=== PATIENT | male | born 1945 | race Caucasian/White ===

== ENCOUNTER → 2016-06-14 | Outpatient (CLI) | payer MEDICARE, OTHER | LOC: OD 14:55 | PROVIDERS: ATTEND Family Medicine | DX: M79.641 Pain in right hand (principal); M19.041 Primary osteoarthritis, right hand ==

== ENCOUNTER → 2016-06-27 | Outpatient (CLI) | payer MEDICARE, OTHER ==
[2016-06-27 08:07] LABS: ABSOLUTE EOSINOPHILS # (AUTO) 0.4 10^3/uL (0.0-0.6); ABSOLUTE LYMPHOCYTES (AUTO) 2.1 10^3/uL (0.5-4.7); ABSOLUTE MONOCYTES (AUTO) 0.8 10^3/uL (0.1-1.4); ABSOLUTE NEUT (AUTO) 4.6 10^3/uL (1.7-8.2); BASOPHILS % (AUTO) 0.6 % (0-2); EOSINOPHILS % (AUTO) 5.4 % (0-6); HEMATOCRIT 30.5 % (37.9-51.0); HEMOGLOBIN 10.3 g/dL (13.5-17.0); HGB HCT DIFFERENCE 0.4; MEAN CORPUSCULAR HEMOGLOBIN 29.6 pg (27.0-33.4); MEAN CORPUSCULAR HGB CONC 33.7 g/dL (32.0-36.0); MEAN CORPUSCULAR VOLUME 88 fl (80-97); MONOCYTES % (AUTO) 9.7 % (3-13); RED BLOOD COUNT 3.47 10^6/uL (4.35-5.55); RED CELL DISTRIBUTION WIDTH 13.2 % (11.5-14.0); SEGMENTED NEUTROPHILS % (AUTO) 58.3 % (42-78); WHITE BLOOD COUNT 7.9 10^3/uL (4.0-10.5)
[2016-06-27 08:10] LABS: APPEARANCE,URINE CLEAR; BILIRUBIN,URINE NEGATIVE (NEGATIVE); GLUCOSE, URINE NEGATIVE (NEGATIVE); KETONES,URINE NEGATIVE (NEGATIVE); LEUKOCYTE ESTERASE,URINE NEGATIVE (NEGATIVE); NITRITE,URINE NEGATIVE (NEGATIVE); PROTEIN,URINE NEGATIVE (NEGATIVE); URINE SPECIFIC GRAVITY 1.008; UROBILINOGEN,URINE NEGATIVE mg/dL (<2.0)
[2016-06-27 08:27] LABS: ALBUMIN 4.1 g/dL (3.5-5.0); ANION GAP 13 (5-19); BLOOD UREA NITROGEN 53 mg/dL (7-20); CALCIUM 10.2 mg/dL (8.4-10.2); CARBON DIOXIDE 29 mmol/L (22-30); CHLORIDE 107 mmol/L (98-107); CREATININE RESULT 2.91 mg/dL (0.52-1.25); GLUCOSE 82 mg/dL (75-110); PHOSPHORUS 4.8 mg/dL (2.5-4.5); POTASSIUM 4.5 mmol/L (3.6-5.0)
[2016-06-28 10:45] LABS: VITAMIN D 25-HYDROXY 33.5 ng/mL (30.0-100.0)
[2016-06-28 11:40] LABS: CREATININE URINE 48.4 mg/dL (Not Estab.); MICROALBUMIN URINE <3.0 ug/mL (Not Estab.)
== END ==
LOC: OD 07:05
PROVIDERS: ATTEND Internal Medicine Nephrology
DX: N18.4 Chronic kidney disease, stage 4 (severe) (principal); E11.21 Type 2 diabetes mellitus with diabetic nephropathy; D63.1 Anemia in chronic kidney disease
CPT/HCPCS: 36415; 80048; 81001; 82040; 82043; 82306; 82570; 83970; 84100; 85025

== ENCOUNTER → 2016-08-26 | Outpatient (CLI) | payer MEDICARE, OTHER ==
--- NOTE | 2016-08-26 08:08 | EKG REPORT ---
SEVERITY:- NORMAL ECG - SINUS RHYTHM NONSPECIFIC ST-T CHANGES- INFERIOR LEADS : Confirmed by: Lui Velasquez MD 26-Aug-2016 08:07:53
[2016-08-26 08:12] LABS: ABSOLUTE BASOPHILS # (AUTO) 0.1 10^3/uL (0.0-0.2); ABSOLUTE EOSINOPHILS # (AUTO) 0.4 10^3/uL (0.0-0.6); ABSOLUTE LYMPHOCYTES (AUTO) 2.6 10^3/uL (0.5-4.7); ABSOLUTE NEUT (AUTO) 5.4 10^3/uL (1.7-8.2); BASOPHILS % (AUTO) 0.8 % (0-2); EOSINOPHILS % (AUTO) 4.4 % (0-6); HEMATOCRIT 33.1 % (37.9-51.0); HEMOGLOBIN 11.2 g/dL (13.5-17.0); HGB HCT DIFFERENCE 0.5; LYMPHOCYTES % (AUTO) 27.5 % (13-45); MEAN CORPUSCULAR HEMOGLOBIN 29.6 pg (27.0-33.4); MEAN CORPUSCULAR HGB CONC 33.8 g/dL (32.0-36.0); MEAN CORPUSCULAR VOLUME 88 fl (80-97); MONOCYTES % (AUTO) 10.3 % (3-13); RED BLOOD COUNT 3.78 10^6/uL (4.35-5.55); RED CELL DISTRIBUTION WIDTH 14.2 % (11.5-14.0); WHITE BLOOD COUNT 9.5 10^3/uL (4.0-10.5)
[2016-08-26 08:23] LABS: PROTHROMBIN TIME 12.7 SEC (11.4-15.4)
[2016-08-26 08:24] LABS: PARTIAL THROMBOPLASTIN TIME 28.2 SEC (23.5-35.8)
[2016-08-26 08:34] LABS: ANION GAP 16 (5-19); BLOOD UREA NITROGEN 73 mg/dL (7-20); CALCIUM 10.1 mg/dL (8.4-10.2); CARBON DIOXIDE 27 mmol/L (22-30); CHLORIDE 104 mmol/L (98-107); CREATININE RESULT 3.05 mg/dL (0.52-1.25); GLUCOSE 191 mg/dL (75-110); POTASSIUM 4.7 mmol/L (3.6-5.0); SODIUM 146.8 mmol/L (137-145)
[2016-08-26 08:37] LABS: APPEARANCE,URINE CLEAR; BILIRUBIN,URINE NEGATIVE (NEGATIVE); GLUCOSE, URINE NEGATIVE (NEGATIVE); KETONES,URINE NEGATIVE (NEGATIVE); LEUKOCYTE ESTERASE,URINE NEGATIVE (NEGATIVE); NITRITE,URINE NEGATIVE (NEGATIVE); PROTEIN,URINE NEGATIVE (NEGATIVE); URINE SPECIFIC GRAVITY 1.009; UROBILINOGEN,URINE NEGATIVE mg/dL (<2.0)
== END ==
LOC: OD 07:14
PROVIDERS: ATTEND Orthopaedic Surgery
DX: Z01.818 Encounter for other preprocedural examination (principal); Z01.810 Encounter for preprocedural cardiovascular examination; Z01.812 Encounter for preprocedural laboratory examination
CPT/HCPCS: 36415; 71020; 80048; 81001; 83036; 85025; 85610; 85730; 93005; 93010

== ENCOUNTER 2016-10-07 05:20 | Inpatient (IN) | payer MEDICARE, OTHER ==
[2016-09-26 13:35] LABS: APPEARANCE,URINE CLEAR; BILIRUBIN,URINE NEGATIVE (NEGATIVE); GLUCOSE, URINE 50 mg/dL (NEGATIVE); KETONES,URINE NEGATIVE (NEGATIVE); LEUKOCYTE ESTERASE,URINE NEGATIVE (NEGATIVE); NITRITE,URINE NEGATIVE (NEGATIVE); PROTEIN,URINE NEGATIVE (NEGATIVE); URINE SPECIFIC GRAVITY 1.005; UROBILINOGEN,URINE NEGATIVE mg/dL (<2.0)
[~2016-10-07 05:20] MED LIST: BUPIVACAINE INJ/PF LIPOSOME/PF 266 MG/20 ML SDV IJ PRN; CEFAZOLIN INJ 1 GM VIAL ONE; IBUPROFEN 800 MG/NS 250 ML IV PRN; LACTATED RINGERS 1000 ML IV PRN; LANSOPRAZOLE 15 MG TAB.RAP.DR PO PRN; LIDOCAINE 0.5% INJ-PF (5 MG/ML) 50 ML SDV SUBCUT PRN; OXYCODONE HCL SR 10 MG TABLET PO PRN; SCOPOLAMINE HYDROBROMIDE 1.5 MG PATCH.TD72 TOP PRN; VANCOMYCIN HCL 1,000 MG in DEXTROSE 5%-WATER 250 ML IV PRN
[2016-10-07] MEDS ORDERED: THROMBIN (BOVINE) TOPICAL 20000 UNIT VIAL ONE (06:47)
[2016-10-07] MEDS ORDERED: BUPIVACAINE INJ/PF LIPOSOME/PF 266 MG/20 ML SDV ONE (06:48)
[2016-10-07] MEDS ORDERED: THROMBIN (BOVINE) 5000 UNIT EPITAXIS KIT ONE (06:48)
[2016-10-07] MEDS ORDERED: MIDAZOLAM 2 MG/2 ML INJ ONE (07:05)
[2016-10-07] MEDS ORDERED: FENTANYL CITRATE INJ/PF 100 MCG/2 ML AMPUL ONE (07:05)
[2016-10-07] MEDS ORDERED: TRANEXAMIC ACID INJ/PF 1,000 MG/10 ML SDV IV ONE (07:06)
[2016-10-07] MEDS ORDERED: PROPOFOL INJ 200 MG/20 ML VIAL IV ONE (07:06)
[2016-10-07] MEDS ORDERED: MEPERIDINE HCL/PF INJ 25 MG/1 ML DISP.SYRIN IV PRN (08:01)
[2016-10-07] MEDS ORDERED: PROMETHAZINE HCL INJ 25 MG/1 ML VIAL IV PRN ×2 (08:01)
[2016-10-07] MEDS ORDERED: FENTANYL CITRATE INJ/PF 100 MCG/2 ML AMPUL IV PRN ×2 (08:01)
[2016-10-07] MEDS ORDERED: ONDANSETRON HCL INJ/PF 4 MG/2 ML SDV IV PRN ×2 (08:01→08:40)
[2016-10-07] MEDS ORDERED: DIPHENHYDRAMINE HCL 50 MG/ML VIAL IV PRN ×2 (08:01→08:40)
[2016-10-07] MEDS ORDERED: MORPHINE SULFATE 10 MG/ML INJ IV PRN ×3 (08:01→08:40)
[2016-10-07] MEDS ORDERED: NITROGLYCERIN 0.4 MG/TAB 25 TAB/BOTTLE SL PRN (08:38)
[2016-10-07] MEDS ORDERED: (PENDING PHARMACY ID) (Zolpidem Tartrate [Ambien 10 Mg Tablet] 10 MG) PO PRN (08:38)
[2016-10-07] MEDS ORDERED: MORPHINE SULFATE 10 MG/ML INJ IM PRN (08:40)
[2016-10-07] MEDS ORDERED: MAG HYDROX/AL HYDROX/SIMETH SUSP 30 ML UDCUP PO PRN (08:40)
[2016-10-07] MEDS ORDERED: ZOLPIDEM TARTRATE 5 MG TABLET PO PRN (08:40)
[2016-10-07] MEDS ORDERED: RINGERS SOLUTION,LACTATED 1,000 ML IV PRN (08:40)
[2016-10-07] MEDS ORDERED: ONDANSETRON 4 MG TAB.RAPDIS PO PRN (08:40)
[2016-10-07] MEDS ORDERED: [UNRECOGNIZED DRUG - OTHER] PO SCH (08:45)
[2016-10-07] MEDS ORDERED: SODIUM POLYSTYRENE SULFONATE PO SCH (08:45)
[2016-10-07] MEDS ORDERED: SORBITOL PO SCH (08:45)
--- NOTE | 2016-10-07 08:46 | Operative Report ---
Operative Report DATE OF SURGERY: 10/07/16 PREOPERATIVE DIAGNOSIS: Knee arthritis OPERATION: Left knee arthroplasty SURGEON: NALDO SKINNER ANESTHESIA: Spinal TISSUE REMOVED OR ALTERED: Bone to pathology ESTIMATED BLOOD LOSS: .100 PROCEDURE: Implants used: Femur: Triathlon #5 CR femur Tibia: 4 to Tibial liner: 11 millimeters CS insert Patella: 32 mm oval patella Procedure with the patient supine on the operating table the left the limb is prepped and draped in a sterile fashion. The limb was elevated for exsanguination and the tourniquet inflated to 280 torr. A standard midline median parapatellar approach the knee is taken. Access is gained to the femoral canal through the intercondylar notch. Intramedullary alignment instrumentation used to resect 10 mm of distal femur in 5 of valgus. Sizing guide indicated a size 5 femur. Appropriate cutting jig is then used to fashion anterior posterior and chamfer cuts. A trial reduction femurs performed and this is judged to be adequate. Attention was next turned to the tibia. Using an extra medullary alignment system 9 millimeters was resected off the lateral tibial plateau. This is sized to a size or tibia. A trial reduction was now performed with a 5 femur and a 4 tibia using a 11 millimeters spacer. It is full extension and central patellofemoral tracking. The articular surface the patella was next resected using an oscillating saw. All trial implants were removed. Polymethylmethacrylate is mixed and used to cement the above implants in place. On adequate curing the cement excess cement was removed the tourniquet was deflated hemostasis obtained the wound is then closed in layers using interrupted Vicryl followed by ashly. A sterile compressive dressing was applied and the patient returned to recovery room in satisfactory condition.
--- NOTE | 2016-10-07 09:27 | RADIOLOGY REPORT (SQ) ---
EXAM DESCRIPTION: KNEE LEFT 2 VIEWS COMPLETED DATE/TIME: 10/07/2016 9:14 am REASON FOR STUDY: Post OP -Long Cassette in PACU M17.12 UNILATERAL PRIMARY OSTEOARTHRITIS, LEFT KNE E COMPARISON: None. NUMBER OF VIEWS: 2 view(s). TECHNIQUE: Digital radiographic images of the left knee post-procedure. LIMITATIONS: None. FINDINGS: BONES: No worrisome or unexpected findings post-procedure. DEVICE: Patient is status post left total knee replacement. The prosthesis appears well seated in th e distal femur and proximal tibia in the projections obtained. SOFT TISSUES: No worrisome findings. Expected postoperative soft tissue changes. IMPRESSION: SATISFACTORY POSTOPERATIVE LEFT KNEE. TECHNICAL DOCUMENTATION: JOB ID: [id number] [employer]- All Rights Reserved
[2016-10-07] MEDS ORDERED: CALCITRIOL 0.25 MCG CAPSULE PO SCH (10:00)
[2016-10-07] MEDS ORDERED: MULTIVITAMIN TABLET PO SCH (10:00)
[2016-10-07] MEDS ORDERED: (PENDING PHARMACY ID) (Buspirone Hcl [Buspar 15 Mg Tablet] 7.5 MG) PO SCH (10:00)
[2016-10-07] MEDS ORDERED: DEXTROSE 50%-WATER SYRINGE 12.5 GM/25 ML DOSE IV PRN (10:06)
[2016-10-07] MEDS ORDERED: GLUCAGON,HUMAN RECOMB 1 MG INJ IM PRN (10:06)
[2016-10-07] MEDS ORDERED: DEXTROSE 50%-WATER SYRINGE 25 GM/50 ML DOSE IV PRN (10:06)
[2016-10-07] MEDS ORDERED: DEXTROSE 40% GEL 15 GM TUBE X 2 PO PRN (10:06)
[2016-10-07] MEDS ORDERED: DEXTROSE 40% GEL 15 GM TUBE PO PRN (10:06)
[2016-10-07] MEDS ORDERED: TRANEXAMIC ACID INJ/PF 1,000 MG/10 ML SDV IV PRN (10:30)
[2016-10-07] MEDS ORDERED: LIDOCAINE 2% INJ-PF (20 MG/ML) 10 ML AMPUL INJ ONE (11:27)
[2016-10-07] MEDS: SITAGLIPTIN PHOSPHATE 50 MG TABLET PO SCH (11:31)
[2016-10-07] MEDS: CARVEDILOL 12.5 MG TABLET PO SCH ×2 (11:33→22:10)
[2016-10-07] MEDS: MORPHINE SULFATE 10 MG/ML INJ IV PRN ×2 (12:21→20:35)
[2016-10-07] MEDS: IBUPROFEN 800 MG in NORMAL SALINE 250 ML IV SCH ×2 (13:47→22:23)
[2016-10-07] MEDS: INSULIN DETEMIR 100 UNIT/ML 3 ML PEN SUBCUT SCH ×2 (14:31→22:10)
[2016-10-07] MEDS: BUSPIRONE HCL 10 MG TABLET PO SCH ×2 (14:32→22:12)
[2016-10-07] MEDS: ACETAMINOPHEN 325 MG TABLET PO PRN ×2 (14:37→22:13)
[2016-10-07] MEDS: OXYCODONE HCL IR 5 MG TABLET PO PRN ×2 (16:10→22:12)
[2016-10-07] MEDS: SENNOSIDES/DOCUSATE 8.6-50 MG 1 EACH TABLET PO SCH (17:22)
[2016-10-07] MEDS: AMLODIPINE BESYLATE 10 MG TABLET PO SCH (17:22)
[2016-10-07] MEDS: ALLOPURINOL 100 MG TABLET PO SCH (17:22)
[2016-10-07] MEDS: ISOSORBIDE MONONITRATE 30 MG TAB.ER.24H PO SCH (17:22)
[2016-10-07] MEDS: FERROUS SULFATE 325 MG TABLET PO SCH (17:22)
[2016-10-07] MEDS: FUROSEMIDE 40 MG TABLET PO SCH (17:23)
[2016-10-07] MEDS: OXYCODONE HCL SR 10 MG TABLET PO SCH (17:23)
[2016-10-07] MEDS: FENOFIBRATE NANOCRYSTALLIZED 48 MG TABLET PO SCH (17:25)
[2016-10-07] MEDS ORDERED: VANCOMYCIN HCL 1,000 MG in DEXTROSE 5%-WATER 250 ML IV ONE (21:00)
[2016-10-07] MEDS: LATANOPROST 0.005% OPH SOLN 2.5 ML OU SCH (22:08)
[2016-10-07] MEDS: INSULIN LISPRO 100 UNIT/ML 3 ML VIAL SUBCUT PRN (22:09)
[2016-10-07] MEDS: BRIMONIDINE TARTRATE 0.2% OPH SOLN 5 ML OU SCH (22:09)
[2016-10-07] MEDS: TIMOLOL MALEATE 0.5% OPH SOLN 5 ML OU SCH (22:10)
[2016-10-07] MEDS: ATORVASTATIN CALCIUM 20 MG TABLET PO SCH (22:11)
[2016-10-07] MEDS: GABAPENTIN 300 MG CAPSULE PO SCH (22:11)
[2016-10-07] MEDS: RIVAROXABAN 10 MG TABLET PO SCH (22:11)
[2016-10-07] MEDS: CHLORZOXAZONE 500 MG TABLET PO PRN (22:12)
[2016-10-07] MEDS: CLONIDINE HCL 0.2 MG TABLET PO SCH (22:12)
[2016-10-08] MEDS: IBUPROFEN 800 MG in NORMAL SALINE 250 ML IV SCH ×3 (06:20→21:35)
[2016-10-08 06:25] LABS: HEMATOCRIT 30.9 % (37.9-51.0); HEMOGLOBIN 10.3 g/dL (13.5-17.0); MEAN CORPUSCULAR HEMOGLOBIN 29.2 pg (27.0-33.4); MEAN CORPUSCULAR HGB CONC 33.3 g/dL (32.0-36.0); MEAN CORPUSCULAR VOLUME 88 fl (80-97); RED BLOOD COUNT 3.51 10^6/uL (4.35-5.55); RED CELL DISTRIBUTION WIDTH 14.1 % (11.5-14.0); WHITE BLOOD COUNT 16.6 10^3/uL (4.0-10.5)
[2016-10-08] MEDS: LANSOPRAZOLE 30 MG TAB.RAP.DR PO SCH (06:25)
[2016-10-08] MEDS: OXYCODONE HCL SR 10 MG TABLET PO SCH ×2 (06:25→17:47)
[2016-10-08] MEDS: OXYCODONE HCL IR 5 MG TABLET PO PRN ×2 (06:26→13:28)
[2016-10-08] MEDS: BUSPIRONE HCL 10 MG TABLET PO SCH ×3 (06:26→21:33)
[2016-10-08 06:46] LABS: ANION GAP 14 (5-19); BLOOD UREA NITROGEN 59 mg/dL (7-20); CALCIUM 9.8 mg/dL (8.4-10.2); CARBON DIOXIDE 29 mmol/L (22-30); CHLORIDE 101 mmol/L (98-107); CREATININE RESULT 2.73 mg/dL (0.52-1.25); GLUCOSE 118 mg/dL (75-110); POTASSIUM 4.3 mmol/L (3.6-5.0); SODIUM 143.7 mmol/L (137-145)
[2016-10-08] MEDS ORDERED: (PENDING PHARMACY ID) (Irbesartan [Avapro] 150 MG) PO SCH (08:00)
[2016-10-08] MEDS ORDERED: MORPHINE SULFATE 10 MG/ML INJ IV PRN (08:29)
[2016-10-08] MEDS: MORPHINE SULFATE 10 MG/ML INJ IV PRN (08:48)
[2016-10-08] MEDS: CLONIDINE HCL 0.2 MG TABLET PO SCH ×2 (09:36→21:30)
[2016-10-08] MEDS: PRENATAL VITAMIN W-O CA NO5/FE FUMARATE/FA CAPSULE PO SCH (09:36)
[2016-10-08] MEDS: LOSARTAN POTASSIUM 50 MG TABLET PO SCH (09:36)
[2016-10-08] MEDS: CARVEDILOL 12.5 MG TABLET PO SCH ×2 (09:37→21:30)
[2016-10-08] MEDS: GABAPENTIN 300 MG CAPSULE PO SCH ×2 (09:37→21:30)
[2016-10-08] MEDS: COLCHICINE 0.6 MG TABLET PO SCH (09:37)
[2016-10-08] MEDS: INSULIN DETEMIR 100 UNIT/ML 3 ML PEN SUBCUT SCH ×2 (09:37→21:35)
[2016-10-08] MEDS: SENNOSIDES/DOCUSATE 8.6-50 MG 1 EACH TABLET PO SCH ×2 (09:37→17:45)
[2016-10-08] MEDS: FUROSEMIDE 40 MG TABLET PO SCH ×2 (09:37→17:45)
[2016-10-08] MEDS: BRIMONIDINE TARTRATE 0.2% OPH SOLN 5 ML OU SCH ×2 (09:38→21:33)
[2016-10-08] MEDS: TIMOLOL MALEATE 0.5% OPH SOLN 5 ML OU SCH ×2 (09:40→21:33)
[2016-10-08] MEDS: FERROUS SULFATE 325 MG TABLET PO SCH (17:45)
[2016-10-08] MEDS: AMLODIPINE BESYLATE 10 MG TABLET PO SCH (17:45)
[2016-10-08] MEDS: ISOSORBIDE MONONITRATE 30 MG TAB.ER.24H PO SCH (17:45)
[2016-10-08] MEDS: ALLOPURINOL 100 MG TABLET PO SCH (17:45)
[2016-10-08] MEDS: FENOFIBRATE NANOCRYSTALLIZED 48 MG TABLET PO SCH (21:19)
[2016-10-08] MEDS: RIVAROXABAN 10 MG TABLET PO SCH (21:30)
[2016-10-08] MEDS: ATORVASTATIN CALCIUM 20 MG TABLET PO SCH (21:30)
[2016-10-08] MEDS: LATANOPROST 0.005% OPH SOLN 2.5 ML OU SCH (21:33)
[2016-10-08] MEDS: INSULIN LISPRO 100 UNIT/ML 3 ML VIAL SUBCUT PRN (21:33)
[2016-10-08] MEDS: CHLORZOXAZONE 500 MG TABLET PO PRN (21:33)
[2016-10-09] MEDS: IBUPROFEN 800 MG in NORMAL SALINE 250 ML IV SCH (05:27)
[2016-10-09] MEDS: ACETAMINOPHEN 325 MG TABLET PO PRN ×3 (05:49→15:54)
[2016-10-09] MEDS: LANSOPRAZOLE 30 MG TAB.RAP.DR PO SCH (05:49)
[2016-10-09] MEDS: BUSPIRONE HCL 10 MG TABLET PO SCH ×3 (05:49→23:01)
[2016-10-09] MEDS: OXYCODONE HCL SR 10 MG TABLET PO SCH (05:50)
[2016-10-09 06:02] LABS: HEMATOCRIT 27.9 % (37.9-51.0); HEMOGLOBIN 9.1 g/dL (13.5-17.0); HGB HCT DIFFERENCE -0.6; MEAN CORPUSCULAR HEMOGLOBIN 29.2 pg (27.0-33.4); MEAN CORPUSCULAR HGB CONC 32.6 g/dL (32.0-36.0); MEAN CORPUSCULAR VOLUME 90 fl (80-97); RED BLOOD COUNT 3.12 10^6/uL (4.35-5.55); RED CELL DISTRIBUTION WIDTH 14.2 % (11.5-14.0); WHITE BLOOD COUNT 17.5 10^3/uL (4.0-10.5)
[2016-10-09] MEDS ORDERED: HYDROCODONE/ACETAMINOPHEN 5-325 MG TABLET PO PRN (07:44)
--- NOTE | 2016-10-09 07:48 | PDOC PROGRESS REPORT ---
Subjective Progress Note for:: 10/09/16 Subjective:: Patient complaining of pain Physical Exam Vital Signs: Temp Pulse Resp BP Pulse Ox 38.3 C H 78 20 117/54 L 93 10/09/16 04:00 10/09/16 04:00 10/09/16 04:00 10/09/16 04:00 10/09/16 04:00 Intake & Output 10/08/16 10/09/16 10/10/16 06:59 06:59 06:59 Intake Total 3768 2295 Output Total 3550 425 Balance 218 1870 Weight 101.5 kg General appearance: PRESENT: no acute distress Head exam: PRESENT: normocephalic Eye exam: PRESENT: EOMI Respiratory exam: PRESENT: unlabored Cardiovascular exam: PRESENT: RRR Pulses: PRESENT: +1 pedal pulses bilateral Vascular exam: PRESENT: normal capillary refill GI/Abdominal exam: PRESENT: soft Rectal exam: PRESENT: deferred - Left knee picot dressing with small amounts of drainage that appear old. There is minimal surrounding erythema or induration. Neurovascular examination is intact. Psychiatric exam: PRESENT: appropriate affect, normal mood. ABSENT: homicidal ideation, suicidal ideation Skin exam: PRESENT: dry, intact, warm. ABSENT: cyanosis, rash Results Laboratory Results: 10/09/16 05:20 10/08/16 05:37 10/09/16 05:20 WBC 17.5 H RBC 3.12 L Hgb 9.1 L Hct 27.9 L MCV 90 MCH 29.2 MCHC 32.6 RDW 14.2 H Plt Count 271 Impressions: Knee X-Ray 10/07/16 08:41 IMPRESSION: SATISFACTORY POSTOPERATIVE LEFT KNEE. Status: Imported from PACS Assessment & Plan - Diagnosis (1) Arthritis of knee, left Is this a current diagnosis for this admission?: YesPlan: 71-year-old white male postop day 2 status post left knee arthroplasty. Yesterday there was oversedation from narcotics. This led to limited progress with physical therapy. The patient's narcotics have been held overnight and now is complaining of pain this morning. Of note he is also had a fever to 38.3 and his white count has increased to 17.5. This does not appear to be related to his knee wound at this point. Going to readjust his analgesic regimen and resume physical therapy today. - Time Time Spent with patient: 15-24 minutes Anticipated discharge: Home with Homehealth
[2016-10-09] MEDS: CARVEDILOL 12.5 MG TABLET PO SCH ×2 (11:22→23:02)
[2016-10-09] MEDS: CLONIDINE HCL 0.2 MG TABLET PO SCH ×2 (11:22→23:02)
[2016-10-09] MEDS: PRENATAL VITAMIN W-O CA NO5/FE FUMARATE/FA CAPSULE PO SCH (11:22)
[2016-10-09] MEDS: COLCHICINE 0.6 MG TABLET PO SCH (11:22)
[2016-10-09] MEDS: GABAPENTIN 300 MG CAPSULE PO SCH ×2 (11:22→23:02)
[2016-10-09] MEDS: LOSARTAN POTASSIUM 50 MG TABLET PO SCH (11:23)
[2016-10-09] MEDS: SITAGLIPTIN PHOSPHATE 50 MG TABLET PO SCH (11:23)
[2016-10-09] MEDS: SENNOSIDES/DOCUSATE 8.6-50 MG 1 EACH TABLET PO SCH ×2 (11:23→17:28)
[2016-10-09] MEDS: FUROSEMIDE 40 MG TABLET PO SCH ×2 (11:23→17:28)
[2016-10-09] MEDS: BRIMONIDINE TARTRATE 0.2% OPH SOLN 5 ML OU SCH ×2 (11:24→23:04)
[2016-10-09] MEDS: TIMOLOL MALEATE 0.5% OPH SOLN 5 ML OU SCH ×2 (11:24→23:01)
[2016-10-09] MEDS: INSULIN DETEMIR 100 UNIT/ML 3 ML PEN SUBCUT SCH ×2 (11:24→23:03)
[2016-10-09] MEDS: INSULIN LISPRO 100 UNIT/ML 3 ML VIAL SUBCUT PRN ×2 (16:23→23:03)
[2016-10-09] MEDS: ISOSORBIDE MONONITRATE 30 MG TAB.ER.24H PO SCH (17:27)
[2016-10-09] MEDS: FERROUS SULFATE 325 MG TABLET PO SCH (17:28)
[2016-10-09] MEDS: ALLOPURINOL 100 MG TABLET PO SCH (17:28)
[2016-10-09] MEDS: FENOFIBRATE NANOCRYSTALLIZED 48 MG TABLET PO SCH (17:28)
[2016-10-09] MEDS: AMLODIPINE BESYLATE 10 MG TABLET PO SCH (18:50)
[2016-10-09] MEDS: LATANOPROST 0.005% OPH SOLN 2.5 ML OU SCH (23:00)
[2016-10-09] MEDS: ATORVASTATIN CALCIUM 20 MG TABLET PO SCH (23:01)
[2016-10-09] MEDS: RIVAROXABAN 10 MG TABLET PO SCH (23:02)
[2016-10-10] MEDS: BUSPIRONE HCL 10 MG TABLET PO SCH ×2 (05:26→15:37)
[2016-10-10] MEDS: LANSOPRAZOLE 30 MG TAB.RAP.DR PO SCH (05:27)
[2016-10-10 06:49] LABS: HEMATOCRIT 25.8 % (37.9-51.0); HEMOGLOBIN 8.6 g/dL (13.5-17.0); MEAN CORPUSCULAR HGB CONC 33.3 g/dL (32.0-36.0); MEAN CORPUSCULAR VOLUME 87 fl (80-97); RED BLOOD COUNT 2.95 10^6/uL (4.35-5.55); RED CELL DISTRIBUTION WIDTH 14.1 % (11.5-14.0)
--- NOTE | 2016-10-10 07:03 | PDOC TRANSFER SUMMARY ---
General - Admit/Disc Date/PCP Admission Date/Primary Care Provider: 10/07/16 05:20 YESSY DELA CRUZ MD Discharge Date: 10/10/16 - Discharge Diagnosis (1) Arthritis of knee, left Is this a current diagnosis for this admission?: Yes - Additional Information Resuscitation Status: Full Code Discharge Diet: As Tolerated, Regular Discharge Activity: Balance Activity w/Rest, No Driving, No tub bath Home Medications: Furosemide [Lasix 40 mg Tablet] 40 mg PO BID 07/04/11 Latanoprost [Xalatan 0.005% Oph Soln 2.5 ml] 1 drop OU QHS 07/04/11 Zolpidem Tartrate [Ambien 10 mg Tablet] 10 mg PO QHS PRN 07/04/11 Buspirone HCl [Buspar 15 mg Tablet] 7.5 mg PO BID 10/19/12 Insulin Detemir [Levemir Insulin 100 units/mL] 80 unit SUBCUT Q12 10/19/12 Amlodipine Besylate [Norvasc 10 mg Tablet] 10 mg PO QPM 11/24/12 Aspirin [Aspirin 325 mg Tablet] 325 mg PO DAILY 11/24/12 Carvedilol [Coreg 6.25 mg Tablet] 12.5 mg PO Q12 11/24/12 Chlorzoxazone [Parafon Forte Dsc 500 mg Tablet] 500 mg PO Q8 PRN 11/24/12 Gabapentin [Neurontin 300 mg Capsule] 300 mg PO BID 11/24/12 Multivitamin [Multi-Vitamin Daily] 1 tab PO DAILY 11/24/12 Budesonide/Formoterol Fumarate [Symbicort HFA 160-4.5 mcg Inhaler 6 gm] 1 puff PO BID 10/13/13 Insulin Aspart [Novolog Insulin (Aspart) 100 unit/mL] 6 - 8 units SQ TIDP PRN Irbesartan [Avapro] 150 mg PO QAM 10/13/13 Brimonidine Tartrate/Timolol [Combigan 0.2%-0.5% Eye Drops] 1 drop OU Q12 Clonidine HCl [Catapres] 0.2 mg PO Q12 08/01/14 Fenofibrate Nanocrystallized [Fenofibrate] 48 mg PO QPM 08/01/14 Ferrous Sulfate [Feosol] 325 mg PO QPM 08/01/14 Sitagliptin Phosphate [Januvia 50 mg Tablet] 100 mg PO ASDIR PRN 08/01/14 Atorvastatin Calcium [Lipitor] 20 mg PO QAM 08/02/14 Calcitriol 0.25 mcg PO MOFR 08/02/14 Colchicine [Colchicine 0.6 mg Tablet] 0.6 mg PO QAM 08/02/14 Isosorbide Mononitrate [Isosorbide Mononitrate ER] 30 mg PO QPM 08/02/14 Nitroglycerin 0.4 mg SL PRN PRN 08/02/14 Pantoprazole Sodium [Protonix] 40 mg PO QAM 08/02/14 Sodium Polystyrene Sulfon/Sorb [Kionex 15 gm/60 ml Suspension] 30 gm PO Q7D 11/09 Allopurinol [Zyloprim 100 mg Tablet] 100 mg PO QPM 09/25/16 Fluticasone Propionate [Flonase Nasal Mascot 50 Mcg/Mascot 16 gm] 1 spray NASL QPM 09/25/16 Hydrocodone/Acetaminophen [[place] 5-325 mg Tablet] 1 tab PO Q6HP PRN #0 tablet Rivaroxaban [Xarelto 10 mg Tablet] 10 mg PO QHS #0 tablet 10/10/16 History of Present Illness Admission Date/PCP: 10/07/16 05:20 YESSY DELA CRUZ MD History of Present Illness: ADELE DC JR is a 71 year old male progressive left knee pain and functional disability secondary to osteoarthritis Hospital Course Hospital Course: Is admitted to the operating room where he undergoes uncomplicated left knee arthroplasty. He is returned to the floor in satisfactory condition. He seen by physical therapy begin to make progress but has some alteration of mental status presumed secondary to overmedication. Narcotic medication is readjusted and patient is more interactive with physical therapy makes progress. Dressing is changed to the left lower extremity today. Wound is clean dry and intact. Physical Exam Vital Signs: Temp Pulse Resp BP Pulse Ox 37.6 C 81 18 136/56 H 88 L 10/09/16 23:20 10/09/16 23:20 10/09/16 23:20 10/09/16 23:20 10/09/16 23:20 Intake & Output 10/09/16 10/10/16 10/11/16 06:59 06:59 06:59 Intake Total 2295 1045 Output Total 425 850 Balance 1870 195 Weight 101.5 kg 100.9 kg General appearance: PRESENT: no acute distress Head exam: PRESENT: normocephalic Respiratory exam: PRESENT: unlabored Cardiovascular exam: PRESENT: RRR Pulses: PRESENT: +1 pedal pulses bilateral GI/Abdominal exam: PRESENT: soft Rectal exam: PRESENT: deferred Musculoskeletal exam: PRESENT: other - Left lower extremity picot dressing is changed today. The wound is clean dry and intact. Neurological exam: PRESENT: alert, awake, oriented to person, oriented to place , oriented to time, oriented to situation. ABSENT: motor sensory deficit Psychiatric exam: PRESENT: appropriate affect, normal mood. ABSENT: homicidal ideation, suicidal ideation Skin exam: PRESENT: dry, intact, warm. ABSENT: cyanosis, rash Results Laboratory Results: 10/10/16 06:16 10/08/16 05:37 10/10/16 06:16 WBC 14.0 H RBC 2.95 L Hgb 8.6 L Hct 25.8 L MCV 87 MCH 29.0 MCHC 33.3 RDW 14.1 H Plt Count 239 Impressions: Knee X-Ray 10/07/16 08:41 IMPRESSION: SATISFACTORY POSTOPERATIVE LEFT KNEE. Status: Imported from PACS Transfer Plan - Disposition Transfer Plan: Be transferred to a [facility] facility for ongoing postoperative rehabilitation including range of motion and strengthening of the left lower extremity as well as weightbearing as tolerated ambulation. The left knee picot dressing can be changed on postop day 7 and replaced with a standard OpSite dressing. Follow-up will be with Dr. Anderson in the [facility] for surgery in approximately 2 weeks for staple removal.
[2016-10-10] MEDS: INSULIN DETEMIR 100 UNIT/ML 3 ML PEN SUBCUT SCH (09:26)
[2016-10-10] MEDS: TIMOLOL MALEATE 0.5% OPH SOLN 5 ML OU SCH (09:27)
[2016-10-10] MEDS: PRENATAL VITAMIN W-O CA NO5/FE FUMARATE/FA CAPSULE PO SCH (09:28)
[2016-10-10] MEDS: FUROSEMIDE 40 MG TABLET PO SCH (09:28)
[2016-10-10] MEDS: COLCHICINE 0.6 MG TABLET PO SCH (09:30)
[2016-10-10] MEDS: CARVEDILOL 12.5 MG TABLET PO SCH (09:30)
[2016-10-10] MEDS: CLONIDINE HCL 0.2 MG TABLET PO SCH (09:30)
[2016-10-10] MEDS: SENNOSIDES/DOCUSATE 8.6-50 MG 1 EACH TABLET PO SCH (09:30)
[2016-10-10] MEDS: LOSARTAN POTASSIUM 50 MG TABLET PO SCH (09:31)
[2016-10-10] MEDS: GABAPENTIN 300 MG CAPSULE PO SCH (09:31)
[2016-10-10] MEDS: BRIMONIDINE TARTRATE 0.2% OPH SOLN 5 ML OU SCH (09:31)
[2016-10-10 13:48] VITALS: BP 136/59
[2016-10-12] MEDS ORDERED: SODIUM POLYSTYRENE SULFONATE 15 GM/60 ML PO SCH (10:00)
== END 2016-10-10 17:02 | DRG 470 ==
LOC: INOR 05:20 → 4S 10:15
PROVIDERS: ADMIT Orthopaedic Surgery; ATTEND Orthopaedic Surgery
PROC: 0SRD0J9 Replacement of Left Knee Joint with Synthetic Substitute, Cemented, Open Approach (ICD-10-PCS; principal; 2016-10-07 07:30)
DX: M17.12 Unilateral primary osteoarthritis, left knee (principal); N18.4 Chronic kidney disease, stage 4 (severe); I25.10 Atherosclerotic heart disease of native coronary artery without angina pectoris; K21.9 Gastro-esophageal reflux disease without esophagitis; I12.9 Hypertensive chronic kidney disease with stage 1 through stage 4 chronic kidney disease, or unspecified chronic kidney disease; E11.22 Type 2 diabetes mellitus with diabetic chronic kidney disease; G47.30 Sleep apnea, unspecified; E78.00 Pure hypercholesterolemia, unspecified; Z90.49 Acquired absence of other specified parts of digestive tract; Z83.3 Family history of diabetes mellitus; Z82.3 Family history of stroke; Z80.1 Family history of malignant neoplasm of trachea, bronchus and lung; Z79.899 Other long term (current) drug therapy; Z79.4 Long term (current) use of insulin
CPT/HCPCS: 01402; 36415; 80048; 81001; 82962; 84132; 85027; 88304; 88311; 94799; C9290; G8978-GP; G8979-GP; G8987-GO; G8988-GO; J0690; J1741; J1815; J2250; J2270; J2704; J3010; J3370; J3490; J7050; J7060; S0119

== ENCOUNTER 2017-02-01 10:56 | Inpatient (IN) | payer MEDICARE, OTHER ==
[2017-02-01] MEDS ORDERED: NORMAL SALINE 1000 ML 1,000 ML IV ONE (11:11)
[2017-02-01 11:26] LABS: ABSOLUTE BASOPHILS # (AUTO) 0.1 10^3/uL (0.0-0.2); ABSOLUTE EOSINOPHILS # (AUTO) 0.2 10^3/uL (0.0-0.6); ABSOLUTE NEUT (AUTO) 8.7 10^3/uL (1.7-8.2); BASOPHILS % (AUTO) 0.6 % (0-2); EOSINOPHILS % (AUTO) 1.6 % (0-6); HEMATOCRIT 28.7 % (37.9-51.0); HEMOGLOBIN 9.9 g/dL (13.5-17.0); LYMPHOCYTES % (AUTO) 16.4 % (13-45); MEAN CORPUSCULAR HEMOGLOBIN 30.6 pg (27.0-33.4); MEAN CORPUSCULAR HGB CONC 34.3 g/dL (32.0-36.0); MEAN CORPUSCULAR VOLUME 89 fl (80-97); MONOCYTES % (AUTO) 8.6 % (3-13); RED BLOOD COUNT 3.22 10^6/uL (4.35-5.55); RED CELL DISTRIBUTION WIDTH 14.5 % (11.5-14.0); SEGMENTED NEUTROPHILS % (AUTO) 72.8 % (42-78); WHITE BLOOD COUNT 11.9 10^3/uL (4.0-10.5)
--- NOTE | 2017-02-01 11:41 | RADIOLOGY REPORT (SQ) ---
EXAM DESCRIPTION: CHEST SINGLE VIEW COMPLETED DATE/TIME: 02/01/2017 11:26 am REASON FOR STUDY: syncope COMPARISON: 08/26/2016 EXAM PARAMETERS: NUMBER OF VIEWS: One view. TECHNIQUE: Single frontal radiographic view of the chest acquired. RADIATION DOSE: NA LIMITATIONS: None. FINDINGS: LUNGS AND PLEURA: No new opacities, masses or pneumothorax. No pleural effusion. MEDIASTINUM AND HILAR STRUCTURES: No masses. Contour normal. HEART AND VASCULAR STRUCTURES: Heart stable in size. Normal vasculature. BONES: No acute findings. HARDWARE: None in the chest. OTHER: No other significant finding. IMPRESSION: NO ACUTE RADIOGRAPHIC FINDING IN THE CHEST. NO SIGNIFICANT CHANGE FROM PRIOR STUDY. TECHNICAL DOCUMENTATION: JOB ID: [id number]
--- NOTE | 2017-02-01 11:41 | RADIOLOGY REPORT (SQ) ---
EXAM DESCRIPTION: ANKLE RIGHT COMPLETE COMPLETED DATE/TIME: 02/01/2017 11:26 am REASON FOR STUDY: bed 20 +deformity bedside pls r/t low bp COMPARISON: None. NUMBER OF VIEWS: Three views. TECHNIQUE: AP, lateral, and oblique radiographic images acquired of the right ankle. LIMITATIONS: None. FINDINGS: MINERALIZATION: Osteopenia. BONES: Moderately displaced distal fibula fracture at the level of the syndesmosis along with posteri or malleolar fracture. JOINTS: There is significant widening of the medial tibiotalar joint space compatible with rupture of the deltoid ligament SOFT TISSUES: Associated soft tissue swelling. Vascular calcifications. OTHER: No other significant finding. IMPRESSION: DISTAL FIBULAR FRACTURE, POSTERIOR MALLEOLAR FRACTURE, AND WIDENING OF THE TIBIOTALAR TORY INT SPACE COMPATIBLE WITH DISRUPTION OF THE DELTOID LIGAMENT. TECHNICAL DOCUMENTATION: JOB ID: [id number] [employer]- All Rights Reserved
[2017-02-01 11:43] LABS: ALANINE AMINOTRANSFERASE 30 U/L (21-72); ALBUMIN 3.8 g/dL (3.5-5.0); ALKALINE PHOSPHATASE 66 U/L (38-126); ANION GAP 14 (5-19); ASPARTATE AMINO TRANSFERASE 18 U/L (17-59); BILIRUBIN,DIRECT 0.4 mg/dL (0.0-0.4); BILIRUBIN,TOTAL 0.4 mg/dL (0.2-1.3); BLOOD UREA NITROGEN 93 mg/dL (7-20); CALCIUM 9.4 mg/dL (8.4-10.2); CARBON DIOXIDE 25 mmol/L (22-30); CHLORIDE 105 mmol/L (98-107); CREATINE KINASE 334 U/L (55-170); CREATININE RESULT 3.99 mg/dL (0.52-1.25); GLUCOSE 134 mg/dL (75-110); POTASSIUM 5.4 mmol/L (3.6-5.0); SODIUM 143.8 mmol/L (137-145); TOTAL PROTEIN 6.4 g/dL (6.3-8.2)
--- NOTE | 2017-02-01 11:49 | RADIOLOGY REPORT (SQ) ---
EXAM DESCRIPTION: CT HEAD WITHOUT COMPLETED DATE/TIME: 02/01/2017 11:38 am REASON FOR STUDY: syncope COMPARISON: MRI from 08/01/2014 TECHNIQUE: Axial images acquired through the brain without intravenous contrast. Images reviewed wi th bone, brain and subdural windows. Images stored on PACS. All CT scanners at this facility use dose modulation, iterative reconstruction, and/or weight based d osing when appropriate to reduce radiation dose to as low as reasonably achievable (ALARA). [facility]: Dose Right [facility]: CareDose [facility]: Dose Right [facility]: Teradose 4D [facility]: Smart [employer] RADIATION DOSE: Up-to-date CT equipment and radiation dose reduction techniques were employed. CTDIv ol: 64.6 mGy. DLP: 1034 mGy-cm. mGy. LIMITATIONS: None. FINDINGS: VENTRICLES: Normal size and contour. CEREBRUM: No masses. No hemorrhage. No midline shift. No evidence for acute infarction. Normal gra y/white matter differentiation. No areas of low density in the white matter. CEREBELLUM: No masses. No hemorrhage. No alteration of density. No evidence for acute infarction. EXTRAAXIAL SPACES: No fluid collections. No masses. ORBITS AND GLOBE: No intra- or extraconal masses. Normal contour of right globe without masses. Pro sthetic left globe. CALVARIUM: No fracture. PARANASAL SINUSES: No fluid or mucosal thickening. SOFT TISSUES: No mass or hematoma. OTHER: No other significant finding. IMPRESSION: NORMAL BRAIN CT WITHOUT CONTRAST. EVIDENCE OF ACUTE STROKE: NO. COMMENT: Quality ID # [id number]: Final reports with documentation of one or more dose reduction techniques (e.g., Automated exposure control, adjustment of the mA and/or kV according to patient size, use of iterative reconstruction technique) TECHNICAL DOCUMENTATION: JOB ID: [id number]- All Rights Reserved
--- NOTE | 2017-02-01 11:56 | RADIOLOGY REPORT (SQ) ---
EXAM DESCRIPTION: KNEE LEFT 3 VIEWS COMPLETED DATE/TIME: 02/01/2017 11:48 am REASON FOR STUDY: syncope pian COMPARISON: 10/07/2016 NUMBER OF VIEWS: Three views. TECHNIQUE: AP, lateral, and sunrise patella radiographic images acquired of the left knee. LIMITATIONS: None. FINDINGS: MINERALIZATION: Normal. BONES: No acute fracture or dislocation. No worrisome bone lesions. JOINT: Status post total knee arthroplasty. Small joint effusion. SOFT TISSUES: No soft tissue swelling. No radio-opaque foreign body. OTHER: No other significant finding. IMPRESSION: NO DEFINITE FRACTURE OR HARDWARE COMPLICATION. SMALL JOINT EFFUSION. TECHNICAL DOCUMENTATION: JOB ID: [id number] [employer]- All Rights Reserved
[2017-02-01 11:58] LABS: TROPONIN I < 0.012 ng/mL
[2017-02-01] MEDS ORDERED: ONDANSETRON HCL INJ/PF 4 MG/2 ML SDV IV ONE (12:45)
[2017-02-01] MEDS ORDERED: HYDROMORPHONE HCL INJ/PF 2 MG/ML AMPULE IV ONE (12:45)
[2017-02-01] MEDS ORDERED: HYDROMORPHONE HCL INJ/PF 2 MG/ML AMPULE ONE (13:04)
--- NOTE | 2017-02-01 14:10 | RADIOLOGY REPORT (SQ) ---
EXAM DESCRIPTION: ANKLE RIGHT COMPLETE COMPLETED DATE/TIME: 02/01/2017 2:02 pm REASON FOR STUDY: post splint COMPARISON: 02/01/2017 NUMBER OF VIEWS: Three views. TECHNIQUE: AP, lateral, and oblique radiographic images acquired of the right ankle. LIMITATIONS: None. FINDINGS: MINERALIZATION: Normal. BONES: Stable degree of displacement complex ankle fractures status post casting. JOINTS: Stable disruption of the tibiotalar joint space. SOFT TISSUES: Persistent soft tissue swelling. OTHER: No other significant finding. IMPRESSION: NO SIGNIFICANT IMPROVEMENT IN ALIGNMENT OF COMPLEX ANKLE FRACTURES STATUS POST CASTING. TECHNICAL DOCUMENTATION: JOB ID: [id number] [employer]- All Rights Reserved
[2017-02-01] MEDS ORDERED: KETAMINE HCL INJ 500 MG/10 ML VIAL IV ONE (14:14)
[2017-02-01] MEDS ORDERED: MIDAZOLAM 2 MG/2 ML INJ IV ONE (14:15)
--- NOTE | 2017-02-01 14:23 | ER Document Report ---
ED General - General Chief Complaint: Syncope Stated Complaint: FALL ANKLE PAIN Time Seen by Provider: 02/01/17 11:10 TRAVEL OUTSIDE OF THE [place] IN LAST 30 DAYS: No - HPI Patient complains to provider of: Syncopal episode ankle deformity Notes: Patient is a pleasant gentleman states PCP is Dr. Mead coming in today after syncopal episode. Patient states he was sitting on his front porch watching a rain when he stood up felt lightheaded dizzy thought he was hungry try to make it to inside the house to eat when he collapsed. Patient states when he came to he tried to stand up again and again had another syncopal episode. According to EMS patient had a third syncopal episode on the way to the ER. Patient has a history of diabetes hypertension. Patient denies any recent travel denies any chest pain abdominal pain nausea vomiting diarrhea prior to during or after these episodes. Patient is unaware if he hit his head or strike his head against any object. Patient has obvious deformity to the right ankle. Otherwise patient is ANO 4 alert nontoxic looking upon my evaluation - Related Data Allergies/Adverse Reactions: codeine Allergy (Verified 09/25/16 14:45) rash, disoriented Home Medications: Current Home Medications Allopurinol [Zyloprim 100 mg Tablet] 100 mg PO DAILY 02/01/17 [History] Amlodipine Besylate [Norvasc 10 mg Tablet] 10 mg PO QHS 02/01/17 [History] Atorvastatin Calcium [Lipitor 20 mg Tablet] 20 mg PO DAILY 02/01/17 [History] Calcitriol [Rocaltrol 0.25 mcg Capsule] 0.25 mcg PO MOFR 02/01/17 [History] Carvedilol [Carvedilol] 12.5 mg PO BID 02/01/17 [History] Carvedilol [Coreg 12.5 mg Tablet] 12.5 mg PO Q12 02/01/17 [History] Clonidine HCl [Catapres 0.2 mg Tablet] 0.2 mg PO Q12 02/01/17 [History] Colchicine [Colcrys 0.6 mg Tablet] 0.6 mg PO DAILY 02/01/17 [History] Fenofibrate Nanocrystallized [Fenofibrate] 48 mg PO WBRKFST 02/01/17 [History] Fluticasone Propionate [Flonase Nasal [place] 50 Mcg/[place] 16 gm] 1 spray NASL DAILY 02/01/17 [History] Furosemide [Lasix 40 mg Tablet] 40 mg PO BID 02/01/17 [History] Guanfacine HCl 1 mg PO QHS 02/01/17 [History] Irbesartan [Avapro] 150 mg PO DAILY 02/01/17 [History] Irbesartan [Irbesartan] 150 mg PO QHS 02/01/17 [History] Isosorbide Mononitrate [Imdur 30 mg Tablet.er] 30 mg PO QAM 02/01/17 [History] Pantoprazole Sodium [Protonix] 40 mg PO DAILY 02/01/17 [History] Sitagliptin Phosphate [Januvia 50 mg Tablet] 100 mg PO DAILY 02/01/17 [History] Sodium Polystyrene Sulfon/Sorb [Sps 15 gm/60 ml Suspension] 15 gm PO Q7D [History] Timolol Maleate [Timoptic 0.5% Oph Soln 5 ml] 1 drop OU DAILY 02/01/17 [History] Zolpidem Tartrate [Ambien] 10 mg PO QHS 02/01/17 [History] Past Medical History - Social History Smoking Status: Never Smoker Chew tobacco use (# tins/day): No Frequency of alcohol use: Rare Drug Abuse: None Family History: Reviewed & Not Pertinent, Hypertension - Past Medical History Cardiac Medical History: Reports: Hx Congestive Heart Failure, Hx Coronary Artery Disease - small blockage & small aortic valve leakage, Hx Hypercholesterolemia, Hx Hypertension Denies: Hx Atrial Fibrillation, Hx Heart Attack, Hx Peripheral Vascular Disease, Hx Pulmonary Embolism, Hx Heart Murmur Pulmonary Medical History: Reports: Hx Asthma - inhalers, Hx Pneumonia - 2 months ago, Hx Sleep Apnea - Uses CPAP Denies: Hx Bronchitis, Hx COPD, Hx Respiratory Failure, Hx Tuberculosis Neurological Medical History: Reports: Hx Seizures - possible at night..?. Denies: Hx Cerebrovascular Accident Endocrine Medical History: Reports: Hx Diabetes Mellitus Type 1, Hx Diabetes Mellitus Type 2, Hx Hypothyroidism. Denies: Hx Graves' Disease, Hx Hyperthyroidism Renal/ Medical History: Reports: Hx Renal Insufficiency. Denies: Hx Benign Prostatic Hyperplasia, Hx End Stage Renal Disease, Hx Kidney Stones, Hx Peritoneal Dialysis Malignancy Medical History: Denies Hx Leukemia, Denies Hx Lung Cancer GI Medical History: Reports: Hx Gastroesophageal Reflux Disease. Denies: Hx Crohn's Disease, Hx Hiatal Hernia, Hx Irritable Bowel, Hx Liver Failure, Hx Ulcer Musculoskeltal Medical History: Reports Hx Arthritis, Denies Hx Fibromyalgia, Denies Hx Multiple Sclerosis, Denies Hx Muscular Dystrophy Psychiatric Medical History: Reports: Hx Depression Denies: Hx Bipolar Disorder, Hx Dementia, Hx Post Traumatic Stress Disorder, Hx Schizophrenia Traumatic Medical History: Reports: Hx Fractures - left wrist Infectious Medical History: Denies: Hx HIV Past Surgical History: Reports: Hx Appendectomy, Hx Herniorrhaphy, Hx Orthopedic Surgery - right rotator cuff, Hx Tonsillectomy. Denies: Hx Bowel Surgery, Hx Cholecystectomy, Hx Colostomy, Hx Coronary Artery Bypass Graft, Hx Gastric Bypass Surgery, Hx Pacemaker - Immunizations Immunizations up to date: Yes Hx Diphtheria, Pertussis, Tetanus Vaccination: No Hx Pneumococcal Vaccination: 04/28/16 Review of Systems - Review of Systems Constitutional: No symptoms reported EENT: No symptoms reported Cardiovascular: Syncope Respiratory: No symptoms reported Gastrointestinal: No symptoms reported Genitourinary: No symptoms reported Male Genitourinary: No symptoms reported Musculoskeletal: Other - Ankle deformity Skin: No symptoms reported Hematologic/Lymphatic: No symptoms reported Neurological/Psychological: No symptoms reported Physical Exam - Vital signs Vitals: Resp Pulse Ox 14 95 02/01/17 11:06 02/01/17 11:06 Interpretation: Normal - General General appearance: Appears well, Alert - HEENT Head: Normocephalic, Atraumatic Eyes: Normal Pupils: PERRL - Respiratory Respiratory status: No respiratory distress Chest status: Nontender Breath sounds: Normal Chest palpation: Normal - Cardiovascular Rhythm: Regular Heart sounds: Normal auscultation Murmur: No - Abdominal Inspection: Normal Distension: No distension Bowel sounds: Normal Tenderness: Nontender Organomegaly: No organomegaly - Back Back: Normal, Nontender - Extremities General upper extremity: Normal inspection, Nontender, Normal color, Normal ROM , Normal temperature General lower extremity: No: Normal inspection - Deformity of the right ankle with capillary refill intact. Patient does have a slight abrasion to the medial malleolus however there is no signs of open fracture. - Neurological Neuro grossly intact: Yes Cognition: Normal Orientation: AAOx4 Ramona Coma Scale Eye Opening: Spontaneous Edgar Coma Scale Verbal: Oriented Ramona Coma Scale Motor: Obeys Commands Edgar Coma Scale Total: 15 Speech: Normal Motor strength normal: LUE, RUE, LLE, RLE Sensory: Normal - Psychological Associated symptoms: Normal affect, Normal mood - Skin Skin Temperature: Warm Skin Moisture: Dry Skin Color: Normal Course - Re-evaluation Re-evalutation: 02/01/17 15:57 Patient with 3 syncopal episodes laboratory studies showing a renal insufficiency that has worsened however no other critical pathology. Patient's head CT chest x-ray knee x-ray were negative x-ray of the right ankle does show fracture. This was thought to be aligned initially with just gentle traction was noted conscious sedation however repeat x-rays showed malalignment. Patient underwent conscious sedation with appropriate reduction and splinting. Discussed patient's case with covering PCP Dr. Lora who requested orthopedics be involved before he would admit the patient. Although we do not have any orthopedic coverage today patient has received surgery from a orthopedic group knee replacement by Dr. Anderson I placed a call to Dr. Avery who was covering for their group who very graciously agreed to see the patient in consult. I related this to the family members who are very appreciative of Dr. Avery as was I for taking this consult. Dr. Avery was able to look at the reduction and agrees with the final results. Dr. Nazario Adame after having orthopedic involvement agrees to admit the patient for his syncopal episodes. - Vital Signs Vital signs: Temp Pulse Resp BP Pulse Ox 61 11 L 133/78 H 98 02/01/17 15:35 02/01/17 15:35 02/01/17 15:35 02/01/17 15:35 - Laboratory Result Diagrams: 02/01/17 11:00 02/01/17 11:00 Laboratory results interpreted by me: 02/01/17 02/01/17 11:00 11:00 WBC 11.9 H RBC 3.22 L Hgb 9.9 L Hct 28.7 L RDW 14.5 H Absolute Neutrophils 8.7 H Potassium 5.4 H BUN 93 H Creatinine 3.99 H Est GFR ( Amer) 18 L Est GFR (Non-Af Amer) 15 L Glucose 134 H Creatine Kinase 334 H Procedures - Conscious Sedation Conscious sedation Time started: 15:00 Time completed: 15:10 Consent obtained: Yes Indication: Fracture reduction Last meal: >6 hours Prior complications: Procedural sedation Pt with a mild systemic disease.: P2. - ASA Classification. Airway Evaluation: Normal anatomy Mallampati Classification: Class 2 Used during procedure: Suction available, IV access obtained, Pulse ox on pt., ekg monitor tech on pt. Medications administered: Versed, Ketamine Reversal agents: None I personally performed/intraservice time: Sedation, Procedure, 30 min or less Notes: After ministration of the Versed reduction was performed patient with a history of sleep apnea did have a period of apnea that the patient was bagging through with a BVM this was less than a minute of bagging - Immobilization Right Ankle Immobilizer type: Other - Short leg with a OCL ankle stirrup Performed by: Provider assisted Post-Proc Neuro Vasc Exam: Normal Alignment checked and good: Yes - Joint Reduction/Fracture Care Right Ankle Consent obtained: Yes Conscious sedation: Yes Pre-procedure NV exam: Yes Fracture: Closed Manipulation comment: Gentle traction with plantar flexion Post-procedure NV exam: No Post-reduction x-ray: Joint reduced Reduction attempts: 2 Notes: 02/01/17 16:02 2 reduction attempts first attempt without sedation second attempt and final attempt with sedation Critical Care Note - Critical Care Note Total time excluding time spent on procedures (mins): 35 Comments: Patient with multiple syncopal episodes. Multiple evaluations. Discharge - Discharge Clinical Impression: Syncope, Closed right ankle fracture, Diabetes mellitus, Sleep apnea, Chronic kidney disease Condition: Good Disposition: ADMITTED INPATIENT Admitting Provider: [facility] Admitted: Telemetry
[2017-02-01] MEDS ORDERED: LIDOCAINE 2% URO-JET 5 ML KIT MM ONE (15:19)
--- NOTE | 2017-02-01 15:31 | RADIOLOGY REPORT (SQ) ---
EXAM DESCRIPTION: ANKLE RIGHT AP/LATERAL COMPLETED DATE/TIME: 02/01/2017 3:23 pm REASON FOR STUDY: POST REDUCTION/ POST SPLINT COMPARISON: 02/01/2017 NUMBER OF VIEWS: Two views. TECHNIQUE: AP and lateral radiographic images acquired of the right ankle. LIMITATIONS: None. FINDINGS: MINERALIZATION: Normal. BONES: Significant improvement of alignment of previous described complex right ankle fractures. JOINTS: Mortise is now congruent in the syndesmosis is normally aligned. SOFT TISSUES: Persistent soft tissue swelling. OTHER: Cast in place. IMPRESSION: STANDARD ALIGNMENT RIGHT ANKLE STATUS POST REDUCTION AND CASTING OF COMPLEX ANKLE FRACTU RES. TECHNICAL DOCUMENTATION: JOB ID: [id number] [employer]- All Rights Reserved
[2017-02-01 16:59] LABS: APPEARANCE,URINE CLEAR; BILIRUBIN,URINE NEGATIVE (NEGATIVE); GLUCOSE, URINE 150 mg/dL (NEGATIVE); KETONES,URINE NEGATIVE (NEGATIVE); LEUKOCYTE ESTERASE,URINE NEGATIVE (NEGATIVE); NITRITE,URINE NEGATIVE (NEGATIVE); PROTEIN,URINE NEGATIVE (NEGATIVE); URINE SPECIFIC GRAVITY 1.011; UROBILINOGEN,URINE NEGATIVE mg/dL (<2.0)
[2017-02-01] MEDS ORDERED: TIMOLOL OS SCH (20:30)
[2017-02-01] MEDS ORDERED: LATANOPROST 0.005% OPH SOLN 2.5 ML OS SCH (20:30)
[2017-02-01] MEDS ORDERED: SODIUM POLYSTYRENE SULFONATE 15 GM/60 ML PO SCH (20:30)
[2017-02-01] MEDS ORDERED: DEXTROSE 50%-WATER 25 GM/50 ML DISP.SYRIN IV PRN ×2 (20:39)
[2017-02-01] MEDS ORDERED: DEXTROSE 40% GEL 15 GM TUBE PO PRN ×2 (20:39)
[2017-02-01] MEDS ORDERED: NORMAL SALINE 1000 ML 1,000 ML IV PRN (20:39)
[2017-02-01] MEDS ORDERED: GLUCAGON,HUMAN RECOMB 1 MG INJ IM PRN (20:39)
--- NOTE | 2017-02-01 21:12 | PDOC H&P ---
History of Present Illness Admission Date/PCP: 02/01/17 15:12 YESSY DELA CRUZ MD Patient complains of: Fall, right ankle pain, passed out History of Present Illness: ADELE DC JR is a 72 year old male of Dr. Dela Cruz who was brought to the ED with listed complaints. Patient reported that he was sitting on his pouch and noticed blurriness vision in his right eye. He reported having a prosthesis in his left eye. He claimed that his blood glucose have been elevated with regard to his diabetes mellitus management. In his effort to get up from sitting position he loss his balance and fell on to concrete floor on his pouch. He was unable to get off the floor and took awhile to get help, about 10-15 minutes. His grandson was attempting to help him off the floor but due to severe pain in his right ankle he feel back to the ground and claimed to have lost consciousness. He was eventually transported the the ED and EMS personnel reported another episode of syncope en-route to the hospital. His initial evaluation in the ED was remarkable for right ankle misalignment and pain with X ray finding suggestive of right ankle fracture. Due to associated syncope episodes he was advised hospitalization. Patient reported compliance with his medications. He denied chest pain, palpitation, headache, dizziness, nausea or vomiting. No abdominal pain. He denied similar symptoms or seizure activities in the past. His morbidities include DM type 2, HTN, HLD, CAD, CHF, Asthma, EJRSEY , questionable Seizure disorder, Hypothyroidism, GERD, Anemia, Osteoarthritis, and Depression. Past Medical History Cardiac Medical History: Reports: Congestive Heart Failure, Coronary Artery Disease - small blockage & small aortic valve leakage, Hyperlipidema, Hypertension Denies: Atrial Fibrillation, Myocardial Infarction, Peripheral Vascular Disease, Pulmonary Embolism, Heart Murmur Pulmonary Medical History: Reports: Asthma - inhalers, Pneumonia - 2 months ago , Sleep Apnea - Uses CPAP Denies: Bronchitis, Chronic Obstructive Pulmonary Disease (COPD), Respiratory Failure, Tuberculosis Neurological Medical History: Reports: Seizures - possible at night..? Endocrine Medical History: Reports: Diabetes Mellitus Type 1, Diabetes Mellitus Type 2, Hypothyroidism Denies: Hyperthyroidism Renal/ Medical History: Denies: End Stage Renal Disease Malignancy Medical History: Denies: Leukemia, Lung Cancer GI Medical History: Reports: Gastroesophageal Reflux Disease Denies: Crohn's Disease, Hiatal Hernia Musculoskeltal Medical History: Reports: Arthritis Denies: Fibromyalgia Psychiatric Medical History: Reports: Depression Denies: Bipolar Disorder, Dementia, Post Traumatic Stress Disorder Hematology: Reports: Anemia - because of kidneys Denies: Hemophilia, Sickle Cell Disease Infectious Medical History: Denies: HIV Past Surgical History Past Surgical History: Reports: Appendectomy, Herniorrhaphy, Orthopedic Surgery - right rotator cuff, Tonsillectomy Denies: Cholecystectomy, Colostomy, Coronary Artery Bypass Graft, Gastric Bypass Surgery, Pacemaker Social History Smoking Status: Never Smoker Frequency of Alcohol Use: None Hx Recreational Drug Use: No Drugs: None Hx Prescription Drug Abuse: No - Advance Directive Resuscitation Status: Full Code Family History Family History: Reviewed & Not Pertinent, Hypertension Parental Family History Reviewed: Yes Children Family History Reviewed: Yes Sibling(s) Family History Reviewed.: Yes Medication/Allergy Home Medications: Allopurinol [Zyloprim 100 mg Tablet] 02/01/17 Allopurinol [Zyloprim 100 mg Tablet] 100 mg PO DAILY 02/01/17 Allopurinol [Zyloprim 100 mg Tablet] 100 mg PO QHS 02/01/17 Amlodipine Besylate [Norvasc 10 mg Tablet] 10 mg PO QHS 02/01/17 Aspirin [Aspirin 325 mg Tablet] 325 mg PO QHS 02/01/17 Atorvastatin Calcium [Lipitor 20 mg Tablet] 20 mg PO DAILY 02/01/17 Atorvastatin Calcium [Lipitor 20 mg Tablet] 20 mg PO QHS 02/01/17 Budesonide/Formoterol Fumarate [Symbicort 160-4.5 Mcg Inhaler] 2 puff IN BID 11/11 Calcitriol [Rocaltrol 0.25 mcg Capsule] 0.25 mcg PO MOFR 02/01/17 Carvedilol [Carvedilol] 12.5 mg PO BID 02/01/17 Carvedilol [Coreg 12.5 mg Tablet] 12.5 mg PO Q12 02/01/17 Chlorzoxazone [Chlorzoxazone 250 mg Tablet] 500 mg pe PO DAILY PRN 02/01/17 Cholecalciferol (Vitamin D3) [Vitamin D3] 1,000 mg PO DAILY 02/01/17 Clonidine HCl [Catapres 0.2 mg Tablet] 0.2 mg PO Q12 02/01/17 Clonidine HCl [Clonidine HCl ER] 0.1 mg PO BID 02/01/17 Colchicine [Colchicine 0.6 mg Tablet] 0.6 mg PO DAILY PRN 02/01/17 Colchicine [Colcrys 0.6 mg Tablet] 0.6 mg PO DAILY 02/01/17 Fenofibrate Nanocrystallized [Fenofibrate] 48 mg PO WBRKFST 02/01/17 Fenofibrate Nanocrystallized [Fenofibrate] 48 mg pe PO DAILY 02/01/17 Ferrous Sulfate [Ferrousul] 325 mg PO QHS 02/01/17 Fluticasone Propionate [Flonase Nasal [place] 50 Mcg/[place] 16 gm] 1 spray NASL DAILY 02/01/17 Fluticasone/Salmeterol [Fluticasone-Salmeterol 55-14] 1 puff IN BID 02/01/17 Furosemide [Lasix 40 mg Tablet] 40 mg PO BID 02/01/17 Furosemide [Lasix] 40 mg PO BID 02/01/17 Gabapentin [Neurontin 300 mg Capsule] 300 mg PO BID 02/01/17 Guanfacine HCl 1 mg PO QHS 02/01/17 Insulin Aspart Prot/Insuln Asp [Novolog Mix 70-30 Vial] 02/01/17 Insulin Detemir [Levemir Flextouch] 100 unit SQ 02/01/17 Irbesartan [Avapro] 150 mg PO DAILY 02/01/17 Irbesartan [Irbesartan] 150 mg PO QHS 02/01/17 Isosorbide Mononitrate [Imdur 30 mg Tablet.er] 30 mg PO QAM 02/01/17 Isosorbide Mononitrate [Isosorbide Mononitrate ER] 02/01/17 Latanoprost 2.5 ml OS BID 02/01/17 P-Ephed HCl/Acetaminophn/Cp [Tylenol Allergy Complete Geltb] 500 each PO DAILY PRN 02/01/17 Pantoprazole Sodium [Protonix] 40 mg PO DAILY 02/01/17 Pantoprazole Sodium [Protonix] 40 mg PO QHS 02/01/17 Sitagliptin Phosphate [Januvia 50 mg Tablet] 100 mg PO DAILY 02/01/17 Sodium Polystyrene Sulfon/Sorb [Kionex 15 gm/60 ml Suspension] 02/01/17 Sodium Polystyrene Sulfon/Sorb [Sps 15 gm/60 ml Suspension] 15 gm PO Q7D Timolol Maleate [Timoptic 0.5% Oph Soln 5 ml] 1 drop OU DAILY 02/01/17 Timolol [Betimol] 10 ml OS BID 02/01/17 Zolpidem Tartrate [Ambien] 10 mg PO QHS 02/01/17 Allergies/Adverse Reactions: codeine Allergy (Verified 09/25/16 14:45) rash, disoriented Review of Systems Constitutional: ABSENT: chills, fever(s), headache(s), weight gain, weight loss Eyes: PRESENT: visual disturbances - CAWG Ears: ABSENT: hearing changes Nose, Mouth, and Throat: ABSENT: as per HPI, headache(s), mouth pain, sore throat, vertigo, other Cardiovascular: ABSENT: chest pain, dyspnea on exertion, edema, orthropnea, palpitations Respiratory: ABSENT: cough, hemoptysis Gastrointestinal: ABSENT: abdominal pain, constipation, diarrhea, hematemesis, hematochezia, nausea, vomiting Genitourinary: ABSENT: dysuria, hematuria Musculoskeletal: PRESENT: other - right ankle joint pain s/p fall and right ankle joint fracture.. ABSENT: joint swelling Integumentary: ABSENT: rash, wounds Neurological: ABSENT: abnormal gait, abnormal speech, confusion, dizziness, focal weakness, syncope Psychiatric: ABSENT: anxiety, depression, homidical ideation, suicidal ideation Endocrine: ABSENT: cold intolerance, heat intolerance, polydipsia, polyuria Hematologic/Lymphatic: ABSENT: easy bleeding, easy bruising, lymphadenopathy Allergic/Immunologic: ABSENT: seasonal rhinorrhea Physical Exam Vital Signs: Temp Pulse Resp BP Pulse Ox 67 18 137/60 H 97 02/01/17 17:49 02/01/17 16:52 02/01/17 16:52 02/01/17 16:52 Intake & Output 01/31/17 02/01/17 02/02/17 06:59 06:59 06:59 Intake Total 450 Balance 450 General appearance: PRESENT: cooperative, mild distress - due to right ankle joint pain Head exam: PRESENT: atraumatic, normocephalic Eye exam: PRESENT: conjunctiva pink, EOMI, PERRLA. ABSENT: scleral icterus Ear exam: PRESENT: normal external ear exam Mouth exam: PRESENT: moist, tongue midline Throat exam: ABSENT: post pharyngeal erythema, tonsillar erythema, tonsillar exudate, tonsillogmegaly, other Neck exam: PRESENT: full ROM. ABSENT: carotid bruit, JVD, lymphadenopathy, thyromegaly Respiratory exam: PRESENT: clear to auscultation [place] Cardiovascular exam: PRESENT: RRR. ABSENT: diastolic murmur, rubs, systolic murmur Pulses: PRESENT: normal dorsalis pedis pul - limited to left leg, +2 pedal pulses bilateral - limited to left leg Vascular exam: PRESENT: normal capillary refill. ABSENT: pallor GI/Abdominal exam: PRESENT: normal bowel sounds, soft. ABSENT: distended, guarding, mass, organolmegaly, rebound, tenderness Rectal exam: PRESENT: deferred Extremities exam: PRESENT: tenderness - right ankle joint with external splint RAVINDRA bandage in use.. ABSENT: joint swelling - limited to left leg, pedal edema - limited to left leg Musculoskeletal exam: PRESENT: tenderness - right ankle joint with motion Neurological exam: PRESENT: alert, awake, oriented to person, oriented to place , oriented to time, oriented to situation, CN II-XII grossly intact. ABSENT: motor sensory deficit Psychiatric exam: PRESENT: appropriate affect, normal mood. ABSENT: homicidal ideation, suicidal ideation Skin exam: PRESENT: dry, intact, warm. ABSENT: cyanosis, rash Results Laboratory Results: 02/01/17 16:26 Urine Color YELLOW Urine Appearance CLEAR Urine pH 5.0 Ur Specific [place] 1.011 Urine Protein NEGATIVE Urine Glucose (UA) 150 H Urine Ketones NEGATIVE Urine Blood NEGATIVE Urine Nitrite NEGATIVE Ur Leukocyte Esterase NEGATIVE Urine WBC (Auto) 0 Urine RBC (Auto) 0 Impressions: Chest X-Ray 02/01/17 11:11 IMPRESSION: NO ACUTE RADIOGRAPHIC FINDING IN THE CHEST. NO SIGNIFICANT CHANGE FROM PRIOR STUDY. Head CT 02/01/17 11:11 IMPRESSION: NORMAL BRAIN CT WITHOUT CONTRAST. EVIDENCE OF ACUTE STROKE: NO. Knee X-Ray 02/01/17 11:35 IMPRESSION: NO DEFINITE FRACTURE OR HARDWARE COMPLICATION. SMALL JOINT EFFUSION. Ankle X-Ray 02/01/17 13:43 IMPRESSION: NO SIGNIFICANT IMPROVEMENT IN ALIGNMENT OF COMPLEX ANKLE FRACTURES STATUS POST CASTING. Assessment & Plan - Diagnosis (1) Syncope Qualifiers: Syncope type: unspecified Qualified Code(s): R55 - Syncope and collapse Is this a current diagnosis for this admission?: Yes Plan: See admitting covering attending physician orders. He will undergo work up for syncope. (2) Closed right ankle fracture Qualifiers: Encounter type: initial encounter Qualified Code(s): S82.891A - Other fracture of right lower leg, initial encounter for closed fracture Is this a current diagnosis for this admission?: Yes Plan: See admitting covering attending physician orders. I will request orthopedic team consultation for surgical intervention. (3) Diabetes mellitus type 2 in obese Is this a current diagnosis for this admission?: Yes Plan: See admitting covering attending physician orders. (4) Obstructive sleep apnea of adult Is this a current diagnosis for this admission?: Yes Plan: See admitting covering attending physician orders. Allow patient to use his own CPAP machine at his setting. (5) Chronic kidney disease Qualifiers: Chronic kidney disease stage: stage 4 (severe) Qualified Code(s): N18.4 - Chronic kidney disease, stage 4 (severe) Is this a current diagnosis for this admission?: Yes Plan: See admitting covering attending physician orders. (6) HTN (hypertension) Qualifiers: Hypertension type: essential hypertension Qualified Code(s): I10 - Essential (primary) hypertension Is this a current diagnosis for this admission?: Yes Plan: See admitting covering attending physician orders. (7) Hyperlipidemia Qualifiers: Hyperlipidemia type: unspecified Qualified Code(s): E78.5 - Hyperlipidemia , unspecified Is this a current diagnosis for this admission?: Yes Plan: See admitting covering attending physician orders. (8) Mixed anxiety and depressive disorder Is this a current diagnosis for this admission?: Yes Plan: See admitting covering attending physician orders. (9) Persistent insomnia Is this a current diagnosis for this admission?: Yes Plan: See admitting covering attending physician orders. - Time Time Spent: Greater than 70 Minutes Medications reviewed and adjusted accordingly: Yes Anticipated discharge: Home with Homehealth Within: Other - Inpatient Certification Based on my medical assessment, after consideration of the patient's comorbidities, presenting symptoms, or acuity I expect that the services needed warrant INPATIENT care.: Yes I certify that my determination is in accordance with my understanding of Medicare's requirements for reasonable and necessary INPATIENT services [42 CFR 412.3e].: Yes Medical Necessity: Need Close Monitoring Due to Risk of Patient Decompensation, Need For IV Fluids, Need For Continuous Telemetry Monitoring, Need for Pain Control, Need for Surgery, Risk of Complication if Not Cared For in Hospital Post Hospital Care: D/C or Transfer Summary - Plan Summary Plan Summary: See admitting covering attending physician orders.
[2017-02-01] MEDS: HEPARIN SOD (PORCINE) 5,000 UNIT/ML 1 ML SYRINGE SUBCUT SCH (21:37)
[2017-02-01] MEDS: FERROUS SULFATE 325 MG TABLET PO SCH (21:37)
[2017-02-01] MEDS: AMLODIPINE BESYLATE 10 MG TABLET PO SCH (21:38)
[2017-02-01] MEDS: HYDROMORPHONE HCL INJ/PF 2 MG/ML AMPULE IV PRN (21:39)
[2017-02-01] MEDS: CLONIDINE HCL 0.2 MG TABLET PO SCH (21:39)
[2017-02-01] MEDS ORDERED: (PENDING PHARMACY ID) (Guanfacine Hcl [Guanfacine Hcl] 1 MG) PO SCH (22:00)
[2017-02-01] MEDS ORDERED: (PENDING PHARMACY ID) (Irbesartan [Irbesartan] 150 MG) PO SCH (22:00)
[2017-02-01] MEDS ORDERED: (PENDING PHARMACY ID) (Zolpidem Tartrate [Ambien] 10 MG) PO SCH (22:00)
[2017-02-01] MEDS ORDERED: ONDANSETRON HCL INJ/PF 4 MG/2 ML SDV ONE (22:45)
[2017-02-01] MEDS: LOSARTAN POTASSIUM 50 MG TABLET PO SCH (22:59)
[2017-02-01] MEDS: ZOLPIDEM TARTRATE 5 MG TABLET PO SCH (22:59)
[2017-02-01] MEDS: ATORVASTATIN CALCIUM 20 MG TABLET PO SCH (22:59)
[2017-02-01 23:30] LABS: PARTIAL THROMBOPLASTIN TIME 24.9 SEC (23.5-35.8)
[2017-02-01 23:48] LABS: CREATINE KINASE MB 2.23 ng/mL (<4.55)
[2017-02-01 23:49] LABS: TROPONIN I < 0.012 ng/mL
[2017-02-02] MEDS: HEPARIN SOD (PORCINE) 5,000 UNIT/ML 1 ML SYRINGE SUBCUT SCH ×3 (05:31→21:59)
[2017-02-02] MEDS: LANSOPRAZOLE 30 MG TAB.RAP.DR PO SCH (05:31)
[2017-02-02 05:40] LABS: ABSOLUTE BASOPHILS # (AUTO) 0.1 10^3/uL (0.0-0.2); ABSOLUTE EOSINOPHILS # (AUTO) 0.1 10^3/uL (0.0-0.6); ABSOLUTE LYMPHOCYTES (AUTO) 2.6 10^3/uL (0.5-4.7); ABSOLUTE MONOCYTES (AUTO) 0.9 10^3/uL (0.1-1.4); ABSOLUTE NEUT (AUTO) 8.8 10^3/uL (1.7-8.2); BASOPHILS % (AUTO) 1.1 % (0-2); EOSINOPHILS % (AUTO) 0.5 % (0-6); HEMATOCRIT 28.4 % (37.9-51.0); HEMOGLOBIN 9.8 g/dL (13.5-17.0); LYMPHOCYTES % (AUTO) 20.8 % (13-45); MEAN CORPUSCULAR HEMOGLOBIN 30.3 pg (27.0-33.4); MEAN CORPUSCULAR HGB CONC 34.6 g/dL (32.0-36.0); MEAN CORPUSCULAR VOLUME 88 fl (80-97); MONOCYTES % (AUTO) 7.1 % (3-13); RED BLOOD COUNT 3.24 10^6/uL (4.35-5.55); RED CELL DISTRIBUTION WIDTH 14.9 % (11.5-14.0); SEGMENTED NEUTROPHILS % (AUTO) 70.5 % (42-78); WHITE BLOOD COUNT 12.5 10^3/uL (4.0-10.5)
[2017-02-02 05:53] LABS: ANION GAP 13 (5-19); BLOOD UREA NITROGEN 82 mg/dL (7-20); CALCIUM 9.8 mg/dL (8.4-10.2); CARBON DIOXIDE 24 mmol/L (22-30); CHLORIDE 108 mmol/L (98-107); CREATININE RESULT 2.94 mg/dL (0.52-1.25); GLUCOSE 242 mg/dL (75-110); POTASSIUM 5.3 mmol/L (3.6-5.0); SODIUM 144.6 mmol/L (137-145)
[2017-02-02 06:06] LABS: TROPONIN I < 0.012 ng/mL
[2017-02-02] MEDS: ISOSORBIDE MONONITRATE 30 MG TAB.ER.24H PO SCH (08:06)
[2017-02-02] MEDS: INSULIN LISPRO 100 UNIT/ML 3 ML VIAL SUBCUT PRN ×3 (08:07→17:40)
[2017-02-02] MEDS: HYDROMORPHONE HCL INJ/PF 2 MG/ML AMPULE IV PRN (08:07)
[2017-02-02] MEDS: ONDANSETRON HCL INJ/PF 4 MG/2 ML SDV IV PRN ×2 (08:54→12:38)
[2017-02-02] MEDS ORDERED: CHOLECALCIFEROL 1000 MG PO SCH (10:00)
[2017-02-02] MEDS ORDERED: SALMETEROL IN SCH (10:00)
[2017-02-02] MEDS ORDERED: FLUTICASONE IN SCH (10:00)
[2017-02-02] MEDS ORDERED: DEXTROSE 50%-WATER 25 GM/50 ML DISP.SYRIN IV PRN ×2 (11:07)
[2017-02-02] MEDS ORDERED: DEXTROSE 40% GEL 15 GM TUBE PO PRN (11:07)
[2017-02-02] MEDS ORDERED: GLUCAGON,HUMAN RECOMB 1 MG INJ SUBCUT PRN (11:07)
--- NOTE | 2017-02-02 11:25 | PDOC CONSULTATION ---
History of Present Illness Admission Date/PCP: 02/01/17 15:12 YESSY DELA CRUZ MD Patient complains of: Right ankle injury History of Present Illness: ADELE DC JR is a 72 year old male of Dr[address] Dela Cruz who was brought to the ED on 02/01/17. Patient reported that he was sitting on his pouch and noticed blurriness vision in his right eye. He reported having a prosthesis in his left eye. He claimed that his blood glucose have been elevated with regard to his diabetes mellitus management. In his effort to get up from sitting position he loss his balance and fell on to concrete floor on his pouch. He was unable to get off the floor and took awhile to get help, about 10-15 minutes. His grandson was attempting to help him off the floor but due to severe pain in his right ankle he feel back to the ground and claimed to have lost consciousness. He was eventually transported the the ED and EMS personnel reported another episode of syncope en-route to the hospital. His initial evaluation in the ED was remarkable for right ankle misalignment and pain with X ray finding suggestive of right ankle fracture. Patient underwent closed reduction in the emergency room and was placed in a splint. He states his pain has improved after closed reduction. Denies numbness or tingling. Current pain 2/10. Improved with pain medication. Past Medical History Cardiac Medical History: Reports: Congestive Heart Failure, Coronary Artery Disease - small blockage & small aortic valve leakage, Hyperlipidema, Hypertension Denies: Atrial Fibrillation, Myocardial Infarction, Peripheral Vascular Disease, Pulmonary Embolism, Heart Murmur Pulmonary Medical History: Reports: Asthma - inhalers, Pneumonia - 2 months ago , Sleep Apnea - Uses CPAP Denies: Bronchitis, Chronic Obstructive Pulmonary Disease (COPD), Respiratory Failure, Tuberculosis Neurological Medical History: Reports: Seizures - possible at night..? Endocrine Medical History: Reports: Diabetes Mellitus Type 1, Diabetes Mellitus Type 2, Hypothyroidism Denies: Hyperthyroidism Renal/ Medical History: Denies: End Stage Renal Disease Malignancy Medical History: Denies: Leukemia, Lung Cancer GI Medical History: Reports: Gastroesophageal Reflux Disease Denies: Crohn's Disease, Hiatal Hernia Musculoskeltal Medical History: Reports: Arthritis Denies: Fibromyalgia Psychiatric Medical History: Reports: Depression Denies: Bipolar Disorder, Dementia, Post Traumatic Stress Disorder Hematology: Reports: Anemia - because of kidneys Denies: Hemophilia, Sickle Cell Disease Infectious Medical History: Denies: HIV Past Surgical History Past Surgical History: Reports: Appendectomy, Herniorrhaphy, Orthopedic Surgery - right rotator cuff, Tonsillectomy Denies: Cholecystectomy, Colostomy, Coronary Artery Bypass Graft, Gastric Bypass Surgery, Pacemaker Social History Smoking Status: Never Smoker Frequency of Alcohol Use: None Hx Recreational Drug Use: No Drugs: None Hx Prescription Drug Abuse: No - Advance Directive Resuscitation Status: Full Code Family History Family History: Reviewed & Not Pertinent, Hypertension Parental Family History Reviewed: No Children Family History Reviewed: No Sibling(s) Family History Reviewed.: No Medication/Allergy Home Medications: Allopurinol [Zyloprim 100 mg Tablet] 02/01/17 Allopurinol [Zyloprim 100 mg Tablet] 100 mg PO DAILY 02/01/17 Allopurinol [Zyloprim 100 mg Tablet] 100 mg PO QHS 02/01/17 Amlodipine Besylate [Norvasc 10 mg Tablet] 10 mg PO QHS 02/01/17 Aspirin [Aspirin 325 mg Tablet] 325 mg PO QHS 02/01/17 Atorvastatin Calcium [Lipitor 20 mg Tablet] 20 mg PO DAILY 02/01/17 Atorvastatin Calcium [Lipitor 20 mg Tablet] 20 mg PO QHS 02/01/17 Budesonide/Formoterol Fumarate [Symbicort 160-4.5 Mcg Inhaler] 2 puff IN BID 11/11 Calcitriol [Rocaltrol 0.25 mcg Capsule] 0.25 mcg PO MOFR 02/01/17 Carvedilol [Carvedilol] 12.5 mg PO BID 02/01/17 Carvedilol [Coreg 12.5 mg Tablet] 12.5 mg PO Q12 02/01/17 Chlorzoxazone [Chlorzoxazone 250 mg Tablet] 500 mg pe PO DAILY PRN 02/01/17 Cholecalciferol (Vitamin D3) [Vitamin D3] 1,000 mg PO DAILY 02/01/17 Clonidine HCl [Catapres 0.2 mg Tablet] 0.2 mg PO Q12 02/01/17 Clonidine HCl [Clonidine HCl ER] 0.1 mg PO BID 02/01/17 Colchicine [Colchicine 0.6 mg Tablet] 0.6 mg PO DAILY PRN 02/01/17 Colchicine [Colcrys 0.6 mg Tablet] 0.6 mg PO DAILY 02/01/17 Fenofibrate Nanocrystallized [Fenofibrate] 48 mg PO [id number] 02/01/17 Fenofibrate Nanocrystallized [Fenofibrate] 48 mg pe PO DAILY 02/01/17 Ferrous Sulfate [Ferrousul] 325 mg PO QHS 02/01/17 Fluticasone Propionate [Flonase Nasal Ferris 50 Mcg/Ferris 16 gm] 1 spray NASL DAILY 02/01/17 Fluticasone/Salmeterol [Fluticasone-Salmeterol 55-14] 1 puff IN BID 02/01/17 Furosemide [Lasix 40 mg Tablet] 40 mg PO BID 02/01/17 Furosemide [Lasix] 40 mg PO BID 02/01/17 Gabapentin [Neurontin 300 mg Capsule] 300 mg PO BID 02/01/17 Guanfacine HCl 1 mg PO QHS 02/01/17 Insulin Aspart Prot/Insuln Asp [Novolog Mix 70-30 Vial] 02/01/17 Insulin Detemir [Levemir Flextouch] 100 unit SQ 02/01/17 Irbesartan [Avapro] 150 mg PO DAILY 02/01/17 Irbesartan [Irbesartan] 150 mg PO QHS 02/01/17 Isosorbide Mononitrate [Imdur 30 mg Tablet.er] 30 mg PO QAM 02/01/17 Isosorbide Mononitrate [Isosorbide Mononitrate ER] 02/01/17 Latanoprost 2.5 ml OS BID 02/01/17 P-Ephed HCl/Acetaminophn/Cp [Tylenol Allergy Complete Geltb] 500 each PO DAILY PRN 02/01/17 Pantoprazole Sodium [Protonix] 40 mg PO DAILY 02/01/17 Pantoprazole Sodium [Protonix] 40 mg PO QHS 02/01/17 Sitagliptin Phosphate [Januvia 50 mg Tablet] 100 mg PO DAILY 02/01/17 Sodium Polystyrene Sulfon/Sorb [Kionex 15 gm/60 ml Suspension] 02/01/17 Sodium Polystyrene Sulfon/Sorb [Sps 15 gm/60 ml Suspension] 15 gm PO Q7D Timolol Maleate [Timoptic 0.5% Oph Soln 5 ml] 1 drop OU DAILY 02/01/17 Timolol [Betimol] 10 ml OS BID 02/01/17 Zolpidem Tartrate [Ambien] 10 mg PO QHS 02/01/17 Allergies/Adverse Reactions: codeine Allergy (Verified 09/25/16 14:45) rash, disoriented Review of Systems Constitutional: ABSENT: chills, fever(s), headache(s), weight gain, weight loss Eyes: PRESENT: visual disturbances Ears: ABSENT: hearing changes Cardiovascular: ABSENT: chest pain, dyspnea on exertion, edema, orthropnea, palpitations Respiratory: ABSENT: cough, hemoptysis Gastrointestinal: ABSENT: abdominal pain, constipation, diarrhea, hematemesis, hematochezia, nausea, vomiting Genitourinary: ABSENT: dysuria, hematuria Integumentary: ABSENT: rash, wounds Neurological: PRESENT: frequent falls, lack of coordination. ABSENT: abnormal gait, abnormal speech, confusion, dizziness, focal weakness, syncope Psychiatric: ABSENT: depression, homidical ideation, suicidal ideation Endocrine: ABSENT: cold intolerance, heat intolerance, menstrual abnormalities, polydipsia, polyuria Hematologic/Lymphatic: ABSENT: easy bleeding, easy bruising, lymphadenopathy Physical Exam Vital Signs: Temp Pulse Resp BP Pulse Ox 99.1 F 75 16 166/60 H 95 02/02/17 07:43 02/02/17 07:43 02/02/17 07:43 02/02/17 07:43 02/02/17 07:43 Intake & Output 02/01/17 02/02/17 02/03/17 06:59 06:59 06:59 Intake Total 1950 Output Total 1875 Balance 75 General appearance: PRESENT: no acute distress, well-developed, well-nourished Head exam: PRESENT: atraumatic, normocephalic Eye exam: PRESENT: conjunctiva pink, EOMI, PERRLA, other - Prosthetic left eye. ABSENT: scleral icterus Ear exam: PRESENT: normal external ear exam Mouth exam: PRESENT: moist, tongue midline Neck exam: PRESENT: full ROM. ABSENT: carotid bruit, JVD, lymphadenopathy, thyromegaly Respiratory exam: PRESENT: unlabored Cardiovascular exam: PRESENT: RRR. ABSENT: diastolic murmur, rubs, systolic murmur Pulses: PRESENT: normal dorsalis pedis pul, +2 pedal pulses bilateral Vascular exam: PRESENT: normal capillary refill GI/Abdominal exam: PRESENT: normal bowel sounds, soft. ABSENT: distended, guarding, mass, organolmegaly, rebound, tenderness Rectal exam: PRESENT: deferred Musculoskeletal exam: PRESENT: other - Right Ankle: Splint c/d/i. No sensory deficits. Intact flexion/extensior toes. Capillary refill <2sec. No pain w/ passive stretch. Neurological exam: PRESENT: alert, awake, oriented to person, oriented to place , oriented to time, oriented to situation, CN II-XII grossly intact. ABSENT: motor sensory deficit Psychiatric exam: PRESENT: appropriate affect, normal mood. ABSENT: homicidal ideation, suicidal ideation Skin exam: PRESENT: dry, intact, warm. ABSENT: cyanosis, rash Results Laboratory Results: 02/02/17 05:28 02/02/17 05:28 02/01/17 02/02/17 02/02/17 16:26 05:28 05:28 WBC 12.5 H RBC 3.24 L Hgb 9.8 L Hct 28.4 L MCV 88 MCH 30.3 MCHC 34.6 RDW 14.9 H Plt Count 259 Seg Neutrophils % 70.5 Lymphocytes % 20.8 Monocytes % 7.1 Eosinophils % 0.5 Basophils % 1.1 Absolute Neutrophils 8.8 H Absolute Lymphocytes 2.6 Absolute Monocytes 0.9 Absolute Eosinophils 0.1 Absolute Basophils 0.1 Sodium 144.6 Potassium 5.3 H Chloride 108 H Carbon Dioxide 24 Anion Gap 13 BUN 82 H Creatinine 2.94 H Est GFR ( Amer) 26 L Est GFR (Non-Af Amer) 21 L Glucose 242 H Calcium 9.8 TSH Urine Color YELLOW Urine Appearance CLEAR Urine pH 5.0 Ur Specific [place] 1.011 Urine Protein NEGATIVE Urine Glucose (UA) 150 H Urine Ketones NEGATIVE Urine Blood NEGATIVE Urine Nitrite NEGATIVE Ur Leukocyte Esterase NEGATIVE Urine WBC (Auto) 0 Urine RBC (Auto) 0 02/02/17 05:28 WBC RBC Hgb Hct MCV MCH MCHC RDW Plt Count Seg Neutrophils % Lymphocytes % Monocytes % Eosinophils % Basophils % Absolute Neutrophils Absolute Lymphocytes Absolute Monocytes Absolute Eosinophils Absolute Basophils Sodium Potassium Chloride Carbon Dioxide Anion Gap BUN Creatinine Est GFR ( Amer) Est GFR (Non-Af Amer) Glucose Calcium TSH 0.68 Urine Color Urine Appearance Urine pH Ur Specific [place] Urine Protein Urine Glucose (UA) Urine Ketones Urine Blood Urine Nitrite Ur Leukocyte Esterase Urine WBC (Auto) Urine RBC (Auto) 02/01/17 02/01/1702/02/17 23:10 23:10 05:28 Creatine Kinase 396 H 325 H CK-MB (CK-2) 2.23 Troponin I < 0.012 02/02/17 05:28 Creatine Kinase CK-MB (CK-2) 1.40 Troponin I < 0.012 Impressions: Chest X-Ray 02/01/17 11:11 IMPRESSION: NO ACUTE RADIOGRAPHIC FINDING IN THE CHEST. NO SIGNIFICANT CHANGE FROM PRIOR STUDY. Head CT 02/01/17 11:11 IMPRESSION: NORMAL BRAIN CT WITHOUT CONTRAST. EVIDENCE OF ACUTE STROKE: NO. Knee X-Ray 02/01/17 11:35 IMPRESSION: NO DEFINITE FRACTURE OR HARDWARE COMPLICATION. SMALL JOINT EFFUSION. Ankle X-Ray 02/01/17 13:43 IMPRESSION: NO SIGNIFICANT IMPROVEMENT IN ALIGNMENT OF COMPLEX ANKLE FRACTURES STATUS POST CASTING. Assessment & Plan - Diagnosis (1) Ankle fracture, bimalleolar, closed Qualifiers: Encounter type: initial encounter Laterality: right Qualified Code(s): S82.841A - Displaced bimalleolar fracture of right lower leg, initial encounter for closed fracture Is this a current diagnosis for this admission?: Yes Plan: Patient sustained syncopal episode resulting ankle fracture-dislocation. Patient was adequate reduced in the ER. Given the instability and fracture type I have recommended operative intervention. Have discussed the case with the patient including postoperative expectations including risks and benefits. Once patient is medically cleared for operative intervention will proceed with operative treatment. Tentative plan is to set the patient up with Dr. Anderson for ORIF left ankle 02/03/17.
[2017-02-02 11:58] LABS: CREATINE KINASE MB 1.58 ng/mL (<4.55)
[2017-02-02 12:02] LABS: TROPONIN I < 0.012 ng/mL
--- NOTE | 2017-02-02 12:59 | PDOC PROGRESS REPORT ---
Subjective Progress Note for:: 02/02/17 Subjective:: Patient is experiencing significant nausea and episodes of vomiting related to his use of Dilaudid. No chest pain or difficulty with breathing. No fever or chills. No abdominal pain. Physical Exam Vital Signs: Temp Pulse Resp BP Pulse Ox 98.7 F 74 12 193/61 H 98 02/02/17 11:47 02/02/17 11:47 02/02/17 11:47 02/02/17 11:47 02/02/17 11:47 Intake & Output 02/01/17 02/02/17 02/03/17 06:59 06:59 06:59 Intake Total 1950 Output Total 1875 Balance 75 General appearance: PRESENT: no acute distress, cooperative, mild distress - due to pain and nausea, well-developed, well-nourished Head exam: PRESENT: atraumatic, normocephalic Eye exam: PRESENT: conjunctiva pink, EOMI, PERRLA. ABSENT: scleral icterus Mouth exam: PRESENT: moist Respiratory exam: PRESENT: clear to auscultation [place] Cardiovascular exam: PRESENT: RRR. ABSENT: diastolic murmur, rubs, systolic murmur Vascular exam: PRESENT: normal capillary refill. ABSENT: pallor GI/Abdominal exam: PRESENT: normal bowel sounds, soft. ABSENT: distended, guarding, mass, organolmegaly, rebound, tenderness Extremities exam: PRESENT: joint swelling - right ankle joint, tenderness - right ankle joint. ABSENT: pedal edema Musculoskeletal exam: PRESENT: tenderness - right ankle joint Neurological exam: PRESENT: alert, awake, oriented to person, oriented to place , oriented to time, oriented to situation, CN II-XII grossly intact. ABSENT: motor sensory deficit Psychiatric exam: PRESENT: appropriate affect, normal mood. ABSENT: homicidal ideation, suicidal ideation Skin exam: PRESENT: dry, intact, warm. ABSENT: cyanosis, rash Results Laboratory Results: 02/02/17 05:28 02/02/17 05:28 02/01/17 02/02/17 02/02/17 16:26 05:28 05:28 WBC 12.5 H RBC 3.24 L Hgb 9.8 L Hct 28.4 L MCV 88 MCH 30.3 MCHC 34.6 RDW 14.9 H Plt Count 259 Seg Neutrophils % 70.5 Lymphocytes % 20.8 Monocytes % 7.1 Eosinophils % 0.5 Basophils % 1.1 Absolute Neutrophils 8.8 H Absolute Lymphocytes 2.6 Absolute Monocytes 0.9 Absolute Eosinophils 0.1 Absolute Basophils 0.1 Sodium 144.6 Potassium 5.3 H Chloride 108 H Carbon Dioxide 24 Anion Gap 13 BUN 82 H Creatinine 2.94 H Est GFR ( Amer) 26 L Est GFR (Non-Af Amer) 21 L Glucose 242 H Calcium 9.8 TSH Urine Color YELLOW Urine Appearance CLEAR Urine pH 5.0 Ur Specific [place] 1.011 Urine Protein NEGATIVE Urine Glucose (UA) 150 H Urine Ketones NEGATIVE Urine Blood NEGATIVE Urine Nitrite NEGATIVE Ur Leukocyte Esterase NEGATIVE Urine WBC (Auto) 0 Urine RBC (Auto) 0 02/02/17 05:28 WBC RBC Hgb Hct MCV MCH MCHC RDW Plt Count Seg Neutrophils % Lymphocytes % Monocytes % Eosinophils % Basophils % Absolute Neutrophils Absolute Lymphocytes Absolute Monocytes Absolute Eosinophils Absolute Basophils Sodium Potassium Chloride Carbon Dioxide Anion Gap BUN Creatinine Est GFR ( Amer) Est GFR (Non-Af Amer) Glucose Calcium TSH 0.68 Urine Color Urine Appearance Urine pH Ur Specific [place] Urine Protein Urine Glucose (UA) Urine Ketones Urine Blood Urine Nitrite Ur Leukocyte Esterase Urine WBC (Auto) Urine RBC (Auto) 02/01/17 02/01/17 02/02/17 23:10 23:10 05:28 Creatine Kinase 396 H 325 H CK-MB (CK-2) 2.23 Troponin I < 0.012 02/02/17 02/02/17 02/02/17 05:28 11:14 11:14 Creatine Kinase 348 H CK-MB (CK-2) 1.40 1.58 Troponin I < 0.012 < 0.012 Impressions: Chest X-Ray 02/01/17 11:11 IMPRESSION: NO ACUTE RADIOGRAPHIC FINDING IN THE CHEST. NO SIGNIFICANT CHANGE FROM PRIOR STUDY. Head CT 02/01/17 11:11 IMPRESSION: NORMAL BRAIN CT WITHOUT CONTRAST. EVIDENCE OF ACUTE STROKE: NO. Knee X-Ray 02/01/17 11:35 IMPRESSION: NO DEFINITE FRACTURE OR HARDWARE COMPLICATION. SMALL JOINT EFFUSION. Ankle X-Ray 02/01/17 13:43 IMPRESSION: NO SIGNIFICANT IMPROVEMENT IN ALIGNMENT OF COMPLEX ANKLE FRACTURES STATUS POST CASTING. Assessment & Plan - Diagnosis (1) Syncope Qualifiers: Syncope type: unspecified Qualified Code(s): R55 - Syncope and collapse Is this a current diagnosis for this admission?: Yes (2) Closed right ankle fracture Qualifiers: Encounter type: initial encounter Qualified Code(s): S82.891A - Other fracture of right lower leg, initial encounter for closed fracture Is this a current diagnosis for this admission?: Yes (3) Diabetes mellitus type 2 in obese Is this a current diagnosis for this admission?: Yes (4) Obstructive sleep apnea of adult Is this a current diagnosis for this admission?: Yes (5) Chronic kidney disease Qualifiers: Chronic kidney disease stage: stage 4 (severe) Qualified Code(s): N18.4 - Chronic kidney disease, stage 4 (severe) Is this a current diagnosis for this admission?: Yes (6) HTN (hypertension) Qualifiers: Hypertension type: essential hypertension Qualified Code(s): I10 - Essential (primary) hypertension Is this a current diagnosis for this admission?: Yes (7) Hyperlipidemia Qualifiers: Hyperlipidemia type: unspecified Qualified Code(s): E78.5 - Hyperlipidemia , unspecified Is this a current diagnosis for this admission?: Yes (8) Mixed anxiety and depressive disorder Is this a current diagnosis for this admission?: Yes (9) Persistent insomnia Is this a current diagnosis for this admission?: Yes - Time Time Spent with patient: 25-34 minutes Medications reviewed and adjusted accordingly: Yes Anticipated discharge: SNF - for short term rehabilitation Within: Other - Inpatient Certification Based on my medical assessment, after consideration of the patient's comorbidities, presenting symptoms, or acuity I expect that the services needed warrant INPATIENT care.: Yes I certify that my determination is in accordance with my understanding of Medicare's requirements for reasonable and necessary INPATIENT services [42 CFR 412.3e].: Yes Medical Necessity: Need Close Monitoring Due to Risk of Patient Decompensation, Need For IV Fluids, Need For Continuous Telemetry Monitoring, Need for Pain Control, Need for Surgery, Risk of Complication if Not Cared For in Hospital Post Hospital Care: D/C or Transfer Summary - Plan Summary Plan Summary: Decrease Dilaudid to 1mg q6hrs prn for pain management. He is not a candidate for NSAID usage in view of his CKD and cardiac risks. Continue on all other current medication management
[2017-02-02] MEDS: CHOLECALCIFEROL (D3) 1,000 UNIT TABLET PO SCH (14:28)
[2017-02-02] MEDS: FENOFIBRATE NANOCRYSTALLIZED 48 MG TABLET PO SCH (14:28)
[2017-02-02] MEDS: GABAPENTIN 300 MG CAPSULE PO SCH ×2 (14:28→17:39)
[2017-02-02] MEDS: FUROSEMIDE 40 MG TABLET PO SCH ×2 (14:28→14:51)
[2017-02-02] MEDS: SITAGLIPTIN PHOSPHATE 50 MG TABLET PO SCH (14:28)
[2017-02-02] MEDS: TIMOLOL MALEATE 0.5% OPH SOLN 5 ML OU SCH (14:28)
[2017-02-02] MEDS: ALLOPURINOL 100 MG TABLET PO SCH (14:28)
[2017-02-02] MEDS: BUDESONIDE/FORMOTEROL 160-4.5 MCG 60 PUFF/6 GM MDI IH SCH ×2 (14:28→17:39)
[2017-02-02] MEDS: FLUTICASONE NASAL SPRAY 50 MCG/SPRY 120 SPRAY/16 GM NASL SCH (14:28)
[2017-02-02] MEDS: CARVEDILOL 12.5 MG TABLET PO SCH ×2 (16:05→17:39)
[2017-02-02] MEDS: CLONIDINE HCL 0.2 MG TABLET PO SCH ×2 (16:08→21:59)
--- NOTE | 2017-02-02 16:55 | EKG REPORT ---
SEVERITY:- NORMAL ECG - SINUS RHYTHM : Confirmed by: Arabella Vargas MD 02-Feb-2017 16:54:48
[2017-02-02] MEDS: HYDROMORPHONE HCL 2 MG TABLET PO PRN ×2 (17:51→21:56)
[2017-02-02] MEDS: AMLODIPINE BESYLATE 10 MG TABLET PO SCH (21:56)
[2017-02-02] MEDS: FERROUS SULFATE 325 MG TABLET PO SCH (21:56)
[2017-02-02] MEDS: ZOLPIDEM TARTRATE 5 MG TABLET PO SCH (21:57)
[2017-02-02] MEDS: ATORVASTATIN CALCIUM 20 MG TABLET PO SCH (21:58)
[2017-02-02] MEDS: LOSARTAN POTASSIUM 50 MG TABLET PO SCH (22:00)
[2017-02-03] MEDS: HYDROMORPHONE HCL 2 MG TABLET PO PRN ×4 (04:20→22:13)
[2017-02-03] MEDS: LANSOPRAZOLE 30 MG TAB.RAP.DR PO SCH (05:37)
[2017-02-03] MEDS: HEPARIN SOD (PORCINE) 5,000 UNIT/ML 1 ML SYRINGE SUBCUT SCH ×3 (05:41→22:00)
[2017-02-03 06:10] LABS: ANION GAP 11 (5-19); BLOOD UREA NITROGEN 57 mg/dL (7-20); CALCIUM 9.9 mg/dL (8.4-10.2); CARBON DIOXIDE 28 mmol/L (22-30); CHLORIDE 106 mmol/L (98-107); CREATININE RESULT 2.73 mg/dL (0.52-1.25); GLUCOSE 286 mg/dL (75-110); POTASSIUM 4.4 mmol/L (3.6-5.0); SODIUM 144.9 mmol/L (137-145)
--- NOTE | 2017-02-03 06:37 | PDOC PROGRESS REPORT ---
Subjective Progress Note for:: 02/03/17 Subjective:: Patient alert, can versive, and appropriate Physical Exam Vital Signs: Temp Pulse Resp BP Pulse Ox 37.7 C 76 18 156/61 H 95 02/03/17 04:36 02/03/17 04:36 02/03/17 04:36 02/03/17 04:36 02/03/17 04:36 Intake & Output 02/01/17 02/02/17 02/03/17 06:59 06:59 06:59 Intake Total 1500 1130 Output Total 1875 5220 Balance -375 -4090 General appearance: PRESENT: mild distress Head exam: PRESENT: normocephalic Respiratory exam: PRESENT: unlabored Cardiovascular exam: PRESENT: RRR Vascular exam: PRESENT: normal capillary refill GI/Abdominal exam: PRESENT: Stewart's sign Rectal exam: PRESENT: deferred Extremities exam: PRESENT: other - Left lower extremity wound is all healed some abrasion and contusion lateral infrapatellar. Right lower extremity is immobilized in posterior splint. There is brisk capillary refill to the great toe. Motor function is intact. Neurological exam: PRESENT: alert, awake, oriented to person, oriented to place , oriented to time, oriented to situation. ABSENT: motor sensory deficit Psychiatric exam: PRESENT: appropriate affect, normal mood. ABSENT: homicidal ideation, suicidal ideation Skin exam: PRESENT: dry, intact, warm. ABSENT: cyanosis, rash Results Laboratory Results: 02/02/17 05:28 02/03/17 05:43 02/03/17 05:43 Sodium 144.9 Potassium 4.4 Chloride 106 Carbon Dioxide 28 Anion Gap 11 BUN 57 H Creatinine 2.73 H Est GFR ( Amer) 28 L Est GFR (Non-Af Amer) 23 L Glucose 286 H Calcium 9.9 02/01/17 02/01/17 02/02/17 23:10 23:10 05:28 Creatine Kinase 396 H 325 H CK-MB (CK-2) 2.23 Troponin I < 0.012 02/02/17 02/02/17 02/02/17 05:28 11:14 11:14 Creatine Kinase 348 H CK-MB (CK-2) 1.40 1.58 Troponin I < 0.012 < 0.012 Impressions: Chest X-Ray 02/01/17 11:11 IMPRESSION: NO ACUTE RADIOGRAPHIC FINDING IN THE CHEST. NO SIGNIFICANT CHANGE FROM PRIOR STUDY. Head CT 02/01/17 11:11 IMPRESSION: NORMAL BRAIN CT WITHOUT CONTRAST. EVIDENCE OF ACUTE STROKE: NO. Knee X-Ray 02/01/17 11:35 IMPRESSION: NO DEFINITE FRACTURE OR HARDWARE COMPLICATION. SMALL JOINT EFFUSION. Ankle X-Ray 02/01/17 13:43 IMPRESSION: NO SIGNIFICANT IMPROVEMENT IN ALIGNMENT OF COMPLEX ANKLE FRACTURES STATUS POST CASTING. Status: Imported from PACS Assessment & Plan - Diagnosis (1) Ankle fracture, bimalleolar, closed Qualifiers: Encounter type: initial encounter Laterality: right Qualified Code(s): S82.841A - Displaced bimalleolar fracture of right lower leg, initial encounter for closed fracture Is this a current diagnosis for this admission?: Yes Plan: Plan for an open reduction internal fixation of right ankle fracture pending or availability (2) Diabetes mellitus type 2 in obese Is this a current diagnosis for this admission?: Yes Plan: Patient with hyperglycemia to 316. Apparently patient selectively accepting insulin medications. Patient to be placed on a Humalog sliding scale. - Time Time Spent with patient: 15-24 minutes Anticipated discharge: Home with Homehealth Within: within 24 hours
[2017-02-03] MEDS: INSULIN LISPRO 100 UNIT/ML 3 ML VIAL SUBCUT PRN ×4 (06:56→22:25)
[2017-02-03] MEDS ORDERED: CEFAZOLIN 2 GM/D5W RTU 2 GM/50 ML RTUPB IV PRN (07:13)
[2017-02-03] MEDS ORDERED: RINGERS SOLUTION,LACTATED 1,000 ML IV PRN (07:13)
[2017-02-03] MEDS: ISOSORBIDE MONONITRATE 30 MG TAB.ER.24H PO SCH (08:45)
[2017-02-03] MEDS: FENOFIBRATE NANOCRYSTALLIZED 48 MG TABLET PO SCH (08:45)
[2017-02-03] MEDS: FLUTICASONE NASAL SPRAY 50 MCG/SPRY 120 SPRAY/16 GM NASL SCH (10:57)
[2017-02-03] MEDS: TIMOLOL MALEATE 0.5% OPH SOLN 5 ML OU SCH (10:57)
[2017-02-03] MEDS: BUDESONIDE/FORMOTEROL 160-4.5 MCG 60 PUFF/6 GM MDI IH SCH ×2 (10:58→17:55)
[2017-02-03] MEDS: SITAGLIPTIN PHOSPHATE 50 MG TABLET PO SCH (11:00)
[2017-02-03] MEDS: CARVEDILOL 12.5 MG TABLET PO SCH ×2 (11:04→17:54)
[2017-02-03] MEDS: FUROSEMIDE 40 MG TABLET PO SCH ×2 (11:05→17:55)
[2017-02-03] MEDS: CLONIDINE HCL 0.2 MG TABLET PO SCH ×2 (11:05→22:12)
[2017-02-03] MEDS: CHOLECALCIFEROL (D3) 1,000 UNIT TABLET PO SCH (11:06)
[2017-02-03] MEDS: ALLOPURINOL 100 MG TABLET PO SCH (11:06)
[2017-02-03] MEDS: GABAPENTIN 300 MG CAPSULE PO SCH ×2 (11:06→17:55)
--- NOTE | 2017-02-03 13:13 | RADIOLOGY REPORT (SQ) ---
EXAM DESCRIPTION: CAROTID DOPPLER COMPLETED DATE/TIME: 02/03/2017 11:23 am REASON FOR STUDY: syncope COMPARISON: CT brain 02/01/2017 TECHNIQUE: Grayscale ultrasound, Doppler velocity and spectra, and color Doppler images acquired of the extra-cranial carotid and vertebral arteries. Images stored on PACS. LIMITATIONS: None. FINDINGS: RIGHT CAROTID CCA Velocities: Within normal limits. ICA Velocities Peak systolic 1.6 m/s. End diastolic 0.29 m/s. Proximal ICA/CCA peak systolic ratio 1.1. Spectra normal. No significant plaque. LEFT CAROTID CCA Velocities: Within normal limits. ICA Velocities Peak systolic 1.2 m/s. End diastolic 0.2 m/s. Proximal ICA/CCA peak systolic ratio 1.2. Spectra normal. No significant plaque. VERTEBRAL ARTERIES: Antegrade flow. Normal waveforms. SUBCLAVIAN ARTERIES: Not evaluated. OTHER: No other significant finding. IMPRESSION: NO HEMODYNAMICALLY SIGNIFICANT STENOSIS. COMMENT: Quality ID #[id number]: Velocity criteria are extrapolated from the diameter data as defined by t he Society of Radiologists in Ultrasound Consensus Conference. Radiology 2003: 229; 340-346. TECHNICAL DOCUMENTATION: JOB ID: [id number]- All Rights Reserved
--- NOTE | 2017-02-03 14:16 | PDOC PROGRESS REPORT ---
Subjective Progress Note for:: 02/03/17 Subjective:: This 72-year-old MaleAdmitted for the left ankle fracture and syncopal episode Patient is going to schedule for the surgery tomorrow by Dr. Anderson if the patient is cleared from the cardiac standpoint Patient initial CT head and a carotid Doppler is all negative Patient have a history of the syncopal episode on the ER presentations Patient's denied any chest pain without any shortness of the breath Patients also see Dr. reynolds as outpatient And also see Dr. Duarte Physical Exam Vital Signs: Temp Pulse Resp BP Pulse Ox 99.5 F 74 18 160/66 H 94 02/03/17 11:15 02/03/17 11:15 02/03/17 11:15 02/03/17 11:15 02/03/17 11:15 Intake & Output 02/02/17 02/03/17 02/04/17 06:59 06:59 06:59 Intake Total 1500 1130 Output Total 1875 5220 Balance -375 -4090 General appearance: PRESENT: no acute distress, well-developed, well-nourished Head exam: PRESENT: atraumatic, normocephalic Eye exam: PRESENT: conjunctiva pink, EOMI, PERRLA. ABSENT: scleral icterus Ear exam: PRESENT: normal external ear exam Mouth exam: PRESENT: moist, tongue midline Neck exam: PRESENT: full ROM. ABSENT: carotid bruit, JVD, lymphadenopathy, thyromegaly Respiratory exam: PRESENT: clear to auscultation [place] Cardiovascular exam: PRESENT: RRR. ABSENT: diastolic murmur, rubs, systolic murmur Pulses: PRESENT: normal dorsalis pedis pul, +2 pedal pulses bilateral Vascular exam: PRESENT: normal capillary refill GI/Abdominal exam: PRESENT: normal bowel sounds, soft. ABSENT: distended, guarding, mass, organolmegaly, rebound, tenderness Rectal exam: PRESENT: deferred Additional comments: Left lower extremity immobilizer is present Neurological exam: PRESENT: alert, awake, oriented to person, oriented to place , oriented to time, oriented to situation, CN II-XII grossly intact. ABSENT: motor sensory deficit Psychiatric exam: PRESENT: appropriate affect, normal mood. ABSENT: homicidal ideation, suicidal ideation Skin exam: PRESENT: dry, intact, warm. ABSENT: cyanosis, rash Results Laboratory Results: 02/02/17 05:28 02/03/17 05:43 02/03/17 05:43 Sodium 144.9 Potassium 4.4 Chloride 106 Carbon Dioxide 28 Anion Gap 11 BUN 57 H Creatinine 2.73 H Est GFR ( Amer) 28 L Est GFR (Non-Af Amer) 23 L Glucose 286 H Calcium 9.9 02/01/17 02/01/17 02/02/17 23:10 23:10 05:28 Creatine Kinase 396 H 325 H CK-MB (CK-2) 2.23 Troponin I < 0.012 02/02/17 02/02/17 02/02/17 05:28 11:14 11:14 Creatine Kinase 348 H CK-MB (CK-2) 1.40 1.58 Troponin I < 0.012 < 0.012 Impressions: Chest X-Ray 02/01/17 11:11 IMPRESSION: NO ACUTE RADIOGRAPHIC FINDING IN THE CHEST. NO SIGNIFICANT CHANGE FROM PRIOR STUDY. Head CT 02/01/17 11:11 IMPRESSION: NORMAL BRAIN CT WITHOUT CONTRAST. EVIDENCE OF ACUTE STROKE: NO. Knee X-Ray 02/01/17 11:35 IMPRESSION: NO DEFINITE FRACTURE OR HARDWARE COMPLICATION. SMALL JOINT EFFUSION. Ankle X-Ray 02/01/17 13:43 IMPRESSION: NO SIGNIFICANT IMPROVEMENT IN ALIGNMENT OF COMPLEX ANKLE FRACTURES STATUS POST CASTING. Carotid Doppler Study 02/03/17 00:00 IMPRESSION: NO HEMODYNAMICALLY SIGNIFICANT STENOSIS. Assessment & Plan - Diagnosis (1) Ankle fracture, bimalleolar, closed Qualifiers: Encounter type: initial encounter Laterality: right Qualified Code(s): S82.841A - Displaced bimalleolar fracture of right lower leg, initial encounter for closed fracture Is this a current diagnosis for this admission?: Yes Plan: Patient is scheduled for the surgery tomorrow we will wait for the echocardiogram and cardiology evaluations (2) Diabetes mellitus type 2 in obese Is this a current diagnosis for this admission?: Yes Plan: Continues a sliding scale (3) Hyperlipidemia Qualifiers: Hyperlipidemia type: unspecified Qualified Code(s): E78.5 - Hyperlipidemia , unspecified Is this a current diagnosis for this admission?: Yes Plan: Currently stable (4) Mixed anxiety and depressive disorder Is this a current diagnosis for this admission?: Yes Plan: Continues to current home medications (5) Obstructive sleep apnea of adult Is this a current diagnosis for this admission?: Yes Plan: Continues to CPAP (6) Syncope Qualifiers: Syncope type: unspecified Qualified Code(s): R55 - Syncope and collapse Is this a current diagnosis for this admission?: Yes Plan: Patient's initial all workup is negative will get the MRI of the head (7) Chronic kidney disease Qualifiers: Chronic kidney disease stage: stage 3 (moderate) Qualified Code(s): N18.3 - Chronic kidney disease, stage 3 (moderate) Is this a current diagnosis for this admission?: Yes Plan: Patient is currently seeing Dr. Duarte is outpatients and currently creatinine is 2.37 try to avoid the Ringer lactate (8) HTN (hypertension) Qualifiers: Hypertension type: essential hypertension Qualified Code(s): I10 - Essential (primary) hypertension Is this a current diagnosis for this admission?: Yes Plan: Continues current medications (9) Obesity Qualifiers: Obesity type: due to excess calories Is this a current diagnosis for this admission?: Yes - Time Time Spent with patient: 15-24 minutes Medications reviewed and adjusted accordingly: Yes Anticipated discharge: Home, Home with Homehealth Within: Other - Inpatient Certification Medical Necessity: Need Close Monitoring Due to Risk of Patient Decompensation, Need For IV Fluids, Need for IV Antibiotics 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
[2017-02-03] MEDS ORDERED: INSULIN DETEMIR 100 UNIT/ML 3 ML PEN SUBCUT ONE ×2 (15:00→15:45)
--- NOTE | 2017-02-03 18:38 | PDOC CONSULTATION ---
Consultation Consult Date: 02/03/17 Attending physician:: YESSY DELA CRUZ Consult reason:: Syncope, preop clearance History of Present Illness Admission Date/PCP: 02/01/17 20:00 YESSY DELA CRUZ MD Patient complains of: Right ankle fracture and syncope History of Present Illness: ADELE DC JR is a 72 year [address] of Dr[address] Dela Cruz who was brought to the ED on 02/01/17. Patient reported that he was sitting on his pouch and noticed blurriness vision in his right eye. He reported having a prosthesis in his left eye. He claimed that his blood glucose have been elevated with regard to his diabetes mellitus management. In his effort to get up from sitting position he loss his balance and fell on to concrete floor on his pouch. He was unable to get off the floor and took awhile to get help, about 10-15 minutes. His grandson was attempting to help him off the floor but due to severe pain in his right ankle he feel back to the ground and claimed to have lost consciousness. He was eventually transported the the ED and EMS personnel reported another episode of syncope en-route to the hospital. His initial evaluation in the ED was remarkable for right ankle misalignment and pain with X ray finding suggestive of right ankle fracture. Patient underwent closed reduction in the emergency room and was placed in a splint. He states his pain has improved after closed reduction. Denies numbness or tingling. Current pain 2/10. Improved with pain medication. Patient claims no significant problems with his heart. He claims that he had a nuclear stress test about a year ago which was negative. He gives questionable history of seizure disorder. He also gives history of sleep apnea and currently on CPAP therapy. Patient claims that his blood sugar has been rather running high at times. Patient denied any recent episodes of hypoglycemia. Patient denied any preceding palpitations or any other significant prodrome except for blurred vision in the right eye. As noted above, patient had further syncopal spell in transit by EMS. This history was reviewed, confirmed and supplemented. Patient long-term girlfriend in the room, however patient's daughter and son-in-law are surrogate decision maker. 2D echo performed earlier today was reviewed. It shows normal LVEF. No significant valvular regurgitation or stenosis noted. No significant pulmonary hypertension noted. Past Medical History Cardiac Medical History: Reports: Congestive Heart Failure, Coronary Artery Disease - small blockage & small aortic valve leakage, Hyperlipidema, Hypertension Denies: Atrial Fibrillation, Myocardial Infarction, Peripheral Vascular Disease, Pulmonary Embolism, Heart Murmur Pulmonary Medical History: Reports: Asthma - inhalers, Pneumonia - 2 months ago , Sleep Apnea - Uses CPAP Denies: Bronchitis, Chronic Obstructive Pulmonary Disease (COPD), Respiratory Failure, Tuberculosis Neurological Medical History: Reports: Seizures - possible at night..? Endocrine Medical History: Reports: Diabetes Mellitus Type 1, Diabetes Mellitus Type 2, Hypothyroidism Denies: Hyperthyroidism Renal/ Medical History: Denies: End Stage Renal Disease Malignancy Medical History: Denies: Leukemia, Lung Cancer GI Medical History: Reports: Gastroesophageal Reflux Disease Denies: Crohn's Disease, Hiatal Hernia Musculoskeltal Medical History: Reports: Arthritis Denies: Fibromyalgia Psychiatric Medical History: Reports: Depression Denies: Bipolar Disorder, Dementia, Post Traumatic Stress Disorder Hematology: Reports: Anemia - because of kidneys Denies: Hemophilia, Sickle Cell Disease Infectious Medical History: Denies: HIV Past Surgical History Past Surgical History: Reports: Appendectomy, Herniorrhaphy, Orthopedic Surgery - right rotator cuff, Tonsillectomy Denies: Cholecystectomy, Colostomy, Coronary Artery Bypass Graft, Gastric Bypass Surgery, Pacemaker Social History Information Source: Patient Smoking Status: Never Smoker Frequency of Alcohol Use: None Hx Recreational Drug Use: No Drugs: None Hx Prescription Drug Abuse: No - Advance Directive Resuscitation Status: Full Code Surrogate healthcare decision maker:: Patient's daughter and son-in-law surrogate decision-maker. Family History Family History: Hypertension Parental Family History Reviewed: Yes Children Family History Reviewed: Yes Sibling(s) Family History Reviewed.: Yes Medication/Allergy Home Medications: Allopurinol [Zyloprim 100 mg Tablet] 100 mg PO DAILY 02/01/17 Allopurinol [Zyloprim 100 mg Tablet] 100 mg PO QHS 02/01/17 Allopurinol [Zyloprim 100 mg Tablet] DAILY 02/01/17 Amlodipine Besylate [Norvasc 10 mg Tablet] 10 mg PO QHS 02/01/17 Aspirin [Aspirin 325 mg Tablet] 325 mg PO QHS 02/01/17 Atorvastatin Calcium [Lipitor 20 mg Tablet] 20 mg PO DAILY 02/01/17 Atorvastatin Calcium [Lipitor 20 mg Tablet] 20 mg PO QHS 02/01/17 Budesonide/Formoterol Fumarate [Symbicort 160-4.5 Mcg Inhaler] 2 puff IN BID 11/11 Calcitriol [Rocaltrol 0.25 mcg Capsule] 0.25 mcg PO MOFR 02/01/17 Carvedilol [Carvedilol] 12.5 mg PO BID 02/01/17 Carvedilol [Coreg 12.5 mg Tablet] 12.5 mg PO Q12 02/01/17 Chlorzoxazone [Chlorzoxazone 250 mg Tablet] 500 mg pe PO DAILY PRN 02/01/17 Cholecalciferol (Vitamin D3) [Vitamin D3] 1,000 mg PO DAILY 02/01/17 Clonidine HCl [Catapres 0.2 mg Tablet] 0.2 mg PO Q12 02/01/17 Clonidine HCl [Clonidine HCl ER] 0.1 mg PO BID 02/01/17 Colchicine [Colchicine 0.6 mg Tablet] 0.6 mg PO DAILY PRN 02/01/17 Colchicine [Colcrys 0.6 mg Tablet] 0.6 mg PO DAILY 02/01/17 Fenofibrate Nanocrystallized [Fenofibrate] 48 mg PO [id number] 02/01/17 Fenofibrate Nanocrystallized [Fenofibrate] 48 mg pe PO DAILY 02/01/17 Ferrous Sulfate [Ferrousul] 325 mg PO QHS 02/01/17 Fluticasone Propionate [Flonase Nasal [place] 50 Mcg/[place] 16 gm] 1 spray NASL DAILY 02/01/17 Fluticasone/Salmeterol [Fluticasone-Salmeterol 55-14] 1 puff IN BID 02/01/17 Furosemide [Lasix 40 mg Tablet] 40 mg PO BID 02/01/17 Furosemide [Lasix] 40 mg PO BID 02/01/17 Gabapentin [Neurontin 300 mg Capsule] 300 mg PO BID 02/01/17 Guanfacine HCl 1 mg PO QHS 02/01/17 Insulin Aspart Prot/Insuln Asp [Novolog Mix 70-30 Vial] 02/01/17 Insulin Detemir [Levemir Flextouch] 70 unit SQ BID 02/01/17 Irbesartan [Avapro] 150 mg PO DAILY 02/01/17 Irbesartan [Irbesartan] 150 mg PO QHS 02/01/17 Isosorbide Mononitrate [Imdur 30 mg Tablet.er] 30 mg PO QAM 02/01/17 Isosorbide Mononitrate [Isosorbide Mononitrate ER] DAILY 02/01/17 Latanoprost 2.5 ml OD DAILY 02/01/17 P-Ephed HCl/Acetaminophn/Cp [Tylenol Allergy Complete Geltb] 500 each PO DAILY PRN 02/01/17 Pantoprazole Sodium [Protonix] 40 mg PO DAILY 02/01/17 Pantoprazole Sodium [Protonix] 40 mg PO QHS 02/01/17 Sitagliptin Phosphate [Januvia 50 mg Tablet] 100 mg PO DAILY 02/01/17 Sodium Polystyrene Sulfon/Sorb [Kionex 15 gm/60 ml Suspension] Q7D 02/01/17 Sodium Polystyrene Sulfon/Sorb [Sps 15 gm/60 ml Suspension] 15 gm PO Q7D Timolol Maleate [Timoptic 0.5% Oph Soln 5 ml] 1 drop OD BID 02/01/17 Timolol [Betimol] 10 ml OS BID 02/01/17 Zolpidem Tartrate [Ambien] 10 mg PO QHS 02/01/17 Allergies/Adverse Reactions: codeine Allergy (Verified 09/25/16 14:45) rash, disoriented Review of Systems Review of Systems: Please see history of present illness and past medical history as wall. Constitutional: No fever or chills reported. Head : No recent chronic headaches, recent head injury. Eyes: No recent eye pain, diplopia, redness, discharge, acute visual changes. 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 Recent right eye blurred vision. Ears: No recent chronic ear pain, acute hearing loss, ear discharge. Oral cavity: No recent ulcerations, bleeding, oral cavity discomfort. Neck: No recent acute neck pain reported. Hematologic: No recent easy bruising or bleeding or hematologic malignancy reported. Lymphatic: No recent lymphatic malignancy, chronic lymphadenopathy reported yet Cardiovascular system review: See history of present illness. Respiratory system review: No recent chronic cough, hemoptysis, blood clots in the lungs reported. Mild Shortness of breath on exertion Gastrointestinal system review: Negative for any recent acute or chronic abdominal pain, hematemesis, melena, recent change in bowel habits. Genitourinary system review: No recent acute or chronic hematuria, flank pain, UTI etc. reported. Skin system review: Negative for any recent abnormal bruising, no rash, no pruritus reported. Neurologic: No prior history of strokes, mini strokes, seizure disorder. Questionable history of seizures. Positive for sleep apnea. Psychologic: No history of major psychosis or major depression reported. Musculoskeletal: Minor aches and pains reported. No acute joint swelling reported. Endocrine: No recent polyuria, polydipsia, recent heat or cold intolerance. Physical Exam Vital Signs: Temp Pulse Resp BP Pulse Ox 100.2 F 75 18 133/57 H 98 02/03/17 15:26 02/03/17 15:26 02/03/17 15:26 02/03/17 15:26 02/03/17 15:26 Intake & Output 02/02/17 02/03/17 02/04/17 06:59 06:59 06:59 Intake Total 1500 1130 600 Output Total 1875 5220 1250 Balance -375 -4090 -650 Exam: GENERAL: well-nourished and in no acute distress. Alert and oriented x3 HEAD: Atraumatic, normocephalic. EYES: Pupils equal round and reactive to light, extraocular movements intact, sclera anicteric, conjunctiva are normal. Left eye is glass eye. ENT: TMs normal, nares patent, oropharynx clear without exudates. Moist mucous membranes. No oral ulcerations or bleeding gums noted NECK: supple without lymphadenopathy. Trachea is central. No cervical or axillary lymphadenopathy noted. Carotids are 2+, JVD WNL LUNGS: Respiration seems nonlabored, no significant accessory muscle action noted. Breath sounds clear to auscultation bilaterally and equal noted. No wheezes rales or rhonchi noted. No significant dullness noted on percussion. CHEST: Palpation of the chest wall shows no significant chest wall tenderness. No other significant abnormalities noted. 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 ABDOMEN: Soft, no significant tenderness appreciated, normoactive bowel sounds. No guarding, no rebound. No rigidity noted . No masses appreciated. EXTREMITIES: Pedal pulses are 1-2+, no calf tenderness noted. No clubbing or cyanosis.trace pedal edema noted NEUROLOGICAL: Focused neurological exam showed no significant neurologic deficit. Normal speech, no focal weakness appreciated. PSYCH: Normal mood, normal affect. Judgment and insight within normal limits. SKIN: No significant ecchymosis, rash, ulcerations or signs of pruritus noted. MUSCULOSKELETAL EXAM: No significant joint swelling noted. Findings consistent with right ankle fracture which is in cast and bandages. Results Laboratory Results: 02/02/17 05:28 02/03/17 05:43 02/03/17 05:43 Sodium 144.9 Potassium 4.4 Chloride 106 Carbon Dioxide 28 Anion Gap 11 BUN 57 H Creatinine 2.73 H Est GFR ( Amer) 28 L Est GFR (Non-Af Amer) 23 L Glucose 286 H Calcium 9.9 02/01/17 02/01/17 02/02/17 23:10 23:10 05:28 Creatine Kinase 396 H 325 H CK-MB (CK-2) 2.23 Troponin I < 0.012 02/02/17 02/02/17 02/02/17 05:28 11:14 11:14 Creatine Kinase 348 H CK-MB (CK-2) 1.40 1.58 Troponin I < 0.012 < 0.012 EKG Comments: Sinus rhythm, no acute ST-T wave changes noted. Impressions: Chest X-Ray 02/01/17 11:11 IMPRESSION: NO ACUTE RADIOGRAPHIC FINDING IN THE CHEST. NO SIGNIFICANT CHANGE FROM PRIOR STUDY. Head CT 02/01/17 11:11 IMPRESSION: NORMAL BRAIN CT WITHOUT CONTRAST. EVIDENCE OF ACUTE STROKE: NO. Knee X-Ray 02/01/17 11:35 IMPRESSION: NO DEFINITE FRACTURE OR HARDWARE COMPLICATION. SMALL JOINT EFFUSION. Ankle X-Ray 02/01/17 13:43 IMPRESSION: NO SIGNIFICANT IMPROVEMENT IN ALIGNMENT OF COMPLEX ANKLE FRACTURES STATUS POST CASTING. Carotid Doppler Study 02/03/17 00:00 IMPRESSION: NO HEMODYNAMICALLY SIGNIFICANT STENOSIS. Assessment & Plan - Diagnosis (1) Preoperative cardiovascular examination Is this a current diagnosis for this admission?: Yes (2) Syncope Qualifiers: Syncope type: unspecified Qualified Code(s): R55 - Syncope and collapse Is this a current diagnosis for this admission?: Yes (3) Closed right ankle fracture Qualifiers: Encounter type: initial encounter Qualified Code(s): S82.891A - Other fracture of right lower leg, initial encounter for closed fracture Is this a current diagnosis for this admission?: Yes (4) Diabetes mellitus type 2 in obese Is this a current diagnosis for this admission?: Yes (5) Hyperlipidemia Qualifiers: Hyperlipidemia type: unspecified Qualified Code(s): E78.5 - Hyperlipidemia , unspecified Is this a current diagnosis for this admission?: Yes (6) Obstructive sleep apnea of adult Is this a current diagnosis for this admission?: Yes (8) HTN (hypertension) Qualifiers: Hypertension type: essential hypertension Qualified Code(s): I10 - Essential (primary) hypertension Is this a current diagnosis for this admission?: Yes (9) Obesity Qualifiers: Obesity type: unspecified obesity type Is this a current diagnosis for this admission?: Yes - Notes Notes: Preop clearance: Patient in sinus rhythm. Patient has had no angina or angina equivalent symptoms. Patient not in clinical CHF. 2D echo negative for significant LV systolic dysfunction or any significant stenotic valve disease. EKGs and enzymes are negative. Patient cleared for surgery. We'll be happy to take care of any cardiac problem as it arises. Patient felt to be at acceptable risk for patient's age. Syncope: Syncope template exact etiology not clear but includes cardiac dysrhythmia, postural hypotension, seizure disorder, hypoglycemia etc. cardiac stenotic valve disease ruled out. Patient would benefit from event monitor and orthostatic blood pressure measurements. In the meantime will recommend holding off on amlodipine and switching to angiotensin receptor guille or RAVINDRA inhibitors for blood pressure control. May also consider beta-blockers if needed. Diabetes: Recommend good control of blood sugar. However should avoid any hypoglycemia. Patient being expertly managed by primary care M.D. Hyperlipidemia: LDL goal is less than 70. Recommend statin therapy at least intermediate or high dose, of high potency status. Periodic lipid panel and liver panel is indicated. Patient to report any significant muscle discomfort or other side effects. Sleep apnea: patient advised compliance with CPAP therapy. Discussed importance of weight loss. Obesity: Discussed adverse effect of overweight/obesity on cardiovascular event rate, sleep apnea, diabetes and hypertension et cetera. Patient has been recommended weight loss. Patient advised in weight loss. - Time Time Spent: 30 to 50 Minutes Medications reviewed and adjusted accordingly: Yes
--- NOTE | 2017-02-03 18:41 | XCELERA REPORT ---
[address] [address] Transthoracic Echocardiogram Report Name: ADELE DC JR Age: 72 yrs Gender: Male : 1945 Patient Status: Inpatient Patient Location: [address] [place] [address] Study Date: 02/03/2017 09:50 AM Height: 67 in Weight: 208 lb BSA: 2.1 m2 Procedure: A complete two-dimensional transthoracic echocardiogram was performed (2D, M-mode, spectral and color flow Doppler). The study was technically adequate with some images being suboptimal in quality. Reason For Study: syncope Ordering Physician: HOLLAND CHOE Performed By: Lizbet Moseley Interpretation Summary The left ventricular ejection fraction is normal. Doppler measurements suggest pseudonormalized left ventricular relaxation, which is associated with grade II/IV or mild to moderate diastolic dysfunction There is borderline concentric left ventricular hypertrophy. The left ventricle is grossly normal size. Wall motion cannot be accurately commented on, but no definite regional wall motion abnormalities noted. The right ventricular systolic function is normal. The right atrium is normal in size Borderline left atrial enlargement. There is a trace amount of mitral regurgitation There is no mitral valve stenosis. There is a trace amount of aortic regurgitation There is no aortic valve stenosis There is a trace or physiologic amount of tricuspid regurgitation Tricuspid regurgitation jet envelope not well defined to measure RV systolic pressure accurately. The aortic root is not well visualized but is probably normal size. The inferior vena cava appeared small and collapsed with respiration (RAP 0-5 mmHg) There is no pericardial effusion. MMode/2D Measurements & Calculations RVDd: 2.7 cm LVIDd: 3.7 cm FS: 43.5 % Ao root diam: 3.1 cm IVSd: 1.0 cm LVIDs: 2.1 cm EDV(Teich): 58.9 ml LVPWd: 1.0 cm ESV(Teich): 14.4 ml Ao root area: 7.4 cm2 EF(Teich): 75.5 % LA dimension: 3.4 cm Doppler Measurements & Calculations MV E max sarthak: MV P1/2t max sarthak: Ao V2 max: LV V1 max P.8 cm/sec 90.8 cm/sec 175.3 cm/sec 8.0 mmHg MV A max sarthak: MV P1/2t: 71.7 msec Ao max PG: LV V1 max: 86.9 cm/sec 12.3 mmHg 141.2 cm/sec MV E/A: 1.0 MVA(P1/2t): 3.1 cm2 MV dec slope: 371.1 cm/sec2 MV dec time: 0.23 sec PA V2 max: TR max sarthak: 109.6 cm/sec 271.5 cm/sec PA max PG: TR max P.5 mmHg 4.8 mmHg Left Ventricle The left ventricle is grossly normal size. There is borderline concentric left ventricular hypertrophy. The left ventricular ejection fraction is normal. Doppler measurements suggest pseudonormalized left ventricular relaxation, which is associated with grade II/IV or mild to moderate diastolic dysfunction. Wall motion cannot be accurately commented on, but no definite regional wall motion abnormalities noted. Right Ventricle The right ventricle is grossly normal size. There is normal right ventricular wall thickness. The right ventricular systolic function is normal. Atria The right atrium is normal in size. Borderline left atrial enlargement. Interarterial septum not well visualized and not well dopplered. Cannot comment on ASD/PFO presence. Mitral Valve The mitral valve is grossly normal. There is no mitral valve stenosis. There is a trace amount of mitral regurgitation. Aortic Valve The aortic valve is grossly normal. There is no aortic valve stenosis. There is a trace amount of aortic regurgitation. Tricuspid Valve The tricuspid valve is not well visualized secondary to technical limitations. There is no tricuspid stenosis. There is a trace or physiologic amount of tricuspid regurgitation. Tricuspid regurgitation jet envelope not well defined to measure RV systolic pressure accurately. Pulmonic Valve The pulmonic valve is not well visualized. Great Vessels The aortic root is not well visualized but is probably normal size. The inferior vena cava appeared small and collapsed with respiration (RAP 0-5 mmHg). Effusions There is no pericardial effusion. : HOLLAND CHOE > Raz Higgins
[2017-02-03] MEDS ORDERED: CALCITRIOL 0.25 MCG CAPSULE PO SCH (20:19)
[2017-02-03] MEDS ORDERED: CARVEDILOL 12.5 MG TABLET PO SCH (22:00)
[2017-02-03] MEDS: AMLODIPINE BESYLATE 10 MG TABLET PO SCH (22:12)
[2017-02-03] MEDS: ATORVASTATIN CALCIUM 20 MG TABLET PO SCH (22:12)
[2017-02-03] MEDS: LOSARTAN POTASSIUM 50 MG TABLET PO SCH (22:12)
[2017-02-03] MEDS: FERROUS SULFATE 325 MG TABLET PO SCH (22:12)
[2017-02-03] MEDS: ZOLPIDEM TARTRATE 5 MG TABLET PO SCH (22:13)
[2017-02-04] MEDS: HEPARIN SOD (PORCINE) 5,000 UNIT/ML 1 ML SYRINGE SUBCUT SCH ×3 (02:01→22:58)
[2017-02-04] MEDS ORDERED: CEFAZOLIN 2 GM/D5W RTU 2 GM/50 ML RTUPB IV PRN ×2 (05:00→12:00)
--- NOTE | 2017-02-04 06:27 | PDOC PROGRESS REPORT ---
Subjective Progress Note for:: 02/04/17 Physical Exam Vital Signs: Temp Pulse Resp BP Pulse Ox 37.6 C 77 16 149/57 H 97 02/04/17 03:47 02/04/17 03:47 02/04/17 03:47 02/04/17 03:47 02/04/17 03:47 Intake & Output 02/02/17 02/03/17 02/04/17 06:59 06:59 06:59 Intake Total 1500 1130 1700 Output Total 1875 5220 3150 Balance -375 -4090 -1450 General appearance: PRESENT: mild distress Head exam: PRESENT: normocephalic Respiratory exam: PRESENT: unlabored Cardiovascular exam: PRESENT: RRR Vascular exam: PRESENT: normal capillary refill Results Laboratory Results: 02/02/17 05:28 02/03/17 05:43 02/01/17 02/01/17 02/02/17 23:10 23:10 05:28 Creatine Kinase 396 H 325 H CK-MB (CK-2) 2.23 Troponin I < 0.012 02/02/17 02/02/17 02/02/17 05:28 11:14 11:14 Creatine Kinase 348 H CK-MB (CK-2) 1.40 1.58 Troponin I < 0.012 < 0.012 Impressions: Chest X-Ray 02/01/17 11:11 IMPRESSION: NO ACUTE RADIOGRAPHIC FINDING IN THE CHEST. NO SIGNIFICANT CHANGE FROM PRIOR STUDY. Head CT 02/01/17 11:11 IMPRESSION: NORMAL BRAIN CT WITHOUT CONTRAST. EVIDENCE OF ACUTE STROKE: NO. Knee X-Ray 02/01/17 11:35 IMPRESSION: NO DEFINITE FRACTURE OR HARDWARE COMPLICATION. SMALL JOINT EFFUSION. Ankle X-Ray 02/01/17 13:43 IMPRESSION: NO SIGNIFICANT IMPROVEMENT IN ALIGNMENT OF COMPLEX ANKLE FRACTURES STATUS POST CASTING. Carotid Doppler Study 02/03/17 00:00 IMPRESSION: NO HEMODYNAMICALLY SIGNIFICANT STENOSIS. Status: Imported from PACS Assessment & Plan - Diagnosis (1) Ankle fracture, bimalleolar, closed Qualifiers: Encounter type: initial encounter Laterality: right Qualified Code(s): S82.841A - Displaced bimalleolar fracture of right lower leg, initial encounter for closed fracture Is this a current diagnosis for this admission?: Yes Plan: Patient has been cleared from a cardiac standpoint. Plan to proceed with an open reduction internal fixation of ankle fracture under choice anesthesia today (2) Diabetes mellitus type 2 in obese Is this a current diagnosis for this admission?: Yes Plan: Patient on sliding scale. Blood glucose control continues to be problematic.
[2017-02-04] MEDS: HYDROMORPHONE HCL 2 MG TABLET PO PRN ×2 (06:29→10:29)
[2017-02-04] MEDS: LANSOPRAZOLE 30 MG TAB.RAP.DR PO SCH (06:29)
--- NOTE | 2017-02-04 07:00 | PDOC DISCHARGE SUMMARY ---
General - Admit/Disc Date/PCP Admission Date/Primary Care Provider: 02/01/17 20:00 YESSY DELA CRUZ MD Discharge Date: 02/04/17 - Discharge Diagnosis (1) Ankle fracture, bimalleolar, closed Is this a current diagnosis for this admission?: Yes (2) Diabetes mellitus type 2 in obese Is this a current diagnosis for this admission?: Yes - Additional Information Resuscitation Status: Full Code Discharge Diet: As Tolerated, Regular Discharge Activity: Balance Activity w/Rest, No Driving, No tub bath Home Medications: Allopurinol [Zyloprim 100 mg Tablet] 100 mg PO DAILY 02/01/17 Allopurinol [Zyloprim 100 mg Tablet] 100 mg PO QHS 02/01/17 Allopurinol [Zyloprim 100 mg Tablet] DAILY 02/01/17 Amlodipine Besylate [Norvasc 10 mg Tablet] 10 mg PO QHS 02/01/17 Aspirin [Aspirin 325 mg Tablet] 325 mg PO QHS 02/01/17 Atorvastatin Calcium [Lipitor 20 mg Tablet] 20 mg PO DAILY 02/01/17 Atorvastatin Calcium [Lipitor 20 mg Tablet] 20 mg PO QHS 02/01/17 Budesonide/Formoterol Fumarate [Symbicort 160-4.5 Mcg Inhaler] 2 puff IN BID 11/11 Calcitriol [Rocaltrol 0.25 mcg Capsule] 0.25 mcg PO MOFR 02/01/17 Carvedilol 12.5 mg PO BID 02/01/17 Carvedilol [Coreg 12.5 mg Tablet] 12.5 mg PO Q12 02/01/17 Chlorzoxazone [Chlorzoxazone 250 mg Tablet] 500 mg pe PO DAILY PRN 02/01/17 Cholecalciferol (Vitamin D3) [Vitamin D3] 1,000 mg PO DAILY 02/01/17 Clonidine HCl [Catapres 0.2 mg Tablet] 0.2 mg PO Q12 02/01/17 Clonidine HCl [Clonidine HCl ER] 0.1 mg PO BID 02/01/17 Colchicine [Colchicine 0.6 mg Tablet] 0.6 mg PO DAILY PRN 02/01/17 Colchicine [Colcrys 0.6 mg Tablet] 0.6 mg PO DAILY 02/01/17 Fenofibrate Nanocrystallized [Fenofibrate] 48 mg PO [id number] 02/01/17 Fenofibrate Nanocrystallized [Fenofibrate] 48 mg pe PO DAILY 02/01/17 Ferrous Sulfate [Ferrousul] 325 mg PO QHS 02/01/17 Fluticasone Propionate [Flonase Nasal Mccook 50 Mcg/Mccook 16 gm] 1 spray NASL DAILY 02/01/17 Fluticasone/Salmeterol [Fluticasone-Salmeterol 55-14] 1 puff IN BID 02/01/17 Furosemide [Lasix 40 mg Tablet] 40 mg PO BID 02/01/17 Furosemide [Lasix] 40 mg PO BID 02/01/17 Gabapentin [Neurontin 300 mg Capsule] 300 mg PO BID 02/01/17 Guanfacine HCl 1 mg PO QHS 02/01/17 Insulin Aspart Prot/Insuln Asp [Novolog Mix 70-30 Vial] 02/01/17 Insulin Detemir [Levemir Flextouch] 70 unit SQ BID 02/01/17 Irbesartan 150 mg PO QHS 02/01/17 Irbesartan [Avapro] 150 mg PO DAILY 02/01/17 Isosorbide Mononitrate [Imdur 30 mg Tablet.er] 30 mg PO QAM 02/01/17 Isosorbide Mononitrate [Isosorbide Mononitrate ER] DAILY 02/01/17 Latanoprost 2.5 ml OD DAILY 02/01/17 P-Ephed HCl/Acetaminophn/Cp [Tylenol Allergy Complete Geltb] 500 each PO DAILY PRN 02/01/17 Pantoprazole Sodium [Protonix] 40 mg PO DAILY 02/01/17 Pantoprazole Sodium [Protonix] 40 mg PO QHS 02/01/17 Sitagliptin Phosphate [Januvia 50 mg Tablet] 100 mg PO DAILY 02/01/17 Sodium Polystyrene Sulfon/Sorb [Kionex 15 gm/60 ml Suspension] Q7D 02/01/17 Sodium Polystyrene Sulfon/Sorb [Sps 15 gm/60 ml Suspension] 15 gm PO Q7D Timolol Maleate [Timoptic 0.5% Oph Soln 5 ml] 1 drop OD BID 02/01/17 Timolol [Betimol] 10 ml OS BID 02/01/17 Zolpidem Tartrate [Ambien] 10 mg PO QHS 10/07/17 History of Present Illness History of Present Illness: ADELE DC JR is a 72 year old male progressive right knee pain and functional disability secondary osteoarthritis. Patient was admitted for elective right knee arthroplasty. Hospital Course Hospital Course: Patient is admitted through the operating room where he undergoes uncomplicated right knee arthroplasty. Postoperatively there were issues with pain control, nicotine dependence which are resolved. The patient ambulates 200 feet with physical therapy on the first day. Dressing is changed on postop day 1. The wound is clean dry and intact. Physical Exam Vital Signs: Temp Pulse Resp BP Pulse Ox 37.6 C 77 16 149/57 H 97 02/04/17 03:47 02/04/17 03:47 02/04/17 03:47 02/04/17 03:47 02/04/17 03:47 Intake & Output 02/02/17 02/03/17 02/04/17 06:59 06:59 06:59 Intake Total 1500 1130 2100 Output Total 1875 5220 3150 Balance -375 -4090 -1050 General appearance: PRESENT: no acute distress Head exam: PRESENT: normocephalic Respiratory exam: PRESENT: unlabored Cardiovascular exam: PRESENT: RRR Pulses: PRESENT: +1 pedal pulses bilateral Vascular exam: PRESENT: normal capillary refill GI/Abdominal exam: PRESENT: soft Rectal exam: PRESENT: deferred Extremities exam: PRESENT: other - Right knee wound is clean dry and intact. There is minimal pedal edema. Distal neurovascular examination is intact. Neurological exam: PRESENT: alert, awake, oriented to person, oriented to place , oriented to time, oriented to situation, CN II-XII grossly intact. ABSENT: motor sensory deficit Psychiatric exam: PRESENT: appropriate affect, normal mood. ABSENT: homicidal ideation, suicidal ideation Skin exam: PRESENT: dry, intact, warm. ABSENT: cyanosis, rash Results Laboratory Results: 02/02/17 05:28 02/03/17 05:43 02/01/17 02/01/17 02/02/17 23:10 23:10 05:28 Creatine Kinase 396 H 325 H CK-MB (CK-2) 2.23 Troponin I < 0.012 02/02/17 02/02/17 02/02/17 05:28 11:14 11:14 Creatine Kinase 348 H CK-MB (CK-2) 1.40 1.58 Troponin I < 0.012 < 0.012 Impressions: Chest X-Ray 02/01/17 11:11 IMPRESSION: NO ACUTE RADIOGRAPHIC FINDING IN THE CHEST. NO SIGNIFICANT CHANGE FROM PRIOR STUDY. Head CT 02/01/17 11:11 IMPRESSION: NORMAL BRAIN CT WITHOUT CONTRAST. EVIDENCE OF ACUTE STROKE: NO. Knee X-Ray 02/01/17 11:35 IMPRESSION: NO DEFINITE FRACTURE OR HARDWARE COMPLICATION. SMALL JOINT EFFUSION. Ankle X-Ray 02/01/17 13:43 IMPRESSION: NO SIGNIFICANT IMPROVEMENT IN ALIGNMENT OF COMPLEX ANKLE FRACTURES STATUS POST CASTING. Carotid Doppler Study 02/03/17 00:00 IMPRESSION: NO HEMODYNAMICALLY SIGNIFICANT STENOSIS. Status: Imported from PACS Plan Discharge Plan: Patient to be discharged home with home health nursing, home health physical therapy, wheeled walker, bedside commode. Follow-up will be Dr. Anderson in the [facility] for surgery in 2 weeks for staple removal.
[2017-02-04 07:05] LABS: ABSOLUTE BASOPHILS # (AUTO) 0.1 10^3/uL (0.0-0.2); ABSOLUTE EOSINOPHILS # (AUTO) 0.1 10^3/uL (0.0-0.6); ABSOLUTE LYMPHOCYTES (AUTO) 2.8 10^3/uL (0.5-4.7); ABSOLUTE MONOCYTES (AUTO) 1.6 10^3/uL (0.1-1.4); ABSOLUTE NEUT (AUTO) 8.8 10^3/uL (1.7-8.2); BASOPHILS % (AUTO) 0.9 % (0-2); EOSINOPHILS % (AUTO) 1.1 % (0-6); HEMATOCRIT 30.7 % (37.9-51.0); HEMOGLOBIN 10.5 g/dL (13.5-17.0); HGB HCT DIFFERENCE 0.8; LYMPHOCYTES % (AUTO) 20.8 % (13-45); MEAN CORPUSCULAR HGB CONC 34.3 g/dL (32.0-36.0); MEAN CORPUSCULAR VOLUME 88 fl (80-97); MONOCYTES % (AUTO) 11.9 % (3-13); RED CELL DISTRIBUTION WIDTH 14.5 % (11.5-14.0); SEGMENTED NEUTROPHILS % (AUTO) 65.3 % (42-78); WHITE BLOOD COUNT 13.4 10^3/uL (4.0-10.5)
[2017-02-04 07:22] LABS: ANION GAP 13 (5-19); BLOOD UREA NITROGEN 59 mg/dL (7-20); CALCIUM 10.1 mg/dL (8.4-10.2); CARBON DIOXIDE 26 mmol/L (22-30); CHLORIDE 105 mmol/L (98-107); GLUCOSE 250 mg/dL (75-110); POTASSIUM 4.5 mmol/L (3.6-5.0); SODIUM 143.8 mmol/L (137-145)
--- NOTE | 2017-02-04 09:48 | RADIOLOGY REPORT (SQ) ---
EXAM DESCRIPTION: MRI HEAD WITHOUT COMPLETED DATE/TIME: 02/04/2017 7:58 am REASON FOR STUDY: syncopal episode COMPARISON: CT 02/01/2017. TECHNIQUE: Multiplanar imaging includes non-contrasted T1, T2, FLAIR, and diffusion with ADC map seq uences. Images stored on PACS. LIMITATIONS: None. FINDINGS: ANATOMY: No anomalies. Normal vascular flow voids. Pituitary fossa normal. CSF SPACES: Age-appropriate. No hemorrhage or mass. CEREBRUM: Sulci and gyri normal in size and contour. Normal white matter signal on FLAIR imaging. No evidence of hemorrhage, mass, or extraaxial fluid collection. POSTERIOR FOSSA: No signal alteration. No hemorrhage. No edema, masses or mass effect. Internal garcia tory canals, cerebello-pontine angles, mastoids normal. DIFFUSION IMAGING: Negative for acute or sub-acute infarction. ORBITS: Left prosthetic device. Right lobe normal. Periorbital soft tissues unremarkable. PARANASAL SINUSES: No fluid levels. Mucosa normal. OTHER: No other significant finding. IMPRESSION: NORMAL MRI OF THE BRAIN WITHOUT INTRAVENOUS GADOLINIUM CONTRAST. EVIDENCE OF ACUTE STROKE: NO. TECHNICAL DOCUMENTATION: JOB ID: [id number] [place]- All Rights Reserved
[2017-02-04] MEDS ORDERED: ATORVASTATIN CALCIUM 20 MG TABLET PO SCH (10:00)
[2017-02-04] MEDS: GABAPENTIN 300 MG CAPSULE PO SCH ×2 (10:33→17:37)
[2017-02-04] MEDS: CHOLECALCIFEROL (D3) 1,000 UNIT TABLET PO SCH (10:34)
[2017-02-04] MEDS: ALLOPURINOL 100 MG TABLET PO SCH (10:34)
[2017-02-04] MEDS: CLONIDINE HCL 0.2 MG TABLET PO SCH ×2 (10:35→22:54)
[2017-02-04] MEDS: FUROSEMIDE 40 MG TABLET PO SCH ×2 (10:35→17:37)
[2017-02-04] MEDS: CARVEDILOL 12.5 MG TABLET PO SCH ×2 (10:36→17:39)
[2017-02-04] MEDS: FLUTICASONE NASAL SPRAY 50 MCG/SPRY 120 SPRAY/16 GM NASL SCH (11:34)
[2017-02-04] MEDS ORDERED: CEFAZOLIN INJ 1 GM VIAL ONE (12:39)
[2017-02-04] MEDS ORDERED: MIDAZOLAM 2 MG/2 ML INJ ONE (12:46)
[2017-02-04] MEDS ORDERED: ONDANSETRON HCL INJ/PF 4 MG/2 ML SDV ONE (12:46)
[2017-02-04] MEDS ORDERED: FENTANYL CITRATE INJ/PF 100 MCG/2 ML AMPUL ONE (12:46)
[2017-02-04] MEDS ORDERED: PROPOFOL INJ 200 MG/20 ML VIAL IV ONE (12:46)
[2017-02-04] MEDS ORDERED: INSULIN DETEMIR 100 UNIT/ML 3 ML PEN SUBCUT ONE (13:00)
[2017-02-04] MEDS ORDERED: PROMETHAZINE HCL INJ 25 MG/1 ML VIAL IV PRN (13:40)
[2017-02-04] MEDS ORDERED: DIPHENHYDRAMINE HCL 50 MG/ML VIAL IV PRN (13:40)
[2017-02-04] MEDS ORDERED: FENTANYL CITRATE INJ/PF 100 MCG/2 ML AMPUL IV PRN ×3 (13:40)
--- NOTE | 2017-02-04 13:50 | PDOC PROGRESS REPORT ---
Subjective Progress Note for:: 02/04/17 Subjective:: Patient is currently doing fair patient seen by the cardiology and cleared for the surgery. Patient MRI of the head was all negative for any acute finding Patient's overnight have a some temperature and all the cultures was drawn Patient's denied any chest pain without any shortness of the breath Patient scheduled for the surgery Physical Exam Vital Signs: Temp Pulse Resp BP Pulse Ox 98.5 F 74 18 138/59 H 95 02/04/17 11:48 02/04/17 11:48 02/04/17 11:48 02/04/17 11:48 02/04/17 11:48 Intake & Output 02/03/17 02/04/17 02/05/17 06:59 06:59 06:59 Intake Total 1130 2100 Output Total 5220 3150 Balance -4090 -1050 General appearance: PRESENT: no acute distress, well-developed, well-nourished Head exam: PRESENT: atraumatic, normocephalic Eye exam: PRESENT: conjunctiva pink, EOMI, PERRLA. ABSENT: scleral icterus Ear exam: PRESENT: normal external ear exam Mouth exam: PRESENT: moist, tongue midline Neck exam: PRESENT: full ROM. ABSENT: carotid bruit, JVD, lymphadenopathy, thyromegaly Respiratory exam: PRESENT: clear to auscultation [place] Cardiovascular exam: PRESENT: RRR. ABSENT: diastolic murmur, rubs, systolic murmur Pulses: PRESENT: normal dorsalis pedis pul, +2 pedal pulses bilateral Vascular exam: PRESENT: normal capillary refill GI/Abdominal exam: PRESENT: normal bowel sounds, soft. ABSENT: distended, guarding, mass, organolmegaly, rebound, tenderness Rectal exam: PRESENT: deferred Extremities exam: ABSENT: pedal edema Neurological exam: PRESENT: alert, awake, oriented to person, oriented to place , oriented to time, oriented to situation, CN II-XII grossly intact. ABSENT: motor sensory deficit Psychiatric exam: PRESENT: appropriate affect, normal mood. ABSENT: homicidal ideation, suicidal ideation Skin exam: PRESENT: dry, intact, warm. ABSENT: cyanosis, rash Results Laboratory Results: 02/04/17 06:12 02/04/17 06:12 02/04/17 02/04/17 06:12 06:12 WBC 13.4 H RBC 3.50 L Hgb 10.5 L Hct 30.7 L MCV 88 MCH 30.0 MCHC 34.3 RDW 14.5 H Plt Count 268 Seg Neutrophils % 65.3 Lymphocytes % 20.8 Monocytes % 11.9 Eosinophils % 1.1 Basophils % 0.9 Absolute Neutrophils 8.8 H Absolute Lymphocytes 2.8 Absolute Monocytes 1.6 H Absolute Eosinophils 0.1 Absolute Basophils 0.1 Sodium 143.8 Potassium 4.5 Chloride 105 Carbon Dioxide 26 Anion Gap 13 BUN 59 H Creatinine 2.80 H Est GFR ( Amer) 27 L Est GFR (Non-Af Amer) 22 L Glucose 250 H Calcium 10.1 02/01/17 02/01/17 02/02/17 23:10 23:10 05:28 Creatine Kinase 396 H 325 H CK-MB (CK-2) 2.23 Troponin I < 0.012 02/02/17 02/02/17 02/02/17 05:28 11:14 11:14 Creatine Kinase 348 H CK-MB (CK-2) 1.40 1.58 Troponin I < 0.012 < 0.012 Impressions: Chest X-Ray 02/01/17 11:11 IMPRESSION: NO ACUTE RADIOGRAPHIC FINDING IN THE CHEST. NO SIGNIFICANT CHANGE FROM PRIOR STUDY. Head CT 02/01/17 11:11 IMPRESSION: NORMAL BRAIN CT WITHOUT CONTRAST. EVIDENCE OF ACUTE STROKE: NO. Knee X-Ray 02/01/17 11:35 IMPRESSION: NO DEFINITE FRACTURE OR HARDWARE COMPLICATION. SMALL JOINT EFFUSION. Ankle X-Ray 02/01/17 13:43 IMPRESSION: NO SIGNIFICANT IMPROVEMENT IN ALIGNMENT OF COMPLEX ANKLE FRACTURES STATUS POST CASTING. Carotid Doppler Study 02/03/17 00:00 IMPRESSION: NO HEMODYNAMICALLY SIGNIFICANT STENOSIS. Head MRI 02/04/17 00:00 IMPRESSION: NORMAL MRI OF THE BRAIN WITHOUT INTRAVENOUS GADOLINIUM CONTRAST. EVIDENCE OF ACUTE STROKE: NO. Assessment & Plan - Diagnosis (1) Ankle fracture, bimalleolar, closed Qualifiers: Encounter type: initial encounter Laterality: right Qualified Code(s): S82.841A - Displaced bimalleolar fracture of right lower leg, initial encounter for closed fracture Is this a current diagnosis for this admission?: Yes Plan: Is currently stable for the surgery follow with Ortho (2) Diabetes mellitus type 2 in obese Is this a current diagnosis for this admission?: Yes Plan: We will resume the patient's home insulin after patient off the n.p.o. otherwise continue sliding scale (3) Hyperlipidemia Qualifiers: Hyperlipidemia type: unspecified Qualified Code(s): E78.5 - Hyperlipidemia , unspecified Is this a current diagnosis for this admission?: Yes Plan: Currently stable (4) Mixed anxiety and depressive disorder Is this a current diagnosis for this admission?: Yes Plan: Continues to current home medications (5) Obstructive sleep apnea of adult Is this a current diagnosis for this admission?: Yes Plan: Continues to CPAP (6) Syncope Qualifiers: Syncope type: unspecified Qualified Code(s): R55 - Syncope and collapse Is this a current diagnosis for this admission?: Yes Plan: Patient all workup is so far negative (7) Chronic kidney disease Qualifiers: Chronic kidney disease stage: stage 3 (moderate) Qualified Code(s): N18.3 - Chronic kidney disease, stage 3 (moderate) Is this a current diagnosis for this admission?: Yes Plan: Patient is currently seeing Dr. Duarte is outpatients and currently creatinine is 2.37 try to avoid the Ringer lactate (8) HTN (hypertension) Qualifiers: Hypertension type: essential hypertension Qualified Code(s): I10 - Essential (primary) hypertension Is this a current diagnosis for this admission?: Yes Plan: Continues current medications (9) Obesity Qualifiers: Obesity type: unspecified obesity type Is this a current diagnosis for this admission?: Yes - Time Time Spent with patient: 15-24 minutes Medications reviewed and adjusted accordingly: Yes Anticipated discharge: Home Within: Other - Inpatient Certification Medical Necessity: Need Close Monitoring Due to Risk of Patient Decompensation, Need for IV Antibiotics 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
--- NOTE | 2017-02-04 14:04 | Operative Report ---
Operative Report DATE OF SURGERY: 02/04/17 PREOPERATIVE DIAGNOSIS: Right lateral malleolus fracture, syndesmosis disruption OPERATION: Open reduction internal fixation of right lateral malleolus fracture and syndesmosis disruption SURGEON: NALDO SKINNER ANESTHESIA: Spinal ESTIMATED BLOOD LOSS: 25 PROCEDURE: With the patient supine operative the right lower extreme was prepped and draped in a sterile fashion. Limb was elevated for exsanguination tourniquet inflated to 250 torr. Longitudinal incision was made over the distal fibula and sharp dissection used to expose the underlying bone. Subperiosteal elevation was performed to expose the fracture. The fracture was reduced under direct visualization using lobster claw clamp. Subsequently an 8 hole titanium distal fibular plate from [employer] is applied to the lateral surface of the lateral malleolus and its position was checked using fluoroscopy. Both the fracture reduction hardware placement appear to be adequate. Subsequently 3 bicortical screws were placed to secure the proximal aspect of the plate. 3 locking screws were placed into the lateral malleolus. Subsequently 2 more bicortical screws that are placed more proximally as we ascend past the lateral malleolus and the subsequent screws placed across the syndesmosis. The fracture reduction and hardware placement are again judged radiographically and felt to be adequate. The tourniquet was deflated. The wound is irrigated. Is closed using interrupted Vicryl followed by ice sutures. A sterile compressive dressing and posterior plaster splint were applied and the patient was returned to the PACU in satisfactory condition.
[2017-02-04] MEDS ORDERED: MORPHINE SULFATE 10 MG/ML INJ IV PRN (14:26)
[2017-02-04] MEDS: NORMAL SALINE 1000 ML 1,000 ML IV PRN (15:16)
[2017-02-04] MEDS: TIMOLOL MALEATE 0.5% OPH SOLN 5 ML OU SCH (15:17)
--- NOTE | 2017-02-04 15:44 | RADIOLOGY REPORT (SQ) ---
EXAM DESCRIPTION: ANKLE RIGHT AP/LATERAL; NO CHG FLUORO COMPLETED DATE/TIME: 02/04/2017 2:43 pm REASON FOR STUDY: ORIF RT ANKLE ASSISTED WITH FLUORO IN OR COMPARISON: 02/01/2017 right ankle films FLUOROSCOPY TIME: 0.1 minutes 3 digital images saved to PACS. TECHNIQUE: Intra-operative images acquired during surgical procedure to evaluate progress. NUMBER OF IMAGES: Cine fluoroscopic images. LIMITATIONS: None. FINDINGS: Intra procedural imaging and fluoro during ORIF right distal fibula fracture IMPRESSION: Intra procedural imaging and fluoro COMMENT: Quality ID [id number]: Final reports for procedures using fluoroscopy that document radiation exp osure indices, or exposure time and number of fluorographic images (if radiation exposure indices are not available) Please consult full operative report of the attending physician for description of the procedure. TECHNICAL DOCUMENTATION: JOB ID: [id number] [employer]- All Rights Reserved
[2017-02-04] MEDS: SITAGLIPTIN PHOSPHATE 50 MG TABLET PO SCH (16:30)
[2017-02-04] MEDS: BUDESONIDE/FORMOTEROL 160-4.5 MCG 60 PUFF/6 GM MDI IH SCH ×2 (16:30→17:28)
[2017-02-04] MEDS: FENOFIBRATE NANOCRYSTALLIZED 48 MG TABLET PO SCH (16:30)
[2017-02-04] MEDS: CEFEPIME 1 GM/D5W RTU 1 GM/50 ML RTUPB IV SCH ×2 (16:30→22:54)
[2017-02-04] MEDS: ISOSORBIDE MONONITRATE 30 MG TAB.ER.24H PO SCH (16:30)
[2017-02-04] MEDS: INSULIN LISPRO 100 UNIT/ML 3 ML VIAL SUBCUT PRN (17:27)
[2017-02-04] MEDS: CEFAZOLIN 2 GM/D5W RTU 2 GM/50 ML RTUPB IV SCH (17:34)
[2017-02-04] MEDS: OXYCODONE HCL IR 5 MG TABLET PO PRN (17:40)
--- NOTE | 2017-02-04 17:57 | PDOC CONSULTATION ---
Consultation Consult Date: 02/04/17 Attending physician:: YESSY MEAD Consult reason:: I was asked by Dr. Mead to see this patient because of acute kidney injury on top of chronic kidney disease. History of Present Illness Admission Date/PCP: 02/01/17 20:00 YESSY MEAD MD History of Present Illness: ADELE DC JR is a 72 year old male known to me with history of chronic kidney disease stage IV secondary to diabetic nephropathy, diabetes mellitus type 2, hypertension, and anemia who presented to the emergency room on Friday after episodes of falls and syncopal episodes. Patient said that while sitting at the porch and Friday morning he got up to get something to eat because he experienced blurring on his good right eye when he fell down. He then tried to get up again but then fell down again the second time on . His son-in-law called him and initially tried to help him but apparently he passed out. So EMS was called and patient was brought to the emergency room. Blood sugar during that episode at home was 147 according to the patient. Patient said that while he was in the ambulance he asked what his blood pressure was and he was told it was 70/60 but I do not see that than any of his admitting records. There was also a note of another episode of syncope while in route to the hospital via the ambulance. Initial workup showed that there was an x-ray findings suggestive of right ankle fracture. Dr. Anderson, orthopedic surgeon, did the open reduction internal fixation of his right ankle fracture this morning. Currently he is receiving pain medications for that. Because of the syncopal episodes patient also had workup for this. His head CT and head MRI were normal. His carotid Doppler did not show any stenosis. Echocardiogram showed normal ejection fraction and grade 2/4 mild to moderate diastolic dysfunction. Dr. Higgins, stunner and shackler, stated and is noted there was no evidence for possible cause of the syncope based on the echocardiogram. Currently the patient's blood pressure has been stable and controlled. In terms of the patient's kidney function when he was admitted he had a BUN of 93 and creatinine of 2.99 with estimated GFR 15 and potassium of 5.4. Patient was given Kayexalate for his potassium and was given IV fluid hydration since admission. Currently the patient's BUN was 59, creatinine of 2.8 with estimated GFR of 22. Patient's creatinine usually range from 2.5-2.8 and baseline with estimated GFR anywhere from 20-26. Patient is currently nonoliguric and does not really have much complaints except for postsurgical pain. He denied any other symptoms. Past Medical History Cardiac Medical History: Reports: Coronary Artery Disease - small blockage & small aortic valve leakage, Hyperlipidemia, Hypertension-primary Pulmonary Medical History: Reports: Pneumonia - 2 months ago, Sleep Apnea - Uses CPAP EENT Medical History: Reports: Eyes - Glaucoma, Other - Left eye blindness with prosthesis Neurological Medical History: Reports: Seizures - possible at night..? Endocrine Medical History: Reports: Diabetes Mellitus Type 2 Complications of Diabetes: Reports: Autonomic Neuropathy, Nephropathy Renal/ Medical History: Reports: Chronic Kidney Disease Stage IV, Secondary Hyperparathyroidism GI Medical History: Reports: Gastroesophageal Reflux Disease Musculoskeltal Medical History: Reports: Arthritis Psychiatric Medical History: Reports: Depression Hematology Medical History: Reports Other Past Surgical History Past Surgical History: Reports: Appendectomy, Herniorrhaphy - Right inguinal area, Orthopedic Surgery - right rotator cuff; left knee arthroplasty, Tonsillectomy Social History Information Source: Patient Lives with: Family Smoking Status: Former Smoker Frequency of Alcohol Use: Occasional Hx Recreational Drug Use: No Drugs: None Hx Prescription Drug Abuse: No - Advance Directive Resuscitation Status: Full Code Family History Family History: CAD - Mother, CVA - Father, DM - Mother Parental Family History Reviewed: Yes Children Family History Reviewed: Unknown Sibling(s) Family History Reviewed.: Unknown Medication/Allergy Home Medications: Allopurinol [Zyloprim 100 mg Tablet] 100 mg PO DAILY 02/01/17 Allopurinol [Zyloprim 100 mg Tablet] 100 mg PO QHS 02/01/17 Allopurinol [Zyloprim 100 mg Tablet] DAILY 02/01/17 Amlodipine Besylate [Norvasc 10 mg Tablet] 10 mg PO QHS 02/01/17 Aspirin [Aspirin 325 mg Tablet] 325 mg PO QHS 02/01/17 Atorvastatin Calcium [Lipitor 20 mg Tablet] 20 mg PO DAILY 02/01/17 Atorvastatin Calcium [Lipitor 20 mg Tablet] 20 mg PO QHS 02/01/17 Budesonide/Formoterol Fumarate [Symbicort 160-4.5 Mcg Inhaler] 2 puff IN BID 11/11 Calcitriol [Rocaltrol 0.25 mcg Capsule] 0.25 mcg PO MOFR 02/01/17 Carvedilol 12.5 mg PO BID 02/01/17 Carvedilol [Coreg 12.5 mg Tablet] 12.5 mg PO Q12 02/01/17 Chlorzoxazone [Chlorzoxazone 250 mg Tablet] 500 mg pe PO DAILY PRN 02/01/17 Cholecalciferol (Vitamin D3) [Vitamin D3] 1,000 mg PO DAILY 02/01/17 Clonidine HCl [Catapres 0.2 mg Tablet] 0.2 mg PO Q12 02/01/17 Clonidine HCl [Clonidine HCl ER] 0.1 mg PO BID 02/01/17 Colchicine [Colchicine 0.6 mg Tablet] 0.6 mg PO DAILY PRN 02/01/17 Colchicine [Colcrys 0.6 mg Tablet] 0.6 mg PO DAILY 02/01/17 Fenofibrate Nanocrystallized [Fenofibrate] 48 mg PO [id number] 02/01/17 Fenofibrate Nanocrystallized [Fenofibrate] 48 mg pe PO DAILY 02/01/17 Ferrous Sulfate [Ferrousul] 325 mg PO QHS 02/01/17 Fluticasone Propionate [Flonase Nasal Orestes 50 Mcg/Orestes 16 gm] 1 spray NASL DAILY 02/01/17 Fluticasone/Salmeterol [Fluticasone-Salmeterol 55-14] 1 puff IN BID 02/01/17 Furosemide [Lasix 40 mg Tablet] 40 mg PO BID 02/01/17 Furosemide [Lasix] 40 mg PO BID 02/01/17 Gabapentin [Neurontin 300 mg Capsule] 300 mg PO BID 02/01/17 Guanfacine HCl 1 mg PO QHS 02/01/17 Insulin Aspart Prot/Insuln Asp [Novolog Mix 70-30 Vial] 02/01/17 Insulin Detemir [Levemir Flextouch] 70 unit SQ BID 02/01/17 Irbesartan 150 mg PO QHS 02/01/17 Irbesartan [Avapro] 150 mg PO DAILY 02/01/17 Isosorbide Mononitrate [Imdur 30 mg Tablet.er] 30 mg PO QAM 02/01/17 Isosorbide Mononitrate [Isosorbide Mononitrate ER] DAILY 02/01/17 Latanoprost 2.5 ml OD DAILY 02/01/17 P-Ephed HCl/Acetaminophn/Cp [Tylenol Allergy Complete Geltb] 500 each PO DAILY PRN 02/01/17 Pantoprazole Sodium [Protonix] 40 mg PO DAILY 02/01/17 Pantoprazole Sodium [Protonix] 40 mg PO QHS 02/01/17 Sitagliptin Phosphate [Januvia 50 mg Tablet] 100 mg PO DAILY 02/01/17 Sodium Polystyrene Sulfon/Sorb [Kionex 15 gm/60 ml Suspension] Q7D 02/01/17 Sodium Polystyrene Sulfon/Sorb [Sps 15 gm/60 ml Suspension] 15 gm PO Q7D Timolol Maleate [Timoptic 0.5% Oph Soln 5 ml] 1 drop OD BID 02/01/17 Timolol [Betimol] 10 ml OS BID 02/01/17 Zolpidem Tartrate [Ambien] 10 mg PO QHS 02/01/17 Allergies/Adverse Reactions: codeine Allergy (Verified 09/25/16 14:45) rash, disoriented Review of Systems All systems: reviewed and no additional remarkable complaints except as stated Review of Systems: Constitutional: ABSENT: chills, fatigue, fever(s), headache(s), weight gain, weight loss Eyes: ABSENT: visual disturbances; left eye prosthesis Ears: ABSENT: hearing changes Cardiovascular: ABSENT: chest pain, dyspnea on exertion, edema, orthropnea, palpitations Respiratory: ABSENT: cough, dyspnea, hemoptysis Gastrointestinal: ABSENT: abdominal pain, constipation, diarrhea, hematemesis, hematochezia, nausea, vomiting Genitourinary: ABSENT: dysuria, hematuria Musculoskeletal: Absent :joint swelling; right ankle pain Integumentary: ABSENT: rash, wounds Neurological: ABSENT: abnormal gait, abnormal speech, confusion, dizziness, focal weakness, numbness; episodes of syncope Psychiatric: ABSENT: anxiety, depression Endocrine: ABSENT: cold intolerance, heat intolerance, polydipsia, polyuria Hematologic/Lymphatic: ABSENT: easy bleeding, easy bruising, lymphadenopathy Physical Exam Vital Signs: Temp Pulse Resp BP Pulse Ox 98.2 F 70 14 120/50 L 95 02/04/17 14:47 02/04/17 14:47 02/04/17 14:47 02/04/17 14:47 02/04/17 14:47 Intake & Output 02/03/17 02/04/17 02/05/17 06:59 06:59 06:59 Intake Total 1130 2100 1050 Output Total 5220 3150 390 Balance -4090 -1050 660 Exam: General appearance: no acute distress, cooperative, well-developed, well- nourished Head exam: PRESENT: atraumatic, normocephalic Eye exam: PRESENT: Conjunctiva Ponce, EOMI, PERRLA. Left eye prosthesis ABSENT: conjunctival injection, scleral icterus Mouth exam: PRESENT: moist, neck supple, tongue midline Neck exam: PRESENT: full ROM. ABSENT: carotid bruit, JVD, lymphadenopathy, thyromegaly Respiratory exam: PRESENT: clear to auscultation bilaterally. ABSENT: rales, rhonchi, stridor, wheezes Cardiovascular exam: PRESENT: RRR, +S1, +S2. ABSENT: systolic murmur Pulses: PRESENT: normal radial pulses, normal dorsalis pedis pulses GI/Abdominal exam: PRESENT: normal bowel sounds, soft. ABSENT: guarding, mass, tenderness Rectal exam: deferred Extremities exam: PRESENT: full ROM. ABSENT: calf tenderness, pedal edema Musculoskeletal: PRESENT: full ROM. ABSENT: deformity Neurological exam: PRESENT: alert, Awake, Oriented to person, Oriented to place , Oriented to time, reflexes normal, CN II-XII grossly intact. ABSENT: motor sensory deficit Psychiatric exam: PRESENT: appropriate affect, normal mood. ABSENT: homicidal ideation, suicidal ideation Skin exam: PRESENT: intact, dry, warm. ABSENT: rash Results Laboratory Results: 02/04/17 06:12 02/04/17 06:12 02/04/17 02/04/17 06:12 06:12 WBC 13.4 H RBC 3.50 L Hgb 10.5 L Hct 30.7 L MCV 88 MCH 30.0 MCHC 34.3 RDW 14.5 H Plt Count 268 Seg Neutrophils % 65.3 Lymphocytes % 20.8 Monocytes % 11.9 Eosinophils % 1.1 Basophils % 0.9 Absolute Neutrophils 8.8 H Absolute Lymphocytes 2.8 Absolute Monocytes 1.6 H Absolute Eosinophils 0.1 Absolute Basophils 0.1 Sodium 143.8 Potassium 4.5 Chloride 105 Carbon Dioxide 26 Anion Gap 13 BUN 59 H Creatinine 2.80 H Est GFR ( Amer) 27 L Est GFR (Non-Af Amer) 22 L Glucose 250 H Calcium 10.1 02/01/17 02/01/17 02/02/17 23:10 23:10 05:28 Creatine Kinase 396 H 325 H CK-MB (CK-2) 2.23 Troponin I < 0.012 02/02/17 02/02/17 02/02/17 05:28 11:14 11:14 Creatine Kinase 348 H CK-MB (CK-2) 1.40 1.58 Troponin I < 0.012 < 0.012 Impressions: Chest X-Ray 02/01/17 11:11 IMPRESSION: NO ACUTE RADIOGRAPHIC FINDING IN THE CHEST. NO SIGNIFICANT CHANGE FROM PRIOR STUDY. Head CT 02/01/17 11:11 IMPRESSION: NORMAL BRAIN CT WITHOUT CONTRAST. EVIDENCE OF ACUTE STROKE: NO. Knee X-Ray 02/01/17 11:35 IMPRESSION: NO DEFINITE FRACTURE OR HARDWARE COMPLICATION. SMALL JOINT EFFUSION. Carotid Doppler Study 02/03/17 00:00 IMPRESSION: NO HEMODYNAMICALLY SIGNIFICANT STENOSIS. Ankle X-Ray 02/04/17 00:00 IMPRESSION: Intra procedural imaging and fluoro Fluoroscopy 02/04/17 00:00 IMPRESSION: Intra procedural imaging and fluoro Head MRI 02/04/17 00:00 IMPRESSION: NORMAL MRI OF THE BRAIN WITHOUT INTRAVENOUS GADOLINIUM CONTRAST. EVIDENCE OF ACUTE STROKE: NO. Assessment & Plan - Diagnosis (1) Acute kidney injury superimposed on chronic kidney disease Is this a current diagnosis for this admission?: Yes Plan: This is most likely secondary to prerenal cause which is now resolved after IV fluid hydration. Avoid any nephrotoxic medications. Adjust medication doses depending on kidney function. (2) Chronic kidney disease, stage IV (severe) Is this a current diagnosis for this admission?: Yes Plan: Due to diabetic nephropathy with contribution of hypertension, now at baseline kidney function. Continue to monitor kidney function while he in the hospital. (3) Anemia in chronic kidney disease (CKD) Is this a current diagnosis for this admission?: Yes (4) Closed right ankle fracture Qualifiers: Encounter type: initial encounter Qualified Code(s): S82.891A - Other fracture of right lower leg, initial encounter for closed fracture Is this a current diagnosis for this admission?: Yes Plan: Status post open reduction internal fixation by Dr. Anderson this morning. (5) Syncope Qualifiers: Syncope type: unspecified Qualified Code(s): R55 - Syncope and collapse Is this a current diagnosis for this admission?: Yes Plan: Workup has been negative. (6) HTN (hypertension) Qualifiers: Hypertension type: essential hypertension Qualified Code(s): I10 - Essential (primary) hypertension Is this a current diagnosis for this admission?: Yes Plan: Currently controlled. (7) Diabetes mellitus type 2 in obese Is this a current diagnosis for this admission?: Yes Plan: Deferred to Dr. Mead for management. - Notes Notes: Thank you very much for this consultation. - Time Time Spent: 50 to 70 Minutes
[2017-02-04] MEDS ORDERED: IBUPROFEN 800 MG in NORMAL SALINE 250 ML IV SCH (18:00)
--- NOTE | 2017-02-04 20:21 | PDOC PROGRESS REPORT ---
Subjective Progress Note for:: 02/04/17 Subjective:: Patient seen in the morning prior to going to the OR. Patient denied any chest pain or shortness of breath. Patient does have renal dysfunction which is being evaluated. Physical Exam Vital Signs: Temp Pulse Resp BP Pulse Ox 98.9 F 73 18 158/65 H 98 02/04/17 17:15 02/04/17 17:15 02/04/17 17:15 02/04/17 17:15 02/04/17 17:15 Intake & Output 02/03/17 02/04/17 02/05/17 06:59 06:59 06:59 Intake Total 1130 2100 1050 Output Total 5220 3150 390 Balance -4090 -1050 660 Exam: Constitutional: No fever or chills reported. Head : No recent chronic headaches, recent head injury. Eyes: No recent eye pain, diplopia, redness, discharge, acute visual changes. 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 Recent right eye blurred vision. Ears: No recent chronic ear pain, acute hearing loss, ear discharge. Oral cavity: No recent ulcerations, bleeding, oral cavity discomfort. Neck: No recent acute neck pain reported. Hematologic: No recent easy bruising or bleeding or hematologic malignancy reported. Lymphatic: No recent lymphatic malignancy, chronic lymphadenopathy reported yet Cardiovascular system review: See history of present illness. Respiratory system review: No recent chronic cough, hemoptysis, blood clots in the lungs reported. Mild Shortness of breath on exertion Gastrointestinal system review: Negative for any recent acute or chronic abdominal pain, hematemesis, melena, recent change in bowel habits. Genitourinary system review: No recent acute or chronic hematuria, flank pain, UTI etc. reported. Skin system review: Negative for any recent abnormal bruising, no rash, no pruritus reported. Neurologic: No prior history of strokes, mini strokes, seizure disorder. Questionable history of seizures. Positive for sleep apnea. Psychologic: No history of major psychosis or major depression reported. Musculoskeletal: Minor aches and pains reported. No acute joint swelling reported. Patient scheduled for surgery this afternoon.. Endocrine: No recent polyuria, polydipsia, recent heat or cold intolerance. Results Laboratory Results: 02/04/17 06:12 02/04/17 06:12 02/04/17 02/04/17 06:12 06:12 WBC 13.4 H RBC 3.50 L Hgb 10.5 L Hct 30.7 L MCV 88 MCH 30.0 MCHC 34.3 RDW 14.5 H Plt Count 268 Seg Neutrophils % 65.3 Lymphocytes % 20.8 Monocytes % 11.9 Eosinophils % 1.1 Basophils % 0.9 Absolute Neutrophils 8.8 H Absolute Lymphocytes 2.8 Absolute Monocytes 1.6 H Absolute Eosinophils 0.1 Absolute Basophils 0.1 Sodium 143.8 Potassium 4.5 Chloride 105 Carbon Dioxide 26 Anion Gap 13 BUN 59 H Creatinine 2.80 H Est GFR ( Amer) 27 L Est GFR (Non-Af Amer) 22 L Glucose 250 H Calcium 10.1 02/01/17 02/01/17 02/02/17 23:10 23:10 05:28 Creatine Kinase 396 H 325 H CK-MB (CK-2) 2.23 Troponin I < 0.012 02/02/17 02/02/17 02/02/17 05:28 11:14 11:14 Creatine Kinase 348 H CK-MB (CK-2) 1.40 1.58 Troponin I < 0.012 < 0.012 EKG Comments: Telemetry strips reviewed showed patient maintaining sinus rhythm. No sustained tachycardia or bradycardia arrhythmias were noted. Impressions: Chest X-Ray 02/01/17 11:11 IMPRESSION: NO ACUTE RADIOGRAPHIC FINDING IN THE CHEST. NO SIGNIFICANT CHANGE FROM PRIOR STUDY. Head CT 02/01/17 11:11 IMPRESSION: NORMAL BRAIN CT WITHOUT CONTRAST. EVIDENCE OF ACUTE STROKE: NO. Knee X-Ray 02/01/17 11:35 IMPRESSION: NO DEFINITE FRACTURE OR HARDWARE COMPLICATION. SMALL JOINT EFFUSION. Carotid Doppler Study 02/03/17 00:00 IMPRESSION: NO HEMODYNAMICALLY SIGNIFICANT STENOSIS. Ankle X-Ray 02/04/17 00:00 IMPRESSION: Intra procedural imaging and fluoro Fluoroscopy 02/04/17 00:00 IMPRESSION: Intra procedural imaging and fluoro Head MRI 02/04/17 00:00 IMPRESSION: NORMAL MRI OF THE BRAIN WITHOUT INTRAVENOUS GADOLINIUM CONTRAST. EVIDENCE OF ACUTE STROKE: NO. Assessment & Plan - Diagnosis (1) Preoperative cardiovascular examination Is this a current diagnosis for this admission?: Yes (2) Syncope Qualifiers: Syncope type: unspecified Qualified Code(s): R55 - Syncope and collapse Is this a current diagnosis for this admission?: Yes (3) Closed right ankle fracture Qualifiers: Encounter type: initial encounter Qualified Code(s): S82.891A - Other fracture of right lower leg, initial encounter for closed fracture Is this a current diagnosis for this admission?: Yes (4) Diabetes mellitus type 2 in obese Is this a current diagnosis for this admission?: Yes (5) Hyperlipidemia Qualifiers: Hyperlipidemia type: unspecified Qualified Code(s): E78.5 - Hyperlipidemia , unspecified Is this a current diagnosis for this admission?: Yes (6) Obstructive sleep apnea of adult Is this a current diagnosis for this admission?: Yes (8) HTN (hypertension) Qualifiers: Hypertension type: essential hypertension Qualified Code(s): I10 - Essential (primary) hypertension Is this a current diagnosis for this admission?: Yes (9) Obesity Qualifiers: Obesity type: unspecified obesity type Is this a current diagnosis for this admission?: Yes - Notes Notes: Patient stable from cardiac standpoint for surgery. Patient needs surgical correction because he still has significant discomfort. Will continue to follow patient. All ever mentioned no cysts was reviewed. Patient noted to be stable. All chronic medical condition are in stable condition. Patient to report any recurrence of chest pain or significant dyspnea, palpitations etc. - Time Time with patient: 15-25 minutes
[2017-02-04] MEDS: ZOLPIDEM TARTRATE 5 MG TABLET PO SCH (22:53)
[2017-02-04] MEDS: RIVAROXABAN 10 MG TABLET PO SCH (22:53)
[2017-02-04] MEDS: ATORVASTATIN CALCIUM 20 MG TABLET PO SCH (22:53)
[2017-02-04] MEDS: LOSARTAN POTASSIUM 50 MG TABLET PO SCH (22:54)
[2017-02-04] MEDS: FERROUS SULFATE 325 MG TABLET PO SCH (22:54)
[2017-02-04] MEDS: AMLODIPINE BESYLATE 10 MG TABLET PO SCH (22:54)
[2017-02-05] MEDS: CEFAZOLIN 2 GM/D5W RTU 2 GM/50 ML RTUPB IV SCH (02:27)
[2017-02-05] MEDS: NORMAL SALINE 1000 ML 1,000 ML IV PRN (02:27)
[2017-02-05] MEDS: HEPARIN SOD (PORCINE) 5,000 UNIT/ML 1 ML SYRINGE SUBCUT SCH (05:15)
[2017-02-05 05:28] LABS: HEMATOCRIT 30.1 % (37.9-51.0); HEMOGLOBIN 10.2 g/dL (13.5-17.0); HGB HCT DIFFERENCE 0.5; MEAN CORPUSCULAR HEMOGLOBIN 29.9 pg (27.0-33.4); MEAN CORPUSCULAR HGB CONC 34.1 g/dL (32.0-36.0); MEAN CORPUSCULAR VOLUME 88 fl (80-97); RED BLOOD COUNT 3.42 10^6/uL (4.35-5.55); RED CELL DISTRIBUTION WIDTH 14.4 % (11.5-14.0); WHITE BLOOD COUNT 17.9 10^3/uL (4.0-10.5)
[2017-02-05] MEDS: LANSOPRAZOLE 30 MG TAB.RAP.DR PO SCH (05:33)
[2017-02-05 05:48] LABS: ANION GAP 17 (5-19); BLOOD UREA NITROGEN 57 mg/dL (7-20); CALCIUM 9.4 mg/dL (8.4-10.2); CARBON DIOXIDE 24 mmol/L (22-30); CHLORIDE 103 mmol/L (98-107); GLUCOSE 262 mg/dL (75-110); POTASSIUM 4.1 mmol/L (3.6-5.0); SODIUM 143.8 mmol/L (137-145)
--- NOTE | 2017-02-05 07:08 | PDOC PROGRESS REPORT ---
Subjective Progress Note for:: 02/05/17 Subjective:: 72-year-old white male 2 days status post open reduction internal fixation of right ankle. Patient reports he is still experiencing pain in his right lower extremity and has not been ambulatory since surgery. He also notes that he desires to leave in his urinary catheter as he feels he is not strong enough to stand to use a bedpan or bedside commode. Physical Exam Vital Signs: Temp Pulse Resp BP Pulse Ox 37.3 C 77 16 166/54 H 94 02/04/17 23:15 02/05/17 02:00 02/04/17 23:15 02/04/17 23:15 02/04/17 23:15 Intake & Output 02/04/17 02/05/17 02/06/17 06:59 06:59 06:59 Intake Total 2100 3170 Output Total 3150 3090 Balance -1050 80 General appearance: PRESENT: no acute distress, well-developed, well-nourished Head exam: PRESENT: atraumatic, normocephalic Pulses: PRESENT: normal dorsalis pedis pul, +2 pedal pulses bilateral Vascular exam: PRESENT: normal capillary refill Additional comments: The right lower extremity is in full extension with patient lying recumbent in hospital bed. Patient's postop compression dressing still in place and it is clean dry and intact. He has brisk capillary refill of the bilateral feet and there is minimal pedal edema, his distal neurovascular exam is intact and his sensorimotor functions are also intact. Additional comments: Patient has remained nonambulatory since surgery. Patient should begin to work with physical therapy to work towards increased strength and range of motion of the right ankle as well as progressing towards ambulation. Neurological exam: PRESENT: alert, awake, oriented to person, oriented to place , oriented to time, oriented to situation, CN II-XII grossly intact. ABSENT: motor sensory deficit Psychiatric exam: PRESENT: appropriate affect, normal mood. ABSENT: homicidal ideation, suicidal ideation Skin exam: PRESENT: dry, intact, warm. ABSENT: cyanosis, rash Results Laboratory Results: 02/05/17 05:00 02/05/17 05:00 02/04/17 02/04/17 02/05/17 06:12 06:12 05:00 WBC 13.4 H RBC 3.50 L Hgb 10.5 L Hct 30.7 L MCV 88 MCH 30.0 MCHC 34.3 RDW 14.5 H Plt Count 268 Seg Neutrophils % 65.3 Lymphocytes % 20.8 Monocytes % 11.9 Eosinophils % 1.1 Basophils % 0.9 Absolute Neutrophils 8.8 H Absolute Lymphocytes 2.8 Absolute Monocytes 1.6 H Absolute Eosinophils 0.1 Absolute Basophils 0.1 Sodium 143.8 143.8 Potassium 4.5 4.1 Chloride 105 103 Carbon Dioxide 26 24 Anion Gap 13 17 BUN 59 H 57 H Creatinine 2.80 H 3.00 H Est GFR ( Amer) 27 L 25 L Est GFR (Non-Af Amer) 22 L 21 L Glucose 250 H 262 H Calcium 10.1 9.4 02/05/17 05:00 WBC 17.9 H RBC 3.42 L Hgb 10.2 L Hct 30.1 L MCV 88 MCH 29.9 MCHC 34.1 RDW 14.4 H Plt Count 284 Seg Neutrophils % Lymphocytes % Monocytes % Eosinophils % Basophils % Absolute Neutrophils Absolute Lymphocytes Absolute Monocytes Absolute Eosinophils Absolute Basophils Sodium Potassium Chloride Carbon Dioxide Anion Gap BUN Creatinine Est GFR ( Amer) Est GFR (Non-Af Amer) Glucose Calcium 02/01/17 02/01/17 02/02/17 23:10 23:10 05:28 Creatine Kinase 396 H 325 H CK-MB (CK-2) 2.23 Troponin I < 0.012 02/02/17 02/02/17 02/02/17 05:28 11:14 11:14 Creatine Kinase 348 H CK-MB (CK-2) 1.40 1.58 Troponin I < 0.012 < 0.012 Impressions: Chest X-Ray 02/01/17 11:11 IMPRESSION: NO ACUTE RADIOGRAPHIC FINDING IN THE CHEST. NO SIGNIFICANT CHANGE FROM PRIOR STUDY. Head CT 02/01/17 11:11 IMPRESSION: NORMAL BRAIN CT WITHOUT CONTRAST. EVIDENCE OF ACUTE STROKE: NO. Knee X-Ray 02/01/17 11:35 IMPRESSION: NO DEFINITE FRACTURE OR HARDWARE COMPLICATION. SMALL JOINT EFFUSION. Carotid Doppler Study 02/03/17 00:00 IMPRESSION: NO HEMODYNAMICALLY SIGNIFICANT STENOSIS. Ankle X-Ray 02/04/17 00:00 IMPRESSION: Intra procedural imaging and fluoro Fluoroscopy 02/04/17 00:00 IMPRESSION: Intra procedural imaging and fluoro Head MRI 02/04/17 00:00 IMPRESSION: NORMAL MRI OF THE BRAIN WITHOUT INTRAVENOUS GADOLINIUM CONTRAST. EVIDENCE OF ACUTE STROKE: NO. Assessment & Plan - Diagnosis (1) Ankle fracture, bimalleolar, closed Qualifiers: Encounter type: subsequent encounter Laterality: right Is this a current diagnosis for this admission?: Yes - Plan Summary Plan Summary: 72-year-old white male with 2 days status post open reduction internal fixation of right ankle. Patient is making slow progress with strength and range of motion and was encouraged to work with physical therapy today to improve strength and work towards ambulation. Is also having issues with pain control he was informed that he can ask for more pain medication including morphine. He was also advised that his urinary catheter should be removed as this is potential site for infection. He was reassured that once he has made progress with physical therapy he will be capable of reaching a bedpan, bedside commode or the bathroom. Nursing staff was also advised to discontinue his heparin and continue Xarelto. Pending progress with physical therapy and pain control, we will plan for discharge tomorrow to his home.
--- NOTE | 2017-02-05 08:34 | PDOC PROGRESS REPORT ---
Subjective Progress Note for:: 02/05/17 Subjective:: Patient's underwent for the left ankle open reduction's and fixations yesterday Is otherwise currently doing well complaining some mild cough Patient's denied any chest pain denied any shortness of the breath Patient white count is slightly elevated today Physical Exam Vital Signs: Temp Pulse Resp BP Pulse Ox 99.2 F 77 16 166/54 H 94 02/04/17 23:15 02/05/17 02:00 02/04/17 23:15 02/04/17 23:15 02/04/17 23:15 Intake & Output 02/04/17 02/05/17 02/06/17 06:59 06:59 06:59 Intake Total 2100 3170 Output Total 3150 3090 Balance -1050 80 General appearance: PRESENT: no acute distress, well-developed, well-nourished Head exam: PRESENT: atraumatic, normocephalic Eye exam: PRESENT: conjunctiva pink, EOMI, PERRLA. ABSENT: scleral icterus Ear exam: PRESENT: normal external ear exam Mouth exam: PRESENT: moist, tongue midline Neck exam: PRESENT: full ROM. ABSENT: carotid bruit, JVD, lymphadenopathy, thyromegaly Respiratory exam: PRESENT: clear to auscultation [place] Cardiovascular exam: PRESENT: RRR. ABSENT: diastolic murmur, rubs, systolic murmur Pulses: PRESENT: normal dorsalis pedis pul, +2 pedal pulses bilateral Vascular exam: PRESENT: normal capillary refill GI/Abdominal exam: PRESENT: normal bowel sounds, soft. ABSENT: distended, guarding, mass, organolmegaly, rebound, tenderness Rectal exam: PRESENT: deferred Additional comments: Left lower extremity and the dressing is intact Neurological exam: PRESENT: alert, awake, oriented to person, oriented to place , oriented to time, oriented to situation, CN II-XII grossly intact. ABSENT: motor sensory deficit Psychiatric exam: PRESENT: appropriate affect, normal mood. ABSENT: homicidal ideation, suicidal ideation Skin exam: PRESENT: dry, intact, warm. ABSENT: cyanosis, rash Results Laboratory Results: 02/05/17 05:00 02/05/17 05:00 02/05/17 02/05/17 05:00 05:00 WBC 17.9 H RBC 3.42 L Hgb 10.2 L Hct 30.1 L MCV 88 MCH 29.9 MCHC 34.1 RDW 14.4 H Plt Count 284 Sodium 143.8 Potassium 4.1 Chloride 103 Carbon Dioxide 24 Anion Gap 17 BUN 57 H Creatinine 3.00 H Est GFR ( Amer) 25 L Est GFR (Non-Af Amer) 21 L Glucose 262 H Calcium 9.4 02/01/17 02/01/17 02/02/17 23:10 23:10 05:28 Creatine Kinase 396 H 325 H CK-MB (CK-2) 2.23 Troponin I < 0.012 02/02/17 02/02/17 02/02/17 05:28 11:14 11:14 Creatine Kinase 348 H CK-MB (CK-2) 1.40 1.58 Troponin I < 0.012 < 0.012 Impressions: Head CT 02/01/17 11:11 IMPRESSION: NORMAL BRAIN CT WITHOUT CONTRAST. EVIDENCE OF ACUTE STROKE: NO. Knee X-Ray 02/01/17 11:35 IMPRESSION: NO DEFINITE FRACTURE OR HARDWARE COMPLICATION. SMALL JOINT EFFUSION. Carotid Doppler Study 02/03/17 00:00 IMPRESSION: NO HEMODYNAMICALLY SIGNIFICANT STENOSIS. Ankle X-Ray 02/04/17 00:00 IMPRESSION: Intra procedural imaging and fluoro Fluoroscopy 02/04/17 00:00 IMPRESSION: Intra procedural imaging and fluoro Head MRI 02/04/17 00:00 IMPRESSION: NORMAL MRI OF THE BRAIN WITHOUT INTRAVENOUS GADOLINIUM CONTRAST. EVIDENCE OF ACUTE STROKE: NO. Assessment & Plan - Diagnosis (1) Ankle fracture, bimalleolar, closed Qualifiers: Encounter type: subsequent encounter Laterality: right Is this a current diagnosis for this admission?: Yes Plan: Status post surgery currently follow with the Dr. Anderson currently on his Xarelto 10 mg daily for the DVT prophylactics (2) Diabetes mellitus type 2 in obese Is this a current diagnosis for this admission?: Yes Plan: We will resume the patient's home insulin after patient off the n.p.o. otherwise continue sliding scale (3) Hyperlipidemia Qualifiers: Hyperlipidemia type: unspecified Qualified Code(s): E78.5 - Hyperlipidemia , unspecified Is this a current diagnosis for this admission?: Yes Plan: Currently stable (4) Mixed anxiety and depressive disorder Is this a current diagnosis for this admission?: Yes Plan: Continues to current home medications (5) Obstructive sleep apnea of adult Is this a current diagnosis for this admission?: Yes Plan: Continues to CPAP (6) Syncope Qualifiers: Syncope type: unspecified Qualified Code(s): R55 - Syncope and collapse Is this a current diagnosis for this admission?: Yes Plan: Patient all workup is so far negative (7) Chronic kidney disease Qualifiers: Chronic kidney disease stage: stage 3 (moderate) Qualified Code(s): N18.3 - Chronic kidney disease, stage 3 (moderate) Is this a current diagnosis for this admission?: Yes Plan: Patient seen by the Dr. Duarte (8) HTN (hypertension) Qualifiers: Hypertension type: essential hypertension Qualified Code(s): I10 - Essential (primary) hypertension Is this a current diagnosis for this admission?: Yes Plan: Continues current medications (9) Obesity Qualifiers: Obesity type: unspecified obesity type Is this a current diagnosis for this admission?: Yes - Time Time Spent with patient: 15-24 minutes Medications reviewed and adjusted accordingly: Yes Anticipated discharge: Home - Inpatient Certification Based on my medical assessment, after consideration of the patient's comorbidities, presenting symptoms, or acuity I expect that the services needed warrant INPATIENT care.: Yes I certify that my determination is in accordance with my understanding of Medicare's requirements for reasonable and necessary INPATIENT services [42 CFR 412.3e].: Yes Medical Necessity: Need Close Monitoring Due to Risk of Patient Decompensation, Need for IV Antibiotics Post Hospital Care: D/C Manager Quality Improvement Documentation - Currently doing wellPatients wants to go to the rehab will consult funeral planner will get the chest x- ray for leukocytosis continues to IV antibiotic
--- NOTE | 2017-02-05 08:34 | RADIOLOGY REPORT (SQ) ---
EXAM DESCRIPTION: CHEST PA/LAT COMPLETED DATE/TIME: 02/05/2017 8:02 am REASON FOR STUDY: cough COMPARISON: Chest film 02/01/2017, 03/28/2016 EXAM PARAMETERS: NUMBER OF VIEWS: two views TECHNIQUE: Digital Frontal and Lateral radiographic views of the chest acquired. RADIATION DOSE: NA LIMITATIONS: none FINDINGS: LUNGS AND PLEURA: No opacities, masses or pneumothorax. No pleural effusion. MEDIASTINUM AND HILAR STRUCTURES: Bulb calcified right hilar and peritracheal lymph nodes from granul omatous disease. HEART AND VASCULAR STRUCTURES: Heart normal size. No evidence for failure. BONES: No acute findings. HARDWARE: None in the chest. OTHER: No other significant finding. IMPRESSION: NO SIGNIFICANT RADIOGRAPHIC FINDING IN THE CHEST. TECHNICAL DOCUMENTATION: JOB ID: [id number] [employer]- All Rights Reserved
[2017-02-05] MEDS ORDERED: TAMSULOSIN HCL 0.4 MG CAP.SR.24H PO ONE (09:00)
[2017-02-05] MEDS ORDERED: (PENDING PHARMACY ID) (Irbesartan [Avapro] 150 MG) PO SCH (10:00)
[2017-02-05] MEDS ORDERED: FUROSEMIDE 40 MG TABLET PO SCH (10:00)
[2017-02-05] MEDS ORDERED: (PENDING PHARMACY ID) (Clonidine Hcl [Clonidine Hcl Er] 0.1 MG) PO SCH (10:00)
[2017-02-05] MEDS: CARVEDILOL 12.5 MG TABLET PO SCH ×2 (10:57→18:31)
[2017-02-05] MEDS: CHOLECALCIFEROL (D3) 1,000 UNIT TABLET PO SCH (10:57)
[2017-02-05] MEDS: SITAGLIPTIN PHOSPHATE 50 MG TABLET PO SCH (10:58)
[2017-02-05] MEDS: OXYCODONE HCL IR 5 MG TABLET PO PRN ×3 (10:58→20:30)
[2017-02-05] MEDS: ISOSORBIDE MONONITRATE 30 MG TAB.ER.24H PO SCH (10:59)
[2017-02-05] MEDS: FUROSEMIDE 40 MG TABLET PO SCH ×2 (10:59→18:30)
[2017-02-05] MEDS: ALLOPURINOL 100 MG TABLET PO SCH (10:59)
[2017-02-05] MEDS: GABAPENTIN 300 MG CAPSULE PO SCH ×2 (10:59→18:31)
[2017-02-05] MEDS: CLONIDINE HCL 0.2 MG TABLET PO SCH ×2 (10:59→22:13)
[2017-02-05] MEDS: FENOFIBRATE NANOCRYSTALLIZED 48 MG TABLET PO SCH (11:01)
[2017-02-05] MEDS: BUDESONIDE/FORMOTEROL 160-4.5 MCG 60 PUFF/6 GM MDI IH SCH ×2 (11:02→18:33)
[2017-02-05] MEDS: INSULIN DETEMIR 100 UNIT/ML 3 ML PEN SUBCUT SCH ×2 (11:03→21:30)
[2017-02-05] MEDS: CEFEPIME HCL 1 GM in DEXTROSE 5%-WATER 50 ML IV SCH ×2 (11:05→21:24)
[2017-02-05] MEDS: FLUTICASONE NASAL SPRAY 50 MCG/SPRY 120 SPRAY/16 GM NASL SCH (11:05)
[2017-02-05] MEDS: TIMOLOL MALEATE 0.5% OPH SOLN 5 ML OU SCH (11:06)
[2017-02-05] MEDS: ONDANSETRON HCL INJ/PF 4 MG/2 ML SDV IV PRN (15:53)
[2017-02-05] MEDS: INSULIN LISPRO 100 UNIT/ML 3 ML VIAL SUBCUT PRN ×2 (16:25→21:29)
[2017-02-05] MEDS: TAMSULOSIN HCL 0.4 MG CAP.SR.24H PO SCH (18:30)
--- NOTE | 2017-02-05 20:13 | PDOC PROGRESS REPORT ---
Subjective Progress Note for:: 02/05/17 Subjective:: Patient seems to be doing better with gradual improvement. Patient however is still complaining of pain in the right ankle. Pt is denying any chest arm or neck discomfort. Patient denying any PND, orthopnea. Patient denied any sustained palpitations, dizziness, syncope, near syncope. Patient denying any fever chills. Patient denying any other significant discomfort. Patient is maintaining sinus rhythm. Review of systems: Rest review of systems negative. Medications: Medications have been reviewed. Physical Exam Vital Signs: Temp Pulse Resp BP Pulse Ox 99.4 F 87 18 126/54 H 96 02/05/17 15:56 02/05/17 15:56 02/05/17 15:56 02/05/17 15:56 02/05/17 15:56 Intake & Output 02/04/17 02/05/17 02/06/17 06:59 06:59 06:59 Intake Total 2100 3170 890 Output Total 3150 3090 300 Balance -1050 80 590 Exam: Constitutional: No fever or chills reported. Head : No recent chronic headaches, recent head injury. Eyes: No recent eye pain, diplopia, redness, discharge, acute visual changes. 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 Recent right eye blurred vision. Ears: No recent chronic ear pain, acute hearing loss, ear discharge. Oral cavity: No recent ulcerations, bleeding, oral cavity discomfort. Neck: No recent acute neck pain reported. Hematologic: No recent easy bruising or bleeding or hematologic malignancy reported. Lymphatic: No recent lymphatic malignancy, chronic lymphadenopathy reported yet Cardiovascular system review: See history of present illness. Respiratory system review: No recent chronic cough, hemoptysis, blood clots in the lungs reported. Mild Shortness of breath on exertion Gastrointestinal system review: Negative for any recent acute or chronic abdominal pain, hematemesis, melena, recent change in bowel habits. Genitourinary system review: No recent acute or chronic hematuria, flank pain, UTI etc. reported. Skin system review: Negative for any recent abnormal bruising, no rash, no pruritus reported. Neurologic: No prior history of strokes, mini strokes, seizure disorder. Questionable history of seizures. Positive for sleep apnea. Psychologic: No history of major psychosis or major depression reported. Musculoskeletal: Minor aches and pains reported. No acute joint swelling reported. Endocrine: No recent polyuria, polydipsia, recent heat or cold intolerance. Right ankle now in cast. Results Laboratory Results: 02/05/17 05:00 02/05/17 05:00 02/05/17 02/05/17 05:00 05:00 WBC 17.9 H RBC 3.42 L Hgb 10.2 L Hct 30.1 L MCV 88 MCH 29.9 MCHC 34.1 RDW 14.4 H Plt Count 284 Sodium 143.8 Potassium 4.1 Chloride 103 Carbon Dioxide 24 Anion Gap 17 BUN 57 H Creatinine 3.00 H Est GFR ( Amer) 25 L Est GFR (Non-Af Amer) 21 L Glucose 262 H Calcium 9.4 02/03/17 16:15 Stanley Catheter Urine Culture - Final NO GROWTH 2 DAYS 02/01/17 02/01/17 02/02/17 23:10 23:10 05:28 Creatine Kinase 396 H 325 H CK-MB (CK-2) 2.23 Troponin I < 0.012 02/02/17 02/02/17 02/02/17 05:28 11:14 11:14 Creatine Kinase 348 H CK-MB (CK-2) 1.40 1.58 Troponin I < 0.012 < 0.012 EKG Comments: Telemetry strips shows sinus rhythm. No sustained tachycardia or bradycardia arrhythmias noted. Impressions: Head CT 02/01/17 11:11 IMPRESSION: NORMAL BRAIN CT WITHOUT CONTRAST. EVIDENCE OF ACUTE STROKE: NO. Knee X-Ray 02/01/17 11:35 IMPRESSION: NO DEFINITE FRACTURE OR HARDWARE COMPLICATION. SMALL JOINT EFFUSION. Carotid Doppler Study 02/03/17 00:00 IMPRESSION: NO HEMODYNAMICALLY SIGNIFICANT STENOSIS. Ankle X-Ray 02/04/17 00:00 IMPRESSION: Intra procedural imaging and fluoro Fluoroscopy 02/04/17 00:00 IMPRESSION: Intra procedural imaging and fluoro Head MRI 02/04/17 00:00 IMPRESSION: NORMAL MRI OF THE BRAIN WITHOUT INTRAVENOUS GADOLINIUM CONTRAST. EVIDENCE OF ACUTE STROKE: NO. Chest X-Ray 02/05/17 00:00 IMPRESSION: NO SIGNIFICANT RADIOGRAPHIC FINDING IN THE CHEST. Assessment & Plan - Diagnosis (1) Preoperative cardiovascular examination Is this a current diagnosis for this admission?: Yes (2) Syncope Qualifiers: Syncope type: unspecified Qualified Code(s): R55 - Syncope and collapse Is this a current diagnosis for this admission?: Yes (3) Closed right ankle fracture Qualifiers: Encounter type: initial encounter Qualified Code(s): S82.891A - Other fracture of right lower leg, initial encounter for closed fracture Is this a current diagnosis for this admission?: Yes (4) Diabetes mellitus type 2 in obese Is this a current diagnosis for this admission?: Yes (5) Hyperlipidemia Qualifiers: Hyperlipidemia type: unspecified Qualified Code(s): E78.5 - Hyperlipidemia , unspecified Is this a current diagnosis for this admission?: Yes (6) Obstructive sleep apnea of adult Is this a current diagnosis for this admission?: Yes (8) HTN (hypertension) Qualifiers: Hypertension type: essential hypertension Qualified Code(s): I10 - Essential (primary) hypertension Is this a current diagnosis for this admission?: Yes (9) Obesity Qualifiers: Obesity type: unspecified obesity type Is this a current diagnosis for this admission?: Yes - Notes Notes: Patient seems to be doing stable from cardiac standpoint. Patient status post surgery without any significant cardiac issues. Patient does have high blood sugars and is noted to have high creatinine. Will follow tomorrow. If patient is doing well, will consider signing off. Patient's telemetry strips were reviewed. Patient noted to be maintaining sinus rhythm. - Time Time with patient: 15-25 minutes - CODE STATUS was discussed, patient remains full code. Surrogate decision-maker unchanged. Multiple medical problems were addressed. More than 50% of the time spent coordinating care, discussing management plans with involved caregivers. Management plans discussed with involved personnels. Medical decision making was of moderate to high complexity , patient's has multiple comorbidities. Medications reviewed and adjusted accordingly: Yes
[2017-02-05] MEDS: RIVAROXABAN 10 MG TABLET PO SCH (21:23)
[2017-02-05] MEDS: ATORVASTATIN CALCIUM 20 MG TABLET PO SCH (21:23)
[2017-02-05] MEDS: ZOLPIDEM TARTRATE 5 MG TABLET PO SCH (21:23)
[2017-02-05] MEDS: FERROUS SULFATE 325 MG TABLET PO SCH (21:23)
[2017-02-05] MEDS: ASPIRIN 325 MG TABLET PO SCH (21:23)
[2017-02-05] MEDS ORDERED: ALLOPURINOL 100 MG TABLET PO SCH (22:00)
[2017-02-05] MEDS: AMLODIPINE BESYLATE 10 MG TABLET PO SCH (22:13)
[2017-02-05] MEDS: LOSARTAN POTASSIUM 50 MG TABLET PO SCH (22:13)
[2017-02-06] MEDS: LANSOPRAZOLE 30 MG TAB.RAP.DR PO SCH (05:33)
[2017-02-06] MEDS: OXYCODONE HCL IR 5 MG TABLET PO PRN ×3 (05:33→18:31)
[2017-02-06 06:35] LABS: ANION GAP 19 (5-19); BLOOD UREA NITROGEN 70 mg/dL (7-20); CARBON DIOXIDE 22 mmol/L (22-30); CHLORIDE 99 mmol/L (98-107); CREATININE RESULT 3.79 mg/dL (0.52-1.25); GLUCOSE 184 mg/dL (75-110)
[2017-02-06] MEDS: ISOSORBIDE MONONITRATE 30 MG TAB.ER.24H PO SCH (08:28)
[2017-02-06] MEDS: INSULIN LISPRO 100 UNIT/ML 3 ML VIAL SUBCUT PRN ×4 (08:28→21:34)
[2017-02-06] MEDS: FENOFIBRATE NANOCRYSTALLIZED 48 MG TABLET PO SCH (08:28)
--- NOTE | 2017-02-06 08:28 | PDOC PROGRESS REPORT ---
Subjective Progress Note for:: 02/06/17 Subjective:: Patient is currently doing fair. Patient's denied any chest pain denied any cough or any congestion's Patient's otherwise is still have a pain the surgical site but under control Patient's denied any chest pain without any shortness of the breath Physical Exam Vital Signs: Temp Pulse Resp BP Pulse Ox 98.8 F 83 19 133/67 H 93 02/06/17 07:23 02/06/17 07:23 02/06/17 07:23 02/06/17 07:23 02/06/17 07:23 Intake & Output 02/05/17 02/06/17 02/07/17 06:59 06:59 06:59 Intake Total 3170 1320 Output Total 3090 300 Balance 80 1020 General appearance: PRESENT: no acute distress, well-developed, well-nourished Head exam: PRESENT: atraumatic, normocephalic Eye exam: PRESENT: conjunctiva pink, EOMI, PERRLA. ABSENT: scleral icterus Ear exam: PRESENT: normal external ear exam Mouth exam: PRESENT: moist, tongue midline Neck exam: PRESENT: full ROM. ABSENT: carotid bruit, JVD, lymphadenopathy, thyromegaly Respiratory exam: PRESENT: clear to auscultation [place] Cardiovascular exam: PRESENT: RRR. ABSENT: diastolic murmur, rubs, systolic murmur Pulses: PRESENT: normal dorsalis pedis pul, +2 pedal pulses bilateral Vascular exam: PRESENT: normal capillary refill GI/Abdominal exam: PRESENT: normal bowel sounds, soft. ABSENT: distended, guarding, mass, organolmegaly, rebound, tenderness Rectal exam: PRESENT: deferred Additional comments: Right lower extremity the dressing is intact Neurological exam: PRESENT: alert, awake, oriented to person, oriented to place , oriented to time, oriented to situation, CN II-XII grossly intact. ABSENT: motor sensory deficit Psychiatric exam: PRESENT: appropriate affect, normal mood. ABSENT: homicidal ideation, suicidal ideation Skin exam: PRESENT: dry, intact, warm. ABSENT: cyanosis, rash Results Laboratory Results: 02/05/17 05:00 02/06/17 05:00 02/06/17 05:00 Sodium 140.0 Potassium 4.0 Chloride 99 Carbon Dioxide 22 Anion Gap 19 BUN 70 H Creatinine 3.79 H Est GFR ( Amer) 19 L Est GFR (Non-Af Amer) 16 L Glucose 184 H Calcium 9.0 02/03/17 16:15 Stanley Catheter Urine Culture - Final NO GROWTH 2 DAYS 02/01/17 02/01/17 02/02/17 23:10 23:10 05:28 Creatine Kinase 396 H 325 H CK-MB (CK-2) 2.23 Troponin I < 0.012 02/02/17 02/02/17 02/02/17 05:28 11:14 11:14 Creatine Kinase 348 H CK-MB (CK-2) 1.40 1.58 Troponin I < 0.012 < 0.012 Impressions: Head CT 02/01/17 11:11 IMPRESSION: NORMAL BRAIN CT WITHOUT CONTRAST. EVIDENCE OF ACUTE STROKE: NO. Knee X-Ray 02/01/17 11:35 IMPRESSION: NO DEFINITE FRACTURE OR HARDWARE COMPLICATION. SMALL JOINT EFFUSION. Carotid Doppler Study 02/03/17 00:00 IMPRESSION: NO HEMODYNAMICALLY SIGNIFICANT STENOSIS. Ankle X-Ray 02/04/17 00:00 IMPRESSION: Intra procedural imaging and fluoro Fluoroscopy 02/04/17 00:00 IMPRESSION: Intra procedural imaging and fluoro Head MRI 02/04/17 00:00 IMPRESSION: NORMAL MRI OF THE BRAIN WITHOUT INTRAVENOUS GADOLINIUM CONTRAST. EVIDENCE OF ACUTE STROKE: NO. Chest X-Ray 02/05/17 00:00 IMPRESSION: NO SIGNIFICANT RADIOGRAPHIC FINDING IN THE CHEST. Assessment & Plan - Diagnosis (1) Ankle fracture, bimalleolar, closed Qualifiers: Encounter type: subsequent encounter Laterality: right Is this a current diagnosis for this admission?: Yes Plan: Status post right ankle surgery (2) Diabetes mellitus type 2 in obese Is this a current diagnosis for this admission?: Yes Plan: Continues to current medication (3) Hyperlipidemia Qualifiers: Hyperlipidemia type: unspecified Qualified Code(s): E78.5 - Hyperlipidemia , unspecified Is this a current diagnosis for this admission?: Yes Plan: Currently stable (4) Mixed anxiety and depressive disorder Is this a current diagnosis for this admission?: Yes Plan: Continues to current home medications (5) Obstructive sleep apnea of adult Is this a current diagnosis for this admission?: Yes Plan: Continues to CPAP (6) Syncope Qualifiers: Syncope type: unspecified Qualified Code(s): R55 - Syncope and collapse Is this a current diagnosis for this admission?: Yes Plan: Patient all workup is so far negative (7) Chronic kidney disease Qualifiers: Chronic kidney disease stage: stage 3 (moderate) Qualified Code(s): N18.3 - Chronic kidney disease, stage 3 (moderate) Is this a current diagnosis for this admission?: Yes Plan: Patient is BUN/creatinine is just worsening we will just decrease the Lasix 40 mg p.o. daily repeat the Chem-7 in the morning and follow with the nephrology (8) HTN (hypertension) Qualifiers: Hypertension type: essential hypertension Qualified Code(s): I10 - Essential (primary) hypertension Is this a current diagnosis for this admission?: Yes Plan: Continues current medications (9) Obesity Qualifiers: Obesity type: unspecified obesity type Is this a current diagnosis for this admission?: Yes - Time Time Spent with patient: 15-24 minutes Medications reviewed and adjusted accordingly: Yes Anticipated discharge: Acute Rehab Within: Other - Inpatient Certification Medical Necessity: Need Close Monitoring Due to Risk of Patient Decompensation Post Hospital Care: D/C Content Engineer Documentation - Plan Summary Plan Summary: Will adjust the Lasix repeat the Chem-7 in the morning and we will waiting for the rehab placement
[2017-02-06] MEDS ORDERED: FUROSEMIDE 40 MG TABLET PO SCH (10:00)
[2017-02-06] MEDS: FLUTICASONE NASAL SPRAY 50 MCG/SPRY 120 SPRAY/16 GM NASL SCH (10:31)
[2017-02-06] MEDS: INSULIN DETEMIR 100 UNIT/ML 3 ML PEN SUBCUT SCH ×2 (10:31→21:34)
[2017-02-06] MEDS: CLONIDINE HCL 0.2 MG TABLET PO SCH ×2 (10:32→21:34)
[2017-02-06] MEDS: CHOLECALCIFEROL (D3) 1,000 UNIT TABLET PO SCH (10:32)
[2017-02-06] MEDS: ALLOPURINOL 100 MG TABLET PO SCH (10:32)
[2017-02-06] MEDS: GABAPENTIN 300 MG CAPSULE PO SCH ×2 (10:32→17:37)
[2017-02-06] MEDS: SITAGLIPTIN PHOSPHATE 50 MG TABLET PO SCH (10:32)
[2017-02-06] MEDS: CARVEDILOL 12.5 MG TABLET PO SCH ×2 (10:33→17:37)
[2017-02-06] MEDS: TIMOLOL MALEATE 0.5% OPH SOLN 5 ML OU SCH (10:33)
[2017-02-06] MEDS: BUDESONIDE/FORMOTEROL 160-4.5 MCG 60 PUFF/6 GM MDI IH SCH ×2 (10:33→17:37)
[2017-02-06] MEDS: TAMSULOSIN HCL 0.4 MG CAP.SR.24H PO SCH (17:37)
--- NOTE | 2017-02-06 18:07 | PDOC PROGRESS REPORT ---
Subjective Progress Note for:: 02/06/17 Subjective:: Patient seems to be doing fine. He still has not been able to stand up and is just doing some physical therapy sitting down. Blood pressure is been within acceptable limits. He is making a urine in fact he seems to be making more urine than what is taking in. He does not have any other complaints. Physical Exam Vital Signs: Temp Pulse Resp BP Pulse Ox 99.1 F 73 18 131/66 H 99 02/06/17 15:22 02/06/17 15:22 02/06/17 15:22 02/06/17 15:22 02/06/17 15:22 Intake & Output 02/05/17 02/06/17 02/07/17 06:59 06:59 06:59 Intake Total 3170 1320 900 Output Total 3090 300 400 Balance 80 1020 500 Exam: General appearance: PRESENT: no acute distress, cooperative, well-developed, well-nourished Head exam: PRESENT: atraumatic, normocephalic Eye exam: PRESENT: conjunctiva pink, PERRLA. ABSENT: scleral icterus Neck exam: ABSENT: JVD Respiratory exam: PRESENT: Normal breath sounds. ABSENT: crackles, rales, rhonchi, unlabored, wheezes Cardiovascular exam: PRESENT: Regular rate rhythm -+S1, +S2. ABSENT: diastolic murmur, systolic murmur GI/Abdominal exam: PRESENT: normal bowel sounds, soft. ABSENT: guarding, mass, tenderness Extremities exam: ABSENT: No edema; right leg and foot in bandage. Neurological exam: PRESENT: alert, awake, oriented to person, place and time. Skin exam: PRESENT: dry, warm, Results Laboratory Results: 02/05/17 05:00 02/06/17 05:00 02/06/17 05:00 Sodium 140.0 Potassium 4.0 Chloride 99 Carbon Dioxide 22 Anion Gap 19 BUN 70 H Creatinine 3.79 H Est GFR ( Amer) 19 L Est GFR (Non-Af Amer) 16 L Glucose 184 H Calcium 9.0 02/01/17 02/01/17 02/02/17 23:10 23:10 05:28 Creatine Kinase 396 H 325 H CK-MB (CK-2) 2.23 Troponin I < 0.012 02/02/17 02/02/17 02/02/17 05:28 11:14 11:14 Creatine Kinase 348 H CK-MB (CK-2) 1.40 1.58 Troponin I < 0.012 < 0.012 Impressions: Head CT 02/01/17 11:11 IMPRESSION: NORMAL BRAIN CT WITHOUT CONTRAST. EVIDENCE OF ACUTE STROKE: NO. Knee X-Ray 02/01/17 11:35 IMPRESSION: NO DEFINITE FRACTURE OR HARDWARE COMPLICATION. SMALL JOINT EFFUSION. Carotid Doppler Study 02/03/17 00:00 IMPRESSION: NO HEMODYNAMICALLY SIGNIFICANT STENOSIS. Ankle X-Ray 02/04/17 00:00 IMPRESSION: Intra procedural imaging and fluoro Fluoroscopy 02/04/17 00:00 IMPRESSION: Intra procedural imaging and fluoro Head MRI 02/04/17 00:00 IMPRESSION: NORMAL MRI OF THE BRAIN WITHOUT INTRAVENOUS GADOLINIUM CONTRAST. EVIDENCE OF ACUTE STROKE: NO. Chest X-Ray 02/05/17 00:00 IMPRESSION: NO SIGNIFICANT RADIOGRAPHIC FINDING IN THE CHEST. Assessment & Plan - Diagnosis (1) Acute kidney injury superimposed on chronic kidney disease Is this a current diagnosis for this admission?: Yes Plan: Patient's kidney function seems to have gotten worse since yesterday until today. His fluid balance seems to be negative since admission. I think we will have to hold off the patient's Lasix and encourage oral intake. If the patient gets transferred to rehab tomorrow I would hold off the Lasix for at least 48 hours prior to reinitiating it in the rehab. (2) Chronic kidney disease, stage IV (severe) Is this a current diagnosis for this admission?: Yes Plan: Due to diabetic nephropathy with contribution of hypertension. Continue to monitor kidney function while he in the hospital. (3) Anemia in chronic kidney disease (CKD) Is this a current diagnosis for this admission?: Yes (4) Closed right ankle fracture Qualifiers: Encounter type: initial encounter Qualified Code(s): S82.891A - Other fracture of right lower leg, initial encounter for closed fracture Is this a current diagnosis for this admission?: Yes Plan: Status post open reduction internal fixation by Dr. Anderson. (5) Syncope Qualifiers: Syncope type: unspecified Qualified Code(s): R55 - Syncope and collapse Is this a current diagnosis for this admission?: Yes Plan: Workup has been negative. (6) HTN (hypertension) Qualifiers: Hypertension type: essential hypertension Qualified Code(s): I10 - Essential (primary) hypertension Is this a current diagnosis for this admission?: Yes Plan: Currently controlled. (7) Diabetes mellitus type 2 in obese Is this a current diagnosis for this admission?: Yes Plan: Deferred to Dr. Mead for management. - Notes Notes: If patient gets transferred to rehab at any times from tomorrow, I instructed patient and to keep their follow-up appointment with me as scheduled in 2 weeks. He is to do his lab work few days prior to his scheduled appointment as instructed. understood. - Time Time with patient: 15-25 minutes
[2017-02-06] MEDS: LATANOPROST 0.005% OPH SOLN 2.5 ML OD SCH (18:13)
--- NOTE | 2017-02-06 19:48 | PDOC PROGRESS REPORT ---
Subjective Progress Note for:: 02/06/17 Subjective:: Patient seems to be doing better with gradual improvement. Patient however is still complaining of pain in the right ankle. Pt is denying any chest arm or neck discomfort. Patient denying any PND, orthopnea. Patient denied any sustained palpitations, dizziness, syncope, near syncope. Patient denying any fever chills. Patient denying any other significant discomfort. Patient is maintaining sinus rhythm. Review of systems: Rest review of systems negative. Medications: Medications have been reviewed. Physical Exam Vital Signs: Temp Pulse Resp BP Pulse Ox 99.1 F 73 18 131/66 H 99 02/06/17 15:22 02/06/17 15:22 02/06/17 15:22 02/06/17 15:22 02/06/17 15:22 Intake & Output 02/05/17 02/06/17 02/07/17 06:59 06:59 06:59 Intake Total 3170 1320 910 Output Total 3090 300 400 Balance 80 1020 510 Exam: GENERAL: well-nourished and in no acute distress. Alert and oriented x3 HEAD: Atraumatic, normocephalic. EYES: Pupils equal round and reactive to light, extraocular movements intact, sclera anicteric, conjunctiva are normal. ENT: TMs normal, nares patent, oropharynx clear without exudates. Moist mucous membranes. No oral ulcerations or bleeding gums noted NECK: supple without lymphadenopathy. Trachea is central. No cervical or axillary lymphadenopathy noted. Carotids are 2+, JVD WNL LUNGS: Respiration seems nonlabored, no significant accessory muscle action noted. Breath sounds clear to auscultation bilaterally and equal noted. No wheezes rales or rhonchi noted. No significant dullness noted on percussion. CHEST: Palpation of the chest wall shows no significant chest wall tenderness. No other significant abnormalities noted. 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 ABDOMEN: Soft, no significant tenderness appreciated, normoactive bowel sounds. No guarding, no rebound. No rigidity noted . No masses appreciated. EXTREMITIES: Pedal pulses are 1-2+, no calf tenderness noted. No clubbing or cyanosis. Right foot in cast and lower leg right side in cast. Left side has trace pedal edema. NEUROLOGICAL: Focused neurological exam showed no significant neurologic deficit. Normal speech, no focal weakness appreciated. PSYCH: Normal mood, normal affect. Judgment and insight within normal limits. SKIN: No significant ecchymosis, rash, ulcerations or signs of pruritus noted. MUSCULOSKELETAL EXAM: No significant joint swelling noted. Results Laboratory Results: 02/05/17 05:00 02/06/17 05:00 02/06/17 05:00 Sodium 140.0 Potassium 4.0 Chloride 99 Carbon Dioxide 22 Anion Gap 19 BUN 70 H Creatinine 3.79 H Est GFR ( Amer) 19 L Est GFR (Non-Af Amer) 16 L Glucose 184 H Calcium 9.0 02/01/17 02/01/17 02/02/17 23:10 23:10 05:28 Creatine Kinase 396 H 325 H CK-MB (CK-2) 2.23 Troponin I < 0.012 02/02/17 02/02/17 02/02/17 05:28 11:14 11:14 Creatine Kinase 348 H CK-MB (CK-2) 1.40 1.58 Troponin I < 0.012 < 0.012 Impressions: Head CT 02/01/17 11:11 IMPRESSION: NORMAL BRAIN CT WITHOUT CONTRAST. EVIDENCE OF ACUTE STROKE: NO. Knee X-Ray 02/01/17 11:35 IMPRESSION: NO DEFINITE FRACTURE OR HARDWARE COMPLICATION. SMALL JOINT EFFUSION. Carotid Doppler Study 02/03/17 00:00 IMPRESSION: NO HEMODYNAMICALLY SIGNIFICANT STENOSIS. Ankle X-Ray 02/04/17 00:00 IMPRESSION: Intra procedural imaging and fluoro Fluoroscopy 02/04/17 00:00 IMPRESSION: Intra procedural imaging and fluoro Head MRI 02/04/17 00:00 IMPRESSION: NORMAL MRI OF THE BRAIN WITHOUT INTRAVENOUS GADOLINIUM CONTRAST. EVIDENCE OF ACUTE STROKE: NO. Chest X-Ray 02/05/17 00:00 IMPRESSION: NO SIGNIFICANT RADIOGRAPHIC FINDING IN THE CHEST. Assessment & Plan - Diagnosis (1) Preoperative cardiovascular examination Is this a current diagnosis for this admission?: Yes (2) Syncope Qualifiers: Syncope type: unspecified Qualified Code(s): R55 - Syncope and collapse Is this a current diagnosis for this admission?: Yes (3) Closed right ankle fracture Qualifiers: Encounter type: initial encounter Qualified Code(s): S82.891A - Other fracture of right lower leg, initial encounter for closed fracture Is this a current diagnosis for this admission?: Yes (4) Diabetes mellitus type 2 in obese Is this a current diagnosis for this admission?: Yes (5) Hyperlipidemia Qualifiers: Hyperlipidemia type: unspecified Qualified Code(s): E78.5 - Hyperlipidemia , unspecified Is this a current diagnosis for this admission?: Yes (6) Obstructive sleep apnea of adult Is this a current diagnosis for this admission?: Yes (8) HTN (hypertension) Qualifiers: Hypertension type: essential hypertension Qualified Code(s): I10 - Essential (primary) hypertension Is this a current diagnosis for this admission?: Yes (9) Obesity Qualifiers: Obesity type: unspecified obesity type Is this a current diagnosis for this admission?: Yes - Notes Notes: Recent has remained stable. He denied any cardiovascular related issues. Patient does have other ongoing significant problems such as advanced renal failure. Discussed with primary care attending. Do not feel there is any need to follow-up from cardiac standpoint. Patient is being followed by resaw tailer and other involved specialists. Patient can follow-up with cloth sponger of his choice or with me as an outpatient. Patient has been encouraged to walk on a regular basis, lose weight, follow a healthy diet. Sleep hygiene also discussed. Patient in hospital medical regimen was reviewed and is noted to be satisfactory. No other changes recommended. - Time Time with patient: 15-25 minutes - Will sign off. Please reconsult if needed. Medications reviewed and adjusted accordingly: Yes
[2017-02-06] MEDS: CEFEPIME 1 GM/D5W RTU 1 GM/50 ML RTUPB IV SCH (21:32)
[2017-02-06] MEDS: ASPIRIN 325 MG TABLET PO SCH (21:33)
[2017-02-06] MEDS: LOSARTAN POTASSIUM 50 MG TABLET PO SCH (21:33)
[2017-02-06] MEDS: ZOLPIDEM TARTRATE 5 MG TABLET PO SCH (21:33)
[2017-02-06] MEDS: ATORVASTATIN CALCIUM 20 MG TABLET PO SCH (21:33)
[2017-02-06] MEDS: FERROUS SULFATE 325 MG TABLET PO SCH (21:34)
[2017-02-06] MEDS: RIVAROXABAN 10 MG TABLET PO SCH (21:39)
[2017-02-06] MEDS: AMLODIPINE BESYLATE 10 MG TABLET PO SCH (21:39)
[2017-02-07 04:53] LABS: ABSOLUTE EOSINOPHILS # (AUTO) 0.4 10^3/uL (0.0-0.6); ABSOLUTE LYMPHOCYTES (AUTO) 2.7 10^3/uL (0.5-4.7); ABSOLUTE MONOCYTES (AUTO) 1.5 10^3/uL (0.1-1.4); BASOPHILS % (AUTO) 0.4 % (0-2); HEMATOCRIT 23.2 % (37.9-51.0); HGB HCT DIFFERENCE 1.1; LYMPHOCYTES % (AUTO) 21.5 % (13-45); MEAN CORPUSCULAR HEMOGLOBIN 30.1 pg (27.0-33.4); MEAN CORPUSCULAR VOLUME 86 fl (80-97); MONOCYTES % (AUTO) 11.8 % (3-13); RED BLOOD COUNT 2.69 10^6/uL (4.35-5.55); RED CELL DISTRIBUTION WIDTH 14.2 % (11.5-14.0); SEGMENTED NEUTROPHILS % (AUTO) 63.3 % (42-78); WHITE BLOOD COUNT 12.7 10^3/uL (4.0-10.5)
[2017-02-07 04:55] LABS: HEMOGLOBIN 8.1 g/dL (13.5-17.0)
[2017-02-07 05:01] LABS: ANION GAP 15 (5-19); CALCIUM 9.1 mg/dL (8.4-10.2); CARBON DIOXIDE 23 mmol/L (22-30); CHLORIDE 101 mmol/L (98-107); CREATININE RESULT 4.64 mg/dL (0.52-1.25); GLUCOSE 116 mg/dL (75-110); POTASSIUM 3.9 mmol/L (3.6-5.0); SODIUM 139.1 mmol/L (137-145)
[2017-02-07 05:13] LABS: BLOOD UREA NITROGEN 89 mg/dL (7-20)
[2017-02-07] MEDS: LANSOPRAZOLE 30 MG TAB.RAP.DR PO SCH (06:16)
--- NOTE | 2017-02-07 06:42 | PDOC PROGRESS REPORT ---
Subjective Progress Note for:: 02/07/17 Subjective:: 72-year-old white male 3 days status post open reduction internal fixation of right ankle. Patient is asleep lying recumbent in hospital bed this morning and aroused when his name is called. Patient reports that his pain is much better controlled and that he was able to make further progress with physical therapy. Physical Exam Vital Signs: Temp Pulse Resp BP Pulse Ox 36.5 C 73 19 119/59 L 97 02/07/17 04:00 02/07/17 04:00 02/07/17 04:00 02/07/17 04:00 02/07/17 04:00 Intake & Output 02/05/17 02/06/17 02/07/17 06:59 06:59 06:59 Intake Total 3170 1320 1740 Output Total 3090 300 700 Balance 80 1020 1040 Weight 93.1 kg General appearance: PRESENT: no acute distress, well-developed, well-nourished Head exam: PRESENT: atraumatic, normocephalic Pulses: PRESENT: normal dorsalis pedis pul, +2 pedal pulses bilateral Vascular exam: PRESENT: normal capillary refill Additional comments: Indwelling catheter has been removed Additional comments: Patient's right lower extremity is in full extension with postop site compression dressing and splint in place. The dressing is clean dry and intact. He has brisk capillary refill on right lower extremity as well as contralateral extremity. There is no evidence of pedal edema. He exhibits appropriate strength and range of motion, his sensory motor functions are intact and his distal neurovascular exam is intact. Musculoskeletal exam: PRESENT: ambulatory Additional comments: Patient makes progress with physical therapy. Yesterday he completed maximum of 8 steps total. He will continue to work with physical therapy throughout his remainder stay in the hospital as well as at a rehab facility to maximize strength range of motion of the right lower extremity. Neurological exam: PRESENT: alert, awake, oriented to person, oriented to place , oriented to time, oriented to situation, CN II-XII grossly intact. ABSENT: motor sensory deficit Psychiatric exam: PRESENT: appropriate affect, normal mood. ABSENT: homicidal ideation, suicidal ideation Skin exam: PRESENT: dry, intact, warm. ABSENT: cyanosis, rash Results Laboratory Results: 02/07/17 04:04 02/07/17 04:04 1002/07/17 02/07/17 05:00 04:04 04:04 WBC 12.7 H RBC 2.69 L Hgb 8.1 L D Hct 23.2 L MCV 86 MCH 30.1 MCHC 35.0 RDW 14.2 H Plt Count 272 Seg Neutrophils % 63.3 Lymphocytes % 21.5 Monocytes % 11.8 Eosinophils % 3.0 Basophils % 0.4 Absolute Neutrophils 8.0 Absolute Lymphocytes 2.7 Absolute Monocytes 1.5 H Absolute Eosinophils 0.4 Absolute Basophils 0.0 Sodium 140.0 139.1 Potassium 4.0 3.9 Chloride 99 101 Carbon Dioxide 22 23 Anion Gap 19 15 BUN 70 H 89 H Creatinine 3.79 H 4.64 H Est GFR ( Amer) 19 L 15 L Est GFR (Non-Af Amer) 16 L 12 L Glucose 184 H 116 H Calcium 9.0 9.1 02/01/17 02/01/17 02/02/17 23:10 23:10 05:28 Creatine Kinase 396 H 325 H CK-MB (CK-2) 2.23 Troponin I < 0.012 02/02/17 02/02/17 02/02/17 05:28 11:14 11:14 Creatine Kinase 348 H CK-MB (CK-2) 1.40 1.58 Troponin I < 0.012 < 0.012 Impressions: Head CT 02/01/17 11:11 IMPRESSION: NORMAL BRAIN CT WITHOUT CONTRAST. EVIDENCE OF ACUTE STROKE: NO. Knee X-Ray 02/01/17 11:35 IMPRESSION: NO DEFINITE FRACTURE OR HARDWARE COMPLICATION. SMALL JOINT EFFUSION. Carotid Doppler Study 02/03/17 00:00 IMPRESSION: NO HEMODYNAMICALLY SIGNIFICANT STENOSIS. Ankle X-Ray 02/04/17 00:00 IMPRESSION: Intra procedural imaging and fluoro Fluoroscopy 02/04/17 00:00 IMPRESSION: Intra procedural imaging and fluoro Head MRI 02/04/17 00:00 IMPRESSION: NORMAL MRI OF THE BRAIN WITHOUT INTRAVENOUS GADOLINIUM CONTRAST. EVIDENCE OF ACUTE STROKE: NO. Chest X-Ray 02/05/17 00:00 IMPRESSION: NO SIGNIFICANT RADIOGRAPHIC FINDING IN THE CHEST. Assessment & Plan - Diagnosis (1) Ankle fracture, bimalleolar, closed Qualifiers: Encounter type: subsequent encounter Laterality: right Is this a current diagnosis for this admission?: Yes - Plan Summary Plan Summary: 72-year-old white male 3 days status post open reduction internal fixation of right ankle. Patient states his pain is much better controlled and he continues to make progress with physical therapy. Of note his hemoglobin this morning is 8.1, therefore it may be advantageous for hospitalist service to order transfusion of 2 units of blood. His postop compression dressing and splint are clean dry and intact and will not be removed until patient's postop appointment with [facility] for surgery. Patient will be discharged from hospital once placement has been obtained at a rehab facility. He will follow- up with [facility] for surgery [address] Anderson for suture removal and reevaluation.
[2017-02-07] MEDS ORDERED: 1/2 NORMAL SALINE 1,000 ML IV PRN (08:05)
--- NOTE | 2017-02-07 08:39 | PDOC PROGRESS REPORT ---
Subjective Progress Note for:: 02/07/17 Subjective:: Patient is currently doing well. Patient's denied any chest pain denied any shortness of the breath. Patient's denied any abdominal pain Patients does not have any bowel movement Patient's kidney function is more worse compared to yesterday Physical Exam Vital Signs: Temp Pulse Resp BP Pulse Ox 97.7 F 73 19 119/59 L 97 02/07/17 04:00 02/07/17 04:00 02/07/17 04:00 02/07/17 04:00 02/07/17 04:00 Intake & Output 02/06/17 02/07/17 02/08/17 06:59 06:59 06:59 Intake Total 1320 1740 Output Total 300 700 Balance 1020 1040 Weight 93.1 kg General appearance: PRESENT: no acute distress, well-developed, well-nourished Head exam: PRESENT: atraumatic, normocephalic Eye exam: PRESENT: conjunctiva pink, EOMI, PERRLA. ABSENT: scleral icterus Ear exam: PRESENT: normal external ear exam Mouth exam: PRESENT: moist, tongue midline Neck exam: PRESENT: full ROM. ABSENT: carotid bruit, JVD, lymphadenopathy, thyromegaly Respiratory exam: PRESENT: clear to auscultation [place] Cardiovascular exam: PRESENT: RRR. ABSENT: diastolic murmur, rubs, systolic murmur Pulses: PRESENT: normal dorsalis pedis pul, +2 pedal pulses bilateral Vascular exam: PRESENT: normal capillary refill GI/Abdominal exam: PRESENT: normal bowel sounds, soft. ABSENT: distended, guarding, mass, organolmegaly, rebound, tenderness Rectal exam: PRESENT: deferred Additional comments: The right lower extremity the dressing is intact Neurological exam: PRESENT: alert, awake, oriented to person, oriented to place , oriented to time, oriented to situation, CN II-XII grossly intact. ABSENT: motor sensory deficit Psychiatric exam: PRESENT: appropriate affect, normal mood. ABSENT: homicidal ideation, suicidal ideation Skin exam: PRESENT: dry, intact, warm. ABSENT: cyanosis, rash Results Laboratory Results: 02/07/17 04:04 02/07/17 04:04 02/07/17 02/07/17 04:04 04:04 WBC 12.7 H RBC 2.69 L Hgb 8.1 L D Hct 23.2 L MCV 86 MCH 30.1 MCHC 35.0 RDW 14.2 H Plt Count 272 Seg Neutrophils % 63.3 Lymphocytes % 21.5 Monocytes % 11.8 Eosinophils % 3.0 Basophils % 0.4 Absolute Neutrophils 8.0 Absolute Lymphocytes 2.7 Absolute Monocytes 1.5 H Absolute Eosinophils 0.4 Absolute Basophils 0.0 Sodium 139.1 Potassium 3.9 Chloride 101 Carbon Dioxide 23 Anion Gap 15 BUN 89 H Creatinine 4.64 H Est GFR ( Amer) 15 L Est GFR (Non-Af Amer) 12 L Glucose 116 H Calcium 9.1 02/01/17 02/01/17 02/02/17 23:10 23:10 05:28 Creatine Kinase 396 H 325 H CK-MB (CK-2) 2.23 Troponin I < 0.012 02/02/17 02/02/17 02/02/17 05:28 11:14 11:14 Creatine Kinase 348 H CK-MB (CK-2) 1.40 1.58 Troponin I < 0.012 < 0.012 Impressions: Head CT 02/01/17 11:11 IMPRESSION: NORMAL BRAIN CT WITHOUT CONTRAST. EVIDENCE OF ACUTE STROKE: NO. Knee X-Ray 02/01/17 11:35 IMPRESSION: NO DEFINITE FRACTURE OR HARDWARE COMPLICATION. SMALL JOINT EFFUSION. Carotid Doppler Study 02/03/17 00:00 IMPRESSION: NO HEMODYNAMICALLY SIGNIFICANT STENOSIS. Ankle X-Ray 02/04/17 00:00 IMPRESSION: Intra procedural imaging and fluoro Fluoroscopy 02/04/17 00:00 IMPRESSION: Intra procedural imaging and fluoro Head MRI 02/04/17 00:00 IMPRESSION: NORMAL MRI OF THE BRAIN WITHOUT INTRAVENOUS GADOLINIUM CONTRAST. EVIDENCE OF ACUTE STROKE: NO. Chest X-Ray 02/05/17 00:00 IMPRESSION: NO SIGNIFICANT RADIOGRAPHIC FINDING IN THE CHEST. Assessment & Plan - Diagnosis (1) Ankle fracture, bimalleolar, closed Qualifiers: Encounter type: subsequent encounter Laterality: right Is this a current diagnosis for this admission?: Yes Plan: Continues to follow with the also continues to Xarelto for the DVT prophylaxis (2) Diabetes mellitus type 2 in obese Is this a current diagnosis for this admission?: Yes Plan: Continues to current medication (3) Hyperlipidemia Qualifiers: Hyperlipidemia type: unspecified Qualified Code(s): E78.5 - Hyperlipidemia , unspecified Is this a current diagnosis for this admission?: Yes Plan: Currently stable (4) Mixed anxiety and depressive disorder Is this a current diagnosis for this admission?: Yes Plan: Continues to current home medications (5) Obstructive sleep apnea of adult Is this a current diagnosis for this admission?: Yes Plan: Continues to CPAP (6) Syncope Qualifiers: Syncope type: unspecified Qualified Code(s): R55 - Syncope and collapse Is this a current diagnosis for this admission?: Yes Plan: Patient all workup is so far negative (7) Chronic kidney disease Qualifiers: Chronic kidney disease stage: stage 3 (moderate) Qualified Code(s): N18.3 - Chronic kidney disease, stage 3 (moderate) Is this a current diagnosis for this admission?: Yes Plan: Currently acute renal failure on chronic kidney disease currently DC the Lasix and given next 24 hours IV fluid and follow with the nephrology (8) HTN (hypertension) Qualifiers: Hypertension type: essential hypertension Qualified Code(s): I10 - Essential (primary) hypertension Is this a current diagnosis for this admission?: Yes Plan: Continues current medications (9) Obesity Qualifiers: Obesity type: unspecified obesity type Is this a current diagnosis for this admission?: Yes (10) Constipation Qualifiers: Constipation type: unspecified constipation type Qualified Code(s): K59.00 - Constipation, unspecified Is this a current diagnosis for this admission?: Yes Plan: Start the patient on Colace and MiraLAX - Time Time Spent with patient: 15-24 minutes Medications reviewed and adjusted accordingly: Yes Anticipated discharge: SNF Within: Other - Inpatient Certification Medical Necessity: Need For IV Fluids, Need for IV Antibiotics Post Hospital Care: D/C [employer] Documentation - Plan Summary Plan Summary: With the worsening the kidney functions patients cannot go to the rehab this weekend will get some IV fluid and continues to monitor and repeat the Chem-7 in the morning and follow with nephrology
[2017-02-07] MEDS: POLYETHYLENE GLYCOL 3350 POWDER 17 GM/1 PACKET PO SCH (10:24)
[2017-02-07] MEDS: OXYCODONE HCL IR 5 MG TABLET PO PRN ×2 (10:25→16:08)
[2017-02-07] MEDS: CHOLECALCIFEROL (D3) 1,000 UNIT TABLET PO SCH (10:25)
[2017-02-07] MEDS: FLUTICASONE NASAL SPRAY 50 MCG/SPRY 120 SPRAY/16 GM NASL SCH (10:26)
[2017-02-07] MEDS: BUDESONIDE/FORMOTEROL 160-4.5 MCG 60 PUFF/6 GM MDI IH SCH ×2 (10:26→17:41)
[2017-02-07] MEDS: ONDANSETRON HCL INJ/PF 4 MG/2 ML SDV IV PRN (10:26)
[2017-02-07] MEDS: SITAGLIPTIN PHOSPHATE 50 MG TABLET PO SCH (10:26)
[2017-02-07] MEDS: TIMOLOL MALEATE 0.5% OPH SOLN 5 ML OU SCH (10:27)
[2017-02-07] MEDS: CLONIDINE HCL 0.2 MG TABLET PO SCH ×2 (10:27→22:05)
[2017-02-07] MEDS: ISOSORBIDE MONONITRATE 30 MG TAB.ER.24H PO SCH (10:27)
[2017-02-07] MEDS: ALLOPURINOL 100 MG TABLET PO SCH (10:28)
[2017-02-07] MEDS: CARVEDILOL 12.5 MG TABLET PO SCH ×2 (10:29→17:41)
[2017-02-07] MEDS: GABAPENTIN 300 MG CAPSULE PO SCH ×2 (10:29→17:41)
[2017-02-07] MEDS: DOCUSATE SODIUM 100 MG CAPSULE PO SCH ×2 (10:29→17:42)
[2017-02-07] MEDS: FENOFIBRATE NANOCRYSTALLIZED 48 MG TABLET PO SCH (10:29)
[2017-02-07] MEDS: CALCITRIOL 0.25 MCG CAPSULE PO SCH (10:30)
[2017-02-07] MEDS: CEFEPIME 1 GM/D5W RTU 1 GM/50 ML RTUPB IV SCH ×2 (10:30→22:07)
[2017-02-07] MEDS: INSULIN LISPRO 100 UNIT/ML 3 ML VIAL SUBCUT PRN ×3 (12:11→22:06)
[2017-02-07] MEDS: INSULIN DETEMIR 100 UNIT/ML 3 ML PEN SUBCUT SCH ×2 (12:11→22:06)
--- NOTE | 2017-02-07 14:32 | PDOC PROGRESS REPORT ---
Subjective Progress Note for:: 02/07/17 Subjective:: Patient was doing physical therapy when I entered the room. He seems to be eating well. He claims he does drink fluids. Is still having pain in his right foot. His urine output seems to have declined in volume but since he does not have a Stanley catheter I am uncertain if this is an accurate recording. Physical Exam Vital Signs: Temp Pulse Resp BP Pulse Ox 97.3 F 73 12 125/65 97 02/07/17 08:09 02/07/17 08:09 02/07/17 08:09 02/07/17 08:09 02/07/17 08:09 Intake & Output 02/06/17 02/07/17 02/08/17 06:59 06:59 06:59 Intake Total 1320 1740 Output Total 300 700 Balance 1020 1040 Weight 93.1 kg Exam: General appearance: PRESENT: no acute distress, cooperative, well-developed, well-nourished Head exam: PRESENT: atraumatic, normocephalic Eye exam: PRESENT: conjunctiva pink, PERRLA. ABSENT: scleral icterus Neck exam: ABSENT: JVD Respiratory exam: PRESENT: Normal breath sounds. ABSENT: crackles, rales, rhonchi, unlabored, wheezes Cardiovascular exam: PRESENT: Regular rate rhythm -+S1, +S2. ABSENT: diastolic murmur, systolic murmur GI/Abdominal exam: PRESENT: normal bowel sounds, soft. ABSENT: guarding, mass, tenderness Extremities exam: ABSENT: No edema Neurological exam: PRESENT: alert, awake, oriented to person, place and time. Skin exam: PRESENT: dry, warm, Results Laboratory Results: 02/07/17 04:04 02/07/17 04:04 02/07/17 02/07/17 04:04 04:04 WBC 12.7 H RBC 2.69 L Hgb 8.1 L D Hct 23.2 L MCV 86 MCH 30.1 MCHC 35.0 RDW 14.2 H Plt Count 272 Seg Neutrophils % 63.3 Lymphocytes % 21.5 Monocytes % 11.8 Eosinophils % 3.0 Basophils % 0.4 Absolute Neutrophils 8.0 Absolute Lymphocytes 2.7 Absolute Monocytes 1.5 H Absolute Eosinophils 0.4 Absolute Basophils 0.0 Sodium 139.1 Potassium 3.9 Chloride 101 Carbon Dioxide 23 Anion Gap 15 BUN 89 H Creatinine 4.64 H Est GFR ( Amer) 15 L Est GFR (Non-Af Amer) 12 L Glucose 116 H Calcium 9.1 02/01/17 02/01/17 02/02/17 23:10 23:10 05:28 Creatine Kinase 396 H 325 H CK-MB (CK-2) 2.23 Troponin I < 0.012 02/02/17 02/02/17 02/02/17 05:28 11:14 11:14 Creatine Kinase 348 H CK-MB (CK-2) 1.40 1.58 Troponin I < 0.012 < 0.012 Impressions: Head CT 02/01/17 11:11 IMPRESSION: NORMAL BRAIN CT WITHOUT CONTRAST. EVIDENCE OF ACUTE STROKE: NO. Knee X-Ray 02/01/17 11:35 IMPRESSION: NO DEFINITE FRACTURE OR HARDWARE COMPLICATION. SMALL JOINT EFFUSION. Carotid Doppler Study 02/03/17 00:00 IMPRESSION: NO HEMODYNAMICALLY SIGNIFICANT STENOSIS. Ankle X-Ray 02/04/17 00:00 IMPRESSION: Intra procedural imaging and fluoro Fluoroscopy 02/04/17 00:00 IMPRESSION: Intra procedural imaging and fluoro Head MRI 02/04/17 00:00 IMPRESSION: NORMAL MRI OF THE BRAIN WITHOUT INTRAVENOUS GADOLINIUM CONTRAST. EVIDENCE OF ACUTE STROKE: NO. Chest X-Ray 02/05/17 00:00 IMPRESSION: NO SIGNIFICANT RADIOGRAPHIC FINDING IN THE CHEST. Assessment & Plan - Diagnosis (1) Acute kidney injury superimposed on chronic kidney disease Is this a current diagnosis for this admission?: Yes Plan: Patient's kidney function continues to get worse. His fluid balance seems to be negative since admission. I think we will have to hold off the patient's Lasix and encourage oral intake. Agree with careful IV fluid hydration. I talked to the patient's nurse to do a bladder scan to make sure the patient is not retaining urine. There is no indication for any acute renal replacement therapy at this time. Continue to monitor kidney function and urine output for the next couple of days ago. (2) Chronic kidney disease, stage IV (severe) Is this a current diagnosis for this admission?: Yes Plan: Due to diabetic nephropathy with contribution of hypertension. Continue to monitor kidney function while he in the hospital. (3) Anemia in chronic kidney disease (CKD) Is this a current diagnosis for this admission?: Yes (4) Closed right ankle fracture Qualifiers: Encounter type: initial encounter Qualified Code(s): S82.891A - Other fracture of right lower leg, initial encounter for closed fracture Is this a current diagnosis for this admission?: Yes Plan: Status post open reduction internal fixation by Dr. Anderson. (5) Syncope Qualifiers: Syncope type: unspecified Qualified Code(s): R55 - Syncope and collapse Is this a current diagnosis for this admission?: Yes Plan: Workup has been negative. (6) HTN (hypertension) Qualifiers: Hypertension type: essential hypertension Qualified Code(s): I10 - Essential (primary) hypertension Is this a current diagnosis for this admission?: Yes (7) Diabetes mellitus type 2 in obese Is this a current diagnosis for this admission?: Yes Plan: Deferred to Dr. Mead for management. - Time Time with patient: 15-25 minutes
[2017-02-07] MEDS: LATANOPROST 0.005% OPH SOLN 2.5 ML OD SCH (17:42)
[2017-02-07] MEDS: TAMSULOSIN HCL 0.4 MG CAP.SR.24H PO SCH (17:42)
[2017-02-07] MEDS: ASPIRIN 325 MG TABLET PO SCH (22:05)
[2017-02-07] MEDS: FERROUS SULFATE 325 MG TABLET PO SCH (22:05)
[2017-02-07] MEDS: LOSARTAN POTASSIUM 50 MG TABLET PO SCH (22:05)
[2017-02-07] MEDS: ZOLPIDEM TARTRATE 5 MG TABLET PO SCH (22:06)
[2017-02-07] MEDS: RIVAROXABAN 10 MG TABLET PO SCH (22:06)
[2017-02-07] MEDS: ATORVASTATIN CALCIUM 20 MG TABLET PO SCH (22:06)
[2017-02-07] MEDS: AMLODIPINE BESYLATE 10 MG TABLET PO SCH (22:09)
[2017-02-08 04:39] LABS: ABSOLUTE BASOPHILS # (AUTO) 0.1 10^3/uL (0.0-0.2); ABSOLUTE EOSINOPHILS # (AUTO) 0.4 10^3/uL (0.0-0.6); ABSOLUTE LYMPHOCYTES (AUTO) 2.2 10^3/uL (0.5-4.7); ABSOLUTE MONOCYTES (AUTO) 1.1 10^3/uL (0.1-1.4); ABSOLUTE NEUT (AUTO) 5.5 10^3/uL (1.7-8.2); BASOPHILS % (AUTO) 0.6 % (0-2); EOSINOPHILS % (AUTO) 4.4 % (0-6); HGB HCT DIFFERENCE 0.8; LYMPHOCYTES % (AUTO) 23.7 % (13-45); MEAN CORPUSCULAR HEMOGLOBIN 30.2 pg (27.0-33.4); MEAN CORPUSCULAR HGB CONC 34.7 g/dL (32.0-36.0); MEAN CORPUSCULAR VOLUME 87 fl (80-97); MONOCYTES % (AUTO) 11.7 % (3-13); RED BLOOD COUNT 2.52 10^6/uL (4.35-5.55); RED CELL DISTRIBUTION WIDTH 14.2 % (11.5-14.0); SEGMENTED NEUTROPHILS % (AUTO) 59.6 % (42-78); WHITE BLOOD COUNT 9.1 10^3/uL (4.0-10.5)
[2017-02-08 04:54] LABS: HEMOGLOBIN 7.6 g/dL (13.5-17.0)
[2017-02-08 05:29] LABS: ANION GAP 14 (5-19); BLOOD UREA NITROGEN 95 mg/dL (7-20); CALCIUM 8.6 mg/dL (8.4-10.2); CARBON DIOXIDE 20 mmol/L (22-30); CHLORIDE 107 mmol/L (98-107); CREATININE RESULT 3.71 mg/dL (0.52-1.25); GLUCOSE 99 mg/dL (75-110); POTASSIUM 3.8 mmol/L (3.6-5.0); SODIUM 141.1 mmol/L (137-145)
[2017-02-08] MEDS: LANSOPRAZOLE 30 MG TAB.RAP.DR PO SCH (06:18)
[2017-02-08] MEDS: FENOFIBRATE NANOCRYSTALLIZED 48 MG TABLET PO SCH (08:35)
[2017-02-08] MEDS: ISOSORBIDE MONONITRATE 30 MG TAB.ER.24H PO SCH (08:35)
[2017-02-08] MEDS: CEFEPIME 1 GM/D5W RTU 1 GM/50 ML RTUPB IV SCH ×2 (09:26→21:43)
[2017-02-08] MEDS: POLYETHYLENE GLYCOL 3350 POWDER 17 GM/1 PACKET PO SCH (09:26)
[2017-02-08] MEDS: TIMOLOL MALEATE 0.5% OPH SOLN 5 ML OU SCH (09:27)
[2017-02-08] MEDS: BUDESONIDE/FORMOTEROL 160-4.5 MCG 60 PUFF/6 GM MDI IH SCH ×2 (09:27→17:53)
[2017-02-08] MEDS: FLUTICASONE NASAL SPRAY 50 MCG/SPRY 120 SPRAY/16 GM NASL SCH (09:27)
[2017-02-08] MEDS: DOCUSATE SODIUM 100 MG CAPSULE PO SCH ×2 (09:28→17:53)
[2017-02-08] MEDS: OXYCODONE HCL IR 5 MG TABLET PO PRN ×2 (09:28→21:43)
[2017-02-08] MEDS: SITAGLIPTIN PHOSPHATE 50 MG TABLET PO SCH (09:28)
[2017-02-08] MEDS: ALLOPURINOL 100 MG TABLET PO SCH (09:29)
[2017-02-08] MEDS: GABAPENTIN 300 MG CAPSULE PO SCH ×2 (09:29→17:53)
[2017-02-08] MEDS: CHOLECALCIFEROL (D3) 1,000 UNIT TABLET PO SCH (09:29)
[2017-02-08] MEDS: CARVEDILOL 12.5 MG TABLET PO SCH ×2 (09:29→17:53)
[2017-02-08] MEDS: CLONIDINE HCL 0.2 MG TABLET PO SCH ×2 (09:30→21:44)
[2017-02-08] MEDS: INSULIN DETEMIR 100 UNIT/ML 3 ML PEN SUBCUT SCH ×2 (09:30→21:45)
--- NOTE | 2017-02-08 17:29 | PDOC PROGRESS REPORT ---
Subjective Progress Note for:: 02/08/17 Subjective:: Patient was seen by the bedside he fell and broke his left ankle status post ORIF no new complaints Physical Exam Vital Signs: Temp Pulse Resp BP Pulse Ox 98.8 F 76 18 138/54 H 100 02/08/17 16:11 02/08/17 16:11 02/08/17 16:11 02/08/17 16:11 02/08/17 16:11 Intake & Output 02/07/17 02/08/17 02/09/17 06:59 06:59 06:59 Intake Total 1740 2390 1040 Output Total 700 1925 700 Balance 1040 465 340 Weight 93.1 kg General appearance: PRESENT: no acute distress, well-developed, well-nourished Head exam: PRESENT: atraumatic, normocephalic Eye exam: PRESENT: conjunctiva pink, EOMI, PERRLA. ABSENT: scleral icterus Ear exam: PRESENT: normal external ear exam Mouth exam: PRESENT: moist, tongue midline Neck exam: PRESENT: full ROM. ABSENT: carotid bruit, JVD, lymphadenopathy, thyromegaly Cardiovascular exam: PRESENT: RRR. ABSENT: diastolic murmur, rubs, systolic murmur Pulses: PRESENT: normal dorsalis pedis pul, +2 pedal pulses bilateral Vascular exam: PRESENT: normal capillary refill GI/Abdominal exam: PRESENT: normal bowel sounds, soft. ABSENT: distended, guarding, mass, organolmegaly, rebound, tenderness Rectal exam: PRESENT: deferred Neurological exam: PRESENT: alert, awake, oriented to person, oriented to place , oriented to time, oriented to situation, CN II-XII grossly intact. ABSENT: motor sensory deficit Psychiatric exam: PRESENT: appropriate affect, normal mood. ABSENT: homicidal ideation, suicidal ideation Skin exam: PRESENT: dry, intact, warm. ABSENT: cyanosis, rash Results Laboratory Results: 02/08/17 04:19 02/08/17 04:19 02/08/17 02/08/17 04:19 04:19 WBC 9.1 RBC 2.52 L Hgb 7.6 L Hct 22.0 L MCV 87 MCH 30.2 MCHC 34.7 RDW 14.2 H Plt Count 292 Seg Neutrophils % 59.6 Lymphocytes % 23.7 Monocytes % 11.7 Eosinophils % 4.4 Basophils % 0.6 Absolute Neutrophils 5.5 Absolute Lymphocytes 2.2 Absolute Monocytes 1.1 Absolute Eosinophils 0.4 Absolute Basophils 0.1 Sodium 141.1 Potassium 3.8 Chloride 107 Carbon Dioxide 20 L Anion Gap 14 BUN 95 H Creatinine 3.71 H Est GFR ( Amer) 20 L Est GFR (Non-Af Amer) 16 L Glucose 99 Calcium 8.6 02/01/17 02/01/17 02/02/17 23:10 23:10 05:28 Creatine Kinase 396 H 325 H CK-MB (CK-2) 2.23 Troponin I < 0.012 02/02/17 02/02/17 02/02/17 05:28 11:14 11:14 Creatine Kinase 348 H CK-MB (CK-2) 1.40 1.58 Troponin I < 0.012 < 0.012 Impressions: Head CT 02/01/17 11:11 IMPRESSION: NORMAL BRAIN CT WITHOUT CONTRAST. EVIDENCE OF ACUTE STROKE: NO. Knee X-Ray 02/01/17 11:35 IMPRESSION: NO DEFINITE FRACTURE OR HARDWARE COMPLICATION. SMALL JOINT EFFUSION. Carotid Doppler Study 02/03/17 00:00 IMPRESSION: NO HEMODYNAMICALLY SIGNIFICANT STENOSIS. Ankle X-Ray 02/04/17 00:00 IMPRESSION: Intra procedural imaging and fluoro Fluoroscopy 02/04/17 00:00 IMPRESSION: Intra procedural imaging and fluoro Head MRI 02/04/17 00:00 IMPRESSION: NORMAL MRI OF THE BRAIN WITHOUT INTRAVENOUS GADOLINIUM CONTRAST. EVIDENCE OF ACUTE STROKE: NO. Chest X-Ray 02/05/17 00:00 IMPRESSION: NO SIGNIFICANT RADIOGRAPHIC FINDING IN THE CHEST. Assessment & Plan - Diagnosis (1) Anemia in chronic kidney disease (CKD) Is this a current diagnosis for this admission?: Yes (2) Ankle fracture, bimalleolar, closed Qualifiers: Encounter type: subsequent encounter Laterality: right Is this a current diagnosis for this admission?: Yes (3) Chronic kidney disease, stage IV (severe) Is this a current diagnosis for this admission?: Yes (4) Closed right ankle fracture Qualifiers: Encounter type: initial encounter Qualified Code(s): S82.891A - Other fracture of right lower leg, initial encounter for closed fracture Is this a current diagnosis for this admission?: Yes (5) Constipation Qualifiers: Constipation type: unspecified constipation type Qualified Code(s): K59.00 - Constipation, unspecified Is this a current diagnosis for this admission?: Yes (6) Diabetes mellitus type 2 in obese Is this a current diagnosis for this admission?: Yes
[2017-02-08] MEDS: TAMSULOSIN HCL 0.4 MG CAP.SR.24H PO SCH (17:53)
[2017-02-08] MEDS: INSULIN LISPRO 100 UNIT/ML 3 ML VIAL SUBCUT PRN (17:54)
[2017-02-08] MEDS: LATANOPROST 0.005% OPH SOLN 2.5 ML OD SCH (17:59)
[2017-02-08] MEDS: ATORVASTATIN CALCIUM 20 MG TABLET PO SCH (21:41)
[2017-02-08] MEDS: LOSARTAN POTASSIUM 50 MG TABLET PO SCH (21:41)
[2017-02-08] MEDS: ASPIRIN 325 MG TABLET PO SCH (21:41)
[2017-02-08] MEDS: FERROUS SULFATE 325 MG TABLET PO SCH (21:41)
[2017-02-08] MEDS: ZOLPIDEM TARTRATE 5 MG TABLET PO SCH (21:43)
[2017-02-08] MEDS: RIVAROXABAN 10 MG TABLET PO SCH (21:44)
[2017-02-08] MEDS: AMLODIPINE BESYLATE 10 MG TABLET PO SCH (21:44)
[2017-02-09 04:50] LABS: ABSOLUTE BASOPHILS # (AUTO) 0.1 10^3/uL (0.0-0.2); ABSOLUTE EOSINOPHILS # (AUTO) 0.3 10^3/uL (0.0-0.6); ABSOLUTE LYMPHOCYTES (AUTO) 2.1 10^3/uL (0.5-4.7); ABSOLUTE MONOCYTES (AUTO) 1.2 10^3/uL (0.1-1.4); ABSOLUTE NEUT (AUTO) 6.5 10^3/uL (1.7-8.2); BASOPHILS % (AUTO) 0.7 % (0-2); EOSINOPHILS % (AUTO) 2.5 % (0-6); HEMATOCRIT 22.8 % (37.9-51.0); HGB HCT DIFFERENCE 0.3; LYMPHOCYTES % (AUTO) 20.4 % (13-45); MEAN CORPUSCULAR HGB CONC 33.9 g/dL (32.0-36.0); MEAN CORPUSCULAR VOLUME 88 fl (80-97); MONOCYTES % (AUTO) 12.3 % (3-13); RED BLOOD COUNT 2.58 10^6/uL (4.35-5.55); RED CELL DISTRIBUTION WIDTH 14.1 % (11.5-14.0); SEGMENTED NEUTROPHILS % (AUTO) 64.1 % (42-78); WHITE BLOOD COUNT 10.1 10^3/uL (4.0-10.5)
[2017-02-09 04:51] LABS: HEMOGLOBIN 7.7 g/dL (13.5-17.0)
[2017-02-09 05:03] LABS: ANION GAP 15 (5-19); BLOOD UREA NITROGEN 92 mg/dL (7-20); CALCIUM 9.8 mg/dL (8.4-10.2); CARBON DIOXIDE 22 mmol/L (22-30); CHLORIDE 110 mmol/L (98-107); CREATININE RESULT 3.49 mg/dL (0.52-1.25); GLUCOSE 147 mg/dL (75-110); POTASSIUM 4.7 mmol/L (3.6-5.0); SODIUM 147.2 mmol/L (137-145)
[2017-02-09] MEDS: LANSOPRAZOLE 30 MG TAB.RAP.DR PO SCH (05:19)
[2017-02-09] MEDS: ISOSORBIDE MONONITRATE 30 MG TAB.ER.24H PO SCH (07:50)
[2017-02-09] MEDS: OXYCODONE HCL IR 5 MG TABLET PO PRN ×3 (07:50→23:21)
[2017-02-09] MEDS: FENOFIBRATE NANOCRYSTALLIZED 48 MG TABLET PO SCH (07:54)
[2017-02-09] MEDS: POLYETHYLENE GLYCOL 3350 POWDER 17 GM/1 PACKET PO SCH (09:56)
[2017-02-09] MEDS: CARVEDILOL 12.5 MG TABLET PO SCH ×2 (09:57→17:56)
[2017-02-09] MEDS: CEFEPIME 1 GM/D5W RTU 1 GM/50 ML RTUPB IV SCH ×2 (09:57→22:49)
[2017-02-09] MEDS: CHOLECALCIFEROL (D3) 1,000 UNIT TABLET PO SCH (09:57)
[2017-02-09] MEDS: ALLOPURINOL 100 MG TABLET PO SCH (09:58)
[2017-02-09] MEDS: CLONIDINE HCL 0.2 MG TABLET PO SCH ×2 (09:59→22:50)
[2017-02-09] MEDS: GABAPENTIN 300 MG CAPSULE PO SCH ×2 (09:59→17:55)
[2017-02-09] MEDS: SITAGLIPTIN PHOSPHATE 50 MG TABLET PO SCH (09:59)
[2017-02-09] MEDS: DOCUSATE SODIUM 100 MG CAPSULE PO SCH ×2 (09:59→17:55)
[2017-02-09] MEDS: FLUTICASONE NASAL SPRAY 50 MCG/SPRY 120 SPRAY/16 GM NASL SCH (10:58)
[2017-02-09] MEDS: INSULIN DETEMIR 100 UNIT/ML 3 ML PEN SUBCUT SCH ×2 (10:59→22:50)
[2017-02-09] MEDS: TIMOLOL MALEATE 0.5% OPH SOLN 5 ML OU SCH (10:59)
[2017-02-09] MEDS: BUDESONIDE/FORMOTEROL 160-4.5 MCG 60 PUFF/6 GM MDI IH SCH ×2 (10:59→18:03)
[2017-02-09] MEDS: INSULIN LISPRO 100 UNIT/ML 3 ML VIAL SUBCUT PRN ×2 (13:55→19:57)
[2017-02-09] MEDS: TAMSULOSIN HCL 0.4 MG CAP.SR.24H PO SCH (17:56)
[2017-02-09] MEDS: LATANOPROST 0.005% OPH SOLN 2.5 ML OD SCH (18:04)
--- NOTE | 2017-02-09 22:11 | PDOC PROGRESS REPORT ---
Subjective Progress Note for:: 02/09/17 Subjective:: Patient was seen by the bedside he fell and broke his left ankle status post ORIF no new complaints Physical Exam Vital Signs: Temp Pulse Resp BP Pulse Ox 98.8 F 85 19 156/56 H 97 02/09/17 20:00 02/09/17 20:00 02/09/17 20:00 02/09/17 20:00 02/09/17 20:00 Intake & Output 02/08/17 02/09/17 02/10/17 06:59 06:59 06:59 Intake Total 2390 1685 290 Output Total 1925 1350 350 Balance 465 335 -60 General appearance: PRESENT: no acute distress, well-developed, well-nourished Head exam: PRESENT: atraumatic, normocephalic Eye exam: PRESENT: conjunctiva pink, EOMI, PERRLA. ABSENT: scleral icterus Ear exam: PRESENT: normal external ear exam Mouth exam: PRESENT: moist, tongue midline Neck exam: PRESENT: full ROM. ABSENT: carotid bruit, JVD, lymphadenopathy, thyromegaly Cardiovascular exam: PRESENT: RRR. ABSENT: diastolic murmur, rubs, systolic murmur Pulses: PRESENT: normal dorsalis pedis pul, +2 pedal pulses bilateral Vascular exam: PRESENT: normal capillary refill GI/Abdominal exam: PRESENT: normal bowel sounds, soft. ABSENT: distended, guarding, mass, organolmegaly, rebound, tenderness Rectal exam: PRESENT: deferred Neurological exam: PRESENT: alert, awake, oriented to person, oriented to place , oriented to time, oriented to situation, CN II-XII grossly intact. ABSENT: motor sensory deficit Psychiatric exam: PRESENT: appropriate affect, normal mood. ABSENT: homicidal ideation, suicidal ideation Skin exam: PRESENT: dry, intact, warm. ABSENT: cyanosis, rash Results Laboratory Results: 02/09/17 03:47 02/09/17 03:47 02/09/17 02/09/17 03:47 03:47 WBC 10.1 RBC 2.58 L Hgb 7.7 L Hct 22.8 L MCV 88 MCH 30.0 MCHC 33.9 RDW 14.1 H Plt Count 355 Seg Neutrophils % 64.1 Lymphocytes % 20.4 Monocytes % 12.3 Eosinophils % 2.5 Basophils % 0.7 Absolute Neutrophils 6.5 Absolute Lymphocytes 2.1 Absolute Monocytes 1.2 Absolute Eosinophils 0.3 Absolute Basophils 0.1 Sodium 147.2 H Potassium 4.7 Chloride 110 H Carbon Dioxide 22 Anion Gap 15 BUN 92 H Creatinine 3.49 H Est GFR ( Amer) 21 L Est GFR (Non-Af Amer) 17 L Glucose 147 H Calcium 9.8 02/04/17 06:12 Blood Blood Culture - Final NO GROWTH IN 5 DAYS 02/03/17 22:40 Blood Blood Culture - Final NO GROWTH IN 5 DAYS 02/01/17 02/01/17 02/02/17 23:10 23:10 05:28 Creatine Kinase 396 H 325 H CK-MB (CK-2) 2.23 Troponin I < 0.012 02/02/17 02/02/17 02/02/17 05:28 11:14 11:14 Creatine Kinase 348 H CK-MB (CK-2) 1.40 1.58 Troponin I < 0.012 < 0.012 Impressions: Head CT 02/01/17 11:11 IMPRESSION: NORMAL BRAIN CT WITHOUT CONTRAST. EVIDENCE OF ACUTE STROKE: NO. Knee X-Ray 02/01/17 11:35 IMPRESSION: NO DEFINITE FRACTURE OR HARDWARE COMPLICATION. SMALL JOINT EFFUSION. Carotid Doppler Study 02/03/17 00:00 IMPRESSION: NO HEMODYNAMICALLY SIGNIFICANT STENOSIS. Ankle X-Ray 02/04/17 00:00 IMPRESSION: Intra procedural imaging and fluoro Fluoroscopy 02/04/17 00:00 IMPRESSION: Intra procedural imaging and fluoro Head MRI 02/04/17 00:00 IMPRESSION: NORMAL MRI OF THE BRAIN WITHOUT INTRAVENOUS GADOLINIUM CONTRAST. EVIDENCE OF ACUTE STROKE: NO. Chest X-Ray 02/05/17 00:00 IMPRESSION: NO SIGNIFICANT RADIOGRAPHIC FINDING IN THE CHEST. Assessment & Plan - Diagnosis (1) Anemia in chronic kidney disease (CKD) Is this a current diagnosis for this admission?: Yes (2) Ankle fracture, bimalleolar, closed Qualifiers: Encounter type: subsequent encounter Laterality: right Is this a current diagnosis for this admission?: Yes (3) Chronic kidney disease, stage IV (severe) Is this a current diagnosis for this admission?: Yes (4) Closed right ankle fracture Qualifiers: Encounter type: initial encounter Qualified Code(s): S82.891A - Other fracture of right lower leg, initial encounter for closed fracture Is this a current diagnosis for this admission?: Yes (5) Constipation Qualifiers: Constipation type: unspecified constipation type Qualified Code(s): K59.00 - Constipation, unspecified Is this a current diagnosis for this admission?: Yes (6) Diabetes mellitus type 2 in obese Is this a current diagnosis for this admission?: Yes
[2017-02-09] MEDS: ASPIRIN 325 MG TABLET PO SCH (22:49)
[2017-02-09] MEDS: ZOLPIDEM TARTRATE 5 MG TABLET PO SCH (22:49)
[2017-02-09] MEDS: FERROUS SULFATE 325 MG TABLET PO SCH (22:49)
[2017-02-09] MEDS: ATORVASTATIN CALCIUM 20 MG TABLET PO SCH (22:49)
[2017-02-09] MEDS: AMLODIPINE BESYLATE 10 MG TABLET PO SCH (22:50)
[2017-02-09] MEDS: RIVAROXABAN 10 MG TABLET PO SCH (22:50)
[2017-02-09] MEDS: LOSARTAN POTASSIUM 50 MG TABLET PO SCH (22:50)
[2017-02-09] MEDS ORDERED: INSULIN DETEMIR 100 UNIT/ML 3 ML PEN SUBCUT ONE (23:10)
[2017-02-10] MEDS: LANSOPRAZOLE 30 MG TAB.RAP.DR PO SCH (05:20)
[2017-02-10] MEDS ORDERED: NORMAL SALINE 250 ML IV PRN (06:17)
[2017-02-10] MEDS: FENOFIBRATE NANOCRYSTALLIZED 48 MG TABLET PO SCH (07:47)
[2017-02-10] MEDS: ISOSORBIDE MONONITRATE 30 MG TAB.ER.24H PO SCH (07:48)
[2017-02-10 07:59] LABS: HEMATOCRIT 25.1 % (37.9-51.0); HEMOGLOBIN 8.7 g/dL (13.5-17.0); MEAN CORPUSCULAR HEMOGLOBIN 30.6 pg (27.0-33.4); MEAN CORPUSCULAR HGB CONC 34.5 g/dL (32.0-36.0); MEAN CORPUSCULAR VOLUME 89 fl (80-97); RED BLOOD COUNT 2.82 10^6/uL (4.35-5.55); RED CELL DISTRIBUTION WIDTH 14.1 % (11.5-14.0); WHITE BLOOD COUNT 9.5 10^3/uL (4.0-10.5)
[2017-02-10 08:27] LABS: ANION GAP 13 (5-19); BLOOD UREA NITROGEN 80 mg/dL (7-20); CALCIUM 10.1 mg/dL (8.4-10.2); CARBON DIOXIDE 24 mmol/L (22-30); CHLORIDE 110 mmol/L (98-107); CREATININE RESULT 3.11 mg/dL (0.52-1.25); GLUCOSE 155 mg/dL (75-110); POTASSIUM 4.5 mmol/L (3.6-5.0); SODIUM 147.4 mmol/L (137-145)
--- NOTE | 2017-02-10 08:55 | PDOC PROGRESS REPORT ---
Subjective Progress Note for:: 02/10/17 Subjective:: Patient is currently doing fair. Patient's denied any chest pain denied any shortness of the breath. Patient still does not have any bowel movement currently on a MiraLAX and Colace Patient's H&H is 8.7's Physical Exam Vital Signs: Temp Pulse Resp BP Pulse Ox 98.8 F 78 19 156/56 H 97 02/09/17 20:00 02/10/17 07:00 02/09/17 20:00 02/09/17 20:00 02/09/17 20:00 Intake & Output 02/09/17 02/10/17 02/11/17 06:59 06:59 06:59 Intake Total 1685 1020 Output Total 1350 700 Balance 335 320 General appearance: PRESENT: no acute distress, well-developed, well-nourished Head exam: PRESENT: atraumatic, normocephalic Eye exam: PRESENT: conjunctiva pink, EOMI, PERRLA. ABSENT: scleral icterus Ear exam: PRESENT: normal external ear exam Mouth exam: PRESENT: moist, tongue midline Neck exam: PRESENT: full ROM. ABSENT: carotid bruit, JVD, lymphadenopathy, thyromegaly Respiratory exam: PRESENT: clear to auscultation [place] Cardiovascular exam: PRESENT: RRR. ABSENT: diastolic murmur, rubs, systolic murmur Pulses: PRESENT: normal dorsalis pedis pul, +2 pedal pulses bilateral Vascular exam: PRESENT: normal capillary refill GI/Abdominal exam: PRESENT: normal bowel sounds, soft. ABSENT: distended, guarding, mass, organolmegaly, rebound, tenderness Rectal exam: PRESENT: deferred Additional comments: Right ankle dressing is intact Neurological exam: PRESENT: alert, awake, oriented to person, oriented to place , oriented to time, oriented to situation, CN II-XII grossly intact. ABSENT: motor sensory deficit Psychiatric exam: PRESENT: appropriate affect, normal mood. ABSENT: homicidal ideation, suicidal ideation Skin exam: PRESENT: dry, intact, warm. ABSENT: cyanosis, rash Results Laboratory Results: 02/10/17 07:35 02/10/17 07:35 02/10/17 02/10/17 07:35 07:35 WBC 9.5 RBC 2.82 L Hgb 8.7 L Hct 25.1 L MCV 89 MCH 30.6 MCHC 34.5 RDW 14.1 H Plt Count 411 Sodium 147.4 H Potassium 4.5 Chloride 110 H Carbon Dioxide 24 Anion Gap 13 BUN 80 H Creatinine 3.11 H Est GFR ( Amer) 24 L Est GFR (Non-Af Amer) 20 L Glucose 155 H Calcium 10.1 02/04/17 06:12 Blood Blood Culture - Final NO GROWTH IN 5 DAYS 02/01/17 02/01/17 02/02/17 23:10 23:10 05:28 Creatine Kinase 396 H 325 H CK-MB (CK-2) 2.23 Troponin I < 0.012 02/02/17 02/02/17 02/02/17 05:28 11:14 11:14 Creatine Kinase 348 H CK-MB (CK-2) 1.40 1.58 Troponin I < 0.012 < 0.012 Impressions: Head CT 02/01/17 11:11 IMPRESSION: NORMAL BRAIN CT WITHOUT CONTRAST. EVIDENCE OF ACUTE STROKE: NO. Knee X-Ray 02/01/17 11:35 IMPRESSION: NO DEFINITE FRACTURE OR HARDWARE COMPLICATION. SMALL JOINT EFFUSION. Carotid Doppler Study 02/03/17 00:00 IMPRESSION: NO HEMODYNAMICALLY SIGNIFICANT STENOSIS. Ankle X-Ray 02/04/17 00:00 IMPRESSION: Intra procedural imaging and fluoro Fluoroscopy 02/04/17 00:00 IMPRESSION: Intra procedural imaging and fluoro Head MRI 02/04/17 00:00 IMPRESSION: NORMAL MRI OF THE BRAIN WITHOUT INTRAVENOUS GADOLINIUM CONTRAST. EVIDENCE OF ACUTE STROKE: NO. Chest X-Ray 02/05/17 00:00 IMPRESSION: NO SIGNIFICANT RADIOGRAPHIC FINDING IN THE CHEST. Assessment & Plan - Diagnosis (1) Ankle fracture, bimalleolar, closed Qualifiers: Encounter type: subsequent encounter Laterality: right Is this a current diagnosis for this admission?: Yes Plan: Status post ORIF patient still unable to walk encourage with the physical therapy (2) Diabetes mellitus type 2 in obese Is this a current diagnosis for this admission?: Yes Plan: Continues to current medication (3) Hyperlipidemia Qualifiers: Hyperlipidemia type: unspecified Qualified Code(s): E78.5 - Hyperlipidemia , unspecified Is this a current diagnosis for this admission?: Yes Plan: Currently stable (4) Mixed anxiety and depressive disorder Is this a current diagnosis for this admission?: Yes Plan: Continues to current home medications (5) Obstructive sleep apnea of adult Is this a current diagnosis for this admission?: Yes Plan: Continues to CPAP (6) Syncope Qualifiers: Syncope type: unspecified Qualified Code(s): R55 - Syncope and collapse Is this a current diagnosis for this admission?: Yes Plan: Patient all workup is so far negative (7) Chronic kidney disease Qualifiers: Chronic kidney disease stage: stage 3 (moderate) Qualified Code(s): N18.3 - Chronic kidney disease, stage 3 (moderate) Is this a current diagnosis for this admission?: Yes Plan: Patient's creatinine is improving continues to follow with the nephrology (8) HTN (hypertension) Qualifiers: Hypertension type: essential hypertension Qualified Code(s): I10 - Essential (primary) hypertension Is this a current diagnosis for this admission?: Yes Plan: Continues current medications (9) Obesity Qualifiers: Obesity type: unspecified obesity type Is this a current diagnosis for this admission?: Yes (10) Constipation Qualifiers: Constipation type: unspecified constipation type Qualified Code(s): K59.00 - Constipation, unspecified Is this a current diagnosis for this admission?: Yes Plan: We will get the x-ray KUB and give a enema (11) Anemia in chronic kidney disease (CKD) Qualifiers: Chronic kidney disease stage: stage 3 (moderate) Qualified Code(s): N18.3 - Chronic kidney disease, stage 3 (moderate); D63.1 - Anemia in chronic kidney disease; D63.1 - Anemia in chronic kidney disease Is this a current diagnosis for this admission?: Yes Plan: Patient is receiving 1 unit of blood today we will give a IV Lasix - Time Time Spent with patient: 15-24 minutes Medications reviewed and adjusted accordingly: Yes Anticipated discharge: SNF Within: Other - Inpatient Certification Medical Necessity: Need Close Monitoring Due to Risk of Patient Decompensation Post Hospital Care: D/C [employer] Documentation - Plan Summary Plan Summary: Continues current medication
--- NOTE | 2017-02-10 09:31 | RADIOLOGY REPORT (SQ) ---
EXAM DESCRIPTION: KUB/ABDOMEN (SINGLE VIEW) COMPLETED DATE/TIME: 02/10/2017 8:48 am REASON FOR STUDY: constipation COMPARISON: KUB 10/25/2013 Abdominal ultrasound 11/16/2014 NUMBER OF VIEWS: One view. TECHNIQUE: Supine radiographic image of the abdomen acquired. LIMITATIONS: None. FINDINGS: BOWEL GAS PATTERN: Large amount of stool in the ascending colon and transverse colon. [place] cending colon and rectosigmoid decompressed. No air-fluid levels in small bowel worrisome for obstru ction. CALCIFICATIONS: No suspicious calcifications. SOFT TISSUES: No gross mass or suggestion of organomegaly. HARDWARE: None in the abdomen. BONES: No acute fracture. No worrisome bone lesions. OTHER: No other significant finding. IMPRESSION: Large amount of stool persists in the ascending and transverse colon. TECHNICAL DOCUMENTATION: JOB ID: [id number] [employer]- All Rights Reserved
[2017-02-10] MEDS: CARVEDILOL 12.5 MG TABLET PO SCH ×2 (09:34→17:34)
[2017-02-10] MEDS: INSULIN LISPRO 100 UNIT/ML 3 ML VIAL SUBCUT PRN ×4 (09:39→21:40)
[2017-02-10] MEDS: CLONIDINE HCL 0.2 MG TABLET PO SCH ×2 (09:39→21:39)
[2017-02-10] MEDS: CHOLECALCIFEROL (D3) 1,000 UNIT TABLET PO SCH (09:39)
[2017-02-10] MEDS: BUDESONIDE/FORMOTEROL 160-4.5 MCG 60 PUFF/6 GM MDI IH SCH ×2 (09:39→17:34)
[2017-02-10] MEDS: CALCITRIOL 0.25 MCG CAPSULE PO SCH (09:39)
[2017-02-10] MEDS: DOCUSATE SODIUM 100 MG CAPSULE PO SCH ×2 (09:39→17:34)
[2017-02-10] MEDS: CEFEPIME 1 GM/D5W RTU 1 GM/50 ML RTUPB IV SCH (09:39)
[2017-02-10] MEDS: ALLOPURINOL 100 MG TABLET PO SCH (09:39)
[2017-02-10] MEDS: GABAPENTIN 300 MG CAPSULE PO SCH ×2 (09:40→17:34)
[2017-02-10] MEDS: FLUTICASONE NASAL SPRAY 50 MCG/SPRY 120 SPRAY/16 GM NASL SCH (09:40)
[2017-02-10] MEDS: INSULIN DETEMIR 100 UNIT/ML 3 ML PEN SUBCUT SCH ×2 (09:40→21:40)
[2017-02-10] MEDS: POLYETHYLENE GLYCOL 3350 POWDER 17 GM/1 PACKET PO SCH (09:40)
[2017-02-10] MEDS: SITAGLIPTIN PHOSPHATE 50 MG TABLET PO SCH (09:40)
[2017-02-10] MEDS: TIMOLOL MALEATE 0.5% OPH SOLN 5 ML OU SCH (09:40)
--- NOTE | 2017-02-10 12:42 | PDOC PROGRESS REPORT ---
Subjective Progress Note for:: 02/10/17 Subjective:: "We got to find out what is going on here " Physical Exam Vital Signs: Temp Pulse Resp BP Pulse Ox 37.6 C 75 18 148/57 H 98 02/10/17 07:34 02/10/17 07:34 02/10/17 07:34 02/10/17 07:34 02/10/17 07:34 Intake & Output 02/09/17 02/10/17 02/11/17 06:59 06:59 06:59 Intake Total 1685 1020 Output Total 1350 700 Balance 335 320 General appearance: PRESENT: no acute distress Head exam: PRESENT: normocephalic Respiratory exam: PRESENT: unlabored Cardiovascular exam: PRESENT: RRR Vascular exam: PRESENT: normal capillary refill GI/Abdominal exam: PRESENT: soft Rectal exam: PRESENT: deferred Extremities exam: PRESENT: other - Right lower extremity immobilized in posterior splint. There is brisk capillary refill to each of the digits and motor function is intact. Neurological exam: PRESENT: alert, awake, oriented to person, oriented to place , oriented to time, oriented to situation. ABSENT: motor sensory deficit Psychiatric exam: PRESENT: appropriate affect, normal mood. ABSENT: homicidal ideation, suicidal ideation Skin exam: PRESENT: dry, intact, warm. ABSENT: cyanosis, rash Results Laboratory Results: 02/10/17 07:35 02/10/17 07:35 02/10/17 02/10/17 02/10/17 07:35 07:35 07:35 WBC 9.5 RBC 2.82 L Hgb 8.7 L Hct 25.1 L MCV 89 MCH 30.6 MCHC 34.5 RDW 14.1 H Plt Count 411 Sodium 147.4 H Potassium 4.5 Chloride 110 H Carbon Dioxide 24 Anion Gap 13 BUN 80 H Creatinine 3.11 H Est GFR ( Amer) 24 L Est GFR (Non-Af Amer) 20 L Glucose 155 H Calcium 10.1 Blood Type A POSITIVE Antibody Screen NEGATIVE 02/01/17 02/01/17 02/02/17 23:10 23:10 05:28 Creatine Kinase 396 H 325 H CK-MB (CK-2) 2.23 Troponin I < 0.012 02/02/17 02/02/17 02/02/17 05:28 11:14 11:14 Creatine Kinase 348 H CK-MB (CK-2) 1.40 1.58 Troponin I < 0.012 < 0.012 Impressions: Head CT 02/01/17 11:11 IMPRESSION: NORMAL BRAIN CT WITHOUT CONTRAST. EVIDENCE OF ACUTE STROKE: NO. Knee X-Ray 02/01/17 11:35 IMPRESSION: NO DEFINITE FRACTURE OR HARDWARE COMPLICATION. SMALL JOINT EFFUSION. Carotid Doppler Study 02/03/17 00:00 IMPRESSION: NO HEMODYNAMICALLY SIGNIFICANT STENOSIS. Ankle X-Ray 02/04/17 00:00 IMPRESSION: Intra procedural imaging and fluoro Fluoroscopy 02/04/17 00:00 IMPRESSION: Intra procedural imaging and fluoro Head MRI 02/04/17 00:00 IMPRESSION: NORMAL MRI OF THE BRAIN WITHOUT INTRAVENOUS GADOLINIUM CONTRAST. EVIDENCE OF ACUTE STROKE: NO. Chest X-Ray 02/05/17 00:00 IMPRESSION: NO SIGNIFICANT RADIOGRAPHIC FINDING IN THE CHEST. KUB X-Ray 02/10/17 00:00 IMPRESSION: Large amount of stool persists in the ascending and transverse colon. Status: Imported from PACS Assessment & Plan - Diagnosis (1) Ankle fracture, bimalleolar, closed Qualifiers: Encounter type: subsequent encounter Laterality: right Is this a current diagnosis for this admission?: Yes Plan: Limited progress with physical therapy. (2) Diabetes mellitus type 2 in obese Is this a current diagnosis for this admission?: Yes Plan: Under better control recently (3) Acute blood loss anemia Is this a current diagnosis for this admission?: Yes Plan: Patient's hematocrit dropped to 22%. He will receive 2 units of packed red blood cells. - Time Time Spent with patient: 15-24 minutes Anticipated discharge: Other Within: Other - Apparently the patient had blood associated with an enema application this morning. He also has anemia which is not explained by intraoperative blood loss.
[2017-02-10] MEDS: OXYCODONE HCL IR 5 MG TABLET PO PRN ×2 (12:49→23:51)
[2017-02-10] MEDS ORDERED: FUROSEMIDE INJ/PF 20 MG/2 ML SDV IV ONE (17:00)
[2017-02-10] MEDS ORDERED: MORPHINE SULFATE 10 MG/ML INJ IV PRN (17:25)
[2017-02-10] MEDS: TAMSULOSIN HCL 0.4 MG CAP.SR.24H PO SCH (17:34)
--- NOTE | 2017-02-10 18:07 | PDOC PROGRESS REPORT ---
Subjective Progress Note for:: 02/10/17 Subjective:: Patient does not have much progress for on physical therapy over the weekend. He was constipated that he received an enema today so he had some bowel movement. He seems to start to peak-up urine output. He also received blood transfusion today. He was given Lasix intravenously after the blood. Otherwise he said is eating and does not have any shortness of breath. He denies any other complaints. Physical Exam Vital Signs: Temp Pulse Resp BP Pulse Ox 98.6 F 79 18 144/50 H 100 02/10/17 16:25 02/10/17 16:25 02/10/17 16:25 02/10/17 16:25 02/10/17 16:25 Intake & Output 02/09/17 02/10/17 02/11/17 06:59 06:59 06:59 Intake Total 1685 1020 330 Output Total 1350 700 Balance 335 320 330 Exam: General appearance: PRESENT: no acute distress, cooperative, well-developed, well-nourished Head exam: PRESENT: atraumatic, normocephalic Eye exam: PRESENT: conjunctiva pale, PERRLA. ABSENT: scleral icterus Neck exam: ABSENT: JVD Respiratory exam: PRESENT: Normal breath sounds. ABSENT: crackles, rales, rhonchi, unlabored, wheezes Cardiovascular exam: PRESENT: Regular rate rhythm -+S1, +S2. ABSENT: diastolic murmur, systolic murmur GI/Abdominal exam: PRESENT: normal bowel sounds, soft. ABSENT: guarding, mass, tenderness Extremities exam: ABSENT: No edema Neurological exam: PRESENT: alert, awake, oriented to person, place and time. Skin exam: PRESENT: dry, warm, Results Laboratory Results: 02/10/17 07:35 02/10/17 07:35 02/10/17 02/10/17 02/10/17 07:35 07:35 07:35 WBC 9.5 RBC 2.82 L Hgb 8.7 L Hct 25.1 L MCV 89 MCH 30.6 MCHC 34.5 RDW 14.1 H Plt Count 411 Sodium 147.4 H Potassium 4.5 Chloride 110 H Carbon Dioxide 24 Anion Gap 13 BUN 80 H Creatinine 3.11 H Est GFR ( Amer) 24 L Est GFR (Non-Af Amer) 20 L Glucose 155 H Calcium 10.1 Blood Type A POSITIVE Antibody Screen NEGATIVE 02/01/17 02/01/17 02/02/17 23:10 23:10 05:28 Creatine Kinase 396 H 325 H CK-MB (CK-2) 2.23 Troponin I < 0.012 02/02/17 02/02/17 02/02/17 05:28 11:14 11:14 Creatine Kinase 348 H CK-MB (CK-2) 1.40 1.58 Troponin I < 0.012 < 0.012 Impressions: Head CT 02/01/17 11:11 IMPRESSION: NORMAL BRAIN CT WITHOUT CONTRAST. EVIDENCE OF ACUTE STROKE: NO. Knee X-Ray 02/01/17 11:35 IMPRESSION: NO DEFINITE FRACTURE OR HARDWARE COMPLICATION. SMALL JOINT EFFUSION. Carotid Doppler Study 02/03/17 00:00 IMPRESSION: NO HEMODYNAMICALLY SIGNIFICANT STENOSIS. Ankle X-Ray 02/04/17 00:00 IMPRESSION: Intra procedural imaging and fluoro Fluoroscopy 02/04/17 00:00 IMPRESSION: Intra procedural imaging and fluoro Head MRI 02/04/17 00:00 IMPRESSION: NORMAL MRI OF THE BRAIN WITHOUT INTRAVENOUS GADOLINIUM CONTRAST. EVIDENCE OF ACUTE STROKE: NO. Chest X-Ray 02/05/17 00:00 IMPRESSION: NO SIGNIFICANT RADIOGRAPHIC FINDING IN THE CHEST. KUB X-Ray 02/10/17 00:00 IMPRESSION: Large amount of stool persists in the ascending and transverse colon. Assessment & Plan - Diagnosis (1) Acute kidney injury superimposed on chronic kidney disease Is this a current diagnosis for this admission?: Yes Plan: Patient's kidney function this is slowly getting better. Patient was given IV fluid hydration over the weekend. He received 1 unit of blood transfusion today. He is making an adequate adequate amount of urine output. No indication for any renal replacement therapy. Continue to monitor kidney function. Continue to hold Lasix for now. (2) Chronic kidney disease, stage IV (severe) Is this a current diagnosis for this admission?: Yes Plan: Due to diabetic nephropathy with contribution of hypertension. Continue to monitor kidney function while he in the hospital. (3) Anemia in chronic kidney disease (CKD) Qualifiers: Chronic kidney disease stage: stage 3 (moderate) Qualified Code(s): N18.3 - Chronic kidney disease, stage 3 (moderate); D63.1 - Anemia in chronic kidney disease; D63.1 - Anemia in chronic kidney disease Is this a current diagnosis for this admission?: Yes Plan: Had 1 unit of blood transfusion today. (4) Closed right ankle fracture Qualifiers: Encounter type: initial encounter Qualified Code(s): S82.891A - Other fracture of right lower leg, initial encounter for closed fracture Is this a current diagnosis for this admission?: Yes Plan: Status post open reduction internal fixation by Dr. Anderson. (5) Syncope Qualifiers: Syncope type: unspecified Qualified Code(s): R55 - Syncope and collapse Is this a current diagnosis for this admission?: Yes Plan: Workup has been negative. (6) HTN (hypertension) Qualifiers: Hypertension type: essential hypertension Qualified Code(s): I10 - Essential (primary) hypertension Is this a current diagnosis for this admission?: Yes Plan: Currently controlled. (7) Diabetes mellitus type 2 in obese Is this a current diagnosis for this admission?: Yes Plan: Deferred to Dr. Mead for management. (8) Constipation Qualifiers: Constipation type: unspecified constipation type Qualified Code(s): K59.00 - Constipation, unspecified Is this a current diagnosis for this admission?: Yes - Notes Notes: Discussed with Dr. Mead earlier this morning. - Time Time with patient: 15-25 minutes
[2017-02-10] MEDS: LATANOPROST 0.005% OPH SOLN 2.5 ML OD SCH (19:15)
[2017-02-10] MEDS: ATORVASTATIN CALCIUM 20 MG TABLET PO SCH (21:39)
[2017-02-10] MEDS: LOSARTAN POTASSIUM 50 MG TABLET PO SCH (21:39)
[2017-02-10] MEDS: ZOLPIDEM TARTRATE 5 MG TABLET PO SCH (21:39)
[2017-02-10] MEDS: FERROUS SULFATE 325 MG TABLET PO SCH (21:39)
[2017-02-10] MEDS: ASPIRIN 325 MG TABLET PO SCH (21:39)
[2017-02-10] MEDS: AMLODIPINE BESYLATE 10 MG TABLET PO SCH (21:40)
[2017-02-10] MEDS: RIVAROXABAN 10 MG TABLET PO SCH (21:40)
[2017-02-11 05:07] LABS: ABSOLUTE BASOPHILS # (AUTO) 0.1 10^3/uL (0.0-0.2); ABSOLUTE EOSINOPHILS # (AUTO) 0.4 10^3/uL (0.0-0.6); ABSOLUTE LYMPHOCYTES (AUTO) 2.6 10^3/uL (0.5-4.7); ABSOLUTE MONOCYTES (AUTO) 1.5 10^3/uL (0.1-1.4); ABSOLUTE NEUT (AUTO) 6.2 10^3/uL (1.7-8.2); BASOPHILS % (AUTO) 0.9 % (0-2); EOSINOPHILS % (AUTO) 3.3 % (0-6); HEMATOCRIT 26.9 % (37.9-51.0); HEMOGLOBIN 9.4 g/dL (13.5-17.0); HGB HCT DIFFERENCE 1.3; LYMPHOCYTES % (AUTO) 24.1 % (13-45); MEAN CORPUSCULAR HEMOGLOBIN 30.6 pg (27.0-33.4); MEAN CORPUSCULAR VOLUME 87 fl (80-97); MONOCYTES % (AUTO) 13.7 % (3-13); RED BLOOD COUNT 3.07 10^6/uL (4.35-5.55); RED CELL DISTRIBUTION WIDTH 14.4 % (11.5-14.0); WHITE BLOOD COUNT 10.8 10^3/uL (4.0-10.5)
[2017-02-11 05:24] LABS: ANION GAP 14 (5-19); BLOOD UREA NITROGEN 80 mg/dL (7-20); CALCIUM 10.4 mg/dL (8.4-10.2); CARBON DIOXIDE 22 mmol/L (22-30); CHLORIDE 108 mmol/L (98-107); CREATININE RESULT 3.17 mg/dL (0.52-1.25); GLUCOSE 240 mg/dL (75-110); POTASSIUM 4.9 mmol/L (3.6-5.0); SODIUM 144.3 mmol/L (137-145)
[2017-02-11] MEDS: LANSOPRAZOLE 30 MG TAB.RAP.DR PO SCH (05:52)
--- NOTE | 2017-02-11 06:54 | PDOC PROGRESS REPORT ---
Subjective Progress Note for:: 02/11/17 Subjective:: "I do feel somewhat better" Physical Exam Vital Signs: Temp Pulse Resp BP Pulse Ox 37.2 C 73 19 116/56 L 97 02/11/17 03:36 02/11/17 03:36 02/11/17 03:36 02/11/17 03:36 02/11/17 03:36 Intake & Output 02/09/17 02/10/17 02/11/17 06:59 06:59 06:59 Intake Total 1685 1020 2120 Output Total 1350 700 870 Balance 053 [id number] General appearance: PRESENT: no acute distress Head exam: PRESENT: normocephalic Respiratory exam: PRESENT: unlabored Cardiovascular exam: PRESENT: RRR Vascular exam: PRESENT: normal capillary refill GI/Abdominal exam: PRESENT: soft Rectal exam: PRESENT: deferred Musculoskeletal exam: PRESENT: other - Right lower extremity splint in place. There is brisk capillary refill to the digits. Sensory examination is intact to light touch. Neurological exam: PRESENT: alert, awake, oriented to person, oriented to place , oriented to time, oriented to situation. ABSENT: motor sensory deficit Psychiatric exam: PRESENT: appropriate affect, normal mood. ABSENT: homicidal ideation, suicidal ideation Skin exam: PRESENT: dry, intact, warm. ABSENT: cyanosis, rash Results Laboratory Results: 02/11/17 04:28 02/11/17 04:28 02/10/17 02/10/17 02/10/17 07:35 07:35 07:35 WBC 9.5 RBC 2.82 L Hgb 8.7 L Hct 25.1 L MCV 89 MCH 30.6 MCHC 34.5 RDW 14.1 H Plt Count 411 Seg Neutrophils % Lymphocytes % Monocytes % Eosinophils % Basophils % Absolute Neutrophils Absolute Lymphocytes Absolute Monocytes Absolute Eosinophils Absolute Basophils Sodium 147.4 H Potassium 4.5 Chloride 110 H Carbon Dioxide 24 Anion Gap 13 BUN 80 H Creatinine 3.11 H Est GFR ( Amer) 24 L Est GFR (Non-Af Amer) 20 L Glucose 155 H Calcium 10.1 Blood Type A POSITIVE Antibody Screen NEGATIVE 02/11/17 02/11/17 04:28 04:28 WBC 10.8 H RBC 3.07 L Hgb 9.4 L Hct 26.9 L MCV 87 MCH 30.6 MCHC 35.0 RDW 14.4 H Plt Count 375 Seg Neutrophils % 58.0 Lymphocytes % 24.1 Monocytes % 13.7 H Eosinophils % 3.3 Basophils % 0.9 Absolute Neutrophils 6.2 Absolute Lymphocytes 2.6 Absolute Monocytes 1.5 H Absolute Eosinophils 0.4 Absolute Basophils 0.1 Sodium 144.3 Potassium 4.9 Chloride 108 H Carbon Dioxide 22 Anion Gap 14 BUN 80 H Creatinine 3.17 H Est GFR ( Amer) 23 L Est GFR (Non-Af Amer) 19 L Glucose 240 H Calcium 10.4 H Blood Type Antibody Screen 02/01/17 02/01/17 02/02/17 23:10 23:10 05:28 Creatine Kinase 396 H 325 H CK-MB (CK-2) 2.23 Troponin I < 0.012 02/02/17 02/02/17 02/02/17 05:28 11:14 11:14 Creatine Kinase 348 H CK-MB (CK-2) 1.40 1.58 Troponin I < 0.012 < 0.012 Impressions: Head CT 02/01/17 11:11 IMPRESSION: NORMAL BRAIN CT WITHOUT CONTRAST. EVIDENCE OF ACUTE STROKE: NO. Knee X-Ray 02/01/17 11:35 IMPRESSION: NO DEFINITE FRACTURE OR HARDWARE COMPLICATION. SMALL JOINT EFFUSION. Carotid Doppler Study 02/03/17 00:00 IMPRESSION: NO HEMODYNAMICALLY SIGNIFICANT STENOSIS. Ankle X-Ray 02/04/17 00:00 IMPRESSION: Intra procedural imaging and fluoro Fluoroscopy 02/04/17 00:00 IMPRESSION: Intra procedural imaging and fluoro Head MRI 02/04/17 00:00 IMPRESSION: NORMAL MRI OF THE BRAIN WITHOUT INTRAVENOUS GADOLINIUM CONTRAST. EVIDENCE OF ACUTE STROKE: NO. Chest X-Ray 02/05/17 00:00 IMPRESSION: NO SIGNIFICANT RADIOGRAPHIC FINDING IN THE CHEST. KUB X-Ray 02/10/17 00:00 IMPRESSION: Large amount of stool persists in the ascending and transverse colon. Status: Imported from PACS Assessment & Plan - Diagnosis (1) Ankle fracture, bimalleolar, closed Qualifiers: Encounter type: subsequent encounter Laterality: right Is this a current diagnosis for this admission?: Yes Plan: 72-year-old white male status post open reduction internal fixation right ankle fracture with limited progress with physical therapy since his surgery. (2) Diabetes mellitus type 2 in obese Is this a current diagnosis for this admission?: Yes Plan: Improved control (3) Acute blood loss anemia Is this a current diagnosis for this admission?: Yes Plan: Posttransfusion hematocrit 26.9% - Time Time Spent with patient: 15-24 minutes Anticipated discharge: SNF Within: Other - Patient with limited progress with physical therapy and certainly would be much better served with a penitentiary facility placement. Patient still adverse to this is a concept. He is encouraged to participate in physical therapy today as much as he can.
[2017-02-11] MEDS: ISOSORBIDE MONONITRATE 30 MG TAB.ER.24H PO SCH (07:31)
[2017-02-11] MEDS: FENOFIBRATE NANOCRYSTALLIZED 48 MG TABLET PO SCH (07:31)
[2017-02-11] MEDS ORDERED: MAGNESIUM CITRATE 296 ML BOTTLE PO ONE (09:00)
--- NOTE | 2017-02-11 09:11 | PDOC PROGRESS REPORT ---
Subjective Progress Note for:: 02/11/17 Subjective:: Patient is currently doing fair denied any chest pain denied any shortness of the breath Recent x-ray KUB see the stool impaction on ascending and transverse colon Recent still does not have any bowel movement Patient's kidney function is getting better Patient still unable to move due to the right ankle surgery Physical Exam Vital Signs: Temp Pulse Resp BP Pulse Ox 99.0 F 73 19 116/56 L 97 02/11/17 03:36 02/11/17 07:00 02/11/17 03:36 02/11/17 03:36 02/11/17 03:36 Intake & Output 02/10/17 02/11/17 02/12/17 06:59 06:59 06:59 Intake Total 1020 2120 Output Total 700 870 Balance 320 1250 General appearance: PRESENT: no acute distress, well-developed, well-nourished Head exam: PRESENT: atraumatic, normocephalic Eye exam: PRESENT: conjunctiva pink, EOMI, PERRLA. ABSENT: scleral icterus Ear exam: PRESENT: normal external ear exam Mouth exam: PRESENT: moist, tongue midline Neck exam: PRESENT: full ROM. ABSENT: carotid bruit, JVD, lymphadenopathy, thyromegaly Respiratory exam: PRESENT: clear to auscultation [place] Cardiovascular exam: PRESENT: RRR. ABSENT: diastolic murmur, rubs, systolic murmur Pulses: PRESENT: normal dorsalis pedis pul, +2 pedal pulses bilateral Vascular exam: PRESENT: normal capillary refill GI/Abdominal exam: PRESENT: normal bowel sounds, soft. ABSENT: distended, guarding, mass, organolmegaly, rebound, tenderness Rectal exam: PRESENT: deferred Additional comments: Right ankle dressing is intact Neurological exam: PRESENT: alert, awake, oriented to person, oriented to place , oriented to time, oriented to situation, CN II-XII grossly intact. ABSENT: motor sensory deficit Psychiatric exam: PRESENT: appropriate affect, normal mood. ABSENT: homicidal ideation, suicidal ideation Skin exam: PRESENT: dry, intact, warm. ABSENT: cyanosis, rash Results Laboratory Results: 02/11/17 04:28 02/11/17 04:28 02/10/17 02/11/17 02/11/17 07:35 04:28 04:28 WBC 10.8 H RBC 3.07 L Hgb 9.4 L Hct 26.9 L MCV 87 MCH 30.6 MCHC 35.0 RDW 14.4 H Plt Count 375 Seg Neutrophils % 58.0 Lymphocytes % 24.1 Monocytes % 13.7 H Eosinophils % 3.3 Basophils % 0.9 Absolute Neutrophils 6.2 Absolute Lymphocytes 2.6 Absolute Monocytes 1.5 H Absolute Eosinophils 0.4 Absolute Basophils 0.1 Sodium 144.3 Potassium 4.9 Chloride 108 H Carbon Dioxide 22 Anion Gap 14 BUN 80 H Creatinine 3.17 H Est GFR ( Amer) 23 L Est GFR (Non-Af Amer) 19 L Glucose 240 H Calcium 10.4 H Blood Type A POSITIVE Antibody Screen NEGATIVE 02/01/17 02/01/17 02/02/17 23:10 23:10 05:28 Creatine Kinase 396 H 325 H CK-MB (CK-2) 2.23 Troponin I < 0.012 02/02/17 02/02/17 02/02/17 05:28 11:14 11:14 Creatine Kinase 348 H CK-MB (CK-2) 1.40 1.58 Troponin I < 0.012 < 0.012 Impressions: Head CT 02/01/17 11:11 IMPRESSION: NORMAL BRAIN CT WITHOUT CONTRAST. EVIDENCE OF ACUTE STROKE: NO. Knee X-Ray 02/01/17 11:35 IMPRESSION: NO DEFINITE FRACTURE OR HARDWARE COMPLICATION. SMALL JOINT EFFUSION. Carotid Doppler Study 02/03/17 00:00 IMPRESSION: NO HEMODYNAMICALLY SIGNIFICANT STENOSIS. Ankle X-Ray 02/04/17 00:00 IMPRESSION: Intra procedural imaging and fluoro Fluoroscopy 02/04/17 00:00 IMPRESSION: Intra procedural imaging and fluoro Head MRI 02/04/17 00:00 IMPRESSION: NORMAL MRI OF THE BRAIN WITHOUT INTRAVENOUS GADOLINIUM CONTRAST. EVIDENCE OF ACUTE STROKE: NO. Chest X-Ray 02/05/17 00:00 IMPRESSION: NO SIGNIFICANT RADIOGRAPHIC FINDING IN THE CHEST. KUB X-Ray 02/10/17 00:00 IMPRESSION: Large amount of stool persists in the ascending and transverse colon. Assessment & Plan - Diagnosis (1) Ankle fracture, bimalleolar, closed Qualifiers: Encounter type: subsequent encounter Laterality: right Is this a current diagnosis for this admission?: Yes Plan: Status post ORIF patient still unable to walk encourage with the physical therapy (2) Diabetes mellitus type 2 in obese Is this a current diagnosis for this admission?: Yes Plan: Continues to current medication (3) Hyperlipidemia Qualifiers: Hyperlipidemia type: unspecified Qualified Code(s): E78.5 - Hyperlipidemia , unspecified Is this a current diagnosis for this admission?: Yes Plan: Currently stable (4) Mixed anxiety and depressive disorder Is this a current diagnosis for this admission?: Yes Plan: Continues to current home medications (5) Obstructive sleep apnea of adult Is this a current diagnosis for this admission?: Yes Plan: Continues to CPAP (6) Syncope Qualifiers: Syncope type: unspecified Qualified Code(s): R55 - Syncope and collapse Is this a current diagnosis for this admission?: Yes Plan: Patient all workup is so far negative (7) Chronic kidney disease Qualifiers: Chronic kidney disease stage: stage 3 (moderate) Qualified Code(s): N18.3 - Chronic kidney disease, stage 3 (moderate) Is this a current diagnosis for this admission?: Yes Plan: Patient's creatinine is improving continues to follow with the nephrology (8) HTN (hypertension) Qualifiers: Hypertension type: essential hypertension Qualified Code(s): I10 - Essential (primary) hypertension Is this a current diagnosis for this admission?: Yes Plan: Continues current medications (9) Obesity Qualifiers: Obesity type: unspecified obesity type Is this a current diagnosis for this admission?: Yes (10) Constipation Qualifiers: Constipation type: unspecified constipation type Qualified Code(s): K59.00 - Constipation, unspecified Is this a current diagnosis for this admission?: Yes Plan: We will try to give some magnesium citrate and if is still does not work is to give a golitet (11) Anemia in chronic kidney disease (CKD) Qualifiers: Chronic kidney disease stage: stage 3 (moderate) Qualified Code(s): N18.3 - Chronic kidney disease, stage 3 (moderate); D63.1 - Anemia in chronic kidney disease; D63.1 - Anemia in chronic kidney disease Is this a current diagnosis for this admission?: Yes Plan: Status post 1 unit of the blood - Time Time Spent with patient: 15-24 minutes Medications reviewed and adjusted accordingly: Yes Anticipated discharge: SNF Within: Other - Inpatient Certification Medical Necessity: Need Close Monitoring Due to Risk of Patient Decompensation 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
[2017-02-11] MEDS: SITAGLIPTIN PHOSPHATE 50 MG TABLET PO SCH (09:21)
[2017-02-11] MEDS: POLYETHYLENE GLYCOL 3350 POWDER 17 GM/1 PACKET PO SCH (09:21)
[2017-02-11] MEDS: DOCUSATE SODIUM 100 MG CAPSULE PO SCH ×2 (09:23→17:49)
[2017-02-11] MEDS: OXYCODONE HCL IR 5 MG TABLET PO PRN (09:23)
[2017-02-11] MEDS: ALLOPURINOL 100 MG TABLET PO SCH (09:23)
[2017-02-11] MEDS: GABAPENTIN 300 MG CAPSULE PO SCH ×2 (09:23→17:49)
[2017-02-11] MEDS: CHOLECALCIFEROL (D3) 1,000 UNIT TABLET PO SCH (09:24)
[2017-02-11] MEDS: CLONIDINE HCL 0.2 MG TABLET PO SCH ×2 (09:26→21:39)
[2017-02-11] MEDS: CARVEDILOL 12.5 MG TABLET PO SCH ×2 (09:26→17:49)
[2017-02-11] MEDS: INSULIN DETEMIR 100 UNIT/ML 3 ML PEN SUBCUT SCH ×2 (09:31→21:38)
[2017-02-11] MEDS: BUDESONIDE/FORMOTEROL 160-4.5 MCG 60 PUFF/6 GM MDI IH SCH ×2 (09:34→17:52)
[2017-02-11] MEDS: TIMOLOL MALEATE 0.5% OPH SOLN 5 ML OU SCH (09:34)
[2017-02-11] MEDS: FLUTICASONE NASAL SPRAY 50 MCG/SPRY 120 SPRAY/16 GM NASL SCH (09:35)
[2017-02-11] MEDS ORDERED: CEFEPIME 1 GM/D5W RTU 1 GM/50 ML RTUPB IV SCH (10:00)
[2017-02-11] MEDS: TAMSULOSIN HCL 0.4 MG CAP.SR.24H PO SCH (17:49)
[2017-02-11] MEDS: INSULIN LISPRO 100 UNIT/ML 3 ML VIAL SUBCUT PRN ×2 (17:50→21:39)
[2017-02-11] MEDS: LATANOPROST 0.005% OPH SOLN 2.5 ML OD SCH (17:52)
--- NOTE | 2017-02-11 18:38 | PDOC PROGRESS REPORT ---
Subjective Progress Note for:: 02/11/17 Subjective:: Patient seems to be doing fine. He tells me that he was able to do 3 steps with physical therapy. He seems to be still constipated. Other than that he does not have any other complaints except for some pain due to surgery. Physical Exam Vital Signs: Temp Pulse Resp BP Pulse Ox 99.0 F 74 18 115/46 L 98 02/11/17 15:31 02/11/17 15:31 02/11/17 15:31 02/11/17 15:31 02/11/17 15:31 Intake & Output 02/10/17 02/11/17 02/12/17 06:59 06:59 06:59 Intake Total 1020 2120 50 Output Total 700 870 Balance 320 1250 50 Exam: General appearance: PRESENT: no acute distress, cooperative, well-developed, well-nourished Head exam: PRESENT: atraumatic, normocephalic Eye exam: PRESENT: conjunctiva pale, PERRLA. ABSENT: scleral icterus Neck exam: ABSENT: JVD Respiratory exam: PRESENT: Diminished breath sounds. ABSENT: crackles, rales, rhonchi, unlabored, wheezes Cardiovascular exam: PRESENT: Regular rate rhythm -+S1, +S2. ABSENT: diastolic murmur, systolic murmur GI/Abdominal exam: PRESENT: normal bowel sounds, soft. ABSENT: guarding, mass, tenderness Extremities exam: ABSENT: No edema Neurological exam: PRESENT: alert, awake, oriented to person, place and time. Skin exam: PRESENT: dry, warm, Results Laboratory Results: 02/11/17 04:28 02/11/17 04:28 02/11/17 02/11/17 04:28 04:28 WBC 10.8 H RBC 3.07 L Hgb 9.4 L Hct 26.9 L MCV 87 MCH 30.6 MCHC 35.0 RDW 14.4 H Plt Count 375 Seg Neutrophils % 58.0 Lymphocytes % 24.1 Monocytes % 13.7 H Eosinophils % 3.3 Basophils % 0.9 Absolute Neutrophils 6.2 Absolute Lymphocytes 2.6 Absolute Monocytes 1.5 H Absolute Eosinophils 0.4 Absolute Basophils 0.1 Sodium 144.3 Potassium 4.9 Chloride 108 H Carbon Dioxide 22 Anion Gap 14 BUN 80 H Creatinine 3.17 H Est GFR ( Amer) 23 L Est GFR (Non-Af Amer) 19 L Glucose 240 H Calcium 10.4 H 02/01/17 02/01/17 02/02/17 23:10 23:10 05:28 Creatine Kinase 396 H 325 H CK-MB (CK-2) 2.23 Troponin I < 0.012 02/02/17 02/02/17 02/02/17 05:28 11:14 11:14 Creatine Kinase 348 H CK-MB (CK-2) 1.40 1.58 Troponin I < 0.012 < 0.012 Impressions: Head CT 02/01/17 11:11 IMPRESSION: NORMAL BRAIN CT WITHOUT CONTRAST. EVIDENCE OF ACUTE STROKE: NO. Knee X-Ray 02/01/17 11:35 IMPRESSION: NO DEFINITE FRACTURE OR HARDWARE COMPLICATION. SMALL JOINT EFFUSION. Carotid Doppler Study 02/03/17 00:00 IMPRESSION: NO HEMODYNAMICALLY SIGNIFICANT STENOSIS. Ankle X-Ray 02/04/17 00:00 IMPRESSION: Intra procedural imaging and fluoro Fluoroscopy 02/04/17 00:00 IMPRESSION: Intra procedural imaging and fluoro Head MRI 02/04/17 00:00 IMPRESSION: NORMAL MRI OF THE BRAIN WITHOUT INTRAVENOUS GADOLINIUM CONTRAST. EVIDENCE OF ACUTE STROKE: NO. Chest X-Ray 02/05/17 00:00 IMPRESSION: NO SIGNIFICANT RADIOGRAPHIC FINDING IN THE CHEST. KUB X-Ray 02/10/17 00:00 IMPRESSION: Large amount of stool persists in the ascending and transverse colon. Assessment & Plan - Diagnosis (1) Acute kidney injury superimposed on chronic kidney disease Is this a current diagnosis for this admission?: Yes Plan: Patient's kidney function this is slowly getting better. Patient was given IV fluid hydration over the weekend. He received 1 unit of blood transfusion today. He is making an adequate adequate amount of urine output. No indication for any renal replacement therapy. Continue to monitor kidney function. Continue to hold Lasix for now. (2) Chronic kidney disease, stage IV (severe) Is this a current diagnosis for this admission?: Yes Plan: Due to diabetic nephropathy with contribution of hypertension. Continue to monitor kidney function while he in the hospital. (3) Anemia in chronic kidney disease (CKD) Qualifiers: Chronic kidney disease stage: stage 3 (moderate) Qualified Code(s): N18.3 - Chronic kidney disease, stage 3 (moderate); D63.1 - Anemia in chronic kidney disease; D63.1 - Anemia in chronic kidney disease Is this a current diagnosis for this admission?: Yes Plan: Had 1 unit of blood transfusion , 02/10. (4) Closed right ankle fracture Qualifiers: Encounter type: initial encounter Qualified Code(s): S82.891A - Other fracture of right lower leg, initial encounter for closed fracture Is this a current diagnosis for this admission?: Yes Plan: Status post open reduction internal fixation by Dr. Anderson. (5) Syncope Qualifiers: Syncope type: unspecified Qualified Code(s): R55 - Syncope and collapse Is this a current diagnosis for this admission?: Yes Plan: Workup has been negative. (6) HTN (hypertension) Qualifiers: Hypertension type: essential hypertension Qualified Code(s): I10 - Essential (primary) hypertension Is this a current diagnosis for this admission?: Yes Plan: Currently controlled. (7) Diabetes mellitus type 2 in obese Is this a current diagnosis for this admission?: Yes Plan: Deferred to Dr. Mead for management. (8) Constipation Qualifiers: Constipation type: unspecified constipation type Qualified Code(s): K59.00 - Constipation, unspecified Is this a current diagnosis for this admission?: Yes - Time Time with patient: 15-25 minutes
[2017-02-11] MEDS: AMLODIPINE BESYLATE 10 MG TABLET PO SCH (21:39)
[2017-02-11] MEDS: ATORVASTATIN CALCIUM 20 MG TABLET PO SCH (21:39)
[2017-02-11] MEDS: ASPIRIN 325 MG TABLET PO SCH (21:39)
[2017-02-11] MEDS: RIVAROXABAN 10 MG TABLET PO SCH (21:39)
[2017-02-11] MEDS: FERROUS SULFATE 325 MG TABLET PO SCH (21:39)
[2017-02-11] MEDS: ZOLPIDEM TARTRATE 5 MG TABLET PO SCH (21:39)
[2017-02-11] MEDS: LOSARTAN POTASSIUM 50 MG TABLET PO SCH (21:39)
[2017-02-12 05:12] LABS: ANION GAP 12 (5-19); BLOOD UREA NITROGEN 81 mg/dL (7-20); CARBON DIOXIDE 27 mmol/L (22-30); CHLORIDE 107 mmol/L (98-107); CREATININE RESULT 3.29 mg/dL (0.52-1.25); GLUCOSE 48 mg/dL (75-110); POTASSIUM 4.5 mmol/L (3.6-5.0); SODIUM 145.9 mmol/L (137-145)
[2017-02-12] MEDS: LANSOPRAZOLE 30 MG TAB.RAP.DR PO SCH (05:23)
[2017-02-12] MEDS: FENOFIBRATE NANOCRYSTALLIZED 48 MG TABLET PO SCH (07:52)
[2017-02-12] MEDS: ISOSORBIDE MONONITRATE 30 MG TAB.ER.24H PO SCH (07:52)
[2017-02-12] MEDS: SITAGLIPTIN PHOSPHATE 50 MG TABLET PO SCH (10:54)
[2017-02-12] MEDS: CLONIDINE HCL 0.2 MG TABLET PO SCH ×2 (10:54→21:19)
[2017-02-12] MEDS: CHOLECALCIFEROL (D3) 1,000 UNIT TABLET PO SCH (10:54)
[2017-02-12] MEDS: CARVEDILOL 12.5 MG TABLET PO SCH ×2 (10:54→18:41)
[2017-02-12] MEDS: GABAPENTIN 300 MG CAPSULE PO SCH ×2 (10:54→18:42)
[2017-02-12] MEDS: FLUTICASONE NASAL SPRAY 50 MCG/SPRY 120 SPRAY/16 GM NASL SCH (10:55)
[2017-02-12] MEDS: ALLOPURINOL 100 MG TABLET PO SCH (10:55)
[2017-02-12] MEDS: BUDESONIDE/FORMOTEROL 160-4.5 MCG 60 PUFF/6 GM MDI IH SCH ×2 (10:55→18:42)
[2017-02-12] MEDS: TIMOLOL MALEATE 0.5% OPH SOLN 5 ML OU SCH (10:55)
[2017-02-12] MEDS: DOCUSATE SODIUM 100 MG CAPSULE PO SCH ×2 (10:55→18:41)
[2017-02-12] MEDS: POLYETHYLENE GLYCOL 3350 POWDER 17 GM/1 PACKET PO SCH (10:56)
[2017-02-12] MEDS: INSULIN DETEMIR 100 UNIT/ML 3 ML PEN SUBCUT SCH ×2 (10:57→21:18)
--- NOTE | 2017-02-12 13:01 | PDOC PROGRESS REPORT ---
Subjective Progress Note for:: 02/12/17 Subjective:: Patient is currently doing well. Patient have a large bowel movement yesterday. Patient's denied any abdominal pain no nausea no vomiting Patient's kidney function is all stable This did some more physical therapy yesterday and sit in the chair Physical Exam Vital Signs: Temp Pulse Resp BP Pulse Ox 99.2 F 78 18 128/51 H 99 02/12/17 12:00 02/12/17 12:00 02/12/17 12:00 02/12/17 12:00 02/12/17 12:00 Intake & Output 02/11/17 02/12/17 02/13/17 06:59 06:59 06:59 Intake Total 2120 1160 Output Total 870 1200 Balance 1250 -40 General appearance: PRESENT: no acute distress, well-developed, well-nourished Head exam: PRESENT: atraumatic, normocephalic Eye exam: PRESENT: conjunctiva pink, EOMI, PERRLA. ABSENT: scleral icterus Ear exam: PRESENT: normal external ear exam Mouth exam: PRESENT: moist, tongue midline Neck exam: PRESENT: full ROM. ABSENT: carotid bruit, JVD, lymphadenopathy, thyromegaly Respiratory exam: PRESENT: clear to auscultation [place] Cardiovascular exam: PRESENT: RRR. ABSENT: diastolic murmur, rubs, systolic murmur Pulses: PRESENT: normal dorsalis pedis pul, +2 pedal pulses bilateral Vascular exam: PRESENT: normal capillary refill GI/Abdominal exam: PRESENT: normal bowel sounds, soft. ABSENT: distended, guarding, mass, organolmegaly, rebound, tenderness Rectal exam: PRESENT: deferred Extremities exam: ABSENT: pedal edema Neurological exam: PRESENT: alert, awake, oriented to person, oriented to place , oriented to time, oriented to situation, CN II-XII grossly intact. ABSENT: motor sensory deficit Psychiatric exam: PRESENT: appropriate affect, normal mood. ABSENT: homicidal ideation, suicidal ideation Skin exam: PRESENT: dry, intact, warm. ABSENT: cyanosis, rash Results Laboratory Results: 02/11/17 04:28 02/12/17 04:23 02/12/17 04:23 Sodium 145.9 H Potassium 4.5 Chloride 107 Carbon Dioxide 27 Anion Gap 12 BUN 81 H Creatinine 3.29 H Est GFR ( Amer) 22 L Est GFR (Non-Af Amer) 19 L Glucose 48 L Calcium 11.0 H 02/01/17 02/01/17 02/02/17 23:10 23:10 05:28 Creatine Kinase 396 H 325 H CK-MB (CK-2) 2.23 Troponin I < 0.012 02/02/17 02/02/17 02/02/17 05:28 11:14 11:14 Creatine Kinase 348 H CK-MB (CK-2) 1.40 1.58 Troponin I < 0.012 < 0.012 Impressions: Head CT 02/01/17 11:11 IMPRESSION: NORMAL BRAIN CT WITHOUT CONTRAST. EVIDENCE OF ACUTE STROKE: NO. Knee X-Ray 02/01/17 11:35 IMPRESSION: NO DEFINITE FRACTURE OR HARDWARE COMPLICATION. SMALL JOINT EFFUSION. Carotid Doppler Study 02/03/17 00:00 IMPRESSION: NO HEMODYNAMICALLY SIGNIFICANT STENOSIS. Ankle X-Ray 02/04/17 00:00 IMPRESSION: Intra procedural imaging and fluoro Fluoroscopy 02/04/17 00:00 IMPRESSION: Intra procedural imaging and fluoro Head MRI 02/04/17 00:00 IMPRESSION: NORMAL MRI OF THE BRAIN WITHOUT INTRAVENOUS GADOLINIUM CONTRAST. EVIDENCE OF ACUTE STROKE: NO. Chest X-Ray 02/05/17 00:00 IMPRESSION: NO SIGNIFICANT RADIOGRAPHIC FINDING IN THE CHEST. KUB X-Ray 02/10/17 00:00 IMPRESSION: Large amount of stool persists in the ascending and transverse colon. Assessment & Plan - Diagnosis (1) Ankle fracture, bimalleolar, closed Qualifiers: Encounter type: subsequent encounter Laterality: right Is this a current diagnosis for this admission?: Yes Plan: Status post ORIF patient still unable to walk encourage with the physical therapy (2) Diabetes mellitus type 2 in obese Is this a current diagnosis for this admission?: Yes Plan: Continues to current medication (3) Hyperlipidemia Qualifiers: Hyperlipidemia type: unspecified Qualified Code(s): E78.5 - Hyperlipidemia , unspecified Is this a current diagnosis for this admission?: Yes Plan: Currently stable (4) Mixed anxiety and depressive disorder Is this a current diagnosis for this admission?: Yes Plan: Continues to current home medications (5) Obstructive sleep apnea of adult Is this a current diagnosis for this admission?: Yes Plan: Continues to CPAP (6) Syncope Qualifiers: Syncope type: unspecified Qualified Code(s): R55 - Syncope and collapse Is this a current diagnosis for this admission?: Yes Plan: Patient all workup is so far negative (7) Chronic kidney disease Qualifiers: Chronic kidney disease stage: stage 3 (moderate) Qualified Code(s): N18.3 - Chronic kidney disease, stage 3 (moderate) Is this a current diagnosis for this admission?: Yes Plan: Patient's creatinine is improving continues to follow with the nephrology (8) HTN (hypertension) Qualifiers: Hypertension type: essential hypertension Qualified Code(s): I10 - Essential (primary) hypertension Is this a current diagnosis for this admission?: Yes Plan: Continues current medications (9) Obesity Qualifiers: Obesity type: unspecified obesity type Is this a current diagnosis for this admission?: Yes (10) Constipation Qualifiers: Constipation type: unspecified constipation type Qualified Code(s): K59.00 - Constipation, unspecified Is this a current diagnosis for this admission?: Yes Plan: All resolved (11) Anemia in chronic kidney disease (CKD) Qualifiers: Chronic kidney disease stage: stage 3 (moderate) Qualified Code(s): N18.3 - Chronic kidney disease, stage 3 (moderate); D63.1 - Anemia in chronic kidney disease; D63.1 - Anemia in chronic kidney disease Is this a current diagnosis for this admission?: Yes Plan: Status post 1 unit of the blood - Time Time Spent with patient: 15-24 minutes Medications reviewed and adjusted accordingly: Yes Anticipated discharge: SNF Within: within 24 hours - Inpatient Certification Medical Necessity: Need Close Monitoring Due to Risk of Patient Decompensation Post Hospital Care: D/C Tsa Screener Documentation - Plan Summary Plan Summary: Continues to monitor the patient
[2017-02-12] MEDS: INSULIN LISPRO 100 UNIT/ML 3 ML VIAL SUBCUT PRN ×2 (14:16→18:43)
[2017-02-12] MEDS: OXYCODONE HCL IR 5 MG TABLET PO PRN (16:24)
--- NOTE | 2017-02-12 16:41 | PDOC PROGRESS REPORT ---
Subjective Progress Note for:: 02/12/17 Subjective:: Patient continues to do physical therapy and seems to have a slow progress. His constipation is resolved yesterday. He seems to have more urine output yesterday. Otherwise he denies any other new complaints. He is awaiting rehab placement. Physical Exam Vital Signs: Temp Pulse Resp BP Pulse Ox 99.2 F 78 18 128/51 H 99 02/12/17 12:00 02/12/17 12:00 02/12/17 12:00 02/12/17 12:00 02/12/17 12:00 Intake & Output 02/11/17 02/12/17 02/13/17 06:59 06:59 06:59 Intake Total 2120 1160 Output Total 870 1200 Balance 1250 -40 Exam: General appearance: PRESENT: no acute distress, cooperative, well-developed, well-nourished Head exam: PRESENT: atraumatic, normocephalic Eye exam: PRESENT: conjunctiva slightly pale, PERRLA. ABSENT: scleral icterus Neck exam: ABSENT: JVD Respiratory exam: PRESENT: Normal breath sounds. ABSENT: crackles, rales, rhonchi, unlabored, wheezes Cardiovascular exam: PRESENT: Regular rate rhythm -+S1, +S2. ABSENT: diastolic murmur, systolic murmur GI/Abdominal exam: PRESENT: normal bowel sounds, soft. ABSENT: guarding, mass, tenderness Extremities exam: ABSENT: No edema; right leg in bandage Neurological exam: PRESENT: alert, awake, oriented to person, place and time. Skin exam: PRESENT: dry, warm, Results Laboratory Results: 02/11/17 04:28 02/12/17 04:23 02/12/17 04:23 Sodium 145.9 H Potassium 4.5 Chloride 107 Carbon Dioxide 27 Anion Gap 12 BUN 81 H Creatinine 3.29 H Est GFR ( Amer) 22 L Est GFR (Non-Af Amer) 19 L Glucose 48 L Calcium 11.0 H 02/01/17 02/01/17 02/02/17 23:10 23:10 05:28 Creatine Kinase 396 H 325 H CK-MB (CK-2) 2.23 Troponin I < 0.012 02/02/17 02/02/17 02/02/17 05:28 11:14 11:14 Creatine Kinase 348 H CK-MB (CK-2) 1.40 1.58 Troponin I < 0.012 < 0.012 Impressions: Head CT 02/01/17 11:11 IMPRESSION: NORMAL BRAIN CT WITHOUT CONTRAST. EVIDENCE OF ACUTE STROKE: NO. Knee X-Ray 02/01/17 11:35 IMPRESSION: NO DEFINITE FRACTURE OR HARDWARE COMPLICATION. SMALL JOINT EFFUSION. Carotid Doppler Study 02/03/17 00:00 IMPRESSION: NO HEMODYNAMICALLY SIGNIFICANT STENOSIS. Ankle X-Ray 02/04/17 00:00 IMPRESSION: Intra procedural imaging and fluoro Fluoroscopy 02/04/17 00:00 IMPRESSION: Intra procedural imaging and fluoro Head MRI 02/04/17 00:00 IMPRESSION: NORMAL MRI OF THE BRAIN WITHOUT INTRAVENOUS GADOLINIUM CONTRAST. EVIDENCE OF ACUTE STROKE: NO. Chest X-Ray 02/05/17 00:00 IMPRESSION: NO SIGNIFICANT RADIOGRAPHIC FINDING IN THE CHEST. KUB X-Ray 02/10/17 00:00 IMPRESSION: Large amount of stool persists in the ascending and transverse colon. Assessment & Plan - Diagnosis (1) Acute kidney injury superimposed on chronic kidney disease Is this a current diagnosis for this admission?: Yes Plan: Patient's kidney function this is slowly getting better. Currently stable although not at baseline yet. Patient was given IV fluid hydration over the weekend. He received 1 unit of blood transfusion yesterday. He is making an adequate adequate amount of urine output. No indication for any renal replacement therapy. Continue to monitor kidney function. Continue to hold Lasix for now. If the patient gets transferred to rehab in the next 1 or 2 days I would want to see the patient 2 weeks after discharge in my office. He is to have a CBC and a BMP at least couple of days before an appointment to see me. Also needs to resume the Lasix at least once a day next week. (2) Chronic kidney disease, stage IV (severe) Is this a current diagnosis for this admission?: Yes Plan: Due to diabetic nephropathy with contribution of hypertension. Continue to monitor kidney function while he in the hospital. (3) Anemia in chronic kidney disease (CKD) Qualifiers: Chronic kidney disease stage: stage 3 (moderate) Qualified Code(s): N18.3 - Chronic kidney disease, stage 3 (moderate); D63.1 - Anemia in chronic kidney disease; D63.1 - Anemia in chronic kidney disease Is this a current diagnosis for this admission?: Yes Plan: Had 1 unit of blood transfusion , 02/10. (4) Closed right ankle fracture Qualifiers: Encounter type: initial encounter Qualified Code(s): S82.891A - Other fracture of right lower leg, initial encounter for closed fracture Is this a current diagnosis for this admission?: Yes Plan: Status post open reduction internal fixation by Dr. Anderson. (5) Syncope Qualifiers: Syncope type: unspecified Qualified Code(s): R55 - Syncope and collapse Is this a current diagnosis for this admission?: Yes Plan: Workup has been negative. (6) HTN (hypertension) Qualifiers: Hypertension type: essential hypertension Qualified Code(s): I10 - Essential (primary) hypertension Is this a current diagnosis for this admission?: Yes Plan: Currently controlled. (7) Diabetes mellitus type 2 in obese Is this a current diagnosis for this admission?: Yes Plan: Deferred to Dr. Mead for management. (8) Constipation Qualifiers: Constipation type: unspecified constipation type Qualified Code(s): K59.00 - Constipation, unspecified Is this a current diagnosis for this admission?: Yes Plan: Resolved. - Time Time with patient: 15-25 minutes
[2017-02-12] MEDS: TAMSULOSIN HCL 0.4 MG CAP.SR.24H PO SCH (18:42)
[2017-02-12] MEDS: LATANOPROST 0.005% OPH SOLN 2.5 ML OD SCH (18:42)
[2017-02-12] MEDS: ZOLPIDEM TARTRATE 5 MG TABLET PO SCH (21:18)
[2017-02-12] MEDS: ASPIRIN 325 MG TABLET PO SCH (21:18)
[2017-02-12] MEDS: FERROUS SULFATE 325 MG TABLET PO SCH (21:19)
[2017-02-12] MEDS: AMLODIPINE BESYLATE 10 MG TABLET PO SCH (21:19)
[2017-02-12] MEDS: ATORVASTATIN CALCIUM 20 MG TABLET PO SCH (21:20)
[2017-02-12] MEDS: LOSARTAN POTASSIUM 50 MG TABLET PO SCH (21:20)
[2017-02-12] MEDS: RIVAROXABAN 10 MG TABLET PO SCH (21:21)
[2017-02-13] MEDS: OXYCODONE HCL IR 5 MG TABLET PO PRN ×3 (02:50→14:32)
[2017-02-13 04:53] LABS: ANION GAP 11 (5-19); BLOOD UREA NITROGEN 71 mg/dL (7-20); CALCIUM 10.5 mg/dL (8.4-10.2); CARBON DIOXIDE 26 mmol/L (22-30); CHLORIDE 107 mmol/L (98-107); GLUCOSE 101 mg/dL (75-110); POTASSIUM 5.1 mmol/L (3.6-5.0); SODIUM 144.3 mmol/L (137-145)
[2017-02-13] MEDS: LANSOPRAZOLE 30 MG TAB.RAP.DR PO SCH (05:04)
--- NOTE | 2017-02-13 06:55 | PDOC PROGRESS REPORT ---
Subjective Progress Note for:: 02/13/17 Subjective:: "I am doing somewhat better" Physical Exam Vital Signs: Temp Pulse Resp BP Pulse Ox 37.2 C 79 19 147/64 H 98 02/13/17 00:00 02/13/17 00:00 02/13/17 00:00 02/13/17 00:00 02/13/17 00:00 Intake & Output 02/11/17 02/12/17 02/13/17 06:59 06:59 06:59 Intake Total 2120 1160 2280 Output Total 870 1200 1570 Balance 1250 -40 710 General appearance: PRESENT: no acute distress Head exam: PRESENT: normocephalic Respiratory exam: PRESENT: unlabored Cardiovascular exam: PRESENT: RRR Pulses: PRESENT: +1 pedal pulses bilateral Vascular exam: PRESENT: normal capillary refill GI/Abdominal exam: PRESENT: soft Rectal exam: PRESENT: deferred Extremities exam: PRESENT: other - Right lower extremity immobilized in a posterior plaster splint. Neurovascular examination to the toes is intact. Neurological exam: PRESENT: alert, awake, oriented to person, oriented to place , oriented to time, oriented to situation. ABSENT: motor sensory deficit Psychiatric exam: PRESENT: appropriate affect, normal mood. ABSENT: homicidal ideation, suicidal ideation Skin exam: PRESENT: dry, intact, warm. ABSENT: cyanosis, rash Results Laboratory Results: 02/11/17 04:28 02/13/17 04:02 02/13/17 04:02 Sodium 144.3 Potassium 5.1 H Chloride 107 Carbon Dioxide 26 Anion Gap 11 BUN 71 H Creatinine 2.90 H Est GFR ( Amer) 26 L Est GFR (Non-Af Amer) 21 L Glucose 101 Calcium 10.5 H 02/01/17 02/01/17 02/02/17 23:10 23:10 05:28 Creatine Kinase 396 H 325 H CK-MB (CK-2) 2.23 Troponin I < 0.012 02/02/17 02/02/17 02/02/17 05:28 11:14 11:14 Creatine Kinase 348 H CK-MB (CK-2) 1.40 1.58 Troponin I < 0.012 < 0.012 Impressions: Head CT 02/01/17 11:11 IMPRESSION: NORMAL BRAIN CT WITHOUT CONTRAST. EVIDENCE OF ACUTE STROKE: NO. Knee X-Ray 02/01/17 11:35 IMPRESSION: NO DEFINITE FRACTURE OR HARDWARE COMPLICATION. SMALL JOINT EFFUSION. Carotid Doppler Study 02/03/17 00:00 IMPRESSION: NO HEMODYNAMICALLY SIGNIFICANT STENOSIS. Ankle X-Ray 02/04/17 00:00 IMPRESSION: Intra procedural imaging and fluoro Fluoroscopy 02/04/17 00:00 IMPRESSION: Intra procedural imaging and fluoro Head MRI 02/04/17 00:00 IMPRESSION: NORMAL MRI OF THE BRAIN WITHOUT INTRAVENOUS GADOLINIUM CONTRAST. EVIDENCE OF ACUTE STROKE: NO. Chest X-Ray 02/05/17 00:00 IMPRESSION: NO SIGNIFICANT RADIOGRAPHIC FINDING IN THE CHEST. KUB X-Ray 02/10/17 00:00 IMPRESSION: Large amount of stool persists in the ascending and transverse colon. Assessment & Plan - Diagnosis (1) Ankle fracture, bimalleolar, closed Qualifiers: Encounter type: subsequent encounter Laterality: right Is this a current diagnosis for this admission?: Yes Plan: Patient status post ORIF of right bimalleolar ankle fracture. He will need to maintain a touchdown weightbearing restriction for 6 weeks postop. (2) Diabetes mellitus type 2 in obese Is this a current diagnosis for this admission?: Yes Plan: Blood glucose control continues to be less than ideal (3) Acute blood loss anemia Is this a current diagnosis for this admission?: Yes - Plan Summary Plan Summary: Tentative plan for transfer to alf facility when bed available. Follow-up can be with Dr. Anderson and [facility] for surgery in 1 week for splint and staple removal.
[2017-02-13] MEDS: FENOFIBRATE NANOCRYSTALLIZED 48 MG TABLET PO SCH (08:42)
[2017-02-13] MEDS: ISOSORBIDE MONONITRATE 30 MG TAB.ER.24H PO SCH (08:43)
[2017-02-13] MEDS: INSULIN DETEMIR 100 UNIT/ML 3 ML PEN SUBCUT SCH ×2 (10:30→21:27)
[2017-02-13] MEDS: GABAPENTIN 300 MG CAPSULE PO SCH ×2 (10:30→17:50)
[2017-02-13] MEDS: ALLOPURINOL 100 MG TABLET PO SCH (10:30)
[2017-02-13] MEDS: BUDESONIDE/FORMOTEROL 160-4.5 MCG 60 PUFF/6 GM MDI IH SCH ×2 (10:30→17:49)
[2017-02-13] MEDS: CLONIDINE HCL 0.2 MG TABLET PO SCH ×2 (10:31→21:28)
[2017-02-13] MEDS: TIMOLOL MALEATE 0.5% OPH SOLN 5 ML OU SCH (10:32)
[2017-02-13] MEDS: CARVEDILOL 12.5 MG TABLET PO SCH ×2 (10:33→17:50)
[2017-02-13] MEDS: DOCUSATE SODIUM 100 MG CAPSULE PO SCH ×2 (10:33→17:50)
[2017-02-13] MEDS: CHOLECALCIFEROL (D3) 1,000 UNIT TABLET PO SCH (10:33)
[2017-02-13] MEDS: FLUTICASONE NASAL SPRAY 50 MCG/SPRY 120 SPRAY/16 GM NASL SCH (10:33)
[2017-02-13] MEDS: SITAGLIPTIN PHOSPHATE 50 MG TABLET PO SCH (10:34)
[2017-02-13] MEDS: POLYETHYLENE GLYCOL 3350 POWDER 17 GM/1 PACKET PO SCH (10:34)
[2017-02-13] MEDS ORDERED: ONDANSETRON HCL INJ/PF 4 MG/2 ML SDV IV PRN (11:00)
--- NOTE | 2017-02-13 11:58 | PDOC TRANSFER SUMMARY ---
General - Admit/Disc Date/PCP Admission Date/Primary Care Provider: 02/01/17 20:00 YESSY DELA CRUZ MD Discharge Date: 02/13/17 - Discharge Diagnosis (1) Ankle fracture, bimalleolar, closed Is this a current diagnosis for this admission?: Yes Summary: Status post ORIF follow with the Dr. Anderson and continues to Xarelto 10 mg p.o. daily for DVT prophylaxis until the Dr. Anderson discontinued (2) Diabetes mellitus type 2 in obese Is this a current diagnosis for this admission?: Yes Summary: Continues to current medications sliding scale with [facility] protocol (3) Hyperlipidemia Is this a current diagnosis for this admission?: Yes Summary: Continues to current medications (4) Mixed anxiety and depressive disorder Is this a current diagnosis for this admission?: Yes Summary: Currently all stable (5) Obstructive sleep apnea of adult Is this a current diagnosis for this admission?: Yes Summary: Continues to use a CPAP machine's daily (6) Syncope Is this a current diagnosis for this admission?: Yes Summary: All cardiac and neuro workup is all stable (7) Chronic kidney disease Is this a current diagnosis for this admission?: Yes Summary: Patient is to follow with the Dr. Duarte (8) HTN (hypertension) Is this a current diagnosis for this admission?: Yes Summary: Check a blood pressures daily (9) Obesity Is this a current diagnosis for this admission?: Yes (10) Constipation Is this a current diagnosis for this admission?: Yes Summary: Continues to Colace and MiraLAX (11) Anemia in chronic kidney disease (CKD) Is this a current diagnosis for this admission?: Yes Summary: Currently stable - Additional Information Resuscitation Status: Full Code Discharge Diet: As Tolerated, Regular Discharge Activity: Balance Activity w/Rest, No Driving, No tub bath Home Medications: Allopurinol [Zyloprim 100 mg Tablet] 100 mg PO DAILY 02/01/17 Aspirin [Aspirin 325 mg Tablet] 325 mg PO QHS 02/01/17 Atorvastatin Calcium [Lipitor 20 mg Tablet] 20 mg PO QHS 02/01/17 Budesonide/Formoterol Fumarate [Symbicort 160-4.5 Mcg Inhaler] 2 puff IN BID 11/11 Calcitriol [Rocaltrol 0.25 mcg Capsule] 0.25 mcg PO MOFR 02/01/17 Carvedilol [Coreg 12.5 mg Tablet] 12.5 mg PO Q12 02/01/17 Cholecalciferol (Vitamin D3) [Vitamin D3] 1,000 mg PO DAILY 02/01/17 Clonidine HCl [Catapres 0.2 mg Tablet] 0.2 mg PO Q12 02/01/17 Colchicine [Colcrys 0.6 mg Tablet] 0.6 mg PO DAILY 02/01/17 Fenofibrate Nanocrystallized [Fenofibrate] 48 mg PO [id number] 02/01/17 Ferrous Sulfate [Ferrousul] 325 mg PO QHS 02/01/17 Fluticasone Propionate [Flonase Nasal Hiltons 50 Mcg/Hiltons 16 gm] 1 spray NASL DAILY 02/01/17 Fluticasone/Salmeterol [Fluticasone-Salmeterol 55-14] 1 puff IN BID 02/01/17 Insulin Detemir [Levemir Flextouch] 70 unit SQ BID 02/01/17 Isosorbide Mononitrate [Imdur 30 mg Tablet.er] 30 mg PO QAM 02/01/17 Latanoprost 2.5 ml OD DAILY 02/01/17 P-Ephed HCl/Acetaminophn/Cp [Tylenol Allergy Complete Geltb] 500 each PO DAILY PRN 02/01/17 Pantoprazole Sodium [Protonix] 40 mg PO QHS 02/01/17 Sodium Polystyrene Sulfon/Sorb [Sps 15 gm/60 ml Suspension] 15 gm PO Q7D Timolol Maleate [Timoptic 0.5% Oph Soln 5 ml] 1 drop OU BID 02/01/17 Zolpidem Tartrate [Ambien] 10 mg PO QHS 02/01/17 Docusate Sodium [Colace 100 mg Capsule] 100 mg PO BID #60 capsule 02/13/17 Furosemide [Lasix 40 mg Tablet] 40 mg PO DAILY #0 02/13/17 Oxycodone HCl [Oxy-Ir 5 mg Tablet] 10 mg PO Q6HP PRN #30 tablet 02/13/17 Polyethylene Glycol 3350 [Miralax Powder 17 gm/Packet] 17 gm PO DAILY #30 powd.pack 02/13/17 Rivaroxaban [Xarelto 10 mg Tablet] 10 mg PO QHS #30 tablet 02/13/17 History of Present Illness Admission Date/PCP: 02/01/17 20:00 YESSY DELA CRUZ MD History of Present Illness: ADELE DC JR is a 72 year old male known to me with history of chronic kidney disease stage IV secondary to diabetic nephropathy, diabetes mellitus type 2, hypertension, and anemia who presented to the emergency room on Friday after episodes of falls and syncopal episodes. Patient said that while sitting at the porch and Friday morning he got up to get something to eat because he experienced blurring on his good right eye when he fell down. He then tried to get up again but then fell down again the second time on concrete. His son-in-law called him and initially tried to help him but apparently he passed out. So EMS was called and patient was brought to the emergency room. Blood sugar during that episode at home was 147 according to the patient. Patient said that while he was in the ambulance he asked what his blood pressure was and he was told it was 70/60 but I do not see that than any of his admitting records. There was also a note of another episode of syncope while in route to the hospital via the ambulance. Initial workup showed that there was an x-ray findings suggestive of right ankle fracture. Dr. Anderson, orthopedic surgeon, did the open reduction internal fixation of his right ankle fracture this morning. Currently he is receiving pain medications for that. Because of the syncopal episodes patient also had workup for this. His head CT and head MRI were normal. His carotid Doppler did not show any stenosis. Echocardiogram showed normal ejection fraction and grade 2/4 mild to moderate diastolic dysfunction. Dr. Higgins, manager auto, stated and is noted there was no evidence for possible cause of the syncope based on the echocardiogram. Currently the patient's blood pressure has been stable and controlled. In terms of the patient's kidney function when he was admitted he had a BUN of 93 and creatinine of 2.99 with estimated GFR 15 and potassium of 5.4. Patient was given Kayexalate for his potassium and was given IV fluid hydration since admission. Currently the patient's BUN was 59, creatinine of 2.8 with estimated GFR of 22. Patient's creatinine usually range from 2.5-2.8 and baseline with estimated GFR anywhere from 20-26. Patient is currently nonoliguric and does not really have much complaints except for postsurgical pain. He denied any other symptoms. Hospital Course Hospital Course: This is a 72-year Old maleCame in the hospital for the syncopal episode in the right ankle fracture Patient's underwent for the CT of the head and MRI of the head was all negative and carotid Doppler was also negative to Patient seen by the cardiology and echocardiogram was done was all stable Patient also seen by nephrology and adjust the medications Patient seen by the orthopedic surgeon and underwent for the ORIF on the right ankle surgery Patient also have a constipation issue which is resolved Patient still little weak and still not weightbearing so unable to go homeAnd patient's discharge to the [facility] for the rehab purposes Patient is not happy to go to [facility] And wants to go to [facility] The discharge plan and suggest there is no bed at [facility] Otherwise patient's other medical problem is all stable Patient's also getting 1 unit of blood Patients need to use a CPAP machine's daily Patient's follow with the nephrology in 1 week and follow with the cardiology Patient's continues to Xarelto 10 mg daily until the orthopedic surgeon suggest to discontinue Patients need fall precautions Check a CBC and Chem-7 in 3 days and check every 2 weeks Discussed with the patient's regarding the patient's current conditions Physical Exam Vital Signs: Temp Pulse Resp BP Pulse Ox 98.9 F 79 19 147/64 H 98 02/13/17 00:00 02/13/17 00:00 02/13/17 00:00 02/13/17 00:00 02/13/17 00:00 Intake & Output 02/12/17 02/13/17 02/14/17 06:59 06:59 06:59 Intake Total 1160 2280 Output Total 1200 1570 Balance -40 710 General appearance: PRESENT: no acute distress, well-developed, well-nourished Head exam: PRESENT: atraumatic, normocephalic Eye exam: PRESENT: conjunctiva pink, EOMI, PERRLA. ABSENT: scleral icterus Ear exam: PRESENT: normal external ear exam Mouth exam: PRESENT: moist, tongue midline Neck exam: ABSENT: carotid bruit, JVD, lymphadenopathy, thyromegaly Respiratory exam: PRESENT: clear to auscultation [place]. ABSENT: rales, rhonchi, wheezes Cardiovascular exam: PRESENT: RRR. ABSENT: diastolic murmur, rubs, systolic murmur Pulses: PRESENT: normal dorsalis pedis pul Vascular exam: PRESENT: normal capillary refill GI/Abdominal exam: PRESENT: normal bowel sounds, soft. ABSENT: distended, guarding, mass, organolmegaly, rebound, tenderness Rectal exam: PRESENT: deferred Extremities exam: PRESENT: full ROM, other. ABSENT: calf tenderness, clubbing, pedal edema Neurological exam: PRESENT: alert, awake, oriented to person, oriented to place , oriented to time, oriented to situation, CN II-XII grossly intact. ABSENT: motor sensory deficit Psychiatric exam: PRESENT: appropriate affect, normal mood. ABSENT: homicidal ideation, suicidal ideation Skin exam: PRESENT: dry, intact, warm. ABSENT: cyanosis, rash Results Laboratory Results: 02/11/17 04:28 02/13/17 04:02 02/13/17 04:02 Sodium 144.3 Potassium 5.1 H Chloride 107 Carbon Dioxide 26 Anion Gap 11 BUN 71 H Creatinine 2.90 H Est GFR ( Amer) 26 L Est GFR (Non-Af Amer) 21 L Glucose 101 Calcium 10.5 H 02/01/17 02/01/17 02/02/17 23:10 23:10 05:28 Creatine Kinase 396 H 325 H CK-MB (CK-2) 2.23 Troponin I < 0.012 02/02/17 02/02/17 02/02/17 05:28 11:14 11:14 Creatine Kinase 348 H CK-MB (CK-2) 1.40 1.58 Troponin I < 0.012 < 0.012 Impressions: Head CT 02/01/17 11:11 IMPRESSION: NORMAL BRAIN CT WITHOUT CONTRAST. EVIDENCE OF ACUTE STROKE: NO. Knee X-Ray 02/01/17 11:35 IMPRESSION: NO DEFINITE FRACTURE OR HARDWARE COMPLICATION. SMALL JOINT EFFUSION. Carotid Doppler Study 02/03/17 00:00 IMPRESSION: NO HEMODYNAMICALLY SIGNIFICANT STENOSIS. Ankle X-Ray 02/04/17 00:00 IMPRESSION: Intra procedural imaging and fluoro Fluoroscopy 02/04/17 00:00 IMPRESSION: Intra procedural imaging and fluoro Head MRI 02/04/17 00:00 IMPRESSION: NORMAL MRI OF THE BRAIN WITHOUT INTRAVENOUS GADOLINIUM CONTRAST. EVIDENCE OF ACUTE STROKE: NO. Chest X-Ray 02/05/17 00:00 IMPRESSION: NO SIGNIFICANT RADIOGRAPHIC FINDING IN THE CHEST. KUB X-Ray 02/10/17 00:00 IMPRESSION: Large amount of stool persists in the ascending and transverse colon. Transfer Plan - Time Spent with Patient Time spent with patient: Greater than 30 Minutes Plan Time Spent: Greater than 30 Minutes - Patient's discharge to the rehab Fall precautions Check a blood pressures daily And check a blood sugar before meals and at bedtime Follow with the [facility] sliding scale also Check a CBC and Chem-7 in 3 days
[2017-02-13] MEDS: INSULIN LISPRO 100 UNIT/ML 3 ML VIAL SUBCUT PRN ×2 (13:11→17:49)
[2017-02-13] MEDS: LATANOPROST 0.005% OPH SOLN 2.5 ML OD SCH (17:50)
[2017-02-13] MEDS: TAMSULOSIN HCL 0.4 MG CAP.SR.24H PO SCH (17:50)
[2017-02-13] MEDS: ZOLPIDEM TARTRATE 5 MG TABLET PO PRN (21:27)
[2017-02-13] MEDS: LOSARTAN POTASSIUM 50 MG TABLET PO SCH (21:27)
[2017-02-13] MEDS: RIVAROXABAN 10 MG TABLET PO SCH (21:27)
[2017-02-13] MEDS: FERROUS SULFATE 325 MG TABLET PO SCH (21:28)
[2017-02-13] MEDS: ATORVASTATIN CALCIUM 20 MG TABLET PO SCH (21:28)
[2017-02-13] MEDS: ASPIRIN 325 MG TABLET PO SCH (21:28)
[2017-02-13] MEDS: AMLODIPINE BESYLATE 10 MG TABLET PO SCH (21:28)
[2017-02-14] MEDS: LANSOPRAZOLE 30 MG TAB.RAP.DR PO SCH (05:14)
[2017-02-14] MEDS: OXYCODONE HCL IR 5 MG TABLET PO PRN ×3 (05:14→22:17)
--- NOTE | 2017-02-14 06:50 | PDOC PROGRESS REPORT ---
Subjective Progress Note for:: 02/14/17 Physical Exam Vital Signs: Temp Pulse Resp BP Pulse Ox 37.6 C 73 19 118/54 L 97 02/14/17 00:00 02/14/17 00:00 02/14/17 00:00 02/14/17 00:00 02/14/17 00:00 Intake & Output 02/12/17 02/13/17 02/14/17 06:59 06:59 06:59 Intake Total 1160 2280 688 Output Total 1200 1570 700 Balance -40 710 -12 Results Laboratory Results: 02/11/17 04:28 02/13/17 04:02 02/01/17 02/01/17 02/02/17 23:10 23:10 05:28 Creatine Kinase 396 H 325 H CK-MB (CK-2) 2.23 Troponin I < 0.012 02/02/17 02/02/17 02/02/17 05:28 11:14 11:14 Creatine Kinase 348 H CK-MB (CK-2) 1.40 1.58 Troponin I < 0.012 < 0.012 Impressions: Head CT 02/01/17 11:11 IMPRESSION: NORMAL BRAIN CT WITHOUT CONTRAST. EVIDENCE OF ACUTE STROKE: NO. Knee X-Ray 02/01/17 11:35 IMPRESSION: NO DEFINITE FRACTURE OR HARDWARE COMPLICATION. SMALL JOINT EFFUSION. Carotid Doppler Study 02/03/17 00:00 IMPRESSION: NO HEMODYNAMICALLY SIGNIFICANT STENOSIS. Ankle X-Ray 02/04/17 00:00 IMPRESSION: Intra procedural imaging and fluoro Fluoroscopy 02/04/17 00:00 IMPRESSION: Intra procedural imaging and fluoro Head MRI 02/04/17 00:00 IMPRESSION: NORMAL MRI OF THE BRAIN WITHOUT INTRAVENOUS GADOLINIUM CONTRAST. EVIDENCE OF ACUTE STROKE: NO. Chest X-Ray 02/05/17 00:00 IMPRESSION: NO SIGNIFICANT RADIOGRAPHIC FINDING IN THE CHEST. KUB X-Ray 02/10/17 00:00 IMPRESSION: Large amount of stool persists in the ascending and transverse colon. Assessment & Plan - Diagnosis (1) Ankle fracture, bimalleolar, closed Qualifiers: Encounter type: subsequent encounter Laterality: right Is this a current diagnosis for this admission?: Yes Plan: Vision [facility] be [facility]. He is to maintain a touchdown weightbearing restriction on the right lower extremity. Follow-up with Dr. Justin in the [facility] for surgery in 1 week for splint removal (2) Diabetes mellitus type 2 in obese Is this a current diagnosis for this admission?: Yes (3) Acute blood loss anemia Is this a current diagnosis for this admission?: Yes
[2017-02-14] MEDS: FENOFIBRATE NANOCRYSTALLIZED 48 MG TABLET PO SCH (08:33)
[2017-02-14] MEDS: ISOSORBIDE MONONITRATE 30 MG TAB.ER.24H PO SCH (08:33)
[2017-02-14] MEDS: CALCITRIOL 0.25 MCG CAPSULE PO SCH (10:00)
[2017-02-14] MEDS: CARVEDILOL 12.5 MG TABLET PO SCH ×2 (11:30→17:24)
[2017-02-14] MEDS: INSULIN DETEMIR 100 UNIT/ML 3 ML PEN SUBCUT SCH ×2 (11:30→22:18)
[2017-02-14] MEDS: GABAPENTIN 300 MG CAPSULE PO SCH ×2 (11:31→17:25)
[2017-02-14] MEDS: SITAGLIPTIN PHOSPHATE 50 MG TABLET PO SCH (11:31)
[2017-02-14] MEDS: DOCUSATE SODIUM 100 MG CAPSULE PO SCH ×2 (11:31→17:25)
[2017-02-14] MEDS: FLUTICASONE NASAL SPRAY 50 MCG/SPRY 120 SPRAY/16 GM NASL SCH (11:32)
[2017-02-14] MEDS: CHOLECALCIFEROL (D3) 1,000 UNIT TABLET PO SCH (11:32)
[2017-02-14] MEDS: CLONIDINE HCL 0.2 MG TABLET PO SCH ×2 (11:32→22:18)
[2017-02-14] MEDS: ALLOPURINOL 100 MG TABLET PO SCH (11:32)
[2017-02-14] MEDS: POLYETHYLENE GLYCOL 3350 POWDER 17 GM/1 PACKET PO SCH (11:32)
[2017-02-14] MEDS: TIMOLOL MALEATE 0.5% OPH SOLN 5 ML OU SCH (11:33)
[2017-02-14] MEDS: BUDESONIDE/FORMOTEROL 160-4.5 MCG 60 PUFF/6 GM MDI IH SCH ×2 (11:33→17:25)
[2017-02-14] MEDS: INSULIN LISPRO 100 UNIT/ML 3 ML VIAL SUBCUT PRN (17:24)
[2017-02-14] MEDS: TAMSULOSIN HCL 0.4 MG CAP.SR.24H PO SCH (17:25)
[2017-02-14] MEDS: LATANOPROST 0.005% OPH SOLN 2.5 ML OD SCH (17:25)
[2017-02-14] MEDS: ASPIRIN 325 MG TABLET PO SCH (22:17)
[2017-02-14] MEDS: LOSARTAN POTASSIUM 50 MG TABLET PO SCH (22:17)
[2017-02-14] MEDS: ATORVASTATIN CALCIUM 20 MG TABLET PO SCH (22:17)
[2017-02-14] MEDS: FERROUS SULFATE 325 MG TABLET PO SCH (22:17)
[2017-02-14] MEDS: RIVAROXABAN 10 MG TABLET PO SCH (22:18)
[2017-02-14] MEDS: AMLODIPINE BESYLATE 10 MG TABLET PO SCH (22:18)
[2017-02-14] MEDS: ZOLPIDEM TARTRATE 5 MG TABLET PO PRN (22:23)
[2017-02-15] MEDS: LANSOPRAZOLE 30 MG TAB.RAP.DR PO SCH (05:59)
[2017-02-15] MEDS: OXYCODONE HCL IR 5 MG TABLET PO PRN ×3 (06:00→22:02)
[2017-02-15] MEDS: INSULIN LISPRO 100 UNIT/ML 3 ML VIAL SUBCUT PRN ×4 (08:28→22:03)
[2017-02-15] MEDS: ISOSORBIDE MONONITRATE 30 MG TAB.ER.24H PO SCH (08:29)
[2017-02-15] MEDS: FENOFIBRATE NANOCRYSTALLIZED 48 MG TABLET PO SCH (08:29)
[2017-02-15] MEDS: CARVEDILOL 12.5 MG TABLET PO SCH ×2 (09:42→17:38)
[2017-02-15] MEDS: INSULIN DETEMIR 100 UNIT/ML 3 ML PEN SUBCUT SCH ×2 (09:42→22:03)
[2017-02-15] MEDS: CHOLECALCIFEROL (D3) 1,000 UNIT TABLET PO SCH (09:43)
[2017-02-15] MEDS: ALLOPURINOL 100 MG TABLET PO SCH (09:43)
[2017-02-15] MEDS: CLONIDINE HCL 0.2 MG TABLET PO SCH ×2 (09:43→22:02)
[2017-02-15] MEDS: GABAPENTIN 300 MG CAPSULE PO SCH ×2 (09:43→17:38)
[2017-02-15] MEDS: DOCUSATE SODIUM 100 MG CAPSULE PO SCH ×2 (09:43→17:38)
[2017-02-15] MEDS: POLYETHYLENE GLYCOL 3350 POWDER 17 GM/1 PACKET PO SCH (09:44)
[2017-02-15] MEDS: BUDESONIDE/FORMOTEROL 160-4.5 MCG 60 PUFF/6 GM MDI IH SCH ×2 (09:44→17:37)
[2017-02-15] MEDS: TIMOLOL MALEATE 0.5% OPH SOLN 5 ML OU SCH (09:44)
[2017-02-15] MEDS: FLUTICASONE NASAL SPRAY 50 MCG/SPRY 120 SPRAY/16 GM NASL SCH (09:44)
[2017-02-15] MEDS: SITAGLIPTIN PHOSPHATE 50 MG TABLET PO SCH (09:45)
--- NOTE | 2017-02-15 11:24 | PDOC PROGRESS REPORT ---
Subjective Progress Note for:: 02/15/17 Subjective:: pt is currently doing well Is waiting for the bed to transfer to the long-term Denied any chest pain denied any shortness of the breath Physical Exam Vital Signs: Temp Pulse Resp BP Pulse Ox 98.1 F 72 12 134/56 H 97 02/15/17 07:41 02/15/17 07:41 02/15/17 07:41 02/15/17 07:41 02/15/17 07:41 Intake & Output 02/14/17 02/15/17 02/16/17 06:59 06:59 06:59 Intake Total 1568 400 Output Total 1300 400 Balance 268 0 Weight 94 kg General appearance: PRESENT: no acute distress, well-developed, well-nourished Head exam: PRESENT: atraumatic, normocephalic Eye exam: PRESENT: conjunctiva pink, EOMI, PERRLA. ABSENT: scleral icterus Ear exam: PRESENT: normal external ear exam Mouth exam: PRESENT: moist, tongue midline Neck exam: PRESENT: full ROM. ABSENT: carotid bruit, JVD, lymphadenopathy, thyromegaly Respiratory exam: PRESENT: clear to auscultation [place] Cardiovascular exam: PRESENT: RRR. ABSENT: diastolic murmur, rubs, systolic murmur Pulses: PRESENT: normal dorsalis pedis pul, +2 pedal pulses bilateral Vascular exam: PRESENT: normal capillary refill GI/Abdominal exam: PRESENT: normal bowel sounds, soft. ABSENT: distended, guarding, mass, organolmegaly, rebound, tenderness Rectal exam: PRESENT: deferred Extremities exam: ABSENT: pedal edema Additional comments: Right lower extremity dressing is intact Neurological exam: PRESENT: alert, awake, oriented to person, oriented to place , oriented to time, oriented to situation, CN II-XII grossly intact. ABSENT: motor sensory deficit Psychiatric exam: PRESENT: appropriate affect, normal mood. ABSENT: homicidal ideation, suicidal ideation Skin exam: PRESENT: dry, intact, warm. ABSENT: cyanosis, rash Results Laboratory Results: 02/11/17 04:28 02/13/17 04:02 02/01/17 02/01/17 02/02/17 23:10 23:10 05:28 Creatine Kinase 396 H 325 H CK-MB (CK-2) 2.23 Troponin I < 0.012 10/12/1202/02/17 02/02/17 05:28 11:14 11:14 Creatine Kinase 348 H CK-MB (CK-2) 1.40 1.58 Troponin I < 0.012 < 0.012 Impressions: Head CT 02/01/17 11:11 IMPRESSION: NORMAL BRAIN CT WITHOUT CONTRAST. EVIDENCE OF ACUTE STROKE: NO. Knee X-Ray 02/01/17 11:35 IMPRESSION: NO DEFINITE FRACTURE OR HARDWARE COMPLICATION. SMALL JOINT EFFUSION. Carotid Doppler Study 02/03/17 00:00 IMPRESSION: NO HEMODYNAMICALLY SIGNIFICANT STENOSIS. Ankle X-Ray 02/04/17 00:00 IMPRESSION: Intra procedural imaging and fluoro Fluoroscopy 02/04/17 00:00 IMPRESSION: Intra procedural imaging and fluoro Head MRI 02/04/17 00:00 IMPRESSION: NORMAL MRI OF THE BRAIN WITHOUT INTRAVENOUS GADOLINIUM CONTRAST. EVIDENCE OF ACUTE STROKE: NO. Chest X-Ray 02/05/17 00:00 IMPRESSION: NO SIGNIFICANT RADIOGRAPHIC FINDING IN THE CHEST. KUB X-Ray 02/10/17 00:00 IMPRESSION: Large amount of stool persists in the ascending and transverse colon. Assessment & Plan - Diagnosis (1) Ankle fracture, bimalleolar, closed Qualifiers: Encounter type: subsequent encounter Laterality: right Is this a current diagnosis for this admission?: Yes Plan: Status post surgery (2) Diabetes mellitus type 2 in obese Is this a current diagnosis for this admission?: Yes Plan: Continues to current medication (3) Hyperlipidemia Qualifiers: Hyperlipidemia type: unspecified Qualified Code(s): E78.5 - Hyperlipidemia , unspecified Is this a current diagnosis for this admission?: Yes Plan: Currently stable (4) Mixed anxiety and depressive disorder Is this a current diagnosis for this admission?: Yes Plan: Continues to current home medications (5) Obstructive sleep apnea of adult Is this a current diagnosis for this admission?: Yes Plan: Continues to CPAP (6) Syncope Qualifiers: Syncope type: unspecified Qualified Code(s): R55 - Syncope and collapse Is this a current diagnosis for this admission?: Yes Plan: Patient all workup is so far negative (7) Chronic kidney disease Qualifiers: Chronic kidney disease stage: stage 3 (moderate) Qualified Code(s): N18.3 - Chronic kidney disease, stage 3 (moderate) Is this a current diagnosis for this admission?: Yes Plan: Patient's creatinine is improving continues to follow with the nephrology (8) HTN (hypertension) Qualifiers: Hypertension type: essential hypertension Qualified Code(s): I10 - Essential (primary) hypertension Is this a current diagnosis for this admission?: Yes Plan: Continues current medications (9) Obesity Qualifiers: Obesity type: unspecified obesity type Is this a current diagnosis for this admission?: Yes (10) Constipation Qualifiers: Constipation type: unspecified constipation type Qualified Code(s): K59.00 - Constipation, unspecified Is this a current diagnosis for this admission?: Yes Plan: Currently all resolved (11) Anemia in chronic kidney disease (CKD) Qualifiers: Chronic kidney disease stage: stage 3 (moderate) Qualified Code(s): N18.3 - Chronic kidney disease, stage 3 (moderate); D63.1 - Anemia in chronic kidney disease; D63.1 - Anemia in chronic kidney disease Is this a current diagnosis for this admission?: Yes - Time Time Spent with patient: 15-24 minutes Medications reviewed and adjusted accordingly: Yes Anticipated discharge: Home with Homehealth, SNF Within: when bed available - Inpatient Certification Medical Necessity: Need Close Monitoring Due to Risk of Patient Decompensation Post Hospital Care: D/C Tube Pusher Documentation - Plan Summary Plan Summary: Continues to current medication
[2017-02-15] MEDS: LATANOPROST 0.005% OPH SOLN 2.5 ML OD SCH (17:37)
[2017-02-15] MEDS: TAMSULOSIN HCL 0.4 MG CAP.SR.24H PO SCH (17:38)
[2017-02-15] MEDS: ATORVASTATIN CALCIUM 20 MG TABLET PO SCH (22:02)
[2017-02-15] MEDS: ZOLPIDEM TARTRATE 5 MG TABLET PO PRN (22:02)
[2017-02-15] MEDS: AMLODIPINE BESYLATE 10 MG TABLET PO SCH (22:02)
[2017-02-15] MEDS: FERROUS SULFATE 325 MG TABLET PO SCH (22:02)
[2017-02-15] MEDS: RIVAROXABAN 10 MG TABLET PO SCH (22:02)
[2017-02-15] MEDS: LOSARTAN POTASSIUM 50 MG TABLET PO SCH (22:02)
[2017-02-15] MEDS: ASPIRIN 325 MG TABLET PO SCH (22:02)
[2017-02-16] MEDS: LANSOPRAZOLE 30 MG TAB.RAP.DR PO SCH (05:43)
[2017-02-16] MEDS: OXYCODONE HCL IR 5 MG TABLET PO PRN ×3 (05:43→21:57)
[2017-02-16 05:45] LABS: ABSOLUTE BASOPHILS # (AUTO) 0.1 10^3/uL (0.0-0.2); ABSOLUTE EOSINOPHILS # (AUTO) 0.3 10^3/uL (0.0-0.6); ABSOLUTE LYMPHOCYTES (AUTO) 2.8 10^3/uL (0.5-4.7); BASOPHILS % (AUTO) 0.9 % (0-2); EOSINOPHILS % (AUTO) 2.8 % (0-6); HEMATOCRIT 25.5 % (37.9-51.0); HEMOGLOBIN 8.8 g/dL (13.5-17.0); HGB HCT DIFFERENCE 0.9; LYMPHOCYTES % (AUTO) 24.8 % (13-45); MEAN CORPUSCULAR HGB CONC 34.6 g/dL (32.0-36.0); MEAN CORPUSCULAR VOLUME 87 fl (80-97); MONOCYTES % (AUTO) 8.9 % (3-13); RED BLOOD COUNT 2.94 10^6/uL (4.35-5.55); RED CELL DISTRIBUTION WIDTH 13.6 % (11.5-14.0); SEGMENTED NEUTROPHILS % (AUTO) 62.6 % (42-78); WHITE BLOOD COUNT 11.2 10^3/uL (4.0-10.5)
[2017-02-16 06:03] LABS: ANION GAP 13 (5-19); BLOOD UREA NITROGEN 78 mg/dL (7-20); CARBON DIOXIDE 25 mmol/L (22-30); CHLORIDE 103 mmol/L (98-107); CREATININE RESULT 3.02 mg/dL (0.52-1.25); GLUCOSE 174 mg/dL (75-110); POTASSIUM 5.4 mmol/L (3.6-5.0); SODIUM 141.2 mmol/L (137-145)
[2017-02-16] MEDS ORDERED: SODIUM POLYSTYRENE SULFONATE 15 GM/60 ML PO ONE (07:43)
[2017-02-16] MEDS: CLONIDINE HCL 0.2 MG TABLET PO SCH ×2 (10:40→21:58)
[2017-02-16] MEDS: CHOLECALCIFEROL (D3) 1,000 UNIT TABLET PO SCH (10:40)
[2017-02-16] MEDS: GABAPENTIN 300 MG CAPSULE PO SCH ×2 (10:41→17:16)
[2017-02-16] MEDS: SITAGLIPTIN PHOSPHATE 50 MG TABLET PO SCH (10:41)
[2017-02-16] MEDS: ALLOPURINOL 100 MG TABLET PO SCH (10:42)
[2017-02-16] MEDS: ISOSORBIDE MONONITRATE 30 MG TAB.ER.24H PO SCH (10:42)
[2017-02-16] MEDS: CARVEDILOL 12.5 MG TABLET PO SCH ×2 (10:44→17:15)
[2017-02-16] MEDS: FENOFIBRATE NANOCRYSTALLIZED 48 MG TABLET PO SCH (10:49)
[2017-02-16] MEDS: INSULIN DETEMIR 100 UNIT/ML 3 ML PEN SUBCUT SCH ×2 (10:49→21:58)
[2017-02-16] MEDS: BUDESONIDE/FORMOTEROL 160-4.5 MCG 60 PUFF/6 GM MDI IH SCH ×2 (10:51→17:43)
[2017-02-16] MEDS: FLUTICASONE NASAL SPRAY 50 MCG/SPRY 120 SPRAY/16 GM NASL SCH (10:51)
[2017-02-16] MEDS: TIMOLOL MALEATE 0.5% OPH SOLN 5 ML OU SCH (10:52)
[2017-02-16] MEDS: POLYETHYLENE GLYCOL 3350 POWDER 17 GM/1 PACKET PO SCH (10:53)
[2017-02-16] MEDS: DOCUSATE SODIUM 100 MG CAPSULE PO SCH ×2 (10:53→17:15)
[2017-02-16] MEDS: INSULIN LISPRO 100 UNIT/ML 3 ML VIAL SUBCUT PRN ×2 (13:50→17:14)
[2017-02-16] MEDS ORDERED: EPOETIN ALFA INJ 20,000 UNIT/1 ML VIAL (ONCOLOGY) SUBCUT ONE (14:00)
[2017-02-16] MEDS ORDERED: EPOETIN ALFA INJ 20000 UNIT/1 ML VIAL (RENAL) SUBCUT ONE (14:00)
--- NOTE | 2017-02-16 14:05 | PDOC PROGRESS REPORT ---
Subjective Progress Note for:: 02/16/17 Subjective:: Patient is currently doing same. Patient's potassium is 5.4 patient usually take the Kayexalate once a week. Patient's hemoglobin is 8.8. Patient have a big bowel movement today. Patient's denied any blood in the stools no black stools Patient never up-to-date endoscopy and colonoscopy 2 years back Physical Exam Vital Signs: Temp Pulse Resp BP Pulse Ox 98.7 F 81 16 139/56 H 98 02/16/17 11:36 02/16/17 11:36 02/16/17 11:36 02/16/17 11:36 02/16/17 11:36 Intake & Output 02/15/17 02/16/17 02/17/17 06:59 06:59 06:59 Intake Total 400 1220 Output Total 400 1875 Balance 0 -655 Weight 93.6 kg General appearance: PRESENT: no acute distress, well-developed, well-nourished Head exam: PRESENT: atraumatic, normocephalic Eye exam: PRESENT: conjunctiva pink, EOMI, PERRLA. ABSENT: scleral icterus Ear exam: PRESENT: normal external ear exam Mouth exam: PRESENT: moist, tongue midline Neck exam: PRESENT: full ROM. ABSENT: carotid bruit, JVD, lymphadenopathy, thyromegaly Respiratory exam: PRESENT: clear to auscultation [place] Cardiovascular exam: PRESENT: RRR. ABSENT: diastolic murmur, rubs, systolic murmur Pulses: PRESENT: normal dorsalis pedis pul, +2 pedal pulses bilateral Vascular exam: PRESENT: normal capillary refill GI/Abdominal exam: PRESENT: normal bowel sounds, soft. ABSENT: distended, guarding, mass, organolmegaly, rebound, tenderness Rectal exam: PRESENT: deferred Extremities exam: ABSENT: pedal edema Additional comments: On the right lower extremity dressing is intact Neurological exam: PRESENT: alert, awake, oriented to person, oriented to place , oriented to time, oriented to situation, CN II-XII grossly intact. ABSENT: motor sensory deficit Psychiatric exam: PRESENT: appropriate affect, normal mood. ABSENT: homicidal ideation, suicidal ideation Skin exam: PRESENT: dry, intact, warm. ABSENT: cyanosis, rash Results Laboratory Results: 02/16/17 05:15 02/16/17 05:15 02/16/17 02/16/17 05:15 05:15 WBC 11.2 H RBC 2.94 L Hgb 8.8 L Hct 25.5 L MCV 87 MCH 30.0 MCHC 34.6 RDW 13.6 Plt Count 559 H Seg Neutrophils % 62.6 Lymphocytes % 24.8 Monocytes % 8.9 Eosinophils % 2.8 Basophils % 0.9 Absolute Neutrophils 7.0 Absolute Lymphocytes 2.8 Absolute Monocytes 1.0 Absolute Eosinophils 0.3 Absolute Basophils 0.1 Sodium 141.2 Potassium 5.4 H Chloride 103 Carbon Dioxide 25 Anion Gap 13 BUN 78 H Creatinine 3.02 H Est GFR ( Amer) 25 L Est GFR (Non-Af Amer) 20 L Glucose 174 H Calcium 10.0 02/01/17 02/01/17 02/02/17 23:10 23:10 05:28 Creatine Kinase 396 H 325 H CK-MB (CK-2) 2.23 Troponin I < 0.012 02/02/17 02/02/17 02/02/17 05:28 11:14 11:14 Creatine Kinase 348 H CK-MB (CK-2) 1.40 1.58 Troponin I < 0.012 < 0.012 Impressions: Head CT 02/01/17 11:11 IMPRESSION: NORMAL BRAIN CT WITHOUT CONTRAST. EVIDENCE OF ACUTE STROKE: NO. Knee X-Ray 02/01/17 11:35 IMPRESSION: NO DEFINITE FRACTURE OR HARDWARE COMPLICATION. SMALL JOINT EFFUSION. Carotid Doppler Study 02/03/17 00:00 IMPRESSION: NO HEMODYNAMICALLY SIGNIFICANT STENOSIS. Ankle X-Ray 02/04/17 00:00 IMPRESSION: Intra procedural imaging and fluoro Fluoroscopy 02/04/17 00:00 IMPRESSION: Intra procedural imaging and fluoro Head MRI 02/04/17 00:00 IMPRESSION: NORMAL MRI OF THE BRAIN WITHOUT INTRAVENOUS GADOLINIUM CONTRAST. EVIDENCE OF ACUTE STROKE: NO. Chest X-Ray 02/05/17 00:00 IMPRESSION: NO SIGNIFICANT RADIOGRAPHIC FINDING IN THE CHEST. KUB X-Ray 02/10/17 00:00 IMPRESSION: Large amount of stool persists in the ascending and transverse colon. Assessment & Plan - Diagnosis (1) Ankle fracture, bimalleolar, closed Qualifiers: Encounter type: subsequent encounter Laterality: right Is this a current diagnosis for this admission?: Yes Plan: Status post surgery (2) Diabetes mellitus type 2 in obese Is this a current diagnosis for this admission?: Yes Plan: Continues to current medication (3) Hyperlipidemia Qualifiers: Hyperlipidemia type: unspecified Qualified Code(s): E78.5 - Hyperlipidemia , unspecified Is this a current diagnosis for this admission?: Yes Plan: Currently stable (4) Mixed anxiety and depressive disorder Is this a current diagnosis for this admission?: Yes Plan: Continues to current home medications (5) Obstructive sleep apnea of adult Is this a current diagnosis for this admission?: Yes Plan: Continues to CPAP (6) Syncope Qualifiers: Syncope type: unspecified Qualified Code(s): R55 - Syncope and collapse Is this a current diagnosis for this admission?: Yes (7) Chronic kidney disease Qualifiers: Chronic kidney disease stage: stage 3 (moderate) Qualified Code(s): N18.3 - Chronic kidney disease, stage 3 (moderate) Is this a current diagnosis for this admission?: Yes Plan: We will give her Kayexalate once a week (8) HTN (hypertension) Qualifiers: Hypertension type: essential hypertension Qualified Code(s): I10 - Essential (primary) hypertension Is this a current diagnosis for this admission?: Yes Plan: Continues current medications (9) Obesity Qualifiers: Obesity type: unspecified obesity type Is this a current diagnosis for this admission?: Yes (10) Constipation Qualifiers: Constipation type: unspecified constipation type Qualified Code(s): K59.00 - Constipation, unspecified Is this a current diagnosis for this admission?: Yes Plan: Currently all resolved (11) Anemia in chronic kidney disease (CKD) Qualifiers: Chronic kidney disease stage: stage 3 (moderate) Qualified Code(s): N18.3 - Chronic kidney disease, stage 3 (moderate); D63.1 - Anemia in chronic kidney disease; D63.1 - Anemia in chronic kidney disease Is this a current diagnosis for this admission?: Yes Plan: Procrit injections for persistent problems need a further endoscopy and colonoscopy evaluations but patients currently not active bleeding - Time Time Spent with patient: 15-24 minutes Medications reviewed and adjusted accordingly: Yes Anticipated discharge: SNF Within: Other - Inpatient Certification Medical Necessity: Need Close Monitoring Due to Risk of Patient Decompensation Post Hospital Care: D/C Clinic Lpn Documentation - Plan Summary Plan Summary: See other MD orders
[2017-02-16] MEDS: TAMSULOSIN HCL 0.4 MG CAP.SR.24H PO SCH (17:15)
[2017-02-16] MEDS: LATANOPROST 0.005% OPH SOLN 2.5 ML OD SCH (17:43)
[2017-02-16] MEDS: FERROUS SULFATE 325 MG TABLET PO SCH (21:57)
[2017-02-16] MEDS: ASPIRIN 325 MG TABLET PO SCH (21:57)
[2017-02-16] MEDS: AMLODIPINE BESYLATE 10 MG TABLET PO SCH (21:57)
[2017-02-16] MEDS: ATORVASTATIN CALCIUM 20 MG TABLET PO SCH (21:57)
[2017-02-16] MEDS: RIVAROXABAN 10 MG TABLET PO SCH (21:57)
[2017-02-16] MEDS: ZOLPIDEM TARTRATE 5 MG TABLET PO PRN (21:57)
[2017-02-17 04:40] LABS: ABSOLUTE BASOPHILS # (AUTO) 0.1 10^3/uL (0.0-0.2); ABSOLUTE EOSINOPHILS # (AUTO) 0.3 10^3/uL (0.0-0.6); ABSOLUTE LYMPHOCYTES (AUTO) 2.8 10^3/uL (0.5-4.7); ABSOLUTE NEUT (AUTO) 5.8 10^3/uL (1.7-8.2); BASOPHILS % (AUTO) 0.8 % (0-2); EOSINOPHILS % (AUTO) 3.3 % (0-6); HEMATOCRIT 26.2 % (37.9-51.0); HEMOGLOBIN 9.2 g/dL (13.5-17.0); HGB HCT DIFFERENCE 1.4; LYMPHOCYTES % (AUTO) 28.1 % (13-45); MEAN CORPUSCULAR HEMOGLOBIN 30.4 pg (27.0-33.4); MEAN CORPUSCULAR HGB CONC 35.1 g/dL (32.0-36.0); MEAN CORPUSCULAR VOLUME 87 fl (80-97); MONOCYTES % (AUTO) 9.7 % (3-13); RED BLOOD COUNT 3.03 10^6/uL (4.35-5.55); RED CELL DISTRIBUTION WIDTH 13.4 % (11.5-14.0); SEGMENTED NEUTROPHILS % (AUTO) 58.1 % (42-78); WHITE BLOOD COUNT 10.1 10^3/uL (4.0-10.5)
[2017-02-17 05:16] LABS: ANION GAP 13 (5-19); BLOOD UREA NITROGEN 68 mg/dL (7-20); CALCIUM 10.2 mg/dL (8.4-10.2); CARBON DIOXIDE 27 mmol/L (22-30); CHLORIDE 106 mmol/L (98-107); CREATININE RESULT 2.78 mg/dL (0.52-1.25); GLUCOSE 52 mg/dL (75-110); POTASSIUM 4.8 mmol/L (3.6-5.0); SODIUM 145.9 mmol/L (137-145)
[2017-02-17] MEDS: LANSOPRAZOLE 30 MG TAB.RAP.DR PO SCH (05:50)
[2017-02-17] MEDS: CHOLECALCIFEROL (D3) 1,000 UNIT TABLET PO SCH (09:30)
[2017-02-17] MEDS: CARVEDILOL 12.5 MG TABLET PO SCH ×2 (09:30→18:07)
[2017-02-17] MEDS: ALLOPURINOL 100 MG TABLET PO SCH (09:33)
[2017-02-17] MEDS: GABAPENTIN 300 MG CAPSULE PO SCH ×2 (09:33→18:08)
[2017-02-17] MEDS: SITAGLIPTIN PHOSPHATE 50 MG TABLET PO SCH (09:33)
[2017-02-17] MEDS: CLONIDINE HCL 0.2 MG TABLET PO SCH ×2 (09:34→22:10)
[2017-02-17] MEDS: ISOSORBIDE MONONITRATE 30 MG TAB.ER.24H PO SCH (09:34)
[2017-02-17] MEDS: DOCUSATE SODIUM 100 MG CAPSULE PO SCH ×2 (09:35→18:07)
--- NOTE | 2017-02-17 09:38 | PDOC PROGRESS REPORT ---
Subjective Progress Note for:: 02/17/17 Subjective:: Patient is currently doing much better. Patient's denied any chest pain denied any shortness of the breath Patient all blood work is currently stable Physical Exam Vital Signs: Temp Pulse Resp BP Pulse Ox 98.4 F 80 16 118/63 94 02/16/17 23:32 02/16/17 23:32 02/16/17 23:32 02/16/17 23:32 02/16/17 23:32 Intake & Output 02/16/17 02/17/17 02/18/17 06:59 06:59 06:59 Intake Total 1220 1530 Output Total 1875 2125 Balance -655 -595 Weight 93.6 kg 93 kg General appearance: PRESENT: no acute distress, well-developed, well-nourished Head exam: PRESENT: atraumatic, normocephalic Eye exam: PRESENT: conjunctiva pink, EOMI, PERRLA. ABSENT: scleral icterus Ear exam: PRESENT: normal external ear exam Mouth exam: PRESENT: moist, tongue midline Neck exam: PRESENT: full ROM. ABSENT: carotid bruit, JVD, lymphadenopathy, thyromegaly Respiratory exam: PRESENT: clear to auscultation [place] Cardiovascular exam: PRESENT: RRR. ABSENT: diastolic murmur, rubs, systolic murmur Pulses: PRESENT: normal dorsalis pedis pul, +2 pedal pulses bilateral Vascular exam: PRESENT: normal capillary refill GI/Abdominal exam: PRESENT: normal bowel sounds, soft. ABSENT: distended, guarding, mass, organolmegaly, rebound, tenderness Rectal exam: PRESENT: deferred Extremities exam: ABSENT: pedal edema Additional comments: Right lower extremity the dressing is intact Neurological exam: PRESENT: alert, awake, oriented to person, oriented to place , oriented to time, oriented to situation, CN II-XII grossly intact. ABSENT: motor sensory deficit Psychiatric exam: PRESENT: appropriate affect, normal mood. ABSENT: homicidal ideation, suicidal ideation Skin exam: PRESENT: dry, intact, warm. ABSENT: cyanosis, rash Results Laboratory Results: 02/17/17 04:10 02/17/17 04:10 02/17/17 02/17/17 04:10 04:10 WBC 10.1 RBC 3.03 L Hgb 9.2 L Hct 26.2 L MCV 87 MCH 30.4 MCHC 35.1 RDW 13.4 Plt Count 563 H Seg Neutrophils % 58.1 Lymphocytes % 28.1 Monocytes % 9.7 Eosinophils % 3.3 Basophils % 0.8 Absolute Neutrophils 5.8 Absolute Lymphocytes 2.8 Absolute Monocytes 1.0 Absolute Eosinophils 0.3 Absolute Basophils 0.1 Sodium 145.9 H Potassium 4.8 Chloride 106 Carbon Dioxide 27 Anion Gap 13 BUN 68 H Creatinine 2.78 H Est GFR ( Amer) 27 L Est GFR (Non-Af Amer) 23 L Glucose 52 L Calcium 10.2 02/01/17 02/01/17 02/02/17 23:10 23:10 05:28 Creatine Kinase 396 H 325 H CK-MB (CK-2) 2.23 Troponin I < 0.012 02/02/17 02/02/17 02/02/17 05:28 11:14 11:14 Creatine Kinase 348 H CK-MB (CK-2) 1.40 1.58 Troponin I < 0.012 < 0.012 Impressions: Head CT 02/01/17 11:11 IMPRESSION: NORMAL BRAIN CT WITHOUT CONTRAST. EVIDENCE OF ACUTE STROKE: NO. Knee X-Ray 02/01/17 11:35 IMPRESSION: NO DEFINITE FRACTURE OR HARDWARE COMPLICATION. SMALL JOINT EFFUSION. Carotid Doppler Study 02/03/17 00:00 IMPRESSION: NO HEMODYNAMICALLY SIGNIFICANT STENOSIS. Ankle X-Ray 02/04/17 00:00 IMPRESSION: Intra procedural imaging and fluoro Fluoroscopy 02/04/17 00:00 IMPRESSION: Intra procedural imaging and fluoro Head MRI 02/04/17 00:00 IMPRESSION: NORMAL MRI OF THE BRAIN WITHOUT INTRAVENOUS GADOLINIUM CONTRAST. EVIDENCE OF ACUTE STROKE: NO. Chest X-Ray 02/05/17 00:00 IMPRESSION: NO SIGNIFICANT RADIOGRAPHIC FINDING IN THE CHEST. KUB X-Ray 02/10/17 00:00 IMPRESSION: Large amount of stool persists in the ascending and transverse colon. Assessment & Plan - Diagnosis (1) Ankle fracture, bimalleolar, closed Qualifiers: Encounter type: subsequent encounter Laterality: right Is this a current diagnosis for this admission?: Yes Plan: Status post surgery (2) Diabetes mellitus type 2 in obese Is this a current diagnosis for this admission?: Yes Plan: Continues to current medication (3) Hyperlipidemia Qualifiers: Hyperlipidemia type: unspecified Qualified Code(s): E78.5 - Hyperlipidemia , unspecified Is this a current diagnosis for this admission?: Yes Plan: Currently stable (4) Mixed anxiety and depressive disorder Is this a current diagnosis for this admission?: Yes Plan: Continues to current home medications (5) Obstructive sleep apnea of adult Is this a current diagnosis for this admission?: Yes Plan: Continues to CPAP (6) Syncope Qualifiers: Syncope type: unspecified Qualified Code(s): R55 - Syncope and collapse Is this a current diagnosis for this admission?: Yes Plan: Patient all workup is so far negative (7) Chronic kidney disease Qualifiers: Chronic kidney disease stage: stage 3 (moderate) Qualified Code(s): N18.3 - Chronic kidney disease, stage 3 (moderate) Is this a current diagnosis for this admission?: Yes Plan: Currently creatinine is 2.79 (8) HTN (hypertension) Qualifiers: Hypertension type: essential hypertension Qualified Code(s): I10 - Essential (primary) hypertension Is this a current diagnosis for this admission?: Yes Plan: Continues current medications (9) Obesity Qualifiers: Obesity type: unspecified obesity type Is this a current diagnosis for this admission?: Yes (10) Constipation Qualifiers: Constipation type: unspecified constipation type Qualified Code(s): K59.00 - Constipation, unspecified Is this a current diagnosis for this admission?: Yes Plan: Currently all resolved (11) Anemia in chronic kidney disease (CKD) Qualifiers: Chronic kidney disease stage: stage 3 (moderate) Qualified Code(s): N18.3 - Chronic kidney disease, stage 3 (moderate); D63.1 - Anemia in chronic kidney disease; D63.1 - Anemia in chronic kidney disease Is this a current diagnosis for this admission?: Yes Plan: Use the Procrit injections every 2 weeksAnd follow with nephrology - Time Time Spent with patient: 15-24 minutes Medications reviewed and adjusted accordingly: Yes Anticipated discharge: SNF Within: when bed available - Inpatient Certification Medical Necessity: Need Close Monitoring Due to Risk of Patient Decompensation Post Hospital Care: D/C Promotional Advertising Assistant Documentation - Plan Summary Plan Summary: Patient is waiting to transfer to the rehab
[2017-02-17] MEDS: FENOFIBRATE NANOCRYSTALLIZED 48 MG TABLET PO SCH (09:39)
[2017-02-17] MEDS: BUDESONIDE/FORMOTEROL 160-4.5 MCG 60 PUFF/6 GM MDI IH SCH ×2 (09:39→18:09)
[2017-02-17] MEDS: FLUTICASONE NASAL SPRAY 50 MCG/SPRY 120 SPRAY/16 GM NASL SCH (09:41)
[2017-02-17] MEDS: INSULIN DETEMIR 100 UNIT/ML 3 ML PEN SUBCUT SCH ×2 (09:44→22:37)
[2017-02-17] MEDS: TIMOLOL MALEATE 0.5% OPH SOLN 5 ML OU SCH (09:47)
[2017-02-17] MEDS: POLYETHYLENE GLYCOL 3350 POWDER 17 GM/1 PACKET PO SCH (09:48)
[2017-02-17] MEDS: CALCITRIOL 0.25 MCG CAPSULE PO SCH (10:00)
[2017-02-17] MEDS: OXYCODONE HCL IR 5 MG TABLET PO PRN ×2 (10:11→18:08)
[2017-02-17] MEDS: INSULIN LISPRO 100 UNIT/ML 3 ML VIAL SUBCUT PRN ×2 (16:04→22:37)
[2017-02-17] MEDS: LATANOPROST 0.005% OPH SOLN 2.5 ML OD SCH (18:11)
[2017-02-17] MEDS: TAMSULOSIN HCL 0.4 MG CAP.SR.24H PO SCH (18:13)
[2017-02-17] MEDS: ASPIRIN 325 MG TABLET PO SCH (22:10)
[2017-02-17] MEDS: AMLODIPINE BESYLATE 10 MG TABLET PO SCH (22:10)
[2017-02-17] MEDS: FERROUS SULFATE 325 MG TABLET PO SCH (22:10)
[2017-02-17] MEDS: ATORVASTATIN CALCIUM 20 MG TABLET PO SCH (22:10)
[2017-02-17] MEDS ORDERED: INSULIN DETEMIR 100 UNIT/ML 3 ML PEN SUBCUT ONE (22:27)
[2017-02-17] MEDS: RIVAROXABAN 10 MG TABLET PO SCH (22:37)
[2017-02-17] MEDS: ZOLPIDEM TARTRATE 5 MG TABLET PO PRN (23:22)
[2017-02-18 04:55] LABS: ANION GAP 13 (5-19); BLOOD UREA NITROGEN 58 mg/dL (7-20); CALCIUM 9.9 mg/dL (8.4-10.2); CARBON DIOXIDE 26 mmol/L (22-30); CHLORIDE 106 mmol/L (98-107); CREATININE RESULT 2.63 mg/dL (0.52-1.25); GLUCOSE 215 mg/dL (75-110); POTASSIUM 4.5 mmol/L (3.6-5.0); SODIUM 145.2 mmol/L (137-145)
[2017-02-18] MEDS: LANSOPRAZOLE 30 MG TAB.RAP.DR PO SCH (06:04)
--- NOTE | 2017-02-18 06:47 | PDOC PROGRESS REPORT ---
Subjective Progress Note for:: 02/18/17 Subjective:: 72-year-old white male status post open reduction internal fixation of right ankle. Patient states he is comfortable this morning and is [facility]. No new complaints otherwise. Physical Exam Vital Signs: Temp Pulse Resp BP Pulse Ox 36.9 C 80 18 104/48 L 96 02/17/17 23:56 02/17/17 23:56 02/17/17 23:56 02/17/17 23:56 02/17/17 23:56 Intake & Output 02/16/17 02/17/17 02/18/17 06:59 06:59 06:59 Intake Total 1220 1530 1581 Output Total 1875 2125 2100 Balance -789 -226 -082 Weight 93.6 kg 93 kg General appearance: PRESENT: no acute distress, well-developed, well-nourished Head exam: PRESENT: atraumatic, normocephalic Pulses: PRESENT: normal dorsalis pedis pul, +2 pedal pulses bilateral Vascular exam: PRESENT: normal capillary refill Additional comments: Patient's right lower extremity is in full extension with postoperative ankle splint in place. There is minimal pedal edema he has brisk capillary refill in his sensory motor functions are intact. This cast is removed on rounds this morning. Patient's surgical sites are healing appropriately with wound margins well approximated. The sutures will be removed by nursing staff. He maintained appropriate range of motion and his distal neurovascular exam is intact. Additional comments: Patient continues to make slow progress with physical therapy. He will continue to work on toe touch weightbearing and ambulation at his rehab facility. He will be placed in a cam walker boot to facilitate healing and ambulation. Neurological exam: PRESENT: alert, awake, oriented to person, oriented to place , oriented to time, oriented to situation, CN II-XII grossly intact. ABSENT: motor sensory deficit Psychiatric exam: PRESENT: appropriate affect, normal mood. ABSENT: homicidal ideation, suicidal ideation Skin exam: PRESENT: dry, intact, warm. ABSENT: cyanosis, rash Additional comments: Patient's surgical site on right ankle is seen appropriately. There is no evidence of erythema, ecchymosis, induration or purulent drainage. I am not concerned for infection at this time. Results Laboratory Results: 02/17/17 04:10 02/18/17 04:15 02/18/17 04:15 Sodium 145.2 H Potassium 4.5 Chloride 106 Carbon Dioxide 26 Anion Gap 13 BUN 58 H Creatinine 2.63 H Est GFR ( Amer) 29 L Est GFR (Non-Af Amer) 24 L Glucose 215 H Calcium 9.9 02/01/17 02/01/17 02/02/17 23:10 23:10 05:28 Creatine Kinase 396 H 325 H CK-MB (CK-2) 2.23 Troponin I < 0.012 02/02/17 02/02/17 02/02/17 05:28 11:14 11:14 Creatine Kinase 348 H CK-MB (CK-2) 1.40 1.58 Troponin I < 0.012 < 0.012 Impressions: Head CT 02/01/17 11:11 IMPRESSION: NORMAL BRAIN CT WITHOUT CONTRAST. EVIDENCE OF ACUTE STROKE: NO. Knee X-Ray 02/01/17 11:35 IMPRESSION: NO DEFINITE FRACTURE OR HARDWARE COMPLICATION. SMALL JOINT EFFUSION. Carotid Doppler Study 02/03/17 00:00 IMPRESSION: NO HEMODYNAMICALLY SIGNIFICANT STENOSIS. Ankle X-Ray 02/04/17 00:00 IMPRESSION: Intra procedural imaging and fluoro Fluoroscopy 02/04/17 00:00 IMPRESSION: Intra procedural imaging and fluoro Head MRI 02/04/17 00:00 IMPRESSION: NORMAL MRI OF THE BRAIN WITHOUT INTRAVENOUS GADOLINIUM CONTRAST. EVIDENCE OF ACUTE STROKE: NO. Chest X-Ray 02/05/17 00:00 IMPRESSION: NO SIGNIFICANT RADIOGRAPHIC FINDING IN THE CHEST. KUB X-Ray 02/10/17 00:00 IMPRESSION: Large amount of stool persists in the ascending and transverse colon. Assessment & Plan - Diagnosis (1) Ankle fracture, bimalleolar, closed Qualifiers: Encounter type: subsequent encounter Laterality: right Is this a current diagnosis for this admission?: Yes - Plan Summary Plan Summary: 72-year-old white male status post open reduction internal fixation of right ankle. Patient remains comfortable in the inpatient setting. He makes no progress with physical therapy however his right ankle splint was removed on rounds this morning and his sutures will be removed by nursing staff. He was advised that he will be placed in a cam walker boot to facilitate healing as well as progress with physical therapy. He will be discharged to a rehab facility where he will continue to work with physical therapy to work towards increased strength range of motion and ambulation of the right lower extremity.
[2017-02-18] MEDS: POLYETHYLENE GLYCOL 3350 POWDER 17 GM/1 PACKET PO SCH (10:00)
[2017-02-18] MEDS: BUDESONIDE/FORMOTEROL 160-4.5 MCG 60 PUFF/6 GM MDI IH SCH ×2 (10:04→17:22)
[2017-02-18] MEDS: OXYCODONE HCL IR 5 MG TABLET PO PRN ×2 (10:04→17:21)
[2017-02-18] MEDS: FENOFIBRATE NANOCRYSTALLIZED 48 MG TABLET PO SCH (10:04)
[2017-02-18] MEDS: DOCUSATE SODIUM 100 MG CAPSULE PO SCH ×2 (10:05→17:20)
[2017-02-18] MEDS: SITAGLIPTIN PHOSPHATE 50 MG TABLET PO SCH (10:05)
[2017-02-18] MEDS: CARVEDILOL 12.5 MG TABLET PO SCH ×2 (10:05→17:19)
[2017-02-18] MEDS: FLUTICASONE NASAL SPRAY 50 MCG/SPRY 120 SPRAY/16 GM NASL SCH (10:06)
[2017-02-18] MEDS: CLONIDINE HCL 0.2 MG TABLET PO SCH ×2 (10:06→22:15)
[2017-02-18] MEDS: ISOSORBIDE MONONITRATE 30 MG TAB.ER.24H PO SCH (10:06)
[2017-02-18] MEDS: TIMOLOL MALEATE 0.5% OPH SOLN 5 ML OU SCH (10:06)
[2017-02-18] MEDS: ALLOPURINOL 100 MG TABLET PO SCH (10:06)
[2017-02-18] MEDS: GABAPENTIN 300 MG CAPSULE PO SCH ×2 (10:06→17:20)
[2017-02-18] MEDS: CHOLECALCIFEROL (D3) 1,000 UNIT TABLET PO SCH (10:06)
[2017-02-18] MEDS: INSULIN DETEMIR 100 UNIT/ML 3 ML PEN SUBCUT SCH ×2 (10:08→22:15)
--- NOTE | 2017-02-18 12:45 | PDOC PROGRESS REPORT ---
Subjective Progress Note for:: 02/18/17 Subjective:: Vision is currently doing well patient's right ankle the dressing was changed todayStill waiting to go to the rehab Physical Exam Vital Signs: Temp Pulse Resp BP Pulse Ox 98.5 F 80 12 148/63 H 99 02/18/17 08:22 02/18/17 08:22 02/18/17 08:22 02/18/17 08:22 02/18/17 08:22 Intake & Output 02/17/17 02/18/17 02/19/17 06:59 06:59 06:59 Intake Total 1530 1656 Output Total 2125 3200 Balance -595 -1544 Weight 93 kg General appearance: PRESENT: no acute distress, well-developed, well-nourished Head exam: PRESENT: atraumatic, normocephalic Eye exam: PRESENT: conjunctiva pink, EOMI, PERRLA. ABSENT: scleral icterus Ear exam: PRESENT: normal external ear exam Mouth exam: PRESENT: moist, tongue midline Neck exam: PRESENT: full ROM. ABSENT: carotid bruit, JVD, lymphadenopathy, thyromegaly Respiratory exam: PRESENT: clear to auscultation [place] Cardiovascular exam: PRESENT: RRR. ABSENT: diastolic murmur, rubs, systolic murmur Pulses: PRESENT: normal dorsalis pedis pul, +2 pedal pulses bilateral Vascular exam: PRESENT: normal capillary refill GI/Abdominal exam: PRESENT: normal bowel sounds, soft. ABSENT: distended, guarding, mass, organolmegaly, rebound, tenderness Rectal exam: PRESENT: deferred Extremities exam: ABSENT: pedal edema Additional comments: Right ankle the dressing was removed Neurological exam: PRESENT: alert, awake, oriented to person, oriented to place , oriented to time, oriented to situation, CN II-XII grossly intact. ABSENT: motor sensory deficit Psychiatric exam: PRESENT: appropriate affect, normal mood. ABSENT: homicidal ideation, suicidal ideation Skin exam: PRESENT: dry, intact, warm. ABSENT: cyanosis, rash Results Laboratory Results: 02/17/17 04:10 02/18/17 04:15 02/18/17 04:15 Sodium 145.2 H Potassium 4.5 Chloride 106 Carbon Dioxide 26 Anion Gap 13 BUN 58 H Creatinine 2.63 H Est GFR ( Amer) 29 L Est GFR (Non-Af Amer) 24 L Glucose 215 H Calcium 9.9 02/01/17 02/01/17 02/02/17 23:10 23:10 05:28 Creatine Kinase 396 H 325 H CK-MB (CK-2) 2.23 Troponin I < 0.012 02/02/17 02/02/17 02/02/17 05:28 11:14 11:14 Creatine Kinase 348 H CK-MB (CK-2) 1.40 1.58 Troponin I < 0.012 < 0.012 Impressions: Head CT 02/01/17 11:11 IMPRESSION: NORMAL BRAIN CT WITHOUT CONTRAST. EVIDENCE OF ACUTE STROKE: NO. Knee X-Ray 02/01/17 11:35 IMPRESSION: NO DEFINITE FRACTURE OR HARDWARE COMPLICATION. SMALL JOINT EFFUSION. Carotid Doppler Study 02/03/17 00:00 IMPRESSION: NO HEMODYNAMICALLY SIGNIFICANT STENOSIS. Ankle X-Ray 02/04/17 00:00 IMPRESSION: Intra procedural imaging and fluoro Fluoroscopy 02/04/17 00:00 IMPRESSION: Intra procedural imaging and fluoro Head MRI 02/04/17 00:00 IMPRESSION: NORMAL MRI OF THE BRAIN WITHOUT INTRAVENOUS GADOLINIUM CONTRAST. EVIDENCE OF ACUTE STROKE: NO. Chest X-Ray 02/05/17 00:00 IMPRESSION: NO SIGNIFICANT RADIOGRAPHIC FINDING IN THE CHEST. KUB X-Ray 02/10/17 00:00 IMPRESSION: Large amount of stool persists in the ascending and transverse colon. Assessment & Plan - Diagnosis (1) Ankle fracture, bimalleolar, closed Qualifiers: Encounter type: subsequent encounter Laterality: right Is this a current diagnosis for this admission?: Yes Plan: Status post surgery (2) Diabetes mellitus type 2 in obese Is this a current diagnosis for this admission?: Yes Plan: Continues to current medication (3) Hyperlipidemia Qualifiers: Hyperlipidemia type: unspecified Qualified Code(s): E78.5 - Hyperlipidemia , unspecified Is this a current diagnosis for this admission?: Yes Plan: Currently stable (4) Mixed anxiety and depressive disorder Is this a current diagnosis for this admission?: Yes Plan: Continues to current home medications (5) Obstructive sleep apnea of adult Is this a current diagnosis for this admission?: Yes Plan: Continues to CPAP (6) Syncope Qualifiers: Syncope type: unspecified Qualified Code(s): R55 - Syncope and collapse Is this a current diagnosis for this admission?: Yes Plan: Patient all workup is so far negative (7) Chronic kidney disease Qualifiers: Chronic kidney disease stage: stage 3 (moderate) Qualified Code(s): N18.3 - Chronic kidney disease, stage 3 (moderate) Is this a current diagnosis for this admission?: Yes Plan: Currently creatinine is 2.79 (8) HTN (hypertension) Qualifiers: Hypertension type: essential hypertension Qualified Code(s): I10 - Essential (primary) hypertension Is this a current diagnosis for this admission?: Yes Plan: Continues current medications (9) Obesity Qualifiers: Obesity type: unspecified obesity type Is this a current diagnosis for this admission?: Yes (10) Constipation Qualifiers: Constipation type: unspecified constipation type Qualified Code(s): K59.00 - Constipation, unspecified Is this a current diagnosis for this admission?: Yes Plan: Currently all resolved (11) Anemia in chronic kidney disease (CKD) Qualifiers: Chronic kidney disease stage: stage 3 (moderate) Qualified Code(s): N18.3 - Chronic kidney disease, stage 3 (moderate); D63.1 - Anemia in chronic kidney disease; D63.1 - Anemia in chronic kidney disease Is this a current diagnosis for this admission?: Yes Plan: Use the Procrit injections every 2 weeksAnd follow with nephrology - Time Time Spent with patient: 15-24 minutes Medications reviewed and adjusted accordingly: Yes Anticipated discharge: SNF Within: when bed available - Inpatient Certification Medical Necessity: Need Close Monitoring Due to Risk of Patient Decompensation Post Hospital Care: D/C Security Checker Documentation - Plan Summary Plan Summary: Discussed with the patient about the continues to current medications waiting for the bed
[2017-02-18] MEDS: TAMSULOSIN HCL 0.4 MG CAP.SR.24H PO SCH (17:20)
[2017-02-18] MEDS: LATANOPROST 0.005% OPH SOLN 2.5 ML OD SCH (17:22)
[2017-02-18] MEDS: AMLODIPINE BESYLATE 10 MG TABLET PO SCH (22:15)
[2017-02-18] MEDS: FERROUS SULFATE 325 MG TABLET PO SCH (22:15)
[2017-02-18] MEDS: ATORVASTATIN CALCIUM 20 MG TABLET PO SCH (22:15)
[2017-02-18] MEDS: ASPIRIN 325 MG TABLET PO SCH (22:15)
[2017-02-18] MEDS: INSULIN LISPRO 100 UNIT/ML 3 ML VIAL SUBCUT PRN (22:16)
[2017-02-18] MEDS: RIVAROXABAN 10 MG TABLET PO SCH (22:16)
[2017-02-19] MEDS: LANSOPRAZOLE 30 MG TAB.RAP.DR PO SCH (06:20)
[2017-02-19] MEDS: OXYCODONE HCL IR 5 MG TABLET PO PRN (06:20)
[2017-02-19] MEDS: POLYETHYLENE GLYCOL 3350 POWDER 17 GM/1 PACKET PO SCH (09:53)
[2017-02-19] MEDS: BUDESONIDE/FORMOTEROL 160-4.5 MCG 60 PUFF/6 GM MDI IH SCH ×2 (09:53→17:27)
[2017-02-19] MEDS: FLUTICASONE NASAL SPRAY 50 MCG/SPRY 120 SPRAY/16 GM NASL SCH (09:54)
[2017-02-19] MEDS: SITAGLIPTIN PHOSPHATE 50 MG TABLET PO SCH (09:54)
[2017-02-19] MEDS: TIMOLOL MALEATE 0.5% OPH SOLN 5 ML OU SCH (09:54)
[2017-02-19] MEDS: ISOSORBIDE MONONITRATE 30 MG TAB.ER.24H PO SCH (09:55)
[2017-02-19] MEDS: CARVEDILOL 12.5 MG TABLET PO SCH ×2 (09:55→17:27)
[2017-02-19] MEDS: CHOLECALCIFEROL (D3) 1,000 UNIT TABLET PO SCH (09:55)
[2017-02-19] MEDS: FENOFIBRATE NANOCRYSTALLIZED 48 MG TABLET PO SCH (09:56)
[2017-02-19] MEDS: GABAPENTIN 300 MG CAPSULE PO SCH ×2 (09:56→17:27)
[2017-02-19] MEDS: DOCUSATE SODIUM 100 MG CAPSULE PO SCH ×2 (09:56→17:27)
[2017-02-19] MEDS: ALLOPURINOL 100 MG TABLET PO SCH (09:56)
[2017-02-19] MEDS: CLONIDINE HCL 0.2 MG TABLET PO SCH (09:56)
[2017-02-19] MEDS: INSULIN DETEMIR 100 UNIT/ML 3 ML PEN SUBCUT SCH (09:57)
[2017-02-19] MEDS ORDERED: OXYCODONE HCL IR 5 MG TABLET PO PRN (10:40)
--- NOTE | 2017-02-19 11:13 | PDOC PROGRESS REPORT ---
Subjective Progress Note for:: 02/19/17 Subjective:: Patient is currently doing well just waiting for her to go to the rehabSince put in the boots but still unable to do much physical therapy in the hospital at this point Physical Exam Vital Signs: Temp Pulse Resp BP Pulse Ox 98.4 F 78 16 159/60 H 99 02/19/17 07:43 02/19/17 07:43 02/19/17 07:43 02/19/17 07:43 02/19/17 07:43 Intake & Output 02/18/17 02/19/17 02/20/17 06:59 06:59 06:59 Intake Total 1656 875 Output Total 3200 1625 Balance -1544 -750 General appearance: PRESENT: no acute distress, well-developed, well-nourished Head exam: PRESENT: atraumatic, normocephalic Eye exam: PRESENT: conjunctiva pink, EOMI, PERRLA. ABSENT: scleral icterus Ear exam: PRESENT: normal external ear exam Mouth exam: PRESENT: moist, tongue midline Neck exam: PRESENT: full ROM. ABSENT: carotid bruit, JVD, lymphadenopathy, thyromegaly Respiratory exam: PRESENT: clear to auscultation [place] Cardiovascular exam: PRESENT: RRR. ABSENT: diastolic murmur, rubs, systolic murmur Pulses: PRESENT: normal dorsalis pedis pul, +2 pedal pulses bilateral Vascular exam: PRESENT: normal capillary refill GI/Abdominal exam: PRESENT: normal bowel sounds, soft. ABSENT: distended, guarding, mass, organolmegaly, rebound, tenderness Rectal exam: PRESENT: deferred Neurological exam: PRESENT: alert, awake, oriented to person, oriented to place , oriented to time, oriented to situation, CN II-XII grossly intact. ABSENT: motor sensory deficit Psychiatric exam: PRESENT: appropriate affect, normal mood. ABSENT: homicidal ideation, suicidal ideation Skin exam: PRESENT: dry, intact, warm. ABSENT: cyanosis, rash Results Laboratory Results: 02/17/17 04:10 02/18/17 04:15 02/01/17 02/01/17 02/02/17 23:10 23:10 05:28 Creatine Kinase 396 H 325 H CK-MB (CK-2) 2.23 Troponin I < 0.012 02/02/17 02/02/17 02/02/17 05:28 11:14 11:14 Creatine Kinase 348 H CK-MB (CK-2) 1.40 1.58 Troponin I < 0.012 < 0.012 Impressions: Head CT 02/01/17 11:11 IMPRESSION: NORMAL BRAIN CT WITHOUT CONTRAST. EVIDENCE OF ACUTE STROKE: NO. Knee X-Ray 02/01/17 11:35 IMPRESSION: NO DEFINITE FRACTURE OR HARDWARE COMPLICATION. SMALL JOINT EFFUSION. Carotid Doppler Study 02/03/17 00:00 IMPRESSION: NO HEMODYNAMICALLY SIGNIFICANT STENOSIS. Ankle X-Ray 02/04/17 00:00 IMPRESSION: Intra procedural imaging and fluoro Fluoroscopy 02/04/17 00:00 IMPRESSION: Intra procedural imaging and fluoro Head MRI 02/04/17 00:00 IMPRESSION: NORMAL MRI OF THE BRAIN WITHOUT INTRAVENOUS GADOLINIUM CONTRAST. EVIDENCE OF ACUTE STROKE: NO. Chest X-Ray 02/05/17 00:00 IMPRESSION: NO SIGNIFICANT RADIOGRAPHIC FINDING IN THE CHEST. KUB X-Ray 02/10/17 00:00 IMPRESSION: Large amount of stool persists in the ascending and transverse colon. Assessment & Plan - Diagnosis (1) Ankle fracture, bimalleolar, closed Qualifiers: Encounter type: subsequent encounter Laterality: right Is this a current diagnosis for this admission?: Yes Plan: Follow with Ortho patients definitely need a physical therapy unfortunately patient still waiting to go to the rehab (2) Diabetes mellitus type 2 in obese Is this a current diagnosis for this admission?: Yes Plan: Continues to current medication (3) Hyperlipidemia Qualifiers: Hyperlipidemia type: unspecified Qualified Code(s): E78.5 - Hyperlipidemia , unspecified Is this a current diagnosis for this admission?: Yes Plan: Currently stable (4) Mixed anxiety and depressive disorder Is this a current diagnosis for this admission?: Yes Plan: Continues to current home medications (5) Obstructive sleep apnea of adult Is this a current diagnosis for this admission?: Yes Plan: Continues to CPAP (6) Syncope Qualifiers: Syncope type: unspecified Qualified Code(s): R55 - Syncope and collapse Is this a current diagnosis for this admission?: Yes Plan: Patient all workup is so far negative (7) Chronic kidney disease Qualifiers: Chronic kidney disease stage: stage 3 (moderate) Qualified Code(s): N18.3 - Chronic kidney disease, stage 3 (moderate) Is this a current diagnosis for this admission?: Yes Plan: Currently creatinine is 2.79 (8) HTN (hypertension) Qualifiers: Hypertension type: essential hypertension Qualified Code(s): I10 - Essential (primary) hypertension Is this a current diagnosis for this admission?: Yes Plan: Continues current medications (9) Obesity Qualifiers: Obesity type: unspecified obesity type Is this a current diagnosis for this admission?: Yes (10) Constipation Qualifiers: Constipation type: unspecified constipation type Qualified Code(s): K59.00 - Constipation, unspecified Is this a current diagnosis for this admission?: Yes Plan: Currently all resolved (11) Anemia in chronic kidney disease (CKD) Qualifiers: Chronic kidney disease stage: stage 3 (moderate) Qualified Code(s): N18.3 - Chronic kidney disease, stage 3 (moderate); D63.1 - Anemia in chronic kidney disease; D63.1 - Anemia in chronic kidney disease Is this a current diagnosis for this admission?: Yes Plan: Use the Procrit injections every 2 weeksAnd follow with nephrology - Time Time Spent with patient: 15-24 minutes Medications reviewed and adjusted accordingly: Yes Anticipated discharge: Home Within: when bed available - Inpatient Certification Medical Necessity: Need Close Monitoring Due to Risk of Patient Decompensation Post Hospital Care: D/C Wireless Sales Associate Documentation - Plan Summary Plan Summary: See orders
[2017-02-19] MEDS: TAMSULOSIN HCL 0.4 MG CAP.SR.24H PO SCH (17:27)
[2017-02-19] MEDS: LATANOPROST 0.005% OPH SOLN 2.5 ML OD SCH (17:30)
[2017-02-19 20:24] VITALS: BP 140/62
== END 2017-02-19 20:20 | DRG 493 ==
LOC: ER 10:56 → UNDOADMIN 15:12 → EH 15:12 → 4N 17:30 → EH 17:30 → 4N 20:00 → EH 20:00
PROVIDERS: ADMIT Internal Medicine Geriatric Medicine; ATTEND Internal Medicine Geriatric Medicine
PROC: 0QSJXZZ Reposition Right Fibula, External Approach (ICD-10-PCS; 2017-02-01)
PROC: 0QSJ04Z Reposition Right Fibula with Internal Fixation Device, Open Approach (ICD-10-PCS; principal; 2017-02-04 13:00)
PROC: 30233N1 Transfusion of Nonautologous Red Blood Cells into Peripheral Vein, Percutaneous Approach (ICD-10-PCS; 2017-02-10)
DX: S82.841A Displaced bimalleolar fracture of right lower leg, initial encounter for closed fracture (principal); I13.0 Hypertensive heart and chronic kidney disease with heart failure and stage 1 through stage 4 chronic kidney disease, or unspecified chronic kidney disease; N17.9 Acute kidney failure, unspecified; N18.4 Chronic kidney disease, stage 4 (severe); D62 Acute posthemorrhagic anemia; R55 Syncope and collapse; I50.9 Heart failure, unspecified; I25.10 Atherosclerotic heart disease of native coronary artery without angina pectoris; E78.5 Hyperlipidemia, unspecified; J45.998 Other asthma; G40.909 Epilepsy, unspecified, not intractable, without status epilepticus; E03.9 Hypothyroidism, unspecified; K21.9 Gastro-esophageal reflux disease without esophagitis; F32.9 Major depressive disorder, single episode, unspecified; E11.21 Type 2 diabetes mellitus with diabetic nephropathy; E11.22 Type 2 diabetes mellitus with diabetic chronic kidney disease; D63.1 Anemia in chronic kidney disease; G47.33 Obstructive sleep apnea (adult) (pediatric); F41.8 Other specified anxiety disorders; K59.00 Constipation, unspecified; E66.9 Obesity, unspecified; G47.09 Other insomnia; W18.39XA Other fall on same level, initial encounter; Y93.89 Activity, other specified; Y92.018 Other place in single-family (private) house as the place of occurrence of the external cause; Z79.4 Long term (current) use of insulin; Z79.84 Long term (current) use of oral hypoglycemic drugs; Z79.899 Other long term (current) drug therapy; Z97.0 Presence of artificial eye; Z68.32 Body mass index [BMI] 32.0-32.9, adult
CPT/HCPCS: 01480; 36415; 36430; 70450; 70551; 71010; 71020; 74000; 80048; 80053; 81001; 82550; 82553; 82962; 84443; 84484; 85025; 85027; 85610; 85730; 86850; 86900; 86901; 86920; 87040; 87086; 93005; 93010; 93306; 93880; 99291; C1713; G8978-GP; G8979-GP; J0690; J0692; J0885; J1170; J1644; J1815; J1940; J2250; J2270; J2405; J2704; J3010; J3490; J7030; J7120; L4386; P9016; Q4081

== ENCOUNTER → 2017-04-01 | Outpatient (CLI) | payer MEDICARE, OTHER ==
[2017-04-01 10:52] LABS: ABSOLUTE EOSINOPHILS # (AUTO) 0.3 10^3/uL (0.0-0.6); ABSOLUTE LYMPHOCYTES (AUTO) 2.2 10^3/uL (0.5-4.7); ABSOLUTE NEUT (AUTO) 5.2 10^3/uL (1.7-8.2); BASOPHILS % (AUTO) 0.5 % (0-2); EOSINOPHILS % (AUTO) 2.9 % (0-6); HEMOGLOBIN 11.1 g/dL (13.5-17.0); HGB HCT DIFFERENCE 0.3; MEAN CORPUSCULAR HEMOGLOBIN 29.4 pg (27.0-33.4); MEAN CORPUSCULAR HGB CONC 33.6 g/dL (32.0-36.0); MEAN CORPUSCULAR VOLUME 88 fl (80-97); RED BLOOD COUNT 3.76 10^6/uL (4.35-5.55); SEGMENTED NEUTROPHILS % (AUTO) 60.6 % (42-78); WHITE BLOOD COUNT 8.6 10^3/uL (4.0-10.5)
[2017-04-01 11:07] LABS: ALBUMIN 3.9 g/dL (3.5-5.0); ANION GAP 11 (5-19); BLOOD UREA NITROGEN 36 mg/dL (7-20); CALCIUM 10.1 mg/dL (8.4-10.2); CARBON DIOXIDE 35 mmol/L (22-30); CHLORIDE 105 mmol/L (98-107); CREATININE RESULT 2.32 mg/dL (0.52-1.25); GLUCOSE 60 mg/dL (75-110); PHOSPHORUS 4.1 mg/dL (2.5-4.5); POTASSIUM 3.9 mmol/L (3.6-5.0); SODIUM 150.8 mmol/L (137-145)
[2017-04-01 11:15] LABS: APPEARANCE,URINE CLEAR; BILIRUBIN,URINE NEGATIVE (NEGATIVE); GLUCOSE, URINE NEGATIVE (NEGATIVE); KETONES,URINE NEGATIVE (NEGATIVE); LEUKOCYTE ESTERASE,URINE NEGATIVE (NEGATIVE); NITRITE,URINE NEGATIVE (NEGATIVE); PROTEIN,URINE NEGATIVE (NEGATIVE); URINE SPECIFIC GRAVITY 1.006; UROBILINOGEN,URINE NEGATIVE mg/dL (<2.0)
[2017-04-01 11:21] LABS: WBC,URINE 0-1 /HPF
[2017-04-01 11:23] LABS: BACTERIA,URINE TRACE /HPF
[2017-04-02 09:40] LABS: CREATININE URINE 41.5 mg/dL (Not Estab.); MICROALBUMIN URINE 14.3 ug/mL (Not Estab.)
== END ==
LOC: OD 09:55
PROVIDERS: ATTEND Internal Medicine Nephrology
DX: N18.4 Chronic kidney disease, stage 4 (severe) (principal); E83.30 Disorder of phosphorus metabolism, unspecified; N25.81 Secondary hyperparathyroidism of renal origin; D63.1 Anemia in chronic kidney disease
CPT/HCPCS: 36415; 80048; 81001; 82040; 82043; 82306; 82570; 83970; 84100; 85025

== ENCOUNTER 2017-06-26 06:40 | Day surgery (SDC) | payer MEDICARE, OTHER ==
[2017-06-26] MEDS ORDERED: ONDANSETRON HCL INJ/PF 4 MG/2 ML SDV ONE (07:12)
[2017-06-26] MEDS ORDERED: NALOXONE HCL INJ/PF 0.4 MG/1 ML SDV ONE (07:12)
[2017-06-26] MEDS ORDERED: MIDAZOLAM 2 MG/2 ML INJ ONE (07:12)
[2017-06-26] MEDS ORDERED: FLUMAZENIL INJ 0.5 MG/5 ML VIAL ONE (07:13)
[2017-06-26] MEDS ORDERED: GLUCAGON,HUMAN RECOMB 1 MG INJ ONE (07:13)
[2017-06-26] MEDS ORDERED: EPINEPHRINE INJ 1 MG/10 ML DISP.SYRIN ONE (07:13)
[2017-06-26] MEDS: FENTANYL CITRATE INJ/PF 100 MCG/2 ML AMPUL ONE ×2 (07:39→07:43)
--- NOTE | 2017-06-26 08:11 | Operative Report ---
Operative Report DATE OF SURGERY: 06/26/17 PREOPERATIVE DIAGNOSIS: Personal history of colon polyps POSTOPERATIVE DIAGNOSIS: Same plus polyps of the rectosigmoid junction. External hemorrhoids. Rare diverticula OPERATION: Total colonoscopy to cecum with photodocumentation and rectosigmoid colon polypectomy 2 SURGEON: PARI FULLER ANESTHESIA: Moderate Sedation TISSUE REMOVED OR ALTERED: Polyps COMPLICATIONS: None ESTIMATED BLOOD LOSS: Scant INTRAOPERATIVE FINDINGS: See below PROCEDURE: Obtaining informed consent the patient was taken from the preoperative holding area to the main endoscopy suite where monitoring devices were attached to the patient. Plan and surgical timeout were conducted The patient was placed in the left lateral decubitus position with knees to chest. A perianal examination was performed. There was no visible or palpable anorectal pathology. Sphincter tone was felt to be normal. The flexible adult colonoscope was advanced through the anal rectal canal, all the way to the cecum. Utilization of the cecum was achieved and the ileocecal valve, the appendiceal orifice and transillumination of the anterior abdominal wall. This was an excellent study on the well-prepped bowel. There was a minimal amount of particulate yellow residual stool easily irrigated out. The colonoscope was withdrawn slowly and methodically checked and the mucosa carefully. There was no evidence of tumor, stricture, bleeding There were multiple small hyperplastic polyps of the rectosigmoid colon. 2 sample polyps were removed with cold forceps device and sent to pathology. There were rare sigmoid diverticuli. The scope was slowly withdrawn through the anal rectal canal. Complete visualization of the rectum was achieved with photodocumentation. The scope was withdrawn to the patient's anus. The patient tolerated the procedure well and was taken to the recovery area in stable condition. Surveillance guidelines, patient be appropriate candidate for follow-up colonoscopy in 3 years
--- NOTE | 2017-06-26 08:13 | PDOC DISCHARGE SUMMARY ---
Discharge Summary (SDC) - Discharge Final Diagnosis: Rectosigmoid colon polyps; external hemorrhoids Date of Surgery: 06/26/17 Discharge Date: 06/26/17 Condition: Good Treatment or Instructions: [place] [id number] POST ENDOSCOPY DISCHARGE INSTRUCTIONS 1. Diet: Start clear liquids that a regular diet as tolerated. 2. Resume all preoperative medications. All oral anticoagulants and aspirins can be resumed 24 hours after procedure. 3. If a polypectomy was performed some bleeding per rectum may occur. This should stop within 3 days. If not, please contact the office. 4. If you had a colonoscopy you may experience some bloating and delayed return of normal bowel function for several days, your regular bowel movement pattern should resume within a week. 5. Please contact [facility] at to make an appointment with Dr. Hoff for 1 to 3 weeks following procedure. 6. If you have any questions or concerns regarding your care,treatment plan or follow up, please contact our office. 7. Per clinical guidelines we recommend you undergo a repeat colonoscopy in 3 years. Referrals: YESSY DELA CRUZ MD [Primary Care Provider] - Discharge Diet: As Tolerated Discharge Activity: Activity As Tolerated Home Care Assistance: None Needed Report the Following to Your Physician Immediately: Shortness of Breath, Increase in Pain, Fever over 101 Degrees
[2017-06-26 09:11] VITALS: BP 106/56
== END 2017-06-26 09:00 | disposition home or self-care (01) ==
LOC: END 06:40
PROVIDERS: ATTEND Surgery
PROC: 0DBN8ZX Excision of Sigmoid Colon, Via Natural or Artificial Opening Endoscopic, Diagnostic (ICD-10-PCS; principal; 2017-06-26 07:30)
DX: D12.7 Benign neoplasm of rectosigmoid junction (principal); K64.4 Residual hemorrhoidal skin tags; K57.30 Diverticulosis of large intestine without perforation or abscess without bleeding; E07.9 Disorder of thyroid, unspecified; I25.10 Atherosclerotic heart disease of native coronary artery without angina pectoris; E11.9 Type 2 diabetes mellitus without complications; I10 Essential (primary) hypertension; J44.9 Chronic obstructive pulmonary disease, unspecified; E66.9 Obesity, unspecified; G40.909 Epilepsy, unspecified, not intractable, without status epilepticus; Z79.82 Long term (current) use of aspirin; Z79.84 Long term (current) use of oral hypoglycemic drugs; Z79.2 Long term (current) use of antibiotics; Z88.5 Allergy status to narcotic agent; Z68.34 Body mass index [BMI] 34.0-34.9, adult
CPT/HCPCS: 45380; 82962; 88305 ×2; J2250; J3010; J0171; J1610; J2310; J2405; J3490

== ENCOUNTER → 2017-06-27 | Outpatient (CLI) | payer MEDICARE, OTHER ==
[2017-06-27 09:13] LABS: ABSOLUTE BASOPHILS # (AUTO) 0.1 10^3/uL (0.0-0.2); ABSOLUTE EOSINOPHILS # (AUTO) 0.3 10^3/uL (0.0-0.6); ABSOLUTE LYMPHOCYTES (AUTO) 2.2 10^3/uL (0.5-4.7); ABSOLUTE MONOCYTES (AUTO) 0.7 10^3/uL (0.1-1.4); ABSOLUTE NEUT (AUTO) 5.9 10^3/uL (1.7-8.2); BASOPHILS % (AUTO) 0.7 % (0-2); EOSINOPHILS % (AUTO) 3.4 % (0-6); HEMATOCRIT 31.7 % (37.9-51.0); LYMPHOCYTES % (AUTO) 23.6 % (13-45); MEAN CORPUSCULAR HEMOGLOBIN 29.9 pg (27.0-33.4); MEAN CORPUSCULAR HGB CONC 34.7 g/dL (32.0-36.0); MEAN CORPUSCULAR VOLUME 86 fl (80-97); MONOCYTES % (AUTO) 7.8 % (3-13); PLATELET COUNT 292 10^3/uL (150-450); RED BLOOD COUNT 3.68 10^6/uL (4.35-5.55); RED CELL DISTRIBUTION WIDTH 13.7 % (11.5-14.0); SEGMENTED NEUTROPHILS % (AUTO) 64.5 % (42-78); TOTAL CELLS COUNTED % (AUTO) 100 %; WHITE BLOOD COUNT 9.1 10^3/uL (4.0-10.5)
[2017-06-27 09:37] LABS: ANION GAP 15 (5-19); BLOOD UREA NITROGEN 68 mg/dL (7-20); CALCIUM 9.9 mg/dL (8.4-10.2); CARBON DIOXIDE 24 mmol/L (22-30); CHLORIDE 106 mmol/L (98-107); GLUCOSE 191 mg/dL (75-110); SODIUM 144.7 mmol/L (137-145)
[2017-06-28 12:40] LABS: CREATININE URINE 92.3 mg/dL (Not Estab.); MICROALBUMIN URINE 56.7 ug/mL (Not Estab.)
== END ==
LOC: OD 08:02
PROVIDERS: ATTEND Internal Medicine Nephrology
DX: E11.21 Type 2 diabetes mellitus with diabetic nephropathy (principal); N18.4 Chronic kidney disease, stage 4 (severe)
CPT/HCPCS: 36415; 80048; 82043; 82570; 85025

== ENCOUNTER → 2017-09-26 | Outpatient (CLI) | payer MEDICARE, OTHER ==
[2017-09-26 07:37] LABS: ABSOLUTE BASOPHILS # (AUTO) 0.1 10^3/uL (0.0-0.2); ABSOLUTE EOSINOPHILS # (AUTO) 0.4 10^3/uL (0.0-0.6); ABSOLUTE LYMPHOCYTES (AUTO) 2.6 10^3/uL (0.5-4.7); ABSOLUTE MONOCYTES (AUTO) 0.6 10^3/uL (0.1-1.4); ABSOLUTE NEUT (AUTO) 4.8 10^3/uL (1.7-8.2); BASOPHILS % (AUTO) 0.9 % (0-2); EOSINOPHILS % (AUTO) 4.3 % (0-6); HEMATOCRIT 32.3 % (37.9-51.0); HEMOGLOBIN 11.2 g/dL (13.5-17.0); LYMPHOCYTES % (AUTO) 30.8 % (13-45); MEAN CORPUSCULAR HEMOGLOBIN 30.2 pg (27.0-33.4); MEAN CORPUSCULAR HGB CONC 34.8 g/dL (32.0-36.0); MEAN CORPUSCULAR VOLUME 87 fl (80-97); MONOCYTES % (AUTO) 7.7 % (3-13); PLATELET COUNT 284 10^3/uL (150-450); RED BLOOD COUNT 3.73 10^6/uL (4.35-5.55); RED CELL DISTRIBUTION WIDTH 14.3 % (11.5-14.0); SEGMENTED NEUTROPHILS % (AUTO) 56.3 % (42-78); TOTAL CELLS COUNTED % (AUTO) 100 %; WHITE BLOOD COUNT 8.5 10^3/uL (4.0-10.5)
[2017-09-26 07:49] LABS: APPEARANCE,URINE CLEAR; BILIRUBIN,URINE NEGATIVE (NEGATIVE); COLOR,URINE YELLOW; GLUCOSE, URINE 50 mg/dL (NEGATIVE); KETONES,URINE NEGATIVE (NEGATIVE); LEUKOCYTE ESTERASE,URINE SMALL (NEGATIVE); NITRITE,URINE NEGATIVE (NEGATIVE); PROTEIN,URINE 30 mg/dL (NEGATIVE); URINE SPECIFIC GRAVITY 1.012; UROBILINOGEN,URINE NEGATIVE mg/dL (<2.0)
[2017-09-26 07:52] LABS: ALBUMIN 4.1 g/dL (3.5-5.0); ANION GAP 14 (5-19); BLOOD UREA NITROGEN 44 mg/dL (7-20); CARBON DIOXIDE 30 mmol/L (22-30); CHLORIDE 106 mmol/L (98-107); GLUCOSE 146 mg/dL (75-110); PHOSPHORUS 4.3 mg/dL (2.5-4.5); SODIUM 149.7 mmol/L (137-145)
[2017-09-27 11:38] LABS: CREATININE URINE 70.6 mg/dL (Not Estab.); MICROALBUMIN URINE 106.7 ug/mL (Not Estab.)
== END ==
LOC: OD 07:04
PROVIDERS: ATTEND Internal Medicine Nephrology
DX: E11.21 Type 2 diabetes mellitus with diabetic nephropathy (principal); N18.4 Chronic kidney disease, stage 4 (severe); D63.1 Anemia in chronic kidney disease; E55.9 Vitamin D deficiency, unspecified
CPT/HCPCS: 36415; 80048; 81001; 82040; 82043; 82306; 82570; 83970; 84100; 85025

== ENCOUNTER → 2017-12-25 | Outpatient (CLI) | payer MEDICARE, OTHER ==
[2017-12-25 15:35] LABS: ABSOLUTE BASOPHILS # (AUTO) 0.1 10^3/uL (0.0-0.2); ABSOLUTE EOSINOPHILS # (AUTO) 0.3 10^3/uL (0.0-0.6); ABSOLUTE LYMPHOCYTES (AUTO) 2.8 10^3/uL (0.5-4.7); ABSOLUTE MONOCYTES (AUTO) 0.8 10^3/uL (0.1-1.4); ABSOLUTE NEUT (AUTO) 4.9 10^3/uL (1.7-8.2); BASOPHILS % (AUTO) 0.7 % (0-2); EOSINOPHILS % (AUTO) 3.7 % (0-6); HEMATOCRIT 31.8 % (37.9-51.0); LYMPHOCYTES % (AUTO) 31.6 % (13-45); MEAN CORPUSCULAR HEMOGLOBIN 30.6 pg (27.0-33.4); MEAN CORPUSCULAR HGB CONC 34.6 g/dL (32.0-36.0); MEAN CORPUSCULAR VOLUME 88 fl (80-97); MONOCYTES % (AUTO) 8.9 % (3-13); PLATELET COUNT 262 10^3/uL (150-450); RED CELL DISTRIBUTION WIDTH 13.5 % (11.5-14.0); SEGMENTED NEUTROPHILS % (AUTO) 55.1 % (42-78); TOTAL CELLS COUNTED % (AUTO) 100 %; WHITE BLOOD COUNT 8.9 10^3/uL (4.0-10.5)
[2017-12-25 15:44] LABS: INTERNATIONAL RATION (INR) 0.89; PROTHROMBIN TIME 12.5 SEC (11.4-15.4)
[2017-12-25 15:45] LABS: PARTIAL THROMBOPLASTIN TIME 26.4 SEC (23.5-35.8)
[2017-12-25 15:54] LABS: ANION GAP 11 (5-19); BLOOD UREA NITROGEN 60 mg/dL (7-20); CARBON DIOXIDE 29 mmol/L (22-30); CHLORIDE 108 mmol/L (98-107); GLUCOSE 97 mg/dL (75-110); POTASSIUM 3.8 mmol/L (3.6-5.0); SODIUM 147.8 mmol/L (137-145)
== END ==
LOC: OD 14:28
PROVIDERS: ATTEND Internal Medicine
DX: R01.1 Cardiac murmur, unspecified (principal); I25.10 Atherosclerotic heart disease of native coronary artery without angina pectoris; N19 Unspecified kidney failure; I10 Essential (primary) hypertension; I35.1 Nonrheumatic aortic (valve) insufficiency; E11.9 Type 2 diabetes mellitus without complications; E78.4 Other hyperlipidemia; R06.00 Dyspnea, unspecified; R55 Syncope and collapse; E78.00 Pure hypercholesterolemia, unspecified; I27.29 Other secondary pulmonary hypertension; Z79.899 Other long term (current) drug therapy
CPT/HCPCS: 36415; 80051; 82565; 82947; 83735; 84520; 85025; 85610; 85730

== ENCOUNTER → 2018-02-03 | Outpatient (CLI) | payer MEDICARE, OTHER ==
[2018-02-03 08:17] LABS: ABSOLUTE EOSINOPHILS # (AUTO) 0.3 10^3/uL (0.0-0.6); ABSOLUTE LYMPHOCYTES (AUTO) 3.7 10^3/uL (0.5-4.7); ABSOLUTE MONOCYTES (AUTO) 0.9 10^3/uL (0.1-1.4); BASOPHILS % (AUTO) 0.5 % (0-2); EOSINOPHILS % (AUTO) 3.4 % (0-6); HEMATOCRIT 32.5 % (37.9-51.0); HEMOGLOBIN 11.2 g/dL (13.5-17.0); LYMPHOCYTES % (AUTO) 36.8 % (13-45); MEAN CORPUSCULAR HEMOGLOBIN 30.2 pg (27.0-33.4); MEAN CORPUSCULAR HGB CONC 34.6 g/dL (32.0-36.0); MEAN CORPUSCULAR VOLUME 87 fl (80-97); MONOCYTES % (AUTO) 9.3 % (3-13); PLATELET COUNT 283 10^3/uL (150-450); RED BLOOD COUNT 3.72 10^6/uL (4.35-5.55); TOTAL CELLS COUNTED % (AUTO) 100 %
[2018-02-03 08:25] LABS: APPEARANCE,URINE CLEAR; BILIRUBIN,URINE NEGATIVE (NEGATIVE); COLOR,URINE YELLOW; GLUCOSE, URINE NEGATIVE (NEGATIVE); KETONES,URINE NEGATIVE (NEGATIVE); LEUKOCYTE ESTERASE,URINE NEGATIVE (NEGATIVE); NITRITE,URINE NEGATIVE (NEGATIVE); PROTEIN,URINE 30 mg/dL (NEGATIVE); UROBILINOGEN,URINE NEGATIVE mg/dL (<2.0)
[2018-02-03 08:28] LABS: URINE SPECIFIC GRAVITY 1.009
[2018-02-03 08:46] LABS: ALBUMIN 4.1 g/dL (3.5-5.0); ANION GAP 10 (5-19); BLOOD UREA NITROGEN 46 mg/dL (7-20); CALCIUM 9.9 mg/dL (8.4-10.2); CARBON DIOXIDE 27 mmol/L (22-30); CHLORIDE 111 mmol/L (98-107); POTASSIUM 3.6 mmol/L (3.6-5.0); SODIUM 147.5 mmol/L (137-145)
[2018-02-03 08:55] LABS: GLUCOSE 28 mg/dL (75-110)
[2018-02-04 10:38] LABS: CREATININE URINE 53.2 mg/dL (Not Estab.); MICROALBUMIN URINE 121.4 ug/mL (Not Estab.)
== END ==
LOC: OD 07:36
PROVIDERS: ATTEND Internal Medicine Nephrology
DX: N18.4 Chronic kidney disease, stage 4 (severe) (principal); D63.1 Anemia in chronic kidney disease; E83.30 Disorder of phosphorus metabolism, unspecified; N25.81 Secondary hyperparathyroidism of renal origin
CPT/HCPCS: 36415; 80048; 81001; 82040; 82043; 82306; 82570; 83970; 84100; 85025

== ENCOUNTER → 2018-03-05 | Outpatient (CLI) | payer MEDICARE, OTHER ==
[2018-03-05 08:42] LABS: ANION GAP 16 (5-19); BLOOD UREA NITROGEN 100 mg/dL (7-20); CALCIUM 10.2 mg/dL (8.4-10.2); CARBON DIOXIDE 28 mmol/L (22-30); CHLORIDE 101 mmol/L (98-107); GLUCOSE 118 mg/dL (75-110); POTASSIUM 4.4 mmol/L (3.6-5.0); SODIUM 145.4 mmol/L (137-145)
== END ==
LOC: OD 07:42
PROVIDERS: ATTEND Internal Medicine Nephrology
DX: N18.4 Chronic kidney disease, stage 4 (severe) (principal); E11.21 Type 2 diabetes mellitus with diabetic nephropathy
CPT/HCPCS: 36415; 80048

== ENCOUNTER → 2018-03-30 | Outpatient (CLI) | payer MEDICARE, OTHER ==
[2018-03-30 10:55] LABS: ANION GAP 13 (5-19); BLOOD UREA NITROGEN 55 mg/dL (7-20); CALCIUM 10.3 mg/dL (8.4-10.2); CARBON DIOXIDE 29 mmol/L (22-30); CHLORIDE 105 mmol/L (98-107); GLUCOSE 59 mg/dL (75-110); POTASSIUM 4.2 mmol/L (3.6-5.0); SODIUM 147.2 mmol/L (137-145)
== END ==
LOC: OD 08:18
PROVIDERS: ATTEND Internal Medicine Nephrology
DX: I12.9 Hypertensive chronic kidney disease with stage 1 through stage 4 chronic kidney disease, or unspecified chronic kidney disease (principal); E11.22 Type 2 diabetes mellitus with diabetic chronic kidney disease; N18.4 Chronic kidney disease, stage 4 (severe)
CPT/HCPCS: 36415; 80048

== ENCOUNTER → 2018-07-07 | Outpatient (CLI) | payer MEDICARE, OTHER ==
[2018-07-07 08:37] LABS: ABSOLUTE BASOPHILS # (AUTO) 0.1 10^3/uL (0.0-0.2); ABSOLUTE EOSINOPHILS # (AUTO) 0.3 10^3/uL (0.0-0.6); ABSOLUTE LYMPHOCYTES (AUTO) 2.3 10^3/uL (0.5-4.7); ABSOLUTE MONOCYTES (AUTO) 0.9 10^3/uL (0.1-1.4); BASOPHILS % (AUTO) 0.7 % (0-2); EOSINOPHILS % (AUTO) 2.9 % (0-6); HEMATOCRIT 31.6 % (37.9-51.0); HEMOGLOBIN 10.9 g/dL (13.5-17.0); LYMPHOCYTES % (AUTO) 24.4 % (13-45); MEAN CORPUSCULAR HGB CONC 34.4 g/dL (32.0-36.0); MEAN CORPUSCULAR VOLUME 87 fl (80-97); MONOCYTES % (AUTO) 9.5 % (3-13); PLATELET COUNT 308 10^3/uL (150-450); RED BLOOD COUNT 3.62 10^6/uL (4.35-5.55); RED CELL DISTRIBUTION WIDTH 13.8 % (11.5-14.0); SEGMENTED NEUTROPHILS % (AUTO) 62.5 % (42-78); TOTAL CELLS COUNTED % (AUTO) 100 %; WHITE BLOOD COUNT 9.6 10^3/uL (4.0-10.5)
[2018-07-07 08:46] LABS: APPEARANCE,URINE CLEAR; BILIRUBIN,URINE NEGATIVE (NEGATIVE); COLOR,URINE YELLOW; GLUCOSE, URINE NEGATIVE (NEGATIVE); KETONES,URINE NEGATIVE (NEGATIVE); LEUKOCYTE ESTERASE,URINE NEGATIVE (NEGATIVE); NITRITE,URINE NEGATIVE (NEGATIVE); PROTEIN,URINE NEGATIVE (NEGATIVE); URINE SPECIFIC GRAVITY 1.009; UROBILINOGEN,URINE NEGATIVE mg/dL (<2.0)
[2018-07-07 09:10] LABS: ALBUMIN 4.1 g/dL (3.5-5.0); ANION GAP 9 (5-19); BLOOD UREA NITROGEN 71 mg/dL (7-20); CALCIUM 10.1 mg/dL (8.4-10.2); CARBON DIOXIDE 29 mmol/L (22-30); CHLORIDE 105 mmol/L (98-107); GLUCOSE 93 mg/dL (75-110); POTASSIUM 4.1 mmol/L (3.6-5.0); SODIUM 143.2 mmol/L (137-145)
[2018-07-08 13:38] LABS: CREATININE URINE 58.8 mg/dL (Not Estab.); MICROALBUMIN URINE 75.1 ug/mL (Not Estab.)
== END ==
LOC: OD 07:42
PROVIDERS: ATTEND Internal Medicine Nephrology
DX: E11.22 Type 2 diabetes mellitus with diabetic chronic kidney disease (principal); N18.4 Chronic kidney disease, stage 4 (severe); R80.9 Proteinuria, unspecified
CPT/HCPCS: 36415; 80048; 81001; 82040; 82043; 82306; 82570; 83970; 84100; 85025

== ENCOUNTER → 2018-08-06 | Outpatient (CLI) | payer MEDICARE, OTHER ==
[2018-08-06 08:54] LABS: ANION GAP 10 (5-19); BLOOD UREA NITROGEN 110 mg/dL (7-20); CALCIUM 9.9 mg/dL (8.4-10.2); CARBON DIOXIDE 29 mmol/L (22-30); CHLORIDE 104 mmol/L (98-107); GLUCOSE 220 mg/dL (75-110); POTASSIUM 4.6 mmol/L (3.6-5.0); SODIUM 143.2 mmol/L (137-145)
== END ==
LOC: OD 07:23
PROVIDERS: ATTEND Internal Medicine Nephrology
DX: N17.0 Acute kidney failure with tubular necrosis (principal); E11.22 Type 2 diabetes mellitus with diabetic chronic kidney disease; I12.0 Hypertensive chronic kidney disease with stage 5 chronic kidney disease or end stage renal disease; N18.4 Chronic kidney disease, stage 4 (severe)
CPT/HCPCS: 36415; 80048

== ENCOUNTER 2018-08-11 17:31 | Emergency (ER) | payer MEDICARE, OTHER ==
--- NOTE | 2018-08-11 19:27 | ER Document Report ---
ED Medical Screen (RME) - General Chief Complaint: Abnormal Lab Results Stated Complaint: ABNORMAL LABS Time Seen by Provider: 08/11/18 19:15 Primary Care Provider: YESSY DELA CRUZ MD [Primary Care Provider] - Follow up as needed Information source: Patient TRAVEL OUTSIDE OF THE [place] IN LAST 30 DAYS: No - HPI Patient complains to provider of: renal failure Notes: 08/11/18 19:25 Patient here with complaints of being in renal failure. The patient has chronic kidney disease, and reviewing his previous records, his creatinine runs anywhere from 2-4. He was called by his primary care doctor because he apparently has worsening renal failure and was told to come to the ER. He does state that he has been urinating less than normal, and is having less output. No fevers. He does report having approximately 3 episodes of vomiting yesterday, one episode of vomiting today. He denies any severe pain. No dysuria. No other c omplaints. Exam No distress, nontoxic-appearing. No significant abdominal tenderness on exam. No CVA tenderness. Plan CBC, CMP, UA, EKG in case potassium is abnormal An initial examination was made on the patient as part of the triage process, and it was determined a more comprehensive evaluation was necessary. Initial labs were ordered and patient was transferred to another provider in the ED who assumed care and finished evaluation and plan. - Related Data Allergies/Adverse Reactions: codeine Allergy (Verified 08/11/18 18:02) rash, disoriented Past Medical History - Past Medical History Cardiac Medical History: Reports: Hx Congestive Heart Failure, Hx Coronary Artery Disease - small blockage & small aortic valve leakage, Hx Hypercholesterolemia, Hx Hypertension Denies: Hx Atrial Fibrillation, Hx Heart Attack, Hx Peripheral Vascular Disease, Hx Pulmonary Embolism, Hx Heart Murmur Pulmonary Medical History: Reports: Hx Asthma - inhalers, Hx Pneumonia - 2 months ago, Hx Sleep Apnea - Uses CPAP Denies: Hx Bronchitis, Hx COPD, Hx Respiratory Failure, Hx Tuberculosis Neurological Medical History: Denies: Hx Cerebrovascular Accident, Hx Seizures Endocrine Medical History: Reports: Hx Diabetes Mellitus Type 1, Hx Diabetes Mellitus Type 2, Hx Hypothyroidism. Denies: Hx Graves' Disease, Hx Hyperthyroidism Renal/ Medical History: Reports: Hx Renal Insufficiency. Denies: Hx Benign Prostatic Hyperplasia, Hx End Stage Renal Disease, Hx Kidney Stones, Hx Peritoneal Dialysis Malignancy Medical History: Denies Hx Leukemia, Denies Hx Lung Cancer GI Medical History: Reports: Hx Gastroesophageal Reflux Disease. Denies: Hx Crohn's Disease, Hx Hiatal Hernia, Hx Irritable Bowel, Hx Liver Failure, Hx Pancreatitis, Hx Ulcer Musculoskeltal Medical History: Reports Hx Arthritis, Denies Hx Fibromyalgia, Denies Hx Multiple Sclerosis, Denies Hx Muscular Dystrophy Psychiatric Medical History: Reports: Hx Depression Denies: Hx Bipolar Disorder, Hx Dementia, Hx Post Traumatic Stress Disorder, Hx Schizophrenia Traumatic Medical History: Reports: Hx Fractures - left wrist Infectious Medical History: Denies: Hx HIV Past Surgical History: Reports: Hx Appendectomy, Hx Herniorrhaphy - Right inguin al area, Hx Orthopedic Surgery - right rotator cuff; left knee arthroplasty, Hx Tonsillectomy. Denies: Hx Bowel Surgery, Hx Cholecystectomy, Hx Colostomy, Hx Coronary Artery Bypass Graft, Hx Gastric Bypass Surgery, Hx Pacemaker - Immunizations Immunizations up to date: Yes Hx Diphtheria, Pertussis, Tetanus Vaccination: No History of Influenza Vaccine for 01/2017 - 06/2017 Season: Yes Influenza Administration Date for 01/2017 - 06/2017 Season: 01/10/17 Physical Exam - Vital signs Vitals: Temp Pulse Resp BP Pulse Ox 98.6 F 67 18 163/57 H 99 08/11/18 18:51 08/11/18 18:51 08/11/18 18:51 08/11/18 18:51 08/11/18 18:51 Course - Vital Signs Vital signs: Temp Pulse Resp BP Pulse Ox 98.6 F 67 18 163/57 H 99 08/11/18 18:51 08/11/18 18:51 08/11/18 18:51 08/11/18 18:51 08/11/18 18:51 Doctor's Discharge - Discharge Referrals: YESSY DELA CRUZ MD [Primary Care Provider] - Follow up as needed
[2018-08-11 20:30] LABS: ABSOLUTE EOSINOPHILS # (AUTO) 0.3 10^3/uL (0.0-0.6); ABSOLUTE LYMPHOCYTES (AUTO) 4.3 10^3/uL (0.5-4.7); ABSOLUTE MONOCYTES (AUTO) 1.1 10^3/uL (0.1-1.4); ABSOLUTE NEUT (AUTO) 5.4 10^3/uL (1.7-8.2); BASOPHILS % (AUTO) 0.3 % (0-2); EOSINOPHILS % (AUTO) 2.7 % (0-6); HEMATOCRIT 35.9 % (37.9-51.0); HEMOGLOBIN 12.3 g/dL (13.5-17.0); LYMPHOCYTES % (AUTO) 38.3 % (13-45); MEAN CORPUSCULAR HGB CONC 34.2 g/dL (32.0-36.0); MEAN CORPUSCULAR VOLUME 88 fl (80-97); MONOCYTES % (AUTO) 9.7 % (3-13); PLATELET COUNT 326 10^3/uL (150-450); RED BLOOD COUNT 4.09 10^6/uL (4.35-5.55); RED CELL DISTRIBUTION WIDTH 13.8 % (11.5-14.0); TOTAL CELLS COUNTED % (AUTO) 100 %; WHITE BLOOD COUNT 11.1 10^3/uL (4.0-10.5)
[2018-08-11 20:36] LABS: APPEARANCE,URINE CLEAR; BILIRUBIN,URINE NEGATIVE (NEGATIVE); COLOR,URINE STRAW; GLUCOSE, URINE >=500 mg/dL (NEGATIVE); KETONES,URINE NEGATIVE (NEGATIVE); LEUKOCYTE ESTERASE,URINE NEGATIVE (NEGATIVE); NITRITE,URINE NEGATIVE (NEGATIVE); PROTEIN,URINE NEGATIVE (NEGATIVE); URINE SPECIFIC GRAVITY 1.005; UROBILINOGEN,URINE NEGATIVE mg/dL (<2.0)
[2018-08-11 20:51] LABS: ALANINE AMINOTRANSFERASE 30 U/L (21-72); ALBUMIN 4.8 g/dL (3.5-5.0); ALKALINE PHOSPHATASE 72 U/L (38-126); ANION GAP 16 (5-19); ASPARTATE AMINO TRANSFERASE 18 U/L (17-59); BILIRUBIN,DIRECT 0.4 mg/dL (0.0-0.4); BILIRUBIN,TOTAL 0.4 mg/dL (0.2-1.3); BLOOD UREA NITROGEN 103 mg/dL (7-20); CALCIUM 10.2 mg/dL (8.4-10.2); CARBON DIOXIDE 27 mmol/L (22-30); CHLORIDE 99 mmol/L (98-107); GLUCOSE 200 mg/dL (75-110); POTASSIUM 4.7 mmol/L (3.6-5.0); SODIUM 142.2 mmol/L (137-145); TOTAL PROTEIN 8.3 g/dL (6.3-8.2)
[2018-08-12] MEDS ORDERED: ONDANSETRON HCL INJ/PF 4 MG/2 ML SDV IV ONE (00:28)
[2018-08-12] MEDS ORDERED: NORMAL SALINE 1000 ML 1,000 ML IV ONE (00:28)
[2018-08-12] MEDS ORDERED: INSULIN GLARGINE,HUM.REC.ANLOG 1,000 UNIT/10 ML VIAL SUBCUT ONE (01:50)
[2018-08-12 02:59] LABS: ANION GAP 9 (5-19); BLOOD UREA NITROGEN 97 mg/dL (7-20); CALCIUM 9.1 mg/dL (8.4-10.2); CARBON DIOXIDE 25 mmol/L (22-30); CHLORIDE 107 mmol/L (98-107); GLUCOSE 273 mg/dL (75-110); POTASSIUM 4.6 mmol/L (3.6-5.0); SODIUM 141.3 mmol/L (137-145)
[2018-08-12 03:17] VITALS: BP 163/66
--- NOTE | 2018-08-12 03:17 | ER Document Report ---
ED General - General Chief Complaint: Abnormal Lab Results Stated Complaint: ABNORMAL LABS Time Seen by Provider: 08/11/18 19:15 Primary Care Provider: SANDRITA ESQUIVEL MD [ACTIVE STAFF] - 08/13/18 YESSY DELA CRUZ MD [Primary Care Provider] - Follow up as needed Notes: Patient is a 73-year-old male who presents with complaint of elevated serum creatinine. He has history of chronic renal sufficiency. He is followed by Dr. Esquivel. He said that he got a call from Dr. Esquivel's office to come to the ER because his kidney function was worse. He says that over the last 3 days he has had a vomiting type illness and therefore feels that he probably got a little dehydrated. He said today he was able to eat and ate a cheeseburger without too much difficulty. He has any fevers. No abdominal pain. No diarrhea. No chest pain. No other complaints at this time. TRAVEL OUTSIDE OF THE [place] IN LAST 30 DAYS: No - Related Data Allergies/Adverse Reactions: codeine Allergy (Verified 08/11/18 18:02) rash, disoriented Past Medical History - General Information source: Patient - Social History Smoking Status: Never Smoker Frequency of alcohol use: None Drug Abuse: None Family History: Hypertension Patient has suicidal ideation: No Patient has homicidal ideation: No - Past Medical History Cardiac Medical History: Reports: Hx Congestive Heart Failure, Hx Coronary Artery Disease - small blockage & small aortic valve leakage, Hx Hypercholesterolemia, Hx Hypertension Denies: Hx Atrial Fibrillation, Hx Heart Attack, Hx Peripheral Vascular Disease, Hx Pulmonary Embolism, Hx Heart Murmur Pulmonary Medical History: Reports: Hx Asthma - inhalers, Hx Pneumonia - 2 months ago, Hx Sleep Apnea - Uses CPAP Denies: Hx Bronchitis, Hx COPD, Hx Respiratory Failure, Hx Tuberculosis Neurological Medical History: Denies: Hx Cerebrovascular Accident, Hx Seizures Endocrine Medical History: Reports: Hx Diabetes Mellitus Type 1, Hx Diabetes Mellitus Type 2, Hx Hypothyroidism. Denies: Hx Graves' Disease, Hx Hyperthyroidism Renal/ Medical History: Reports: Hx Renal Insufficiency. Denies: Hx Benign Prostatic Hyperplasia, Hx End Stage Renal Disease, Hx Kidney Stones, Hx Periton eal Dialysis Malignancy Medical History: Denies Hx Leukemia, Denies Hx Lung Cancer GI Medical History: Reports: Hx Gastroesophageal Reflux Disease. Denies: Hx Crohn's Disease, Hx Hiatal Hernia, Hx Irritable Bowel, Hx Liver Failure, Hx Pancreatitis, Hx Ulcer Musculoskeletal Medical History: Reports Hx Arthritis, Denies Hx Fibromyalgia, Denies Hx Multiple Sclerosis, Denies Hx Muscular Dystrophy Psychiatric Medical History: Reports: Hx Depression Denies: Hx Bipolar Disorder, Hx Dementia, Hx Post Traumatic Stress Disorder, Hx Schizophrenia Traumatic Medical History: Reports: Hx Fractures - left wrist Infectious Medical History: Denies: Hx HIV Past Surgical History: Reports: Hx Appendectomy, Hx Herniorrhaphy - Right in guinal area, Hx Orthopedic Surgery - right rotator cuff; left knee arthroplasty, Hx Tonsillectomy. Denies: Hx Bowel Surgery, Hx Cholecystectomy, Hx Colostomy, Hx Coronary Artery Bypass Graft, Hx Gastric Bypass Surgery, Hx Pacemaker - Immunizations Immunizations up to date: Yes Hx Diphtheria, Pertussis, Tetanus Vaccination: No Hx Pneumococcal Vaccination: 04/28/16 Review of Systems - Review of Systems Notes: My Normal Review Basic REVIEW OF SYSTEMS: CONSTITUTIONAL : Denies fever, chills, or sweats. Denies recent illness. CARDIOVASCULAR: Denies chest pain. RESPIRATORY: Denies cough, cold, or chest congestion. Denies shortness of breath, difficulty breathing, or wheezing. GASTROINTESTINAL: Denies abdominal pain. some vomiting GENITOURINARY: Denies difficulty urinating, painful urination, burning, frequency, or blood in urine. MUSCULOSKELETAL: Denies neck or back pain or joint pain or swelling. SKIN: Denies rash or skin lesions. NEUROLOGICAL: Denies altered mental status or loss of consciousness. Denies headache. Denies weakness or paralysis or loss of use of either side. Denies problems with gait or speech. Denies sensory or motor loss. ALL OTHER SYSTEMS REVIEWED AND NEGATIVE. Physical Exam - Vital signs Vitals: Temp Pulse Resp BP Pulse Ox 98.6 F 67 18 163/57 H 99 08/11/18 18:51 08/11/18 18:51 08/11/18 18:51 08/11/18 18:51 08/11/18 18:51 - Notes Notes: General Appearance: Well nourished, alert, cooperative, no acute distress, no obvious discomfort. Well-appearing. Vitals: reviewed, See vital signs table. Eyes: PERRL, EOMI, Conjuctiva clear Mouth: No decreasd moisture Neck: Supple, no neck tenderness, No thyromegaly Lungs: No wheezing, No rales, No rhonci, No accessory muscle use, good air exchange bilaterally. Heart: Normal rate, Regular rythm, No murmur, no rub Abdomen: Normal BS, soft, No rigidity, No abdominal tenderness, No guarding, no rebound, no abdominal masses, no organomegaly Extremities: strength 5/5 in all extremities, good pulses in all extremities, no swelling or tenderness in the extremities, no edema. Skin: warm, dry, appropriate color, no rash Neuro: speech clear, oriented x 3, normal affect, responds appropriately to questions. Course - Re-evaluation Re-evalutation: 08/12/18 03:16 Patient's creatinine is now down to 3.5 which is within his normal range. He looks well. He said no vomiting since been here he was actually able to eat earlier today. Also sent home with some nausea medicine since he had some vomiting her last 48 hours. Suspect that his creatinine increased because of the vomiting and not taking him much liquids because he did not feel well. He now looks well and feels well. I feel he safe to be discharged home. He has a follow-up appointment with Dr. Esquivel in approximately 36 hours. At that time she can recheck his kidney function make sure it submitting a properly. Patient encouraged to return to ER if he has recurrent vomiting, any pain, or if he feels unwell. Patient agrees with plan will be discharged home. Dictation of this chart was performed using voice recognition software; therefore, there may be some unintended grammatical errors. - Vital Signs Vital signs: Temp Pulse Resp BP Pulse Ox 98.2 F 67 15 163/66 H 95 08/12/18 03:04 08/11/18 18:51 08/12/18 03:04 08/12/18 03:04 08/12/18 03:04 - Laboratory Result Diagrams: 08/11/18 20:00 08/12/18 02:21 Laboratory results interpreted by me: 08/11/18 08/11/18 08/11/18 20:00 20:00 20:00 WBC 11.1 H RBC 4.09 L Hgb 12.3 L Hct 35.9 L BUN 103 H Creatinine 4.48 H Est GFR ( Amer) 16 L Est GFR (Non-Af Amer) 13 L Glucose 200 H POC Glucose Total Protein 8.3 H Urine Glucose (UA) >=500 H Urine Blood SMALL H 08/12/18 08/12/18 01:40 02:21 WBC RBC Hgb Hct BUN 97 H Creatinine 3.58 H Est GFR ( Amer) 20 L Est GFR (Non-Af Amer) 17 L Glucose 273 H POC Glucose 276 H Total Protein Urine Glucose (UA) Urine Blood Discharge - Discharge Clinical Impression: Renal insufficiency Condition: Good Disposition: HOME, SELF-CARE Additional Instructions: Please take the nausea medicine as prescribed. Please continue to drink liquids and stay well-hydrated. Please return to ER if you have fevers, abdominal pain, having decrease in urine again, recurrent vomiting despite the nausea medicine. Please follow-up with Dr. Esquivel on as scheduled for reevaluation and recheck of your labs. Prescriptions: Ondansetron [Zofran Odt 4 mg Tablet] 1 tab PO Q4H PRN #15 tab.rapdis PRN Reason: For Nausea/Vomiting Referrals: YESSY DELA CRUZ MD [Primary Care Provider] - Follow up as needed SANDRITA ESQUIVEL MD [ACTIVE STAFF] - 08/13/18
--- NOTE | 2018-08-12 08:29 | EKG REPORT ---
SEVERITY:- NORMAL ECG - SINUS RHYTHM : Confirmed by: Arabella Vargas MD 12-Aug-2018 08:28:50
== END 2018-08-12 03:24 | disposition home or self-care (01) ==
LOC: ER 17:31
DX: I12.9 Hypertensive chronic kidney disease with stage 1 through stage 4 chronic kidney disease, or unspecified chronic kidney disease (principal); E11.22 Type 2 diabetes mellitus with diabetic chronic kidney disease; N18.9 Chronic kidney disease, unspecified; R11.10 Vomiting, unspecified; I25.10 Atherosclerotic heart disease of native coronary artery without angina pectoris; J45.909 Unspecified asthma, uncomplicated; Z88.5 Allergy status to narcotic agent
CPT/HCPCS: 93005; 99283; 96361; 96374; 36415; 82962; 85025; 80048; 80053; 81001; 93010; A9270; J2405; J7030; J1815

== ENCOUNTER → 2018-08-12 | Outpatient (CLI) | payer MEDICARE, OTHER ==
[2018-08-12 13:08] LABS: ANION GAP 11 (5-19); BLOOD UREA NITROGEN 88 mg/dL (7-20); CALCIUM 9.3 mg/dL (8.4-10.2); CARBON DIOXIDE 27 mmol/L (22-30); CHLORIDE 106 mmol/L (98-107); GLUCOSE 130 mg/dL (75-110); POTASSIUM 5.1 mmol/L (3.6-5.0); SODIUM 143.9 mmol/L (137-145)
== END ==
LOC: OD 11:45
PROVIDERS: ATTEND Internal Medicine Nephrology
DX: N18.4 Chronic kidney disease, stage 4 (severe) (principal)
CPT/HCPCS: 36415; 80048

== ENCOUNTER → 2018-08-19 | Outpatient (CLI) | payer MEDICARE, OTHER ==
[2018-08-19 09:06] LABS: ANION GAP 10 (5-19); BLOOD UREA NITROGEN 86 mg/dL (7-20); CALCIUM 10.4 mg/dL (8.4-10.2); CARBON DIOXIDE 26 mmol/L (22-30); CHLORIDE 107 mmol/L (98-107); GLUCOSE 178 mg/dL (75-110); POTASSIUM 4.8 mmol/L (3.6-5.0); SODIUM 143.1 mmol/L (137-145)
== END ==
LOC: OD 07:32
PROVIDERS: ATTEND Internal Medicine Nephrology
DX: I12.9 Hypertensive chronic kidney disease with stage 1 through stage 4 chronic kidney disease, or unspecified chronic kidney disease (principal); N18.4 Chronic kidney disease, stage 4 (severe); R80.9 Proteinuria, unspecified
CPT/HCPCS: 36415; 80048

== ENCOUNTER → 2018-08-19 | Outpatient (CLI) | payer MEDICARE, OTHER ==
--- NOTE | 2018-08-19 11:59 | RADIOLOGY REPORT (SQ) ---
EXAM DESCRIPTION: U/S RETROPERITON (RENAL/AORTA) COMPLETED DATE/TIME: 08/19/2018 11:20 am REASON FOR STUDY: CKD STAGE 4 N18.4 CHRONIC KIDNEY DISEASE, STAGE 4 (SEVERE) COMPARISON: KUB 02/10/2017, 10/25/2013 TECHNIQUE: Dynamic and static grayscale images acquired of the kidneys and bladder and recorded on P ACS. Additional selected color Doppler and spectral images recorded. LIMITATIONS: None. FINDINGS: RIGHT KIDNEY: Normal size, 10.2 cm in length. Increased cortical echogenicity with normal thickness. No solid or suspicious masses. No hydronephrosis. No calcifications. LEFT KIDNEY: Normal size, 13.8 cm in length. Increased cortical echogenicity with normal thickness. No solid or suspicious masses. 3 cm cyst left lower pole kidney. No hydronephrosis. No calcificati ons. BLADDER: No masses. OTHER FINDINGS: No other significant finding. IMPRESSION: Normal size kidneys with normal cortical thickness but increased cortical echogenicity f rom medical renal disease. TECHNICAL DOCUMENTATION: JOB ID: [id number] [employer]- All Rights Reserved Reading location - IP/workstation name: [email or web address]
== END ==
LOC: RAD 09:57
PROVIDERS: ATTEND Internal Medicine Nephrology
DX: I12.9 Hypertensive chronic kidney disease with stage 1 through stage 4 chronic kidney disease, or unspecified chronic kidney disease (principal); N18.4 Chronic kidney disease, stage 4 (severe); R80.9 Proteinuria, unspecified
CPT/HCPCS: 76770

== ENCOUNTER → 2018-08-27 | Outpatient (CLI) | payer MEDICARE, OTHER ==
--- NOTE | 2018-08-27 16:45 | RADIOLOGY REPORT (SQ) ---
EXAM DESCRIPTION: U/S NON-OB PELVIS LTD W/O DOP COMPLETED DATE/TIME: 08/27/2018 4:03 pm REASON FOR STUDY: CKD STAGE 4 N18.4 CHRONIC KIDNEY DISEASE, STAGE 4 (SEVERE) COMPARISON: None. TECHNIQUE: Pre and post void bladder imaging. LIMITATIONS: None. FINDINGS: PREVOID BLADDER VOLUME: 130.2 cc ml. POST VOID BLADDER VOLUME: Is a 6.7 cc ml. OTHER: No other significant finding. IMPRESSION: NO SONOGRAPHIC ABNORMALITY IN THE BLADDER. BLADDER VOLUMES ABOVE. TECHNICAL DOCUMENTATION: JOB ID: [id number] [employer]- All Rights Reserved Reading location - IP/workstation name: [email or web address]
== END ==
LOC: RAD 14:55
PROVIDERS: ATTEND Internal Medicine Nephrology
DX: N18.4 Chronic kidney disease, stage 4 (severe) (principal); R33.9 Retention of urine, unspecified
CPT/HCPCS: 76857

== ENCOUNTER → 2018-09-11 | Outpatient (CLI) | payer MEDICARE, OTHER ==
[2018-09-11 08:56] LABS: ANION GAP 13 (5-19); BLOOD UREA NITROGEN 77 mg/dL (7-20); CALCIUM 10.2 mg/dL (8.4-10.2); CARBON DIOXIDE 25 mmol/L (22-30); CHLORIDE 107 mmol/L (98-107); GLUCOSE 278 mg/dL (75-110); POTASSIUM 4.3 mmol/L (3.6-5.0); SODIUM 144.8 mmol/L (137-145)
== END ==
LOC: OD 07:07
PROVIDERS: ATTEND Internal Medicine Nephrology
DX: N18.4 Chronic kidney disease, stage 4 (severe) (principal)
CPT/HCPCS: 36415; 80048

== ENCOUNTER → 2018-12-09 | Outpatient (CLI) | payer MEDICARE, OTHER ==
[2018-12-09 07:43] LABS: ABSOLUTE BASOPHILS # (AUTO) 0.1 10^3/uL (0.0-0.2); ABSOLUTE EOSINOPHILS # (AUTO) 0.2 10^3/uL (0.0-0.6); ABSOLUTE LYMPHOCYTES (AUTO) 2.8 10^3/uL (0.5-4.7); ABSOLUTE MONOCYTES (AUTO) 0.7 10^3/uL (0.1-1.4); ABSOLUTE NEUT (AUTO) 7.9 10^3/uL (1.7-8.2); BASOPHILS % (AUTO) 0.5 % (0-2); EOSINOPHILS % (AUTO) 1.9 % (0-6); HEMATOCRIT 35.8 % (37.9-51.0); HEMOGLOBIN 12.2 g/dL (13.5-17.0); LYMPHOCYTES % (AUTO) 23.7 % (13-45); MEAN CORPUSCULAR HEMOGLOBIN 29.1 pg (27.0-33.4); MEAN CORPUSCULAR VOLUME 86 fl (80-97); PLATELET COUNT 322 10^3/uL (150-450); RED BLOOD COUNT 4.18 10^6/uL (4.35-5.55); RED CELL DISTRIBUTION WIDTH 13.6 % (11.5-14.0); SEGMENTED NEUTROPHILS % (AUTO) 67.9 % (42-78); TOTAL CELLS COUNTED % (AUTO) 100 %; WHITE BLOOD COUNT 11.7 10^3/uL (4.0-10.5)
[2018-12-09 07:45] LABS: APPEARANCE,URINE CLEAR; BILIRUBIN,URINE NEGATIVE (NEGATIVE); COLOR,URINE YELLOW; GLUCOSE, URINE >=500 mg/dL (NEGATIVE); KETONES,URINE NEGATIVE (NEGATIVE); LEUKOCYTE ESTERASE,URINE NEGATIVE (NEGATIVE); NITRITE,URINE NEGATIVE (NEGATIVE); PROTEIN,URINE 100 mg/dL (NEGATIVE); URINE SPECIFIC GRAVITY 1.012; UROBILINOGEN,URINE NEGATIVE mg/dL (<2.0)
[2018-12-09 08:04] LABS: ALBUMIN 4.2 g/dL (3.5-5.0); ANION GAP 11 (5-19); BLOOD UREA NITROGEN 50 mg/dL (7-20); CARBON DIOXIDE 29 mmol/L (22-30); CHLORIDE 104 mmol/L (98-107); GLUCOSE 194 mg/dL (75-110); PHOSPHORUS 3.5 mg/dL (2.5-4.5); POTASSIUM 3.6 mmol/L (3.6-5.0)
[2018-12-10 12:36] LABS: CREATININE URINE 74.2 mg/dL (Not Estab.)
[2018-12-10 14:50] LABS: MICROALBUMIN URINE 890.8 ug/mL (Not Estab.)
== END ==
LOC: OD 07:11
PROVIDERS: ATTEND Internal Medicine Nephrology
DX: I12.9 Hypertensive chronic kidney disease with stage 1 through stage 4 chronic kidney disease, or unspecified chronic kidney disease (principal); N18.4 Chronic kidney disease, stage 4 (severe); E11.22 Type 2 diabetes mellitus with diabetic chronic kidney disease; N25.81 Secondary hyperparathyroidism of renal origin
CPT/HCPCS: 36415; 80069; 81001; 82043; 82306; 82570; 82728; 83540; 83550; 83970; 85025

== ENCOUNTER → 2019-01-05 | Outpatient (CLI) | payer MEDICARE, OTHER ==
[2019-01-05 10:16] LABS: ANION GAP 11 (5-19); BLOOD UREA NITROGEN 64 mg/dL (7-20); CALCIUM 10.2 mg/dL (8.4-10.2); CARBON DIOXIDE 32 mmol/L (22-30); CHLORIDE 101 mmol/L (98-107); GLUCOSE 135 mg/dL (75-110)
== END ==
LOC: OD 08:16
PROVIDERS: ATTEND Internal Medicine Nephrology
DX: I12.9 Hypertensive chronic kidney disease with stage 1 through stage 4 chronic kidney disease, or unspecified chronic kidney disease (principal); N18.4 Chronic kidney disease, stage 4 (severe); E11.22 Type 2 diabetes mellitus with diabetic chronic kidney disease; R80.9 Proteinuria, unspecified
CPT/HCPCS: 36415; 80048; 83735

== ENCOUNTER → 2019-01-26 | Outpatient (CLI) | payer MEDICARE, OTHER ==
--- NOTE | 2019-01-26 16:18 | RADIOLOGY REPORT (SQ) ---
EXAM DESCRIPTION: FOOT LEFT COMPLETE COMPLETED DATE/TIME: 01/26/2019 3:16 pm REASON FOR STUDY: LEFT FOOT PAIN M79.672 PAIN IN LEFT FOOT COMPARISON: None. NUMBER OF VIEWS: Three views. TECHNIQUE: AP, lateral and oblique radiographic images acquired of the left foot. LIMITATIONS: None. FINDINGS: MINERALIZATION: Normal. BONES: On the AP view there is a questionable well-defined erosion with sclerotic margins in a margin al distribution at the medial aspect of the distal 3rd metatarsal ; the joint space is preserved and there is no associated periarticular osteopenia. There is no fracture dislocation. The tarsometatarsal alignment is preserved. JOINTS: Osteophytes at the dorsal aspect of the midfoot. SOFT TISSUES: Soft tissue swelling along the dorsal aspect of the foot. There is no subcutaneous emp hysema or radiopaque foreign body. OTHER: Vascular calcifications and enthesophytes at the calcaneal insertion of the plantar fascia. IMPRESSION: Questionable marginal erosion with sclerotic margins at the medial aspect of the distal 3rd metatarsal - correlate with clinical findings to exclude gout. TECHNICAL DOCUMENTATION: JOB ID: [id number] [employer]- All Rights Reserved Reading location - IP/workstation name: [email or web address]
== END ==
LOC: OD 15:01
PROVIDERS: ATTEND Family Medicine
DX: M79.672 Pain in left foot (principal)

== ENCOUNTER → 2019-04-06 | Outpatient (CLI) | payer MEDICARE, OTHER ==
[2019-04-06 07:33] LABS: ABSOLUTE BASOPHILS # (AUTO) 0.1 10^3/uL (0.0-0.2); ABSOLUTE EOSINOPHILS # (AUTO) 0.5 10^3/uL (0.0-0.6); ABSOLUTE LYMPHOCYTES (AUTO) 2.8 10^3/uL (0.5-4.7); ABSOLUTE MONOCYTES (AUTO) 0.9 10^3/uL (0.1-1.4); ABSOLUTE NEUT (AUTO) 5.2 10^3/uL (1.7-8.2); BASOPHILS % (AUTO) 0.6 % (0-2); EOSINOPHILS % (AUTO) 5.7 % (0-6); HEMATOCRIT 37.5 % (37.9-51.0); HEMOGLOBIN 13.1 g/dL (13.5-17.0); LYMPHOCYTES % (AUTO) 29.4 % (13-45); MEAN CORPUSCULAR HEMOGLOBIN 30.4 pg (27.0-33.4); MEAN CORPUSCULAR HGB CONC 34.8 g/dL (32.0-36.0); MEAN CORPUSCULAR VOLUME 88 fl (80-97); MONOCYTES % (AUTO) 9.1 % (3-13); PLATELET COUNT 333 10^3/uL (150-450); RED BLOOD COUNT 4.29 10^6/uL (4.35-5.55); RED CELL DISTRIBUTION WIDTH 13.9 % (11.5-14.0); SEGMENTED NEUTROPHILS % (AUTO) 55.2 % (42-78); TOTAL CELLS COUNTED % (AUTO) 100 %; WHITE BLOOD COUNT 9.5 10^3/uL (4.0-10.5)
[2019-04-06 07:40] LABS: APPEARANCE,URINE CLEAR; BILIRUBIN,URINE NEGATIVE (NEGATIVE); COLOR,URINE YELLOW; GLUCOSE, URINE NEGATIVE (NEGATIVE); KETONES,URINE NEGATIVE (NEGATIVE); LEUKOCYTE ESTERASE,URINE NEGATIVE (NEGATIVE); NITRITE,URINE NEGATIVE (NEGATIVE); PROTEIN,URINE 100 mg/dL (NEGATIVE); URINE SPECIFIC GRAVITY 1.012; UROBILINOGEN,URINE NEGATIVE mg/dL (<2.0)
[2019-04-06 08:06] LABS: ALBUMIN 4.6 g/dL (3.5-5.0); ANION GAP 12 (5-19); BLOOD UREA NITROGEN 54 mg/dL (7-20); CALCIUM 10.4 mg/dL (8.4-10.2); CARBON DIOXIDE 32 mmol/L (22-30); CHLORIDE 102 mmol/L (98-107); GLUCOSE 68 mg/dL (75-110); IRON(TIBC) 81.8 ug/dL (49-181); PHOSPHORUS 4.4 mg/dL (2.5-4.5); POTASSIUM 4.3 mmol/L (3.6-5.0)
[2019-04-07 13:36] LABS: CREATININE URINE 65.2 mg/dL (Not Estab.)
== END ==
LOC: OD 07:02
PROVIDERS: ATTEND Internal Medicine Nephrology
DX: I12.9 Hypertensive chronic kidney disease with stage 1 through stage 4 chronic kidney disease, or unspecified chronic kidney disease (principal); N18.4 Chronic kidney disease, stage 4 (severe); E11.22 Type 2 diabetes mellitus with diabetic chronic kidney disease; D63.1 Anemia in chronic kidney disease; N25.81 Secondary hyperparathyroidism of renal origin
CPT/HCPCS: 36415; 80069; 81001; 82043; 82306; 82570; 82728; 83540; 83550; 83970; 85025

== ENCOUNTER → 2019-06-17 | Outpatient (CLI) | payer MEDICARE, OTHER ==
--- NOTE | 2019-06-17 13:34 | RADIOLOGY REPORT (SQ) ---
EXAM DESCRIPTION: TIBIA FIBULA LEFT COMPLETED DATE/TIME: 06/17/2019 12:52 pm REASON FOR STUDY: M79.605 PAIN IN LEFT LEG M79.605 PAIN IN LEFT LEG COMPARISON: None. NUMBER OF VIEWS: Two views. TECHNIQUE: Two radiographic images acquired of the left tibia and fibula to include the knee and ank le in at least one projection. LIMITATIONS: None. FINDINGS: MINERALIZATION: Normal. BONES: Left total knee arthroplasty. No fracture or dislocation. SOFT TISSUES: No obvious swelling or foreign body. OTHER: No other significant finding. IMPRESSION: NEGATIVE STUDY OF THE LEFT TIBIA AND FIBULA. NO RADIOGRAPHIC EVIDENCE OF ACUTE INJURY. TECHNICAL DOCUMENTATION: JOB ID: [id number] 2010 [employer]- All Rights Reserved Reading location - IP/workstation name: [email or web address]
--- NOTE | 2019-06-17 13:37 | RADIOLOGY REPORT (SQ) ---
EXAM DESCRIPTION: SHOULDER LEFT 2 OR MORE VIEWS COMPLETED DATE/TIME: 06/17/2019 12:52 pm REASON FOR STUDY: M25.512 PAIN IN LEFT SHOULDER M79.605 PAIN IN LEFT LEG COMPARISON: None. NUMBER OF VIEWS: Three views. TECHNIQUE: Internal rotation, external rotation, and Y view images acquired of the left shoulder. LIMITATIONS: None. FINDINGS: MINERALIZATION: Normal. BONES: Cannot exclude an impacted fracture of the femoral head/neck versus prior injury. Marginal os teophytes are seen on the femoral head. JOINTS: No dislocation. There is marked narrowing of the subacromial space. Bony overgrowth of the AC joint. VISUALIZED LUNGS AND RIBS: No pneumothorax. No rib fracture. SOFT TISSUES: No radiopaque foreign body. OTHER: No other significant finding. IMPRESSION: 1. Deformity of the humeral head/neck. Cannot entirely exclude impacted nondisplaced f racture versus prior injury. 2. Glenohumeral degenerative joint disease. AC degenerative joint disease. 3. Narrowing of the subacromial space suggests longstanding rotator cuff disease. TECHNICAL DOCUMENTATION: JOB ID: [id number] 2010 [employer]- All Rights Reserved Reading location - IP/workstation name: [email or web address]
--- NOTE | 2019-06-18 14:16 | XCELERA REPORT ---
[address] [facility] [place] [address] Lower Extremity Venous Evaluation Procedure: Color flow and duplex imaging of the veins of the left lower extremity as well as the right Common Femoral vein. Right Sided Venous Evaluation The right common femoral vein is fully compressible. Spontaneous and phasic flow is present in the right common femoral vein. Left Sided Venous Evaluation Normal vessel filling wall to wall, compression and augmentation as well as Colour flow down to the infrageniculate veins. Interpretation Summary No duplex evidence of DVT or obstruction in the left lower extremity nor in the right Common Femoral vein. Name: ADELE DC JR, JR Age: 74 yrs Gender: Male : 1945 Patient Status: Outpatient Patient Location: Study Date: 06/17/2019 01:25 PM Reason For Study: LLE PAIN Ordering Physician: YESSY DELA CRUZ Performed By: Mojgan Plascencia : YESSY DELA CRUZ > [place]
== END ==
LOC: SP 12:14
PROVIDERS: ATTEND Family Medicine
DX: M25.512 Pain in left shoulder (principal); M79.605 Pain in left leg
CPT/HCPCS: 93971

== ENCOUNTER → 2019-07-14 | Outpatient (CLI) | payer MEDICARE, OTHER ==
[2019-07-14 08:25] LABS: ANION GAP 7 (5-19); BLOOD UREA NITROGEN 40 mg/dL (7-20); CALCIUM 9.3 mg/dL (8.4-10.2); CARBON DIOXIDE 31 mmol/L (22-30); CHLORIDE 105 mmol/L (98-107); GLUCOSE 80 mg/dL (75-110); POTASSIUM 3.4 mmol/L (3.6-5.0)
[2019-07-15 09:37] LABS: CREATININE URINE 61.5 mg/dL (Not Estab.)
== END ==
LOC: OD 07:18
PROVIDERS: ATTEND Internal Medicine Nephrology
DX: I12.9 Hypertensive chronic kidney disease with stage 1 through stage 4 chronic kidney disease, or unspecified chronic kidney disease (principal); N18.4 Chronic kidney disease, stage 4 (severe); E11.22 Type 2 diabetes mellitus with diabetic chronic kidney disease; R80.9 Proteinuria, unspecified; E83.52 Hypercalcemia
CPT/HCPCS: 36415; 80048; 82043; 82570; 83970

== ENCOUNTER → 2019-07-28 | Outpatient (CLI) | payer MEDICARE, OTHER ==
[2019-07-28 09:35] LABS: ANION GAP 11 (5-19); BLOOD UREA NITROGEN 48 mg/dL (7-20); CALCIUM 9.4 mg/dL (8.4-10.2); CARBON DIOXIDE 30 mmol/L (22-30); CHLORIDE 100 mmol/L (98-107); GLUCOSE 330 mg/dL (75-110); POTASSIUM 4.3 mmol/L (3.6-5.0)
== END ==
LOC: OD 07:52
PROVIDERS: ATTEND Internal Medicine Nephrology
DX: I12.9 Hypertensive chronic kidney disease with stage 1 through stage 4 chronic kidney disease, or unspecified chronic kidney disease (principal); N18.4 Chronic kidney disease, stage 4 (severe); E11.22 Type 2 diabetes mellitus with diabetic chronic kidney disease; R60.9 Edema, unspecified
CPT/HCPCS: 36415; 80048; 83735

== ENCOUNTER 2019-08-03 10:44 | Emergency (ER) | payer MEDICARE, OTHER ==
[2019-08-03 11:17] LABS: ABSOLUTE BASOPHILS # (AUTO) 0.1 10^3/uL (0.0-0.2); ABSOLUTE EOSINOPHILS # (AUTO) 0.4 10^3/uL (0.0-0.6); ABSOLUTE LYMPHOCYTES (AUTO) 2.4 10^3/uL (0.5-4.7); ABSOLUTE MONOCYTES (AUTO) 0.7 10^3/uL (0.1-1.4); ABSOLUTE NEUT (AUTO) 5.6 10^3/uL (1.7-8.2); BASOPHILS % (AUTO) 0.7 % (0-2); HEMATOCRIT 36.7 % (37.9-51.0); HEMOGLOBIN 12.7 g/dL (13.5-17.0); LYMPHOCYTES % (AUTO) 25.9 % (13-45); MEAN CORPUSCULAR HEMOGLOBIN 30.2 pg (27.0-33.4); MEAN CORPUSCULAR HGB CONC 34.7 g/dL (32.0-36.0); MEAN CORPUSCULAR VOLUME 87 fl (80-97); MONOCYTES % (AUTO) 7.9 % (3-13); PLATELET COUNT 371 10^3/uL (150-450); RED BLOOD COUNT 4.22 10^6/uL (4.35-5.55); RED CELL DISTRIBUTION WIDTH 13.9 % (11.5-14.0); SEGMENTED NEUTROPHILS % (AUTO) 61.5 % (42-78); TOTAL CELLS COUNTED % (AUTO) 100 %; WHITE BLOOD COUNT 9.1 10^3/uL (4.0-10.5)
[2019-08-03 11:41] LABS: ALBUMIN 4.1 g/dL (3.5-5.0); ALKALINE PHOSPHATASE 114 U/L (38-126); ANION GAP 7 (5-19); ASPARTATE AMINO TRANSFERASE 28 U/L (17-59); BILIRUBIN,TOTAL 0.5 mg/dL (0.2-1.3); BLOOD UREA NITROGEN 46 mg/dL (7-20); CALCIUM 9.9 mg/dL (8.4-10.2); CARBON DIOXIDE 31 mmol/L (22-30); CHLORIDE 103 mmol/L (98-107); CREATINE KINASE 127 U/L (55-170); GLUCOSE 142 mg/dL (75-110); POTASSIUM 4.4 mmol/L (3.6-5.0); TOTAL PROTEIN 7.2 g/dL (6.3-8.2)
[2019-08-03 11:53] LABS: CREATINE KINASE MB 2.14 ng/mL (<4.55); TROPONIN I 0.032 ng/mL
--- NOTE | 2019-08-03 12:01 | RADIOLOGY REPORT (SQ) ---
EXAM DESCRIPTION: CT HEAD WITHOUT IMAGES COMPLETED DATE/TIME: 08/03/2019 11:52 am REASON FOR STUDY: syncope COMPARISON: 02/01/2017 TECHNIQUE: Axial images acquired through the brain without intravenous contrast. Images reviewed wi th bone, brain and subdural windows. Additional sagittal and coronal reconstructions were generated. Images stored on PACS. All CT scanners at this facility use dose modulation, iterative reconstruction, and/or weight based d osing when appropriate to reduce radiation dose to as low as reasonably achievable (ALARA). [facility]: Dose Right [facility]: CareDose [facility]: Dose Right [facility]: Teradose 4D [facility]: [employer] RADIATION DOSE: CT Rad equipment meets quality standard of care and radiation dose reduction techniq ues were employed. CTDIvol: 48.6 mGy. DLP: 857 mGy-cm. mGy. LIMITATIONS: None. FINDINGS: VENTRICLES: Normal size and contour. CEREBRUM: No masses. No hemorrhage. No midline shift. No evidence for acute infarction. Normal gra y/white matter differentiation. No areas of low density in the white matter. CEREBELLUM: No masses. No hemorrhage. No alteration of density. No evidence for acute infarction. EXTRAAXIAL SPACES: No fluid collections. No masses. ORBITS AND GLOBE: No intra- or extraconal masses. Normal contour of globe without masses. CALVARIUM: No fracture. PARANASAL SINUSES: There is a small retention cyst or polyp in the left maxillary sinus. SOFT TISSUES: No mass or hematoma. OTHER: No other significant finding. IMPRESSION: NORMAL BRAIN CT WITHOUT CONTRAST. EVIDENCE OF ACUTE STROKE: NO. COMMENT: Quality ID # [id number]: Final reports with documentation of one or more dose reduction techniques (e.g., Automated exposure control, adjustment of the mA and/or kV according to patient size, use of iterative reconstruction technique) TECHNICAL DOCUMENTATION: JOB ID: [id number] 2010 [employer]- All Rights Reserved Reading location - IP/workstation name: [email or web address]
--- NOTE | 2019-08-03 13:32 | ER Document Report ---
ED Dizziness/Weakness - General Chief Complaint: Syncope Stated Complaint: SYNCOPE Time Seen by Provider: 08/03/19 11:24 Primary Care Provider: YESSY DELA CRUZ MD [Primary Care Provider] - Follow up as needed Mode of Arrival: Medic Information source: Patient TRAVEL OUTSIDE OF THE [place] IN LAST 30 DAYS: No - HPI Notes: Patient comes in complaining of "passing out". Patient states that he took his medicines this morning before eating and that usually he takes them after he eats. He states he was about to have the bite of a sandwich when he "passed out" and fell off of a chair. He states that he was assisted back up onto the chair and then had another episode of "passing out". He states this did happen once before several years ago but he is not sure what the diagnosis was. He states before he passed out he did not have any pain or shortness of breath. No known coronavirus exposures. He states he did feel slightly lightheaded and sweaty before he passed out. Patient states he is feeling better now. Patient symptoms were intermittent. They were moderate to severe. Nothing appears to make them better or worse. There is no no radiation of symptoms. - Related Data Allergies/Adverse Reactions: codeine Allergy (Verified 08/11/18 18:02) rash, disoriented Past Medical History - General Information source: Patient - Social History Smoking Status: Never Smoker Frequency of alcohol use: None Drug Abuse: None Family History: Hypertension Patient has suicidal ideation: No Patient has homicidal ideation: No - Past Medical History Cardiac Medical History: Reports: Hx Congestive Heart Failure, Hx Coronary Artery Disease - small blockage & small aortic valve leakage, Hx Hypercholesterolemia, Hx Hypertension Denies: Hx Atrial Fibrillation, Hx Heart Attack, Hx Peripheral Vascular Disease, Hx Pulmonary Embolism, Hx Heart Murmur Pulmonary Medical History: Reports: Hx Asthma - inhalers, Hx Pneumonia - 2 months ago, Hx Sleep Apnea - Uses CPAP Denies: Hx Bronchitis, Hx COPD, Hx Respiratory Failure, Hx Tuberculosis Neurological Medical History: Denies: Hx Cerebrovascular Accident, Hx Seizures, Hx Parkinson's Disease Endocrine Medical History: Reports: Hx Diabetes Mellitus Type 1, Hx Diabetes Mellitus Type 2, Hx Hypothyroidism. Denies: Hx Graves' Disease, Hx Hyperthyroidism Renal/ Medical History: Reports: Hx Renal Insufficiency. Denies: Hx Benign Prostatic Hyperplasia, Hx End Stage Renal Disease, Hx Kidney Stones, Hx Peritoneal Dialysis Malignancy Medical History: Denies Hx Leukemia, Denies Hx Lung Cancer GI Medical History: Reports: Hx Gastroesophageal Reflux Disease. Denies: Hx Crohn's Disease, Hx Hiatal Hernia, Hx Irritable Bowel, Hx Liver Failure, Hx Pancreatitis, Hx Ulcer Musculoskeletal Medical History: Reports Hx Arthritis, Denies Hx Fibromyalgia, Denies Hx Multiple Sclerosis, Denies Hx Muscular Dystrophy, Denies Hx Systemic Lupus Erythematosus Psychiatric Medical History: Reports: Hx Depression Denies: Hx Bipolar Disorder, Hx Dementia, Hx Post Traumatic Stress Disorder, Hx Schizophrenia Traumatic Medical History: Reports: Hx Fractures - left wrist Infectious Medical History: Denies: Hx HIV Past Surgical History: Reports: Hx Appendectomy, Hx Herniorrhaphy - Right inguinal area, Hx Orthopedic Surgery - right rotator cuff; left knee arthroplasty, Hx Tonsillectomy. Denies: Hx Bowel Surgery, Hx Cholecystectomy, Hx Colostomy, Hx Coronary Artery Bypass Graft, Hx Gastric Bypass Surgery, Hx Pacemaker - Immunizations Immunizations up to date: Yes Hx Diphtheria, Pertussis, Tetanus Vaccination: No Hx Pneumococcal Vaccination: 04/28/16 Review of Systems - Review of Systems Constitutional: denies: Chills, Fever Cardiovascular: denies: Chest pain, Palpitations Respiratory: denies: Cough, Short of breath -: Yes All other systems reviewed and negative Physical Exam - Vital signs Vitals: Resp BP 16 174/77 H 08/03/19 10:49 08/03/19 10:49 Interpretation: Hypertensive - General General appearance: Appears well, Alert - HEENT Head: Normocephalic, Atraumatic Eyes: Normal Pupils: PERRL - Respiratory Respiratory status: No respiratory distress Chest status: Nontender Breath sounds: Normal Chest palpation: Normal - Cardiovascular Rhythm: Regular Heart sounds: Normal auscultation Murmur: No - Abdominal Inspection: Normal Distension: No distension Bowel sounds: Normal Tenderness: Nontender Organomegaly: No organomegaly - Back Back: Normal, Nontender - Extremities General upper extremity: Normal inspection, Nontender, Normal color, Normal ROM, Normal temperature General lower extremity: Normal inspection, Nontender, Normal color, Normal ROM, Normal temperature, Normal weight bearing. No: Nicolasa's sign - Neurological Neuro grossly intact: Yes Cognition: Normal Orientation: AAOx4 Edgar Coma Scale Eye Opening: Spontaneous Edgar Coma Scale Verbal: Oriented Moore Coma Scale Motor: Obeys Commands Edgar Coma Scale Total: 15 Speech: Normal Cranial nerves: Normal Cerebellar coordination: Normal Motor strength normal: LUE, RUE, LLE, RLE Sensory: Normal - Psychological Associated symptoms: Normal affect, Normal mood - Skin Skin Temperature: Warm Skin Moisture: Dry Skin Color: Normal Course - Re-evaluation Re-evalutation: 08/03/19 13:33 Patient presents with syncope at home. He states he currently feels better. Here vital signs are stable. Laboratories are stable. EKG shows no evidence of arrhythmia. No obvious cause for the syncope is ascertained. Head CT also normal. Neurological exam unremarkable patient is pleasant talkative and playi ng on his phone in the room. I did discuss the case with the patient's primary care physician, Dr. Dela Cruz. He states he will see the patient in the office tomorrow. - Vital Signs Vital signs: Temp Pulse Resp BP Pulse Ox 98.2 F 64 14 157/76 H 98 08/03/19 10:55 08/03/19 10:55 08/03/19 11:01 08/03/19 11:01 08/03/19 10:55 - Laboratory Result Diagrams: 08/03/19 10:18 08/03/19 10:18 Laboratory results interpreted by me: 08/03/19 08/03/19 10:18 10:18 RBC 4.22 L Hgb 12.7 L Hct 36.7 L Carbon Dioxide 31 H BUN 46 H Creatinine 2.33 H Est GFR ( Amer) 33 L Est GFR (MDRD) Non-Af 27 L Glucose 142 H - Diagnostic Test Radiology reviewed: Image reviewed, Reports reviewed - EKG Interpretation by Ut EKG shows normal: Sinus rhythm Rate: Normal - 63 Rhythm: NSR [place]/QRS: No: Right axis deviation, Left axis deviation Discharge - Discharge Clinical Impression: Syncopal episodes Qualifiers: Syncope type: unspecified Qualified Code(s): R55 - Syncope and collapse Condition: Stable Disposition: HOME, SELF-CARE Instructions: Syncopal Episode ([facility]) Additional Instructions: Dr. Dela Cruz will see you in the office tomorrow. Please call Dr. Dela Cruz's office soon as possible to get the time for the appointment. Referrals: YESSY DELA CRUZ MD [Primary Care Provider] - Follow up tomorrow
[2019-08-03 13:50] LABS: APPEARANCE,URINE CLEAR; BILIRUBIN,URINE NEGATIVE (NEGATIVE); COLOR,URINE YELLOW; GLUCOSE, URINE NEGATIVE (NEGATIVE); KETONES,URINE NEGATIVE (NEGATIVE); LEUKOCYTE ESTERASE,URINE NEGATIVE (NEGATIVE); NITRITE,URINE NEGATIVE (NEGATIVE); PROTEIN,URINE 100 mg/dL (NEGATIVE); URINE SPECIFIC GRAVITY 1.009; UROBILINOGEN,URINE NEGATIVE mg/dL (<2.0)
[2019-08-03 13:54] VITALS: BP 177/75
--- NOTE | 2019-08-03 21:56 | EKG REPORT ---
SEVERITY:- BORDERLINE ECG - SINUS RHYTHM BORDERLINE T ABNORMALITIES, INFERIOR LEADS : Confirmed by: Arabella Vargas MD 03-Aug-2019 21:55:22
== END 2019-08-03 13:54 | disposition home or self-care (01) ==
LOC: ER 10:44
DX: R55 Syncope and collapse (principal); I25.10 Atherosclerotic heart disease of native coronary artery without angina pectoris; I10 Essential (primary) hypertension; J45.909 Unspecified asthma, uncomplicated; E11.9 Type 2 diabetes mellitus without complications; Z88.5 Allergy status to narcotic agent; Z88.6 Allergy status to analgesic agent
CPT/HCPCS: 36415; 70450; 80053; 81001; 82550; 82553; 84484; 85025; 93005; 93010; 99284

== ENCOUNTER → 2019-08-23 | Outpatient (CLI) | payer MEDICARE, OTHER ==
[2019-08-23 08:07] LABS: ALBUMIN 4.4 g/dL (3.5-5.0); ANION GAP 11 (5-19); BLOOD UREA NITROGEN 83 mg/dL (7-20); CALCIUM 10.3 mg/dL (8.4-10.2); CARBON DIOXIDE 28 mmol/L (22-30); CHLORIDE 100 mmol/L (98-107); GLUCOSE 146 mg/dL (75-110); PHOSPHORUS 5.2 mg/dL (2.5-4.5); POTASSIUM 4.5 mmol/L (3.6-5.0)
[2019-08-24 08:37] LABS: CREATININE URINE 69.4 mg/dL (Not Estab.)
[2019-08-24 09:23] LABS: MICROALBUMIN URINE 469.5 ug/mL (Not Estab.)
== END ==
LOC: OD 07:03
PROVIDERS: ATTEND Internal Medicine Nephrology
DX: I12.9 Hypertensive chronic kidney disease with stage 1 through stage 4 chronic kidney disease, or unspecified chronic kidney disease (principal); N18.4 Chronic kidney disease, stage 4 (severe); E11.22 Type 2 diabetes mellitus with diabetic chronic kidney disease; R60.9 Edema, unspecified
CPT/HCPCS: 36415; 80069; 82043; 82570; 83735

== ENCOUNTER → 2019-10-15 | Outpatient (CLI) | payer MEDICARE, OTHER ==
[2019-10-15 09:50] LABS: ALBUMIN 4.7 g/dL (3.5-5.0); ANION GAP 12 (5-19); BLOOD UREA NITROGEN 83 mg/dL (7-20); CALCIUM 10.7 mg/dL (8.4-10.2); CARBON DIOXIDE 28 mmol/L (22-30); CHLORIDE 103 mmol/L (98-107); GLUCOSE 65 mg/dL (75-110); PHOSPHORUS 5.5 mg/dL (2.5-4.5); POTASSIUM 4.1 mmol/L (3.6-5.0)
[2019-10-16 11:37] LABS: CREATININE URINE 62.2 mg/dL (Not Estab.); MICROALBUMIN URINE 308.3 ug/mL (Not Estab.)
== END ==
LOC: OD 08:25
PROVIDERS: ATTEND Internal Medicine Nephrology
DX: N18.4 Chronic kidney disease, stage 4 (severe) (principal); E83.41 Hypermagnesemia; R80.2 Orthostatic proteinuria, unspecified
CPT/HCPCS: 36415; 80069; 82043; 82570; 83735

== ENCOUNTER → 2019-11-17 | Outpatient (CLI) | payer MEDICARE, OTHER ==
[2019-11-17 08:39] LABS: ABSOLUTE BASOPHILS # (AUTO) 0.1 10^3/uL (0.0-0.2); ABSOLUTE EOSINOPHILS # (AUTO) 0.5 10^3/uL (0.0-0.6); ABSOLUTE LYMPHOCYTES (AUTO) 3.3 10^3/uL (0.5-4.7); ABSOLUTE MONOCYTES (AUTO) 0.9 10^3/uL (0.1-1.4); ABSOLUTE NEUT (AUTO) 6.2 10^3/uL (1.7-8.2); BASOPHILS % (AUTO) 1.2 % (0-2); EOSINOPHILS % (AUTO) 4.8 % (0-6); HEMOGLOBIN 13.7 g/dL (13.5-17.0); LYMPHOCYTES % (AUTO) 29.7 % (13-45); MEAN CORPUSCULAR HEMOGLOBIN 30.1 pg (27.0-33.4); MEAN CORPUSCULAR HGB CONC 34.2 g/dL (32.0-36.0); MEAN CORPUSCULAR VOLUME 88 fl (80-97); MONOCYTES % (AUTO) 8.2 % (3-13); PLATELET COUNT 339 10^3/uL (150-450); RED BLOOD COUNT 4.56 10^6/uL (4.35-5.55); RED CELL DISTRIBUTION WIDTH 14.2 % (11.5-14.0); SEGMENTED NEUTROPHILS % (AUTO) 56.1 % (42-78); TOTAL CELLS COUNTED % (AUTO) 100 %
[2019-11-17 08:41] LABS: APPEARANCE,URINE CLEAR; BILIRUBIN,URINE NEGATIVE (NEGATIVE); COLOR,URINE STRAW; GLUCOSE, URINE 50 mg/dL (NEGATIVE); KETONES,URINE NEGATIVE (NEGATIVE); LEUKOCYTE ESTERASE,URINE NEGATIVE (NEGATIVE); NITRITE,URINE NEGATIVE (NEGATIVE); PROTEIN,URINE 30 mg/dL (NEGATIVE); UROBILINOGEN,URINE NEGATIVE mg/dL (<2.0)
[2019-11-17 08:59] LABS: ALBUMIN 4.8 g/dL (3.5-5.0); ALKALINE PHOSPHATASE 105 U/L (38-126); ANION GAP 14 (5-19); ASPARTATE AMINO TRANSFERASE 22 U/L (17-59); BILIRUBIN,TOTAL 0.5 mg/dL (0.2-1.3); BLOOD UREA NITROGEN 112 mg/dL (7-20); CALCIUM 10.8 mg/dL (8.4-10.2); CARBON DIOXIDE 25 mmol/L (22-30); CHLORIDE 100 mmol/L (98-107); GLUCOSE 180 mg/dL (75-110); PHOSPHORUS 5.8 mg/dL (2.5-4.5); TOTAL PROTEIN 8.5 g/dL (6.3-8.2)
[2019-11-18 10:37] LABS: CREATININE URINE 43.2 mg/dL (Not Estab.); MICROALBUMIN URINE 230.2 ug/mL (Not Estab.)
== END ==
LOC: OD 08:11
PROVIDERS: ATTEND Internal Medicine Nephrology
DX: N18.4 Chronic kidney disease, stage 4 (severe) (principal); R80.9 Proteinuria, unspecified; E83.39 Other disorders of phosphorus metabolism
CPT/HCPCS: 36415; 80053; 81001; 82043; 82306; 82570; 83735; 83970; 84100; 84165; 85025

== ENCOUNTER → 2019-11-23 | Outpatient (CLI) | payer MEDICARE, OTHER ==
[2019-11-23 08:53] LABS: ANION GAP 10 (5-19); BLOOD UREA NITROGEN 90 mg/dL (7-20); CALCIUM 11.3 mg/dL (8.4-10.2); CARBON DIOXIDE 23 mmol/L (22-30); CHLORIDE 108 mmol/L (98-107); GLUCOSE 114 mg/dL (75-110); POTASSIUM 4.9 mmol/L (3.6-5.0)
== END ==
LOC: OD 07:02
PROVIDERS: ATTEND Internal Medicine Nephrology
DX: N18.4 Chronic kidney disease, stage 4 (severe) (principal)
CPT/HCPCS: 36415; 80048

== ENCOUNTER → 2020-01-24 | Outpatient (CLI) | payer MEDICARE, OTHER ==
[2020-01-24 09:02] LABS: ABSOLUTE BASOPHILS # (AUTO) 0.1 10^3/uL (0.0-0.2); ABSOLUTE EOSINOPHILS # (AUTO) 0.5 10^3/uL (0.0-0.6); ABSOLUTE LYMPHOCYTES (AUTO) 2.5 10^3/uL (0.5-4.7); ABSOLUTE MONOCYTES (AUTO) 0.9 10^3/uL (0.1-1.4); ABSOLUTE NEUT (AUTO) 6.3 10^3/uL (1.7-8.2); BASOPHILS % (AUTO) 0.7 % (0-2); EOSINOPHILS % (AUTO) 4.6 % (0-6); HEMATOCRIT 38.2 % (37.9-51.0); HEMOGLOBIN 13.1 g/dL (13.5-17.0); LYMPHOCYTES % (AUTO) 24.7 % (13-45); MEAN CORPUSCULAR HEMOGLOBIN 30.8 pg (27.0-33.4); MEAN CORPUSCULAR HGB CONC 34.5 g/dL (32.0-36.0); MEAN CORPUSCULAR VOLUME 89 fl (80-97); MONOCYTES % (AUTO) 8.5 % (3-13); PLATELET COUNT 316 10^3/uL (150-450); RED BLOOD COUNT 4.27 10^6/uL (4.35-5.55); RED CELL DISTRIBUTION WIDTH 13.5 % (11.5-14.0); SEGMENTED NEUTROPHILS % (AUTO) 61.5 % (42-78); TOTAL CELLS COUNTED % (AUTO) 100 %; WHITE BLOOD COUNT 10.2 10^3/uL (4.0-10.5)
[2020-01-24 09:16] LABS: APPEARANCE,URINE CLEAR; BILIRUBIN,URINE NEGATIVE (NEGATIVE); COLOR,URINE STRAW; GLUCOSE, URINE 150 mg/dL (NEGATIVE); KETONES,URINE NEGATIVE (NEGATIVE); LEUKOCYTE ESTERASE,URINE NEGATIVE (NEGATIVE); NITRITE,URINE NEGATIVE (NEGATIVE); PROTEIN,URINE 30 mg/dL (NEGATIVE); URINE SPECIFIC GRAVITY 1.011; UROBILINOGEN,URINE NEGATIVE mg/dL (<2.0)
[2020-01-24 09:26] LABS: ALBUMIN 4.4 g/dL (3.5-5.0); ANION GAP 16 (5-19); BLOOD UREA NITROGEN 97 mg/dL (7-20); CALCIUM 10.3 mg/dL (8.4-10.2); CARBON DIOXIDE 20 mmol/L (22-30); CHLORIDE 105 mmol/L (98-107); GLUCOSE 203 mg/dL (75-110); PHOSPHORUS 5.8 mg/dL (2.5-4.5)
[2020-01-25 13:37] LABS: CREATININE URINE 64.7 mg/dL (Not Estab.); MICROALBUMIN URINE 183.5 ug/mL (Not Estab.)
== END ==
LOC: OD 08:27
PROVIDERS: ATTEND Internal Medicine Nephrology
DX: E83.52 Hypercalcemia (principal); E83.41 Hypermagnesemia; N18.4 Chronic kidney disease, stage 4 (severe); D63.1 Anemia in chronic kidney disease
CPT/HCPCS: 36415; 80069; 81001; 82043; 82164; 82306; 82397; 82570; 83735; 83970; 85025

== ENCOUNTER → 2020-02-10 | Outpatient (CLI) | payer MEDICARE, OTHER ==
--- NOTE | 2020-02-10 15:07 | RADIOLOGY REPORT (SQ) ---
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 Images reviewed wi th bone, brain and subdural windows. Additional sagittal and coronal reconstructions were generated. Images stored on PACS. All CT scanners at this facility use dose modulation, iterative reconstruction, and/or weight based d osing when appropriate to reduce radiation dose to as low as reasonably achievable (ALARA). [facility]: Dose Right [facility]: CareDose [facility]: Dose Right [facility]: Teradose 4D [facility]: [employer] RADIATION DOSE: CT Rad equipment meets quality standard of care and radiation dose reduction techniq ues were employed. CTDIvol: 48.6 mGy. DLP: 856 mGy-cm. mGy. LIMITATIONS: None. FINDINGS: VENTRICLES: Normal size and contour. CEREBRUM: No masses. No hemorrhage. No midline shift. No evidence for acute infarction. Normal gra y/white matter differentiation. No areas of low density in the white matter. CEREBELLUM: No masses. No hemorrhage. No alteration of density. No evidence for acute infarction. EXTRAAXIAL SPACES: No fluid collections. No masses. ORBITS AND GLOBE: Left optic prosthesis. CALVARIUM: No fracture. PARANASAL SINUSES: No fluid or mucosal thickening. SOFT TISSUES: No mass or hematoma. OTHER: No other significant finding. IMPRESSION: NORMAL BRAIN CT WITHOUT CONTRAST. EVIDENCE OF ACUTE STROKE: NO. COMMENT: Quality ID # [id number]: Final reports with documentation of one or more dose reduction techniques (e.g., Automated exposure control, adjustment of the mA and/or kV according to patient size, use of iterative reconstruction technique) TECHNICAL DOCUMENTATION: JOB ID: [id number] 2010 [employer]- All Rights Reserved Reading location - IP/workstation name: [email or web address]
--- NOTE | 2020-02-10 15:22 | RADIOLOGY REPORT (SQ) ---
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 Images stored on PACS. LIMITATIONS: None. FINDINGS: RIGHT CAROTID CCA Velocities: Within normal limits. ICA Velocities Peak systolic 135 cm/s. End diastolic 21 cm/s. Proximal ICA/CCA peak systolic ratio 1.06. Small amount plaque in the common carotid and carotid bulb. Less than 50% stenosis. LEFT CAROTID CCA Velocities: Within normal limits. ICA Velocities Peak systolic 167 cm/s. End diastolic 33 cm/s. Proximal ICA/CCA peak systolic ratio 1.44. No significant plaque. There is tortuosity of the left CCA and ICA. Less than 50% stenosis. VERTEBRAL ARTERIES: Antegrade flow. Normal waveforms. SUBCLAVIAN ARTERIES: No finding. OTHER: No other significant finding. IMPRESSION: NO HEMODYNAMICALLY SIGNIFICANT STENOSIS. COMMENT: Quality ID #[id number]: Velocity criteria are extrapolated from the diameter data as defined by t he Society of Radiologists in Ultrasound Consensus Conference. Radiology 2003: 229; 340-346. TECHNICAL DOCUMENTATION: JOB ID: [id number] 2010 [employer]- All Rights Reserved Reading location - IP/workstation name: [email or web address]
== END ==
LOC: RAD 13:17
PROVIDERS: ATTEND Family Medicine
DX: G45.9 Transient cerebral ischemic attack, unspecified (principal)
CPT/HCPCS: 70450; 93880

== ENCOUNTER → 2020-02-14 | Outpatient (CLI) | payer MEDICARE, OTHER ==
--- NOTE | 2020-02-14 13:48 | RADIOLOGY REPORT (SQ) ---
EXAM DESCRIPTION: CHEST PA/LATERAL IMAGES COMPLETED DATE/TIME: 02/14/2020 1:18 pm REASON FOR STUDY: COUGH COMPARISON: 02/05/2017 EXAM PARAMETERS: NUMBER OF VIEWS: two views TECHNIQUE: Digital Frontal and Lateral radiographic views of the chest acquired. RADIATION DOSE: NA LIMITATIONS: none FINDINGS: LUNGS AND PLEURA: No focal consolidation, pleural effusion or pneumothorax. Stable focal nodular opacity over the right upper lung compared to 2017, likely calcified granuloma. MEDIASTINUM AND HILAR STRUCTURES: No adenopathy. Calcified right hilar nodes compatible prior granul omatous disease. HEART AND VASCULAR STRUCTURES: Heart normal size. No evidence for failure. BONES: No acute findings. HARDWARE: None in the chest. OTHER: No other significant finding. IMPRESSION: No evidence of acute intrathoracic process. Stable right upper lobe and right hilar calcified nodules compatible with prior granulomatous disease . TECHNICAL DOCUMENTATION: JOB ID: [id number] 2010 [employer]- All Rights Reserved Reading location - IP/workstation name: [email or web address]
== END ==
LOC: OD 13:00
PROVIDERS: ATTEND Family Medicine
DX: R05 Cough (principal); E78.5 Hyperlipidemia, unspecified
CPT/HCPCS: 71046

== ENCOUNTER → 2020-05-01 | Outpatient (CLI) | payer MEDICARE, OTHER ==
[2020-05-01 08:16] LABS: ABSOLUTE EOSINOPHILS # (AUTO) 0.3 10^3/uL (0.0-0.6); ABSOLUTE LYMPHOCYTES (AUTO) 2.8 10^3/uL (0.5-4.7); ABSOLUTE MONOCYTES (AUTO) 0.7 10^3/uL (0.1-1.4); ABSOLUTE NEUT (AUTO) 4.4 10^3/uL (1.7-8.2); BASOPHILS % (AUTO) 0.6 % (0-2); EOSINOPHILS % (AUTO) 3.2 % (0-6); HEMATOCRIT 37.2 % (37.9-51.0); HEMOGLOBIN 12.6 g/dL (13.5-17.0); LYMPHOCYTES % (AUTO) 34.5 % (13-45); MEAN CORPUSCULAR HEMOGLOBIN 28.8 pg (27.0-33.4); MEAN CORPUSCULAR HGB CONC 33.8 g/dL (32.0-36.0); MEAN CORPUSCULAR VOLUME 85 fl (80-97); MONOCYTES % (AUTO) 8.8 % (3-13); PLATELET COUNT 293 10^3/uL (150-450); RED BLOOD COUNT 4.37 10^6/uL (4.35-5.55); RED CELL DISTRIBUTION WIDTH 14.4 % (11.5-14.0); SEGMENTED NEUTROPHILS % (AUTO) 52.9 % (42-78); TOTAL CELLS COUNTED % (AUTO) 100 %; WHITE BLOOD COUNT 8.3 10^3/uL (4.0-10.5)
[2020-05-01 08:28] LABS: APPEARANCE,URINE CLEAR; BILIRUBIN,URINE NEGATIVE (NEGATIVE); COLOR,URINE YELLOW; GLUCOSE, URINE NEGATIVE (NEGATIVE); KETONES,URINE NEGATIVE (NEGATIVE); LEUKOCYTE ESTERASE,URINE NEGATIVE (NEGATIVE); NITRITE,URINE NEGATIVE (NEGATIVE); PROTEIN,URINE >=500 mg/dL (NEGATIVE); URINE SPECIFIC GRAVITY 1.013; UROBILINOGEN,URINE NEGATIVE mg/dL (<2.0)
[2020-05-01 08:40] LABS: ANION GAP 8 (5-19); BLOOD UREA NITROGEN 44 mg/dL (7-20); CALCIUM 10.1 mg/dL (8.4-10.2); CARBON DIOXIDE 32 mmol/L (22-30); CHLORIDE 103 mmol/L (98-107); GLUCOSE 99 mg/dL (75-110); PHOSPHORUS 4.2 mg/dL (2.5-4.5); POTASSIUM 3.5 mmol/L (3.6-5.0)
[2020-05-02 10:37] LABS: CREATININE URINE 99.8 mg/dL (Not Estab.)
[2020-05-02 11:32] LABS: MICROALBUMIN URINE 1394.5 ug/mL (Not Estab.)
== END ==
LOC: OD 07:37
PROVIDERS: ATTEND Internal Medicine Nephrology
DX: E11.22 Type 2 diabetes mellitus with diabetic chronic kidney disease (principal); N18.4 Chronic kidney disease, stage 4 (severe)
CPT/HCPCS: 36415; 80069; 81001; 82043; 82306; 82570; 83735; 83970; 85025

== ENCOUNTER → 2020-05-22 | Outpatient (CLI) | payer MEDICARE, OTHER ==
--- NOTE | 2020-05-22 13:05 | RADIOLOGY REPORT (SQ) ---
EXAM DESCRIPTION: HIP BILATERAL IMAGES COMPLETED DATE/TIME: 05/22/2020 12:41 pm REASON FOR STUDY: R HIP PAIN M25.551 PAIN IN RIGHT HIP COMPARISON: None. NUMBER OF VIEWS: Two views. TECHNIQUE: AP pelvis and additional frog legview of the right and left hip. LIMITATIONS: None. FINDINGS: MINERALIZATION: Normal. Right HIP: No fracture or dislocation. No worrisome bone lesions. No contour deformity. No joint sp jillian narrowing. Left HIP: No fracture or dislocation. No worrisome bone lesions. Limited views. PUBIS AND ISCHIUM: No fracture. PELVIS: No fracture. SACRUM: No fracture or dislocation. No worrisome bone lesions. LOWER LUMBAR SPINE: Lower lumbar degenerative disc disease and spondylosis. SOFT TISSUES: No findings. OTHER: No other significant finding. IMPRESSION: Normal hips. Lower lumbar degenerative changes. TECHNICAL DOCUMENTATION: JOB ID: [id number] 2010 [employer]- All Rights Reserved Reading location - IP/workstation name: [email or web address]
== END ==
LOC: RAD 12:09
PROVIDERS: ATTEND Family Medicine
DX: M25.551 Pain in right hip (principal)
CPT/HCPCS: 73522

== ENCOUNTER → 2020-05-22 | Outpatient (CLI) | payer MEDICARE, OTHER ==
[2020-05-22 07:59] LABS: ANION GAP 16 (5-19); CARBON DIOXIDE 25 mmol/L (22-30); CHLORIDE 99 mmol/L (98-107); GLUCOSE 119 mg/dL (75-110); POTASSIUM 5.2 mmol/L (3.6-5.0)
[2020-05-22 08:16] LABS: BLOOD UREA NITROGEN 139 mg/dL (7-20)
== END ==
LOC: OD 07:04
PROVIDERS: ATTEND Internal Medicine Nephrology
DX: E83.41 Hypermagnesemia (principal); N18.4 Chronic kidney disease, stage 4 (severe)
CPT/HCPCS: 36415; 80048; 83735